=== PATIENT | female | born 1950 | race Caucasian/White ===

== ENCOUNTER 2019-07-26 16:28 | Inpatient (IN) | payer OTHER ==
--- NOTE | 2019-07-26 16:44 | PDOC ---
Rapid Medical Evaluation Chief Complaint: Weakness Time Seen by Provider: 07/26/19 16:42 Medical Evaluation: Allergies Allergy/AdvReac Type Severity Reaction Status Date / Time No Known Allergies Allergy Verified 07/26/19 16:40 Vital Signs Temp Pulse Resp BP Pulse Ox 98.1 F 73 19 150/52 L 100 07/26/19 16:37 07/26/19 16:37 07/26/19 16:37 07/26/19 16:37 07/26/19 16:37 07/26/19 16:42 Pt c/o: gen weakness, sent by pcp for low h/h, hx anemia, no rectal bleeding, no sob Pt on brief exam: pale, ambulatory, vss Pt ordered for: labs, ekg Pt to proceed to the ED Discharge Disposition - Diagnosis Weakness, Dyspnea, Symptomatic anemia - Discharge Dispostion Condition at time of disposition: Fair - Referrals - Patient Instructions - Post Discharge Activity
[2019-07-26 18:30] LABS: BASO % 0.9 % (0-2.0); EOS % 9.5 % (0-4.5); HEMATOCRIT 20.6 % (32.4-45.2); HEMOGLOBIN 7.2 GM/dL (10.7-15.3); LYMPH % 20.5 % (8-40); MCH 31.3 pg (25.7-33.7); MCHC 34.7 g/dl (32.0-36.0); MEAN CELL VOLUME 90.2 fl (80-96); MEAN PLT VOLUME 7.3 fl (7.5-11.1); MONO % 7.9 % (3.8-10.2); NEUT % 61.2 % (42.8-82.8); PLATELET COUNT 164 K/MM3 (134-434); RBC 2.28 M/mm3 (3.60-5.2); RDW 13.1 % (11.6-15.6); WHITE BLOOD COUNT 4.2 K/mm3 (4.0-10.0)
--- NOTE | 2019-07-26 18:46 | PDOC ---
History of Present Illness - General Chief Complaint: Weakness Stated Complaint: ANEMIA Time Seen by Provider: 07/26/19 16:42 History Source: Patient, Family Exam Limitations: No Limitations - History of Present Illness Initial Comments: 07/26/19 18:48 69 yo F PMH of HTN, DM, anemia presented to ED from PMD ( Dr. Deangelo aNssar) for anemia and SOB. Pt states that for 4 months pt has been having SOB and associated pleuritic CP. Pt states that the symptoms acutely worsened last night. She states that the pain is worse when she takes a deep breath. it is b/ l pain. she notes its also positional. pt endorses orthopnea and dyspnea on exertion. Pt was admitted 3-4 weeks ago at [facility] for similar symptoms. Pt also endorses a headache and a non-productive cough 07/26/19 18:51 Is this a multiple visit Asthma Patient?: No Past History - Past Medical History Allergies/Adverse Reactions: Allergies Allergy/AdvReac Type Severity Reaction Status Date / Time No Known Allergies Allergy Verified 07/26/19 16:40 Home Medications: Ambulatory Orders Amlodipine Besylate 10 mg PO DAILY 07/26/19 Aspirin [Aquilino Chewable] 81 mg PO DAILY 07/26/19 Ferrous Sulfate 325 mg PO DAILY 07/26/19 Furosemide 40 mg PO DAILY 07/26/19 Isosorbide Mononitrate [Imdur -] 30 mg PO DAILY 07/26/19 Telmisartan/Hydrochlorothiazid [Micardis Hct 80-12.5 mg Tablet] 1 each PO hydrALAZINE HCL [Apresoline -] 50 mg PO TID 07/26/19 COPD: No Diabetes: Yes HTN: Yes - Surgical History Abdominal Surgery: Yes (HERNIA) Cholecystectomy: Yes - Psycho Social/Smoking Cessation Hx Smoking History: Never smoked Information on smoking cessation initiated: No Hx Alcohol Use: No Drug/Substance Use Hx: No Review of Systems - Review of Systems Constitutional: Yes: Chills Respiratory: Yes: Cough, Orthopnea, Shortness of Breath, SOB with Exertion. No : Productive cough Cardiac (ROS): Yes: Chest Pain, Edema, Chest Tightness *Physical Exam - Vital Signs Last Vital Signs Temp Pulse Resp BP Pulse Ox 98.1 F 73 19 150/52 L 100 07/26/19 16:37 07/26/19 16:37 07/26/19 16:37 07/26/19 16:37 07/26/19 16:37 - Physical Exam General Appearance: Yes: Nourished, Appropriately Dressed Respiratory/Chest: positive: Lungs Clear, Normal Breath Sounds. negative: Accessory Muscle Use, Rapid RR Cardiovascular: positive: Regular Rhythm, Regular Rate, S1, S2, Edema, JVD Gastrointestinal/Abdominal: positive: Normal Bowel Sounds, Tender (RLQ), Soft. negative: Distended Rectal Exam: positive: normal exam (Non-melanotic stool in vault, good sphincter tone, no external hemorrhoids visualized, no internal hemorrhoids palpated, no active bleeding noted, no blood on tip of glove) Extremity: positive: Swelling, Erythema (LLE) ED Treatment Course - LABORATORY CBC & Chemistry Diagram: 07/27/19 06:15 07/27/19 06:15 - ADDITIONAL ORDERS Additional order review: 07/26/19 18:09 RBC 2.28 L MCV 90.2 MCHC 34.7 RDW 13.1 MPV 7.3 L Neutrophils % 61.2 Lymphocytes % 20.5 Monocytes % 7.9 Eosinophils % 9.5 H Basophils % 0.9 Medical Decision Making - Medical Decision Making 07/26/19 18:47 69 yo F PMH HTN, DM, Anemia presented to the ED from her PMD for anemia and SOB. -EKG: NSR , no acute ST changed -CXR -CBC: Hgb 7.2, will transfuse 2 upRBC. consent signed. continue to monitor H/H. -CMP -cardiac profile pending -TSH pending 07/26/19 19:29 labs show increased Cr. BRADY vs CKD, further history needed. -awaiting UA 07/26/19 19:48 -on review of pts home meds, she takes many HF meds. pt states she had an Echo at [facility] and was supposed to have a cardiology appt but never went. pt is unaware of any cardiac problems. 07/26/19 19:49 Discharge - Discharge Information Problems reviewed: Yes Clinical Impression/Diagnosis: Weakness, Dyspnea, Symptomatic anemia Condition: Fair - Follow up/Referral - Patient Discharge Instructions - Post Discharge Activity
[2019-07-26 18:59] LABS: ALBUMIN 2.7 g/dl (3.4-5.0); ALK PHOS 90 U/L (45-117); ANION GAP 8 MMOL/L (8-16); BILIRUBIN,TOTAL 0.3 mg/dL (0.2-1); BLOOD UREA NITROGEN 45.4 mg/dL (7-18); CALCIUM 7.9 mg/dL (8.5-10.1); CHLORIDE 102 mmol/L (98-107); CO2 24 mmol/L (21-32); CREATININE 2.1 mg/dL (0.55-1.3); GLUCOSE,RANDOM 271 mg/dL (74-106); POTASSIUM 4.4 mmol/L (3.5-5.1); SGOT/AST 15 U/L (15-37); SGPT/ALT 16 U/L (13-61); SODIUM 134 mmol/L (136-145); TOT PROT 5.7 g/dl (6.4-8.2)
--- NOTE | 2019-07-26 19:03 | PDOC ---
Documentation entered by iGo Morales SCRIBE, acting as scribe for Erin Quinones DO. Erin Quinones DO: This documentation has been prepared by the Andrew marinelli Daniel, SCRIBE, under my direction and personally reviewed by me in its entirety. I confirm that the documentation accurately reflects all work, treatment, procedures, and medical decision making performed by me. Attending Attestation - Resident Resident Name: Nellie Garcia - ED Attending Attestation I have performed the following: I have examined & evaluated the patient, The case was reviewed & discussed with the resident, I agree w/resident's findings & plan, Exceptions are as noted - HPI HPI: 07/26/19 18:39 The patient is a 69 year old female with a past medical history of HTN, diabetes , and anemia here today for evaluation of shortness of breath and chest pain. The patient reports that her chest pain and shortness of breath began 4 months ago while she was in [place] (came to the [facility] in May). She states that her chest pain is worse with deep breaths and is somewhat poitional. She states that she was admitted at [facility] recently for the same symptoms. Patient also reports that her PCP told her to come in for a blood transfusion after blood work yesterday. Patient denies headache, lightheadedness. Denies fever, chills. Denies nausea, vomiting, diarrhea, abdominal pain. Last BM: 4 PM Allergies: NKA PCP: Deangelo Nassar - Physicial Exam PE: 07/26/19 18:50 Constitutional: Awake, alert, oriented. No acute distress. Head: Normocephalic. Atraumatic Eyes: PERRL. EOMI. Conjunctivae are very pale. ENT: Mucous membranes are pale and intact. Posterior pharynx without exudates or erythema. Uvula midline. Neck: Supple. Full ROM. No lymphadenopathy. Cardiovascular: Regular rate. Regular rhythm. S1, S2 regular. Distal pulses are 2+ and symmetric. Pulmonary/Chest: No evidence of respiratory distress. Clear to auscultation bilaterally No wheezing, rales or rhonchi. Abdominal: +right upper quadrant tenderness s/p cholecystectomy. Soft and non- distended. No rebound, guarding or rigidity. No organomegaly. No palpable masses. Good bowel sounds. Back: No CVA tenderness. Musculoskeletal: No edema. No cyanosis. No clubbing. Full range of motion in all extremities. No calf tenderness. Radial/pedal pulses are intact and 2+ bilaterally Skin: Skin is warm and dry. No petechiae. No purpura. Neurological: Alert and oriented to person, place, and time. Cranial nerves II -XII are grossly intact. Normal speech. Strength is grossly symmetric. No sensory deficits. Psychiatric: Good eye contact. Normal interaction, affect and behavior. - Medical Decision Making 07/26/19 18:59 I, Dr. Erin Quinones, DO, attest that this document has been prepared under my direction and personally reviewed by me in its entirety. I further attest, that it accurately reflects all work, treatment, procedures and medical decision -making performed by me. a/p: 69yo female from [place] with sob x a few days -worsening over 4 m -sent by PMD for low h/h -pt denies cp/sob at this time -denies abd pain -no n/v/d -denies vomiting blood or black stools -denies blood in stool -no prior colonoscopy -denies hematuria -will repeat labs, ekg, stool for heme -will most likely need a blood transfusion 07/26/19 19:03 hgb 7.2 given cardiac hx based on med list will need transfusion to hgb 9 pt with cr 2 - unclear if new zoila or ckd -will nee admission 07/26/19 19:[address] Dior - accepts pt to service for blood transfusion and symptomatic anemia Discharge - Discharge Information Problems reviewed: Yes Clinical Impression/Diagnosis: Weakness, Dyspnea, Symptomatic anemia Condition: Fair - Admission Yes - Follow up/Referral - Patient Discharge Instructions - Post Discharge Activity Heart Score/ECG Review - ECG Intrepretation Comment:: 07/26/19 19:09 sinus at 75, nl axis, nl interval, no acute st/t wave findings
[2019-07-26 20:01] LABS: MAGNESIUM 2.8 mg/dL (1.8-2.4); N-TERMINAL BNP 3323.7 pg/ml (5-125)
[2019-07-26 21:15] LABS: INR 0.99 (0.83-1.09); PROTHROMBIN TIME (PATIENT) 11.7 SEC (9.7-13.0)
[2019-07-26 21:18] LABS: ACTIVATED PTT 35.7 SECONDS (25.2-36.5)
[2019-07-27] MEDS: hydrALAZINE HCL 50 MG TABLET (FP) PO SCH ×2 (05:31→14:44)
[2019-07-27] MEDS: amLODIPine BESYLATE 10 MG TABLET (FP) PO SCH (06:12)
[2019-07-27] MEDS: FUROSEMIDE 40 MG/4 ML INJECTABLE VIAL IVPUSH SCH (06:12)
[2019-07-27 08:07] LABS: BASO % 0.7 % (0-2.0); EOS % 9.9 % (0-4.5); HEMATOCRIT 26.8 % (32.4-45.2); HEMOGLOBIN 9.5 GM/dL (10.7-15.3); LYMPH % 23.5 % (8-40); MCH 31.7 pg (25.7-33.7); MCHC 35.5 g/dl (32.0-36.0); MEAN CELL VOLUME 89.4 fl (80-96); MEAN PLT VOLUME 7.3 fl (7.5-11.1); MONO % 7.2 % (3.8-10.2); NEUT % 58.7 % (42.8-82.8); PLATELET COUNT 182 K/MM3 (134-434); RBC 2.99 M/mm3 (3.60-5.2); RDW 12.7 % (11.6-15.6); WHITE BLOOD COUNT 5.8 K/mm3 (4.0-10.0)
[2019-07-27 08:57] LABS: BILIRUBIN,TOTAL 1.6 mg/dL (0.2-1); BLOOD UREA NITROGEN 36.1 mg/dL (7-18); CALCIUM 8.7 mg/dL (8.5-10.1); CREATININE 1.7 mg/dL (0.55-1.3); POTASSIUM 4.1 mmol/L (3.5-5.1); TOT PROT 6.2 g/dl (6.4-8.2)
[2019-07-27] MEDS ORDERED: FUROSEMIDE 40 MG/4 ML INJECTABLE VIAL IVPUSH SCH (10:00)
[2019-07-27] MEDS ORDERED: amLODIPine BESYLATE 10 MG TABLET (FP) PO SCH (10:00)
[2019-07-27] MEDS ORDERED: PATIENT'S OWN MEDICATION (NON-FORMULARY) (Ferrous Sulfate [Ferrous Sulfate] 325 MG) PO SCH (10:00)
[2019-07-27] MEDS: HEPARIN NA (PORCINE) 5,000 UNITS/ML 1ML VIAL SQ SCH ×2 (11:13→21:32)
[2019-07-27] MEDS: ASPIRIN 81 MG CHEWABLE TABLETS PO SCH (11:14)
[2019-07-27] MEDS: ISOSORBIDE MONONITRATE 30 MG TAB.SR.24H (FP) PO SCH (11:14)
[2019-07-27] MEDS: FERROUS SO4 325 MG TABLET (FP) PO SCH (11:14)
[2019-07-27 12:27] LABS: EPI CELLS 0.5 /HPF (0-5/HPF); HYALINE CASTS 2 /lpf (0-8); PH,URINE 5.5 (5.0-8.0); URINE APPEARANCE CLEAR; URINE BACTERIA 0.8 /hpf (NEGATIVE); URINE BILIRUBIN NEGATIVE (NEGATIVE); URINE COLOR YELLOW; URINE GLUCOSE (UA) NEGATIVE (NEGATIVE); URINE KETONE NEGATIVE (NEGATIVE); URINE LEUK ESTERASE NEGATIVE (NEGATIVE); URINE NITRITE NEGATIVE (NEGATIVE); URINE PROTEIN 2+ (NEGATIVE); URINE RBC 3 /hpf (0-4); URINE UROBILINOGEN 0.2 mg/dL (0.2-1.0); URINE WBC 1 /hpf (0-5)
--- NOTE | 2019-07-27 13:35 | EKG ---
Test Reason : Blood Pressure : / mmHG Vent. Rate : 075 BPM Atrial Rate : 075 BPM P-R Int : 158 ms QRS Dur : 080 ms QT Int : 406 ms P-R-T Axes : 040 -03 036 degrees QTc Int : 453 ms NORMAL SINUS RHYTHM NORMAL ECG NO PREVIOUS ECGS AVAILABLE Confirmed by KERRI RIBERA MD ([id number]) on 07/27/2019 1:35:03 PM Referred By: Confirmed By:KERRI RIBERA MD
--- NOTE | 2019-07-27 14:04 | ECHO ---
Name: SOPHIE THOMSONBRITTNEY FELIXIA Exam:Adult Echocardiogram Study Date: 07/27/2019 08:37 AM Age: 69 yrs Reason For Study: CHF Height: 59 in Weight: 123 lb BSA: 1.5 m2 MMode/2D Measurements & Calculations IVSd: 0.97 cm Ao root diam: 2.2 cm LVIDd: 4.2 cm LA dimension: 3.8 cm LVIDs: 2.9 cm LVPWd: 1.1 cm LVPWs: 1.5 cm EDV(Teich): 80.1 ml ESV(Teich): 31.0 ml LVOT diam: 1.6 cm LAV (MOD-bp): 50.0 ml Doppler Measurements & Calculations MV E max derrick: 120.6 cm/sec Ao V2 max: 136.3 cm/sec MV A max derrick: 129.4 cm/sec Ao max P.8 mmHg MV E/A: 0.93 MV dec time: 0.14 sec MANUEL(V,D): 1.5 cm2 LV V1 max P.5 mmHg MR max derrick: 474.9 cm/sec LV V1 max: 106.4 cm/sec MR max P.6 mmHg PA V2 max: 148.0 cm/sec Med Peak E' Derrick: 4.9 cm/sec PA max P.8 mmHg Med E/e': 24.4 Lat Peak E' Derrick: 7.3 cm/sec Lat E/e': 16.4 Procedure A complete two-dimensional transthoracic echocardiogram was performed (2D, M-mode, Doppler and color flow Doppler). Left Ventricle The left ventricular size, thickness and function are normal. The left ventricular ejection fraction is normal. Ejection Fraction = 60-65%. The left ventricular wall motion is normal. Right Ventricle The right ventricle is normal in size and function. Atria Normal left and right atrial size and function. Mitral Valve There is mild mitral regurgitation. Tricuspid Valve No tricuspid regurgitation. There was insufficient TR detected to calculate RV systolic pressure. Aortic Valve No hemodynamically significant valvular aortic stenosis. No aortic regurgitation is present. Pulmonic Valve There is no pulmonic valvular regurgitation. Great Vessels The aortic root is normal size. Pericardium/Pleura Trivial pericardial effusion not hemodynamically significant. Interpretation Summary The left ventricular size, thickness and function are normal The right ventricle is normal in size and function. There is mild mitral regurgitation. Trivial pericardial effusion not hemodynamically significant MD Edwin Man 07/27/2019 02:03 PM
--- NOTE | 2019-07-27 14:25 | CONSULT ---
Consult Consult Specialty:: Nephrology Reason for Consultation:: BRADY - History of Present Illness Chief Complaint: shortness of breath History of Present Illness: Pt is a 69 year old female who presents with shortness of breath. She has history of HTN DM and anemia. She denies history of CKD. I was called to evaluate her for elevated creatinine. She says she has htn that is difficult to control. She is on 5 agents for bp. She does get shortness of breath at times however denies lower ext edema. She denies fevers or chills. She denies nsaid use. She denies hematuria or dysuria. - History Source History Provided By: Patient - Past Medical History Cardio/Vascular: Yes: HTN ...: No Heme/Onc: Yes: Anemia Endocrine: Yes: Diabetes Mellitus - Alcohol/Substance Use Hx Alcohol Use: No - Smoking History Smoking history: Never smoked Home Medications - Allergies Allergies/Adverse Reactions: Allergies Allergy/AdvReac Type Severity Reaction Status Date / Time No Known Allergies Allergy Verified 07/26/19 16:40 - Home Medications Home Medications: Ambulatory Orders Amlodipine Besylate 10 mg PO DAILY 07/26/19 Aspirin [Aquilino Chewable] 81 mg PO DAILY 07/26/19 Ferrous Sulfate 325 mg PO DAILY 07/26/19 Furosemide 40 mg PO DAILY 07/26/19 Isosorbide Mononitrate [Imdur -] 30 mg PO DAILY 07/26/19 Telmisartan/Hydrochlorothiazid [Micardis Hct 80-12.5 mg Tablet] 1 each PO hydrALAZINE HCL [Apresoline -] 50 mg PO TID 07/26/19 Family Medical History Family History: Denies Review of Systems - Review of Systems Constitutional: reports: Malaise Eyes: reports: No Symptoms HENT: reports: No Symptoms Neck: reports: No Symptoms Cardiovascular: reports: Chest Pain Respiratory: reports: SOB, SOB on Exertion Genitourinary: reports: No Symptoms Musculoskeletal: reports: No Symptoms Integumentary: reports: No Symptoms Neurological: reports: No Symptoms Endocrine: reports: No Symptoms Hematology/Lymphatic: reports: No Symptoms Psychiatric: reports: No Symptoms Physical Exam Vital Signs: Vital Signs Temperature 97.8 F 07/27/19 05:23 Pulse Rate 87 07/27/19 06:56 Respiratory Rate 18 07/27/19 05:23 Blood Pressure 182/79 H 07/27/19 06:56 O2 Sat by Pulse Oximetry (%) 96 07/27/19 05:58 Constitutional: Yes: Calm Eyes: Yes: Conjunctiva Clear HENT: Yes: Atraumatic Neck: Yes: Supple Cardiovascular: Yes: S1, S2 Respiratory: Yes: CTA Bilaterally Gastrointestinal: Yes: Normal Bowel Sounds, Soft Renal/: Yes: WNL Musculoskeletal: Yes: WNL Edema: No Neurological: Yes: Oriented Psychiatric: Yes: Oriented Labs: CBC, BMP 07/27/19 06:15 07/27/19 06:15 Selected Entries 07/27/19 07/27/19 06:56 14:00 Blood Pressure 182/79 H 151/71 Laboratory Tests 07/26/19 07/26/19 07/27/19 18:09 18:09 06:15 Hgb 7.2 L 9.5 L Sodium Creatinine 2.1 H B-Natriuretic Peptide 3323.7 H Urine Protein 07/27/19 07/27/19 06:15 11:30 Hgb Sodium 138 Creatinine 1.7 H B-Natriuretic Peptide Urine Protein 2+ H Imaging - Results Chest X-ray: Report Reviewed Ultrasound: Report Reviewed Assessment/Plan Current Medications Generic Name Dose Route Start Last Admin Trade Name Freq PRN Reason Stop Dose Admin Amlodipine Besylate 10 mg 07/27/19 06:00 07/27/19 06:12 Norvasc - PO 10 mg DAILY ECHO Administration Aspirin 81 mg 07/27/19 10:00 07/27/19 11:14 Asa - PO 81 mg DAILY ECHO Administration Ferrous Sulfate 325 mg 07/27/19 10:00 07/27/19 11:14 Feosol - PO 325 mg DAILY ECHO Administration Furosemide 40 mg 07/27/19 06:00 07/27/19 06:12 Lasix Injection - IVPUSH 40 mg DAILY ECHO Administration Heparin Sodium (Porcine) 5,000 unit 07/27/19 10:00 07/27/19 11:13 Heparin - SQ 5,000 unit BID ECHO Administration Hydralazine HCl 50 mg 07/27/19 06:00 07/27/19 05:31 Apresoline - PO 50 mg TID ECHO Administration Isosorbide Mononitrate 30 mg 07/27/19 10:00 07/27/19 11:14 Imdur - PO 30 mg DAILY ECHO Administration Impression 1. BRADY 2. HTN 3. DM 4. bilateral hydro 5. 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
--- NOTE | 2019-07-27 16:51 | CON.CARD ---
Consult Consult Specialty:: cardiology Reason for Consultation:: shortness of breath - History of Present Illness Chief Complaint: Pt alert; feels weak; easily short of breath; heaviness in legs. History of Present Illness: The patient is a 69 year old female (b. [place]) with a past medical history of HTN, diabetes, and anemia here today for evaluation of shortness of breath and chest pain. The patient reports that her chest pain and shortness of breath began 4 months ago while she was in [place] (came to the [facility] in May). She states that her chest pain is worse with deep breaths and is somewhat positional. She states that she was admitted at [facility] recently for the same symptoms. Patient also reports that her PCP told her to come in for a blood transfusion after blood work yesterday. - History Source History Provided By: Patient, Family Member, Medical Record Limitations to Obtaining History: No Limitations - Past Medical History Cardio/Vascular: Yes: CHF (diastolic ), HTN Pulmonary: No: Asthma Reproductive: Yes: Postmenopausal ...: No Heme/Onc: Yes: Anemia Psych: Yes: Anxiety - Alcohol/Substance Use Hx Alcohol Use: No - Smoking History Smoking history: Never smoked Home Medications - Allergies Allergies/Adverse Reactions: Allergies Allergy/AdvReac Type Severity Reaction Status Date / Time No Known Allergies Allergy Verified 08/09/19 21:27 - Home Medications Home Medications: Ambulatory Orders Aspirin [Aquilino Chewable Aspirin] 81 mg PO DAILY 07/26/19 Isosorbide Mononitrate [Imdur -] 30 mg PO DAILY 07/26/19 Amlodipine Besylate [Norvasc -] 10 mg PO DAILY tablet 08/07/19 Docusate Sodium [Colace -] 100 mg PO TID #90 capsule 08/07/19 Ferrous Sulfate [Feosol] 325 mg PO DAILY #30 ud 08/07/19 Furosemide [Lasix -] 40 mg PO DAILY #30 tablet 08/07/19 Metoprolol Tartrate [Lopressor -] 25 mg PO BID #60 tablet 08/07/19 Pantoprazole Sodium [Protonix -] 20 mg PO DAILY #30 tablet.ec 08/07/19 Valsartan [Diovan] 40 mg PO DAILY #30 tablet 08/07/19 hydrALAZINE HCL [Apresoline -] 75 mg PO TID #90 tablet 11/04/19 Family Medical History Family History: Denies Review of Systems - Review of Systems Constitutional: reports: Weakness Eyes: reports: No Symptoms HENT: reports: No Symptoms Neck: reports: No Symptoms Cardiovascular: reports: Chest Pain (atypical), Edema, Shortness of Breath Respiratory: reports: Exercise Intolerance, SOB on Exertion Gastrointestinal: reports: No Symptoms Genitourinary: reports: No Symptoms Breasts: reports: No Symptoms Reported Musculoskeletal: reports: Muscle Weakness Integumentary: reports: No Symptoms Neurological: reports: Weakness Endocrine: reports: No Symptoms Psychiatric: reports: Anxiety - Risk Factors Known Risk Factors: Yes: Age, Hypertension, Physical Inactivity Vital Signs: Vital Signs Temperature 98.6 F 07/27/19 14:00 Pulse Rate 72 07/27/19 14:00 Respiratory Rate 18 07/27/19 14:00 Blood Pressure 151/71 07/27/19 14:00 O2 Sat by Pulse Oximetry (%) 96 07/27/19 05:58 Constitutional: Yes: Anxious Eyes: Yes: WNL HENT: Yes: WNL Neck: Yes: WNL Respiratory: Yes: WNL Gastrointestinal: Yes: WNL Renal/: No: Anuria Cardiovascular: Yes: Regular Rate and Rhythm JVD: No Carotid Bruit: No PMI: Non-Displaced Heart Sounds: Yes: S1, S2 Murmur: Yes: Systolic Murmur, Grade 1 Extremities: Yes: WNL Edema: No Peripheral Pulses WNL: Yes Integumentary: Yes: WNL Neurological: Yes: Alert, Oriented, Weakness Psychiatric: Yes: Other (anxiety) - Other Data Labs, Other Data: CBC, BMP 07/27/19 06:15 07/27/19 06:15 INR, PTT INR 0.99 (0.83-1.09) 07/26/19 20:43 Troponin, BNP 07/26/19 07/27/19 07/27/19 18:09 04:40 13:25 Troponin I < 0.02 < 0.02 < 0.02 B-Natriuretic Peptide 3323.7 H Troponin, BNP 07/26/19 07/27/19 07/27/19 18:09 04:40 13:25 Troponin I < 0.02 < 0.02 < 0.02 B-Natriuretic Peptide 3323.7 H Echo: Report Reviewed (normal LVEF; mild MR) Imaging - Results Chest X-ray: Image Reviewed EKG: Image Reviewed (NSR; normal study) Problem List - Problems (1) Dyspnea Code(s): R06.00 - DYSPNEA, UNSPECIFIED (2) Symptomatic anemia Assessment/Plan: f/u with band top maker. Code(s): D64.9 - ANEMIA, UNSPECIFIED (3) Weakness Code(s): R53.1 - WEAKNESS (4) Uncontrolled hypertension Assessment/Plan: On amlodipine 10 mg daily. Increase hydralazine to 75 mg q8h (can increase to maximum 100 mg q8h, i.e. 300 mg total daily) + Imdur 30 mg daily. On furosemide 40 mg bid IVP (f/u closely with clinical laboratory technician; would try to decrease dose as CHF improves, given BUN/Cr abnormalities). Start metoprolol tartrate 25 mg bid. TNI < 0.02 x 2. Code(s): I10 - ESSENTIAL (PRIMARY) HYPERTENSION (5) Acute on chronic diastolic (congestive) heart failure Assessment/Plan: On multiple medications for HTN, CHF. TNI < 0.02 x 3 EKG : NSR; no acute changes ECHO: normal LVEF F/u BUN/Cr, electrolytes, Is and Os, daily weight. Stress MIBI when stable. Code(s): I50.33 - ACUTE ON CHRONIC DIASTOLIC (CONGESTIVE) HEART FAILURE (6) Atypical chest pain Assessment/Plan: Cjhest pain with cough. TNI < 0.02 x 2 EKG: normal study ECHO: normal LVEF; mild MR. Code(s): R07.89 - OTHER CHEST PAIN
[2019-07-27] MEDS ORDERED: hydrALAZINE HCL 50 MG TABLET (FP) PO SCH (17:16)
[2019-07-27] MEDS ORDERED: METOPROLOL TARTRATE 25 MG TABLET (FP) PO SCH (17:30)
[2019-07-27] MEDS: METOPROLOL TARTRATE 25 MG TABLET (FP) PO SCH ×2 (17:54→21:33)
--- NOTE | 2019-07-27 18:42 | CONSULT ---
Consult Consult Specialty:: Hematology and Oncology Reason for Consultation:: Anemia - History of Present Illness History of Present Illness: The patien is a 69 yo F w/ PMH of HTN, DM, anemia who was sent to the ED by her PMD ( Dr. Deangelo Nassar) for anemia and SOB. Pt states that for 4 months pt has been having SOB and associated pleuritic CP. She was recently admitted to [facility] for SOB and was discharged with nebulisers. Neither the patient nor her family could remember her diagnosis. The patient had routine blood work and was told to go to the ER and get a blood transfusion. She was found to have a Hb of 7.2 in the ED. She was transfused 1u PRBC with a repeat Hb 9.5. On interview, the patient has no new complaints. She states that her breathing is improved. She states that she was diagnosed with anemia in [place] and given iron intravenously as well as by mouth. The patient denies personal history of cancer or family history of cancer or blood disorders. The patient never smoked. - History Source History Provided By: Patient, Family Member, Medical Record Limitations to Obtaining History: Language Barrier - Past Medical History Cardio/Vascular: Yes: HTN ...: No Endocrine: Yes: Diabetes Mellitus - Alcohol/Substance Use Hx Alcohol Use: No - Smoking History Smoking history: Never smoked Home Medications - Allergies Allergies/Adverse Reactions: Allergies Allergy/AdvReac Type Severity Reaction Status Date / Time No Known Allergies Allergy Verified 07/26/19 16:40 - Home Medications Home Medications: Ambulatory Orders Amlodipine Besylate 10 mg PO DAILY 07/26/19 Aspirin [Aquilino Chewable] 81 mg PO DAILY 07/26/19 Ferrous Sulfate 325 mg PO DAILY 07/26/19 Furosemide 40 mg PO DAILY 07/26/19 Isosorbide Mononitrate [Imdur -] 30 mg PO DAILY 07/26/19 Telmisartan/Hydrochlorothiazid [Micardis Hct 80-12.5 mg Tablet] 1 each PO hydrALAZINE HCL [Apresoline -] 50 mg PO TID 07/26/19 Review of Systems - Review of Systems Constitutional: reports: No Symptoms Cardiovascular: reports: Shortness of Breath. denies: Chest Pain, Palpitations Respiratory: reports: SOB. denies: Cough, Wheezing Gastrointestinal: denies: Abdominal Pain, Diarrhea, Dysphagia, Melena, Vomiting Blood Neurological: reports: No Symptoms Hematology/Lymphatic: denies: Easily Bruised, Excessive Bleeding, Swollen Glands Physical Exam Vital Signs: Vital Signs Temperature 98.6 F 07/27/19 14:00 Pulse Rate 76 07/27/19 17:14 Respiratory Rate 20 07/27/19 17:14 Blood Pressure 149/74 07/27/19 17:14 O2 Sat by Pulse Oximetry (%) 98 07/27/19 09:00 Constitutional: Yes: Well Nourished, No Distress, Calm HENT: Yes: Atraumatic, Normocephalic Cardiovascular: Yes: Regular Rate and Rhythm, S1, S2. No: Gallop, Murmur, Rub Respiratory: Yes: Regular, CTA Bilaterally Gastrointestinal: Yes: Normal Bowel Sounds, Soft. No: Tenderness Edema: No Neurological: Yes: Alert, Oriented, Cran Nerves II-XII Intact Psychiatric: Yes: Alert, Oriented Labs: CBC, BMP 07/27/19 06:15 07/27/19 06:15 Assessment/Plan The patient is a 69 yo F w/ PMH of HTN, DM, anemia who was sent to the ED by her PMD ( Dr. Deangelo Nassar) for anemia and SOB. She was found to have an Hb 7.2 and was transfused 1u PRBC #normocytic anemia 2/2 iron deficiency r/o occult blood loss. -patient never had a colonoscopy -patient denies BRBPR or melena -initial FOBT negative -ordered serial FOBT -ordered iron studies, B12, folate, reticulocytes -patient will benefit from GI evaluation for occult blood loss. -monitor cbc daily -transfuse to maintain Hb >7
--- NOTE | 2019-07-27 20:03 | HP ---
Admitting History and Physical - Admission History of Present Illness: The patient is a 69 year old female with a past medical history of HTN, diabetes , and anemia here today for evaluation of shortness of breath and chest pain. The patient reports that her chest pain and shortness of breath began 4 months ago while she was in [place] (came to the [facility] in May). She states that her chest pain is worse with deep breaths and is somewhat positional. She states that she was admitted at [facility] recently for the same symptoms. Patient also reports that her PCP told her to come in for a blood transfusion after blood work yesterday. - Past Medical History Cardiovascular: Yes: HTN ...: No Heme/Onc: Yes: Anemia Endocrine: Yes: Diabetes Mellitus - Smoking History Smoking history: Never smoked - Alcohol/Substance Use Hx Alcohol Use: No Home Medications - Allergies Allergies/Adverse Reactions: Allergies Allergy/AdvReac Type Severity Reaction Status Date / Time No Known Allergies Allergy Verified 07/26/19 16:40 - Home Medications Home Medications: Ambulatory Orders Amlodipine Besylate 10 mg PO DAILY 07/26/19 Aspirin [Aquilino Chewable] 81 mg PO DAILY 07/26/19 Ferrous Sulfate 325 mg PO DAILY 07/26/19 Furosemide 40 mg PO DAILY 07/26/19 Isosorbide Mononitrate [Imdur -] 30 mg PO DAILY 07/26/19 Telmisartan/Hydrochlorothiazid [Micardis Hct 80-12.5 mg Tablet] 1 each PO hydrALAZINE HCL [Apresoline -] 50 mg PO TID 07/26/19 Family Medical History Family History: Unremarkable Review of Systems - Review of Systems Constitutional: reports: No Symptoms Eyes: reports: No Symptoms HENT: reports: No Symptoms Neck: reports: No Symptoms Cardiovascular: reports: Chest Pain, Shortness of Breath Respiratory: reports: SOB Gastrointestinal: reports: No Symptoms Genitourinary: reports: No Symptoms Physical Examination Vital Signs: Vital Signs Temperature 98.6 F 07/27/19 14:00 Pulse Rate 76 07/27/19 17:14 Respiratory Rate 20 07/27/19 17:14 Blood Pressure 149/74 07/27/19 17:14 O2 Sat by Pulse Oximetry (%) 98 07/27/19 09:00 Constitutional: Yes: No Distress Eyes: Yes: WNL HENT: Yes: WNL Neck: Yes: WNL, Supple Cardiovascular: Yes: WNL, Regular Rate and Rhythm Respiratory: Yes: WNL, Regular, CTA Bilaterally Gastrointestinal: Yes: WNL, Normal Bowel Sounds, Soft Musculoskeletal: Yes: WNL Extremities: Yes: WNL Edema: No Neurological: Yes: WNL, Alert, Oriented ...Motor Strength: WNL Labs: CBC, BMP 07/27/19 06:15 07/27/19 06:15 Problem List - Problems (1) Symptomatic anemia Assessment/Plan: Transfused 1 unit PRBC's Monitor H/H Heme consult Code(s): D64.9 - ANEMIA, UNSPECIFIED (2) Acute on chronic diastolic (congestive) heart failure Assessment/Plan: Cont IV lasix As per cardio Serial cpk/troponin Check echo Code(s): I50.33 - ACUTE ON CHRONIC DIASTOLIC (CONGESTIVE) HEART FAILURE (3) Dyspnea Assessment/Plan: Multifactorial CHF vs anemia However will check ct scan chest Code(s): R06.00 - DYSPNEA, UNSPECIFIED (4) ARF (acute renal failure) Assessment/Plan: Renal consult Check renal US Code(s): N17.9 - ACUTE KIDNEY FAILURE, UNSPECIFIED
[2019-07-27] MEDS ORDERED: hydrALAZINE HCL 50 MG TABLET (FP) ONE (21:18)
[2019-07-27] MEDS ORDERED: hydrALAZINE HCL 25 MG TABLET (FP) ONE (21:18)
[2019-07-28] MEDS ORDERED: hydrALAZINE HCL 25 MG TABLET (FP) ONE ×3 (05:57→20:51)
[2019-07-28] MEDS ORDERED: hydrALAZINE HCL 50 MG TABLET (FP) ONE ×3 (05:57→20:51)
--- NOTE | 2019-07-28 07:31 | PN ---
Teaching Attending Note Name of Resident: Bryson Healy ATTENDING PHYSICIAN STATEMENT I saw and evaluated the patient. I reviewed the resident's note and discussed the case with the resident. I agree with the resident's findings and plan as documented. ASSESSMENT AND PLAN: 69 yo F w/ PMH of HTN, DM, anemia who was sent to the ED by her PMD ( Dr. Deangelo Nassar) for anemia and SOB. She was found to have an Hb 7.2 and was transfused 1u PRBC #normocytic anemia 2/2? iron deficiency r/o occult blood loss + anemia of chronic disease ( CKD) ( mild b/l hysdro, with stafford in place now) Check iron studies/B12/folate Would recommend gi w/u Also would need imaging studies to r/o obstruction ( mild b/l hydro, occult malignancy---once cr improves and if contrast studies feasible. If not consider CT c/a/p noncontrast will follow
--- NOTE | 2019-07-28 08:19 | PN ---
Progress Note, Physician History of Present Illness: The patient is a 69 year old female (b. [place]) with a past medical history of HTN, diabetes, and anemia here today for evaluation of shortness of breath and chest pain. The patient reports that her chest pain and shortness of breath began 4 months ago while she was in [place] (came to the [facility] in May). She states that her chest pain is worse with deep breaths and is somewhat positional. She states that she was admitted at [facility] recently for the same symptoms. Patient also reports that her PCP told her to come in for a blood transfusion after blood work yesterday. - Current Medication List Current Medications: Active Medications Amlodipine Besylate (Norvasc -) 10 mg PO DAILY [facility] Last Admin: 07/27/19 06:12 Dose: 10 mg Aspirin (Asa -) 81 mg PO DAILY [facility] Last Admin: 07/27/19 11:14 Dose: 81 mg Ferrous Sulfate (Feosol -) 325 mg PO DAILY [facility] Last Admin: 07/27/19 11:14 Dose: 325 mg Furosemide (Lasix Injection -) 40 mg IVPUSH DAILY [facility] Last Admin: 07/27/19 06:12 Dose: 40 mg Heparin Sodium (Porcine) (Heparin -) 5,000 unit SQ BID [facility] Last Admin: 07/27/19 21:32 Dose: 5,000 unit Hydralazine HCl 50 mg/ (Hydralazine HCl 25 mg) 75 mg PO TID [facility] Last Admin: 07/28/19 06:13 Dose: 75 mg Isosorbide Mononitrate (Imdur -) 30 mg PO DAILY [facility] Last Admin: 07/27/19 11:14 Dose: 30 mg Metoprolol Tartrate (Lopressor -) 25 mg PO BID [facility] Last Admin: 07/27/19 21:33 Dose: 25 mg - Objective Vital Signs: Vital Signs Temperature 98.2 F 07/28/19 02:00 Pulse Rate 62 07/28/19 02:00 Respiratory Rate 20 07/28/19 02:00 Blood Pressure 143/64 07/28/19 02:00 O2 Sat by Pulse Oximetry (%) 100 07/27/19 21:00 Eyes: Yes: WNL, Conjunctiva Clear, EOM Intact HENT: Yes: WNL, Atraumatic, Normocephalic Neck: Yes: WNL, Supple, Trachea Midline Cardiovascular: Yes: WNL, Regular Rate and Rhythm Respiratory: Yes: WNL, Regular, CTA Bilaterally Gastrointestinal: Yes: WNL, Normal Bowel Sounds Genitourinary: Yes: WNL Musculoskeletal: Yes: WNL Extremities: Yes: WNL Edema: No Integumentary: Yes: WNL Neurological: Yes: WNL, Alert, Oriented ...Motor Strength: WNL Psychiatric: Yes: WNL Labs: CBC, BMP 07/27/19 06:15 07/27/19 06:15 INR, PTT INR 0.99 (0.83-1.09) 07/26/19 20:43 Assessment/Plan - Problems (1) Dyspnea Code(s): R06.00 - DYSPNEA, UNSPECIFIED (2) Symptomatic anemia Code(s): D64.9 - ANEMIA, UNSPECIFIED (3) Weakness Code(s): R53.1 - WEAKNESS (4) Uncontrolled hypertension Assessment/Plan: On amlodipine 10 mg daily. Increase hydralazine to 75 mg q8h (can increase to maximum 100 mg q8h, i.e. 300 mg total daily) + Imdur 30 mg daily. On furosemide 40 mg bid IVP (f/u closely with campus police officer; would try to decrased dose as CHF improves, given BUN/Cr abnormalities). Start metoprolol tartrate 25 mg bid. Code(s): I10 - ESSENTIAL (PRIMARY) HYPERTENSION (5) Acute on chronic diastolic (congestive) heart failure Code(s): I50.33 - ACUTE ON CHRONIC DIASTOLIC (CONGESTIVE) HEART FAILURE
[2019-07-28 08:36] LABS: BASO % 0.9 % (0-2.0); HEMATOCRIT 24.4 % (32.4-45.2); HEMOGLOBIN 8.4 GM/dL (10.7-15.3); LYMPH % 21.4 % (8-40); MCH 31.5 pg (25.7-33.7); MCHC 34.7 g/dl (32.0-36.0); MEAN CELL VOLUME 90.7 fl (80-96); MEAN PLT VOLUME 7.4 fl (7.5-11.1); MONO % 9.2 % (3.8-10.2); NEUT % 56.5 % (42.8-82.8); PLATELET COUNT 156 K/MM3 (134-434); RBC 2.68 M/mm3 (3.60-5.2); RETICULOCYTES 2.02 % (0.5-1.5); WHITE BLOOD COUNT 4.6 K/mm3 (4.0-10.0)
[2019-07-28 09:18] LABS: ALBUMIN 2.5 g/dl (3.4-5.0); ALK PHOS 80 U/L (45-117); ANION GAP 8 MMOL/L (8-16); BILIRUBIN,TOTAL 0.6 mg/dL (0.2-1); BLOOD UREA NITROGEN 54.6 mg/dL (7-18); CALCIUM 8.3 mg/dL (8.5-10.1); CHLORIDE 107 mmol/L (98-107); CHOLESTEROL 159 mg/dL (50-200); CO2 25 mmol/L (21-32); CREATININE 2.2 mg/dL (0.55-1.3); GLUCOSE,RANDOM 107 mg/dL (74-106); HDL CHOLESTEROL 72 mg/dL (40-60); LDL CHOLESTEROL (ONLY SJRH) 75 mg/dL (5-100); POTASSIUM 4.4 mmol/L (3.5-5.1); SGOT/AST 15 U/L (15-37); SGPT/ALT 15 U/L (13-61); SODIUM 139 mmol/L (136-145); TOT PROT 5.4 g/dl (6.4-8.2); TRIGLYCERIDES 82 mg/dL (0-150)
[2019-07-28 09:22] LABS: IRON SERUM 82 ug/dL (50-175); TOTAL IRON BINDING CAPACITY 217 ug/dL (250-450)
[2019-07-28] MEDS: FERROUS SO4 325 MG TABLET (FP) PO SCH (09:59)
[2019-07-28] MEDS: FUROSEMIDE 40 MG/4 ML INJECTABLE VIAL IVPUSH SCH (09:59)
[2019-07-28] MEDS: HEPARIN NA (PORCINE) 5,000 UNITS/ML 1ML VIAL SQ SCH ×2 (09:59→21:26)
[2019-07-28] MEDS: ISOSORBIDE MONONITRATE 30 MG TAB.SR.24H (FP) PO SCH (09:59)
[2019-07-28] MEDS: amLODIPine BESYLATE 10 MG TABLET (FP) PO SCH (09:59)
[2019-07-28] MEDS: METOPROLOL TARTRATE 25 MG TABLET (FP) PO SCH ×2 (09:59→21:26)
[2019-07-28] MEDS: ASPIRIN 81 MG CHEWABLE TABLETS PO SCH (09:59)
--- NOTE | 2019-07-28 12:33 | PN ---
Progress Note (short form) - Note Progress Note: UROLOGY NOTE. CONSULT DICTATED.
--- NOTE | 2019-07-28 13:22 | EKG ---
Test Reason : Blood Pressure : / mmHG Vent. Rate : 074 BPM Atrial Rate : 074 BPM P-R Int : 166 ms QRS Dur : 080 ms QT Int : 388 ms P-R-T Axes : 040 -11 027 degrees QTc Int : 430 ms NORMAL SINUS RHYTHM NORMAL ECG WHEN COMPARED WITH ECG OF 26-JUL-2019 16:53, NO SIGNIFICANT CHANGE WAS FOUND Confirmed by JESSICA JACOBS MD ([id number]) on 07/28/2019 1:21:50 PM Referred By: GONZÁLEZ HAY DR Confirmed By:JESSICA JACOBS MD
--- NOTE | 2019-07-28 14:55 | PN ---
Progress Note (short form) - Note Progress Note: Hematology and oncology follow up Subjective: Patient seen and examined at bedside. No new complaints. She states that her breathing is improved today. Objective: Vital Signs Temperature 97.9 F 07/28/19 09:10 Pulse Rate 71 07/28/19 09:10 Respiratory Rate 18 07/28/19 09:10 Blood Pressure 178/66 H 07/28/19 09:10 O2 Sat by Pulse Oximetry (%) 100 07/27/19 21:00 Physical exam: Gen: well appearing found lying in bed in NAD lungs: CTA b/l down to the bases Heart: RRR s1, s2, heard. no murmus, gallops, rubs heard Abdomen: soft, nontender, nondistended, bowel sounds heard Active Medications Amlodipine Besylate (Norvasc -) 10 mg PO DAILY [facility] Last Admin: 07/28/19 09:59 Dose: 10 mg Aspirin (Asa -) 81 mg PO DAILY [facility] Last Admin: 07/28/19 09:59 Dose: 81 mg Ferrous Sulfate (Feosol -) 325 mg PO DAILY [facility] Last Admin: 07/28/19 09:59 Dose: 325 mg Furosemide (Lasix Injection -) 40 mg IVPUSH DAILY [facility] Last Admin: 07/28/19 09:59 Dose: 40 mg Heparin Sodium (Porcine) (Heparin -) 5,000 unit SQ BID [facility] Last Admin: 07/28/19 09:59 Dose: 5,000 unit Hydralazine HCl 50 mg/ (Hydralazine HCl 25 mg) 75 mg PO TID [facility] Last Admin: 07/28/19 06:13 Dose: 75 mg Isosorbide Mononitrate (Imdur -) 30 mg PO DAILY [facility] Last Admin: 07/28/19 09:59 Dose: 30 mg Metoprolol Tartrate (Lopressor -) 25 mg PO BID [facility] Last Admin: 07/28/19 09:59 Dose: 25 mg Home Medications Medication Instructions Recorded Amlodipine Besylate 10 mg PO DAILY 07/26/19 Aspirin [Aquilino Chewable] 81 mg PO DAILY 07/26/19 Ferrous Sulfate 325 mg PO DAILY 07/26/19 Furosemide 40 mg PO DAILY 07/26/19 Isosorbide Mononitrate [Imdur -] 30 mg PO DAILY 07/26/19 Telmisartan/Hydrochlorothiazid 1 each PO 07/26/19 [Micardis Hct 80-12.5 mg Tablet] hydrALAZINE HCL [Apresoline -] 50 mg PO TID 07/26/19 Allergies Allergy/AdvReac Type Severity Reaction Status Date / Time No Known Allergies Allergy Verified 07/26/19 16:40 CBC, BMP 07/28/19 08:12 07/28/19 08:12 Assessment and plan: The patient is a 69 yo F w/ PMH of HTN, DM, anemia who was sent to the ED by her PMD ( Dr. Deangelo Nassar) for anemia and SOB. She was found to have an Hb 7.2 and was transfused 1u PRBC #normocytic anemia 2/2 iron deficiency r/o occult blood loss. -patient never had a colonoscopy -patient denies BRBPR or melena -f/u serial FOBT -Iron studies not indicatide of deficiency -patient will benefit from GI evaluation for occult blood loss. -monitor cbc daily -transfuse to maintain Hb >7 -Ordered CT chest, abdomen, pelvis to look for occult malignancy
--- NOTE | 2019-07-28 15:00 | PN ---
Progress Note, Physician History of Present Illness: Pt seen and examined at bedside. She is awake and alert. She denies shortness of breath at rest. - Current Medication List Current Medications: Active Medications Amlodipine Besylate (Norvasc -) 10 mg PO DAILY [facility] Last Admin: 07/28/19 09:59 Dose: 10 mg Aspirin (Asa -) 81 mg PO DAILY [facility] Last Admin: 07/28/19 09:59 Dose: 81 mg Ferrous Sulfate (Feosol -) 325 mg PO DAILY [facility] Last Admin: 07/28/19 09:59 Dose: 325 mg Furosemide (Lasix Injection -) 40 mg IVPUSH DAILY [facility] Last Admin: 07/28/19 09:59 Dose: 40 mg Heparin Sodium (Porcine) (Heparin -) 5,000 unit SQ BID [facility] Last Admin: 07/28/19 09:59 Dose: 5,000 unit Hydralazine HCl 50 mg/ (Hydralazine HCl 25 mg) 75 mg PO TID [facility] Last Admin: 07/28/19 06:13 Dose: 75 mg Isosorbide Mononitrate (Imdur -) 30 mg PO DAILY [facility] Last Admin: 07/28/19 09:59 Dose: 30 mg Metoprolol Tartrate (Lopressor -) 25 mg PO BID [facility] Last Admin: 07/28/19 09:59 Dose: 25 mg - Objective Vital Signs: Vital Signs Temperature 97.9 F 07/28/19 09:10 Pulse Rate 71 07/28/19 09:10 Respiratory Rate 18 07/28/19 09:10 Blood Pressure 178/66 H 07/28/19 09:10 O2 Sat by Pulse Oximetry (%) 100 07/27/19 21:00 Constitutional: Yes: Calm Eyes: Yes: Conjunctiva Clear HENT: Yes: Atraumatic Neck: Yes: Supple Cardiovascular: Yes: S1, S2 Respiratory: Yes: CTA Bilaterally Gastrointestinal: Yes: Soft Genitourinary: Yes: [place] Present Musculoskeletal: Yes: WNL Edema: Yes Edema: LLE: Trace, RLE: Trace Neurological: Yes: Oriented Psychiatric: Yes: Oriented Labs: CBC, BMP 07/28/19 08:12 07/28/19 08:12 INR, PTT INR 0.99 (0.83-1.09) 07/26/19 20:43 Assessment/Plan Current Medications Generic Name Dose Route Start Last Admin Trade Name Freq PRN Reason Stop Dose Admin Amlodipine Besylate 10 mg 07/27/19 06:00 07/28/19 09:59 Norvasc - PO 10 mg DAILY [facility] Administration Aspirin 81 mg 07/27/19 10:00 07/28/19 09:59 Asa - PO 81 mg DAILY ECHO Administration Ferrous Sulfate 325 mg 07/27/19 10:00 07/28/19 09:59 Feosol - PO 325 mg DAILY [facility] Administration Furosemide 40 mg 07/27/19 06:00 07/28/19 09:59 Lasix Injection - IVPUSH 40 mg DAILY [facility] Administration Heparin Sodium (Porcine) 5,000 unit 07/27/19 10:00 07/28/19 09:59 Heparin - SQ 5,000 unit BID ECHO Administration Hydralazine HCl 50 mg/ 75 mg 07/27/19 22:00 07/28/19 06:13 Hydralazine HCl 25 mg PO 75 mg TID ECHO Administration Isosorbide Mononitrate 30 mg 07/27/19 10:00 07/28/19 09:59 Imdur - PO 30 mg DAILY ECHO Administration Metoprolol Tartrate 25 mg 07/27/19 17:30 07/28/19 09:59 Lopressor - PO 25 mg BID ECHO Administration Impression 1. BRADY 2. HTN 3. DM 4. bilateral hydro 5. 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
--- NOTE | 2019-07-28 17:33 | CONS ---
DATE OF CONSULTATION: DATE OF DICTATION: 07/28/2019 Patient is a 69-year-old female admitted via the emergency room on July 26, 2019, complaining of pleuritic chest pain, shortness of breath, and weakening. The patient also complains of orthopnea and dyspnea on exertion. The patient does have history of anemia. She also is a diabetic, a hypertensive. She claims that this started occurring 3-4 months earlier. She also has history of recurrent urinary tract infections with frequency, urgency, hesitancy, and dysuria. Patient did have similar symptoms 1 month earlier and was seen at [facility]. She denies any allergies. She is on November, iron, Lasix, isosorbide, Micardis, and Apresoline. She has had hernia surgery in the past. She denies ethanolism or tobacco. She does claim that she is constantly cold. PHYSICAL EXAMINATION: Vital Signs: In the emergency room, her temperature was 98.1, blood pressure 150/52, pulse oximetry 100. Abdomen: Soft. There was some right lower quadrant tenderness. Pelvic: Exam revealed a cystocele/rectocele with atrophic vaginitis. Her white count is 5.8, hemoglobin 9.5 and hematocrit 26.8, platelets were 182. BUN was 36.1 and creatinine 1.7. The patient's EKG revealed regular sinus rhythm with no acute ST changes. The patient underwent an ultrasound of her kidneys, and this revealed bilateral hydroureteronephrosis. The possibility of distal obstruction cannot be entertained. The patient's urinalysis revealed negative blood, 2+ protein. Her latest labs revealed a BUN of 54.6, a creatinine of 2.2. Her glucose was 107. Hemoglobin was 8.4 and hematocrit 24.4. IMPRESSION AT PRESENT: Mild bilateral hydroureteronephrosis on ultrasound. Would recommend obtaining a diuretic nuclear renal scan to rule out any obstructive component. Will follow with you. Clau [id number]
--- NOTE | 2019-07-28 20:16 | PN ---
Physical Exam: SUBJECTIVE: Patient seen and examined; no events reported by nursing. SOB improved and no current chest pain. 10 sys ROS done and negative aside from HPI OBJECTIVE: Vital Signs Period Temp Pulse Resp BP Sys/Lane Pulse Ox Last 24 Hr 97.7 F-98.3 F 62-71 18-20 124-178/61-83 98-100 GENERAL: The patient is awake, alert, and fully oriented, in no acute distress. HEAD: Normal with no signs of trauma. EYES: PERRL, extraocular movements intact, sclera anicteric, conjunctiva clear. No ptosis. ENT: Ears normal, nares patent, oropharynx clear without exudates, moist mucous membranes. NECK: Trachea midline, full range of motion, supple. LUNGS: Breath sounds equal, clear to auscultation bilaterally, no wheezes, no crackles, no accessory muscle use. HEART: Regular rate and rhythm, S1, S2 without murmur, rub or gallop. ABDOMEN: Soft, nontender, nondistended, normoactive bowel sounds, no guarding, no rebound, no hepatosplenomegaly, no masses. EXTREMITIES: 2+ pulses, warm, well-perfused, no edema. NEUROLOGICAL: Cranial nerves II through XII grossly intact. Normal speech, gait not observed. PSYCH: Normal mood, normal affect. SKIN: Warm, dry, normal turgor, no rashes or lesions noted Laboratory Results - last 24 hr 07/28/19 07/28/19 07/28/19 08:12 08:12 08:12 WBC 4.6 RBC 2.68 L Hgb 8.4 L Hct 24.4 L MCV 90.7 MCH 31.5 MCHC 34.7 RDW 13.0 Plt Count 156 MPV 7.4 L Absolute Neuts (auto) 2.6 Neutrophils % 56.5 Lymphocytes % 21.4 Monocytes % 9.2 Eosinophils % 12.0 H Basophils % 0.9 Nucleated RBC % 0 Retic Count 2.02 H Sodium 139 Potassium 4.4 Chloride 107 Carbon Dioxide 25 Anion Gap 8 BUN 54.6 H Creatinine 2.2 H Est GFR (CKD-EPI)AfAm 25.84 Est GFR (CKD-EPI)NonAf 22.30 Random Glucose 107 H Calcium 8.3 L Iron 82 TIBC 217 L Iron Saturation 37 Unsaturated IBC 135 L Total Bilirubin 0.6 AST 15 ALT 15 Alkaline Phosphatase 80 Total Protein 5.4 L Albumin 2.5 L Triglycerides 82 Cholesterol 159 Total LDL Cholesterol 75 HDL Cholesterol 72 H Vitamin B12 > 6000 H Serum Folate 7 Active Medications Generic Name Dose Route Start Last Admin Trade Name Lora PRN Reason Stop Dose Admin Amlodipine Besylate 10 mg 07/27/19 06:00 07/28/19 09:59 Norvasc - PO 10 mg DAILY [facility] Administration Aspirin 81 mg 07/27/19 10:00 07/28/19 09:59 Asa - PO 81 mg DAILY [facility] Administration Ferrous Sulfate 325 mg 07/27/19 10:00 07/28/19 09:59 Feosol - PO 325 mg DAILY [facility] Administration Furosemide 40 mg 07/27/19 06:00 07/28/19 09:59 Lasix Injection - IVPUSH 40 mg DAILY [facility]CHO Administration Heparin Sodium (Porcine) 5,000 unit 07/27/19 10:00 07/28/19 09:59 Heparin - SQ 5,000 unit BID [facility]CHO Administration Hydralazine HCl 50 mg/ 75 mg 07/27/19 22:00 07/28/19 15:53 Hydralazine HCl 25 mg PO 75 mg TID ECHO Administration Isosorbide Mononitrate 30 mg 07/27/19 10:00 07/28/19 09:59 Imdur - PO 30 mg DAILY [facility] Administration Metoprolol Tartrate 25 mg 07/27/19 17:30 07/28/19 09:59 Lopressor - PO 25 mg BID ECHO Administration ASSESSMENT/PLAN: Improved; continue to monitor on the floor with consulting services. Problems include: -CP/SOB -Acute Renal Failure-monitoring Cr and lytes; Dr. Dougherty following. Appreciate expert input -A on C CHF; controlling BP, FU with CV, fluid restriction, IV lasix can go PO per specialist. 98-100% SpO2. -Anemia; Continue FeSO4. Followup imaging to r/o occult malignancy. Would benefit from GI eval. -Hx HTN; Continue home meds -Bilateral [place]; management per uro Full Code Visit type - Emergency Visit Emergency Visit: Yes ED Registration Date: 07/26/19 Care time: The patient presented to the Emergency Department on the above date and was hospitalized for further evaluation of their emergent condition. - New Patient This patient is new to me today: Yes Date on this admission: 07/28/19 - Critical Care Critical Care patient: No
[2019-07-29] MEDS ORDERED: hydrALAZINE HCL 25 MG TABLET (FP) ONE ×3 (05:39→21:04)
[2019-07-29] MEDS ORDERED: hydrALAZINE HCL 50 MG TABLET (FP) ONE ×3 (05:39→21:04)
[2019-07-29 06:59] LABS: BASO % 0.7 % (0-2.0); EOS % 11.5 % (0-4.5); HEMATOCRIT 25.7 % (32.4-45.2); HEMOGLOBIN 9.1 GM/dL (10.7-15.3); LYMPH % 19.9 % (8-40); MCH 31.8 pg (25.7-33.7); MCHC 35.3 g/dl (32.0-36.0); MEAN CELL VOLUME 90.1 fl (80-96); MEAN PLT VOLUME 7.4 fl (7.5-11.1); MONO % 8.9 % (3.8-10.2); PLATELET COUNT 164 K/MM3 (134-434); RBC 2.86 M/mm3 (3.60-5.2); WHITE BLOOD COUNT 4.2 K/mm3 (4.0-10.0)
[2019-07-29 08:17] LABS: ALBUMIN 2.9 g/dl (3.4-5.0); BILIRUBIN,TOTAL 0.5 mg/dL (0.2-1); BLOOD UREA NITROGEN 54.5 mg/dL (7-18); CALCIUM 8.5 mg/dL (8.5-10.1); MAGNESIUM 2.7 mg/dL (1.8-2.4); POTASSIUM 4.8 mmol/L (3.5-5.1)
[2019-07-29] MEDS: FERROUS SO4 325 MG TABLET (FP) PO SCH (11:15)
[2019-07-29] MEDS: METOPROLOL TARTRATE 25 MG TABLET (FP) PO SCH ×2 (11:15→21:22)
[2019-07-29] MEDS: ISOSORBIDE MONONITRATE 30 MG TAB.SR.24H (FP) PO SCH (11:16)
[2019-07-29] MEDS: HEPARIN NA (PORCINE) 5,000 UNITS/ML 1ML VIAL SQ SCH ×2 (11:16→21:21)
[2019-07-29] MEDS: FUROSEMIDE 40 MG/4 ML INJECTABLE VIAL IVPUSH SCH (11:16)
[2019-07-29] MEDS: amLODIPine BESYLATE 10 MG TABLET (FP) PO SCH (11:16)
[2019-07-29] MEDS: ASPIRIN 81 MG CHEWABLE TABLETS PO SCH (11:16)
--- NOTE | 2019-07-29 11:29 | CON.PULM ---
Consult Consult Specialty:: PULMONARY Referred by:: Dr Dougherty Reason for Consultation:: shortness of breath - History of Present Illness Chief Complaint: shortness of breath History of Present Illness: 69yo female with h/o HTN, DM, anemia who was admitted with worsening shortness of breath. Found to be anemic and transfused PRBC. Denies chest pain or palpitations. No fevers, chills or sweats. Denies history of asthma or COPD. She is a never smoker. CT chest done showing bilateral effusions, some partially loculated and possible chronic lung disease. - History Source History Provided By: Patient, Family Member, Medical Record Limitations to Obtaining History: Language Barrier - Past Medical History Cardio/Vascular: Yes: CHF (diastolic ), HTN Pulmonary: No: Asthma ...: No Psych: Yes: Anxiety Endocrine: Yes: Diabetes Mellitus - Alcohol/Substance Use Hx Alcohol Use: No - Smoking History Smoking history: Never smoked Home Medications - Allergies Allergies/Adverse Reactions: Allergies Allergy/AdvReac Type Severity Reaction Status Date / Time No Known Allergies Allergy Verified 07/26/19 16:40 - Home Medications Home Medications: Ambulatory Orders Amlodipine Besylate 10 mg PO DAILY 07/26/19 Aspirin [Aquilino Chewable] 81 mg PO DAILY 07/26/19 Ferrous Sulfate 325 mg PO DAILY 07/26/19 Furosemide 40 mg PO DAILY 07/26/19 Isosorbide Mononitrate [Imdur -] 30 mg PO DAILY 07/26/19 Telmisartan/Hydrochlorothiazid [Micardis Hct 80-12.5 mg Tablet] 1 each PO hydrALAZINE HCL [Apresoline -] 50 mg PO TID 07/26/19 Review of Systems - Review of Systems Constitutional: denies: Chills, Fever Eyes: denies: Recent Change in Vision HENT: denies: Nasal Congestion, Throat Pain Neck: denies: Stiffness, Tenderness Cardiovascular: reports: Shortness of Breath. denies: Chest Pain, Edema, Palpitations Respiratory: reports: Cough. denies: Hemoptysis, Wheezing Gastrointestinal: reports: Abdominal Pain, Bloating, Constipation. denies: Nausea, Vomiting Genitourinary: denies: Dysuria, Hematuria Neurological: denies: Dizziness, Headache Endocrine: denies: Unexplained Weight Loss Physical Exam Vital Sings: Vital Signs Temperature 98.5 F 07/29/19 06:00 Pulse Rate 67 07/29/19 06:00 Respiratory Rate 18 07/29/19 06:00 Blood Pressure 160/83 07/29/19 06:00 O2 Sat by Pulse Oximetry (%) 98 07/28/19 21:00 Constitutional: Yes: Calm Eyes: Yes: Conjunctiva Clear, EOM Intact HENT: Yes: Atraumatic, Normocephalic Neck: Yes: Supple, Trachea Midline Cardiovascular: Yes: Regular Rate and Rhythm Respiratory: Yes: Diminished (decreased breath sounds at the bases) ...Clubbing: No Gastrointestinal: Yes: Normal Bowel Sounds, Soft, Distention. No: Tenderness Edema: No Labs: CBC, BMP 07/29/19 06:03 07/29/19 06:03 Imaging - Results Chest X-ray: Report Reviewed, Image Reviewed Cat Scan: Report Reviewed, Image Reviewed (bilateral effusions with atelectasis , increased interstitial markings) Assessment/Plan Acute on Chronic Diastolic Heart Failure Acute Kidney Injury Pleural Effusions Anemia r/o COPD HTN DM - continue lasix - monitor urine output, creatinine - O2 to keep SpO2 >90% - will start trial of inhaled bronchodilators - will need outpt PFTs and f/u of chest imaging - monitor H/H - start bowel regimen for constipation - DVT prophylaxis Thank you for this consult Shemar Lopez MD
--- NOTE | 2019-07-29 13:24 | CON.GI ---
Consult Consult Specialty:: GI coveriing for Dr Louie - History of Present Illness History of Present Illness: Acute on Chronic Diastolic Heart Failure Acute Kidney Injury Pleural Effusions Anemia r/o COPD HTN DM 69 y/o F with PMH of CHF, CKD,bilateral pleural effusions was asked to be seen because of anemia.She denies having melena, rectal bleeding, dysphagia, weight loss and abdominal pain. She was never had a colonoscopy and EGD. - Past Medical History Cardio/Vascular: Yes: CHF (diastolic ), HTN Pulmonary: No: Asthma ...: No Psych: Yes: Anxiety Endocrine: Yes: Diabetes Mellitus - Alcohol/Substance Use Hx Alcohol Use: No - Smoking History Smoking history: Never smoked Home Medications - Allergies Allergies/Adverse Reactions: Allergies Allergy/AdvReac Type Severity Reaction Status Date / Time No Known Allergies Allergy Verified 07/26/19 16:40 - Home Medications Home Medications: Ambulatory Orders Amlodipine Besylate 10 mg PO DAILY 07/26/19 Aspirin [[place]il[place] Chewable] 81 mg PO DAILY 07/26/19 Ferrous Sulfate 325 mg PO DAILY 07/26/19 Furosemide 40 mg PO DAILY 07/26/19 Isosorbide Mononitrate [Imdur -] 30 mg PO DAILY 07/26/19 Telmisartan/Hydrochlorothiazid [Micardis Hct 80-12.5 mg Tablet] 1 each PO hydrALAZINE HCL [Apresoline -] 50 mg PO TID 07/26/19 Physical Exam-GI Vital Signs: Vital Signs Temperature 98.5 F 07/29/19 06:00 Pulse Rate 67 07/29/19 06:00 Respiratory Rate 18 07/29/19 06:00 Blood Pressure 160/83 07/29/19 06:00 O2 Sat by Pulse Oximetry (%) 98 07/28/19 21:00 Constitutional: Yes: Well Nourished Eyes: Yes: Conjunctiva Clear HENT: Yes: Atraumatic Neck: Yes: Trachea Midline Cardiovascular: Yes: Regular Rate and Rhythm Respiratory: Yes: Other (decreased in breath sounds at the bases) ...Palpate: Yes: Soft. No: Firm/Rigid, Guarding, Hepatomegaly, Mass, Pulsatile Mass, Splenomegaly Labs: CBC, BMP 07/29/19 06:03 07/29/19 06:03 INR, PTT INR 0.99 (0.83-1.09) 07/26/19 20:43 Problem List - Problems (1) Anemia Assessment/Plan: r/o occult gi bleeding R> stool guaiac od x 3 will need gi w/u once medically cleared Dr Louie will assume care in am Code(s): D64.9 - ANEMIA, UNSPECIFIED
[2019-07-29] MEDS: ALBUTEROL SO4 2.5/IPRATROPIUM 0.5 INH SOL 3 ML VIAL.NEB. NEB SCH ×2 (13:31→20:10)
--- NOTE | 2019-07-29 14:42 | PN ---
Progress Note, Physician History of Present Illness: Pt seen and examined at bedside. She is awake and alert. She denies shortness of breath. - Current Medication List Current Medications: Active Medications Albuterol/Ipratropium (Duoneb -) 1 amp NEB RTID [facility] Last Admin: 07/29/19 13:31 Dose: 1 amp Amlodipine Besylate (Norvasc -) 10 mg PO DAILY [facility] Last Admin: 07/29/19 11:16 Dose: 10 mg Aspirin (Asa -) 81 mg PO DAILY [facility] Last Admin: 07/29/19 11:16 Dose: 81 mg Docusate Sodium (Colace -) 100 mg PO TID [facility] Ferrous Sulfate (Feosol -) 325 mg PO DAILY [facility] Last Admin: 07/29/19 11:15 Dose: 325 mg Furosemide (Lasix Injection -) 40 mg IVPUSH DAILY [facility] Last Admin: 07/29/19 11:16 Dose: 40 mg Heparin Sodium (Porcine) (Heparin -) 5,000 unit SQ BID [facility] Last Admin: 07/29/19 11:16 Dose: 5,000 unit Hydralazine HCl 50 mg/ (Hydralazine HCl 25 mg) 75 mg PO TID [facility] Last Admin: 07/29/19 06:13 Dose: 75 mg Isosorbide Mononitrate (Imdur -) 30 mg PO DAILY [facility] Last Admin: 07/29/19 11:16 Dose: 30 mg Metoprolol Tartrate (Lopressor -) 25 mg PO BID [facility] Last Admin: 07/29/19 11:15 Dose: 25 mg Polyethylene Glycol (Miralax (For Daily Use) -) 17 gm PO DAILY [facility] - Objective Vital Signs: Vital Signs Temperature 98.5 F 07/29/19 06:00 Pulse Rate 67 07/29/19 06:00 Respiratory Rate 18 07/29/19 06:00 Blood Pressure 160/83 07/29/19 06:00 O2 Sat by Pulse Oximetry (%) 98 07/28/19 21:00 Constitutional: Yes: Calm Eyes: Yes: Conjunctiva Clear HENT: Yes: Atraumatic Neck: Yes: Supple Cardiovascular: Yes: S1, S2 Respiratory: Yes: CTA Bilaterally Gastrointestinal: Yes: Soft Genitourinary: Yes: WNL Musculoskeletal: Yes: WNL Edema: Yes Edema: LLE: Trace, RLE: Trace Neurological: Yes: Oriented Psychiatric: Yes: Oriented Labs: CBC, BMP 07/29/19 06:03 07/29/19 06:03 INR, PTT INR 0.99 (0.83-1.09) 07/26/19 20:43 Assessment/Plan Current Medications Generic Name Dose Route Start Last Admin Trade Name Frezuly PRN Reason Stop Dose Admin Albuterol/Ipratropium 1 amp 07/29/19 14:00 07/29/19 13:31 Duoneb - NEB 1 amp RTID [facility] Administration Amlodipine Besylate 10 mg 07/27/19 06:00 07/29/19 11:16 Norvasc - PO 10 mg DAILY [facility] Administration Aspirin 81 mg 07/27/19 10:00 07/29/19 11:16 Asa - PO 81 mg DAILY E[facility] Administration Docusate Sodium 100 mg 07/29/19 14:00 Colace - PO TID ECHO Ferrous Sulfate 325 mg 07/27/19 10:00 07/29/19 11:15 Feosol - PO 325 mg DAILY E[facility] Administration Furosemide 40 mg 07/27/19 06:00 07/29/19 11:16 Lasix Injection - IVPUSH 40 mg DAILY [facility] Administration Heparin Sodium (Porcine) 5,000 unit 07/27/19 10:00 07/29/19 11:16 Heparin - SQ 5,000 unit BID [facility] Administration Hydralazine HCl 50 mg/ 75 mg 07/27/19 22:00 07/29/19 06:13 Hydralazine HCl 25 mg PO 75 mg TID ECHO Administration Isosorbide Mononitrate 30 mg 07/27/19 10:00 07/29/19 11:16 Imdur - PO 30 mg DAILY [facility] Administration Metoprolol Tartrate 25 mg 07/27/19 17:30 07/29/19 11:15 Lopressor - PO 25 mg BID ECHO Administration Polyethylene Glycol 17 gm 07/29/19 12:00 Miralax (For Daily Use) - PO DAILY [facility] Impression 1. BRADY 2. HTN 3. DM 4. bilateral hydro 5. anemia Plan - renal function improving - cont lasix - follow serologoes - oncology eval - pulm input appreciated - monitor bp - arb on hold
[2019-07-29] MEDS: DOCUSATE SODIUM 100 MG CAPSULE (FP) PO SCH ×2 (16:07→21:22)
[2019-07-29] MEDS: POLYETHYLENE GLYCOL 3350 119 GM BTL PO SCH (16:07)
--- NOTE | 2019-07-29 18:22 | PN ---
Progress Note (short form) - Note Progress Note: UROLOGY NOTE. PT. WITH AZOTEMIA AND POSS. OBDULIA. HYDRONEPHROSIS .WILL WAIT FOR NUCLEAR RENAL SCAN AND POSS. UNDERGO CYSTO. IF HYDR. IS OBSTRUCTIVE
--- NOTE | 2019-07-29 23:27 | PN ---
Progress Note, Physician - Current Medication List Current Medications: Active Medications Albuterol/Ipratropium (Duoneb -) 1 amp NEB RTID [facility] Last Admin: 07/29/19 20:10 Dose: 1 amp Amlodipine Besylate (Norvasc -) 10 mg PO DAILY [facility] Last Admin: 07/29/19 11:16 Dose: 10 mg Aspirin (Asa -) 81 mg PO DAILY [facility] Last Admin: 07/29/19 11:16 Dose: 81 mg Docusate Sodium (Colace -) 100 mg PO TID [facility] Last Admin: 07/29/19 21:22 Dose: 100 mg Ferrous Sulfate (Feosol -) 325 mg PO DAILY [facility] Last Admin: 07/29/19 11:15 Dose: 325 mg Furosemide (Lasix Injection -) 40 mg IVPUSH DAILY [facility] Last Admin: 07/29/19 11:16 Dose: 40 mg Heparin Sodium (Porcine) (Heparin -) 5,000 unit SQ BID [facility] Last Admin: 07/29/19 21:21 Dose: 5,000 unit Hydralazine HCl 50 mg/ (Hydralazine HCl 25 mg) 75 mg PO TID [facility] Last Admin: 07/29/19 21:22 Dose: 75 mg Isosorbide Mononitrate (Imdur -) 30 mg PO DAILY [facility] Last Admin: 07/29/19 11:16 Dose: 30 mg Metoprolol Tartrate (Lopressor -) 25 mg PO BID [facility] Last Admin: 07/29/19 21:22 Dose: 25 mg Polyethylene Glycol (Miralax (For Daily Use) -) 17 gm PO DAILY [facility] Last Admin: 07/29/19 16:07 Dose: 17 grams - Objective Vital Signs: Vital Signs Temperature 97.8 F 07/29/19 21:10 Pulse Rate 80 07/29/19 21:10 Respiratory Rate 20 07/29/19 21:10 Blood Pressure 156/62 07/29/19 21:10 O2 Sat by Pulse Oximetry (%) 98 07/29/19 09:00 Labs: CBC, BMP 07/29/19 06:03 07/29/19 06:03 INR, PTT INR 0.99 (0.83-1.09) 07/26/19 20:43 Problem List - Problems (1) Symptomatic anemia Code(s): D64.9 - ANEMIA, UNSPECIFIED (2) Acute on chronic diastolic (congestive) heart failure Code(s): I50.33 - ACUTE ON CHRONIC DIASTOLIC (CONGESTIVE) HEART FAILURE (3) Dyspnea Code(s): R06.00 - DYSPNEA, UNSPECIFIED (4) ARF (acute renal failure) Code(s): N17.9 - ACUTE KIDNEY FAILURE, UNSPECIFIED
[2019-07-30] MEDS ORDERED: PT OWN MED DRAWER 7, Y5N ONE ×2 (02:37→18:05)
[2019-07-30] MEDS: ACETAMINOPHEN 325 MG TABLET (FP) PO PRN (02:42)
[2019-07-30] MEDS ORDERED: MAG HYDROX/AL HYDROX/SIMETH 30 ML UNIT-DOSE CUP PO ONE (02:45)
[2019-07-30] MEDS ORDERED: hydrALAZINE HCL 50 MG TABLET (FP) ONE ×3 (06:00→20:58)
[2019-07-30] MEDS ORDERED: hydrALAZINE HCL 25 MG TABLET (FP) ONE ×3 (06:00→20:58)
[2019-07-30] MEDS: DOCUSATE SODIUM 100 MG CAPSULE (FP) PO SCH ×3 (06:40→21:16)
[2019-07-30] MEDS: INSULIN SLIDING SCALE (NOVOLOG) 1 VIAL SQ SCH ×4 (06:51→21:21)
[2019-07-30 08:04] LABS: BILIRUBIN,TOTAL 0.5 mg/dL (0.2-1); BLOOD UREA NITROGEN 55.2 mg/dL (7-18); CALCIUM 8.7 mg/dL (8.5-10.1); CREATININE 2.1 mg/dL (0.55-1.3); POTASSIUM 4.8 mmol/L (3.5-5.1); TOT PROT 6.2 g/dl (6.4-8.2)
[2019-07-30 08:13] LABS: BASO % 0.6 % (0-2.0); EOS % 4.2 % (0-4.5); HEMOGLOBIN 9.2 GM/dL (10.7-15.3); LYMPH % 15.5 % (8-40); MCH 31.8 pg (25.7-33.7); MCHC 35.4 g/dl (32.0-36.0); MEAN CELL VOLUME 89.9 fl (80-96); MEAN PLT VOLUME 7.5 fl (7.5-11.1); NEUT % 73.7 % (42.8-82.8); PLATELET COUNT 184 K/MM3 (134-434); WHITE BLOOD COUNT 4.8 K/mm3 (4.0-10.0)
[2019-07-30] MEDS: ALBUTEROL SO4 2.5/IPRATROPIUM 0.5 INH SOL 3 ML VIAL.NEB. NEB SCH ×3 (08:17→20:05)
[2019-07-30] MEDS ORDERED: MORPHINE SULFATE 2 MG/ML VIAL IVPUSH ONE (09:00)
[2019-07-30] MEDS: METOPROLOL TARTRATE 25 MG TABLET (FP) PO SCH ×2 (11:30→21:16)
[2019-07-30] MEDS: amLODIPine BESYLATE 10 MG TABLET (FP) PO SCH (11:30)
[2019-07-30] MEDS: ASPIRIN 81 MG CHEWABLE TABLETS PO SCH (11:30)
[2019-07-30] MEDS: FUROSEMIDE 40 MG/4 ML INJECTABLE VIAL IVPUSH SCH (11:31)
[2019-07-30] MEDS: FERROUS SO4 325 MG TABLET (FP) PO SCH ×2 (11:31→11:46)
[2019-07-30] MEDS: ISOSORBIDE MONONITRATE 30 MG TAB.SR.24H (FP) PO SCH (11:31)
[2019-07-30] MEDS: HEPARIN NA (PORCINE) 5,000 UNITS/ML 1ML VIAL SQ SCH ×2 (11:31→21:16)
[2019-07-30] MEDS: POLYETHYLENE GLYCOL 3350 119 GM BTL PO SCH (11:35)
[2019-07-30] MEDS ORDERED: MINERAL OIL ENEMA 133 ML ENEMA PR ONE ×2 (11:52→13:40)
--- NOTE | 2019-07-30 11:52 | PN ---
Progress Note (short form) - Note Progress Note: PULMONARY States some shortness of breath from abdominal pain. Had bowel movement yesterday. Vital Signs Period Temp Pulse Resp BP Sys/Lane Pulse Ox Last 24 Hr 97.4 F-98.1 F 61-80 18-20 140-183/62-90 98-98 Gen: NAD at rest Heart: RRR Lung: decreased breath sounds at the bases Abd: softly distended, nontender Ext: no edema CBC, BMP 07/30/19 07:10 07/30/19 07:10 Active Medications Acetaminophen (Tylenol -) 650 mg PO Q8H PRN PRN Reason: PAIN LEVEL 4 - 10 Last Admin: 07/30/19 02:42 Dose: 650 mg Albuterol/Ipratropium (Duoneb -) 1 amp NEB RTID [facility] Last Admin: 07/30/19 08:17 Dose: 1 amp Amlodipine Besylate (Norvasc -) 10 mg PO DAILY [facility] Last Admin: 07/30/19 11:30 Dose: 10 mg Aspirin (Asa -) 81 mg PO DAILY [facility] Last Admin: 07/30/19 11:30 Dose: 81 mg Docusate Sodium (Colace -) 100 mg PO TID [facility] Last Admin: 07/30/19 06:40 Dose: Not Given Ferrous Sulfate (Feosol -) 325 mg PO DAILY [facility] Last Admin: 07/30/19 11:46 Dose: Not Given Furosemide (Lasix Injection -) 40 mg IVPUSH DAILY [facility] Last Admin: 07/30/19 11:31 Dose: 40 mg Heparin Sodium (Porcine) (Heparin -) 5,000 unit SQ BID [facility] Last Admin: 07/30/19 11:31 Dose: 5,000 unit Hydralazine HCl 50 mg/ (Hydralazine HCl 25 mg) 75 mg PO TID [facility] Last Admin: 07/30/19 06:54 Dose: 75 mg Insulin Aspart (Novolog Vial Sliding Scale -) 1 vial SQ ACHS [facility]; Protocol Last Admin: 07/30/19 06:51 Dose: Not Given Isosorbide Mononitrate (Imdur -) 30 mg PO DAILY [facility] Last Admin: 07/30/19 11:31 Dose: 30 mg Metoprolol Tartrate (Lopressor -) 25 mg PO BID [facility] Last Admin: 07/30/19 11:30 Dose: 25 mg Polyethylene Glycol (Miralax (For Daily Use) -) 17 gm PO DAILY [facility] Last Admin: 07/30/19 11:35 Dose: Not Given A/P Acute on Chronic Diastolic Heart Failure Acute Kidney Injury Pleural Effusions Anemia r/o COPD HTN DM - continue lasix - monitor urine output, creatinine - O2 to keep SpO2 >90% - inhaled bronchodilators - will need outpt PFTs and f/u of chest imaging - monitor H/H - bowel regimen for constipation - DVT prophylaxis
--- NOTE | 2019-07-30 13:39 | PN.GI ---
GI Progress Note Subjective: over night developed abdominal bloating and abdominal pain, given one oil enema which provided no relief of his symptoms - Objective Vital Signs: Vital Signs Temperature 98.1 F 07/30/19 06:00 Pulse Rate 80 07/30/19 06:00 Respiratory Rate 20 07/30/19 09:00 Blood Pressure 183/90 H 07/30/19 06:00 O2 Sat by Pulse Oximetry (%) 98 07/30/19 09:00 Constitutional: Well Nourished, Poor Hygeine Eyes: Yes: Occular Prosthesis Neck: Yes: Supple Cardiovascular: Yes: Regular Rate and Rhythm Respiratory: Yes: CTA Bilaterally ...Palpate: Yes: Soft. No: Firm/Rigid, Guarding, Hepatomegaly, Mass, Pulsatile Mass, Splenomegaly, Tenderness ...Percussion: Yes: Tympanitic Labs: CBC, BMP 07/30/19 07:10 07/30/19 07:10 INR, PTT INR 0.99 (0.83-1.09) 07/26/19 20:43 Problem List - Problems (1) Anemia Assessment/Plan: R> for EGD once medically cleared Code(s): D64.9 - ANEMIA, UNSPECIFIED (2) Abdominal pain Assessment/Plan: bloating and constipation R> Miralax 34 grams bid oil enemas Dr Louie will resume care tomorrow Code(s): R10.9 - UNSPECIFIED ABDOMINAL PAIN
--- NOTE | 2019-07-30 16:27 | PN ---
Progress Note, Physician History of Present Illness: Pt seen and examined at bedside. She is awake and alert. She denies shortness of breath. - Current Medication List Current Medications: Active Medications Acetaminophen (Tylenol -) 650 mg PO Q8H PRN PRN Reason: PAIN LEVEL 4 - 10 Last Admin: 07/30/19 02:42 Dose: 650 mg Albuterol/Ipratropium (Duoneb -) 1 amp NEB RTID [facility] Last Admin: 07/30/19 14:42 Dose: 1 amp Amlodipine Besylate (Norvasc -) 10 mg PO DAILY [facility] Last Admin: 07/30/19 11:30 Dose: 10 mg Aspirin (Asa -) 81 mg PO DAILY [facility] Last Admin: 07/30/19 11:30 Dose: 81 mg Docusate Sodium (Colace -) 100 mg PO TID [facility] Last Admin: 07/30/19 06:40 Dose: Not Given Ferrous Sulfate (Feosol -) 325 mg PO DAILY [facility] Last Admin: 07/30/19 11:46 Dose: Not Given Furosemide (Lasix Injection -) 40 mg IVPUSH DAILY [facility] Last Admin: 07/30/19 11:31 Dose: 40 mg Heparin Sodium (Porcine) (Heparin -) 5,000 unit SQ BID [facility] Last Admin: 07/30/19 11:31 Dose: 5,000 unit Hydralazine HCl 50 mg/ (Hydralazine HCl 25 mg) 75 mg PO TID [facility] Last Admin: 07/30/19 06:54 Dose: 75 mg Insulin Aspart (Novolog Vial Sliding Scale -) 1 vial SQ ACHS [facility]; Protocol Last Admin: 07/30/19 14:13 Dose: Not Given Isosorbide Mononitrate (Imdur -) 30 mg PO DAILY [facility] Last Admin: 07/30/19 11:31 Dose: 30 mg Methylnaltrexone [place] (Relistor -) 12 mg SQ Q2D@1000 [facility] Metoprolol Tartrate (Lopressor -) 25 mg PO BID [facility] Last Admin: 07/30/19 11:30 Dose: 25 mg Polyethylene Glycol (Miralax (For Daily Use) -) 17 gm PO DAILY [facility] Last Admin: 07/30/19 11:35 Dose: Not Given - Objective Vital Signs: Vital Signs Temperature 97.8 F 07/30/19 14:00 Pulse Rate 63 07/30/19 14:00 Respiratory Rate 20 07/30/19 14:00 Blood Pressure 133/62 07/30/19 14:00 O2 Sat by Pulse Oximetry (%) 98 07/30/19 09:00 Constitutional: Yes: Calm Eyes: Yes: Conjunctiva Clear HENT: Yes: Atraumatic Neck: Yes: Supple Cardiovascular: Yes: S1, S2 Respiratory: Yes: CTA Bilaterally Gastrointestinal: Yes: Normal Bowel Sounds, Soft Genitourinary: Yes: Sullivan Present Musculoskeletal: Yes: WNL Edema: Yes Edema: LLE: Trace, RLE: Trace Neurological: Yes: Oriented Psychiatric: Yes: Oriented Labs: CBC, BMP 07/30/19 07:10 07/30/19 07:10 INR, PTT INR 0.99 (0.83-1.09) 07/26/19 20:43 Assessment/Plan Current Medications Generic Name Dose Route Start Last Admin Trade Name Freq PRN Reason Stop Dose Admin Acetaminophen 650 mg 07/30/19 02:35 07/30/19 02:42 Tylenol - PO 650 mg Q8H PRN Administration PAIN LEVEL 4 - 10 Albuterol/Ipratropium 1 amp 07/29/19 14:00 07/30/19 14:42 Duoneb - NEB 1 amp RTID [facility] Administration Amlodipine Besylate 10 mg 07/27/19 06:00 07/30/19 11:30 Norvasc - PO 10 mg DAILY [facility] Administration Aspirin 81 mg 07/27/19 10:00 07/30/19 11:30 Asa - PO 81 mg DAILY [facility] Administration Docusate Sodium 100 mg 07/29/19 14:00 07/30/19 06:40 Colace - PO Not Given TID [facility] Ferrous Sulfate 325 mg 07/27/19 10:00 07/30/19 11:46 Feosol - PO Not Given DAILY [facility] Furosemide 40 mg 07/27/19 06:00 07/30/19 11:31 Lasix Injection - IVPUSH 40 mg DAILY [facility] Administration Heparin Sodium (Porcine) 5,000 unit 07/27/19 10:00 07/30/19 11:31 Heparin - SQ 5,000 unit BID [facility] Administration Hydralazine HCl 50 mg/ 75 mg 07/27/19 22:00 07/30/19 06:54 Hydralazine HCl 25 mg PO 75 mg TID [facility] Administration Insulin Aspart 1 vial 07/30/19 07:00 07/30/19 14:13 Novolog Vial Sliding Scale - SQ Not Given ACHS [facility] Protocol Isosorbide Mononitrate 30 mg 07/27/19 10:00 07/30/19 11:31 Imdur - PO 30 mg DAILY [facility] Administration Methylnaltrexone [place] 12 mg 07/30/19 15:00 Relistor - SQ Q2D@1000 ECHO Metoprolol Tartrate 25 mg 07/27/19 17:30 07/30/19 11:30 Lopressor - PO 25 mg BID [facility] Administration Polyethylene Glycol 17 gm 07/29/19 12:00 07/30/19 11:35 Miralax (For Daily Use) - PO Not Given DAILY [facility] Impression 1. BRADY 2. HTN 3. DM 4. bilateral hydro 5. anemia Plan - repeat labs in am - follow renal workup - am cxr - oncology eval - pulm input appreciated - monitor bp - arb on hold
[2019-07-30] MEDS: Methylnaltrexone Bromide 12 MG/0.6 ML KIT SQ SCH (18:23)
[2019-07-30] MEDS ORDERED: INSULIN (NOVOLOG) ASPART 100 UNITS/ML 10ML VIAL ONE (21:18)
--- NOTE | 2019-07-30 23:22 | PN ---
Progress Note, Physician - Current Medication List Current Medications: Active Medications Acetaminophen (Tylenol -) 650 mg PO Q8H PRN PRN Reason: PAIN LEVEL 4 - 10 Last Admin: 07/30/19 02:42 Dose: 650 mg Albuterol/Ipratropium (Duoneb -) 1 amp NEB RTID [facility] Last Admin: 07/30/19 20:05 Dose: 1 amp Amlodipine Besylate (Norvasc -) 10 mg PO DAILY [facility] Last Admin: 07/30/19 11:30 Dose: 10 mg Aspirin (Asa -) 81 mg PO DAILY [facility] Last Admin: 07/30/19 11:30 Dose: 81 mg Docusate Sodium (Colace -) 100 mg PO TID [facility] Last Admin: 07/30/19 21:16 Dose: 100 mg Ferrous Sulfate (Feosol -) 325 mg PO DAILY [facility] Last Admin: 07/30/19 11:46 Dose: Not Given Furosemide (Lasix Injection -) 40 mg IVPUSH DAILY [facility] Last Admin: 07/30/19 11:31 Dose: 40 mg Heparin Sodium (Porcine) (Heparin -) 5,000 unit SQ BID [facility] Last Admin: 07/30/19 21:16 Dose: 5,000 unit Hydralazine HCl 50 mg/ (Hydralazine HCl 25 mg) 75 mg PO TID [facility] Last Admin: 07/30/19 21:16 Dose: 75 mg Insulin Aspart (Novolog Vial Sliding Scale -) 1 vial SQ ACHS [facility]; Protocol Last Admin: 07/30/19 21:21 Dose: Not Given Isosorbide Mononitrate (Imdur -) 30 mg PO DAILY [facility] Last Admin: 07/30/19 11:31 Dose: 30 mg Methylnaltrexone [place] (Relistor -) 12 mg SQ Q2D@1000 [facility] Last Admin: 07/30/19 18:23 Dose: 12 mg Metoprolol Tartrate (Lopressor -) 25 mg PO BID [facility] Last Admin: 07/30/19 21:16 Dose: 25 mg Polyethylene Glycol (Miralax (For Daily Use) -) 17 gm PO DAILY [facility] Last Admin: 07/30/19 11:35 Dose: Not Given - Objective Vital Signs: Vital Signs Temperature 98.1 F 07/30/19 21:00 Pulse Rate 75 07/30/19 21:00 Respiratory Rate 20 07/30/19 21:00 Blood Pressure 144/75 07/30/19 21:00 O2 Sat by Pulse Oximetry (%) 98 07/30/19 09:00 Labs: CBC, BMP 07/30/19 07:10 07/30/19 07:10 INR, PTT INR 0.99 (0.83-1.09) 07/26/19 20:43 Problem List - Problems (1) Symptomatic anemia Code(s): D64.9 - ANEMIA, UNSPECIFIED (2) Acute on chronic diastolic (congestive) heart failure Code(s): I50.33 - ACUTE ON CHRONIC DIASTOLIC (CONGESTIVE) HEART FAILURE (3) Dyspnea Code(s): R06.00 - DYSPNEA, UNSPECIFIED (4) ARF (acute renal failure) Code(s): N17.9 - ACUTE KIDNEY FAILURE, UNSPECIFIED
[2019-07-31] MEDS ORDERED: hydrALAZINE HCL 25 MG TABLET (FP) ONE ×3 (06:04→21:16)
[2019-07-31] MEDS ORDERED: hydrALAZINE HCL 50 MG TABLET (FP) ONE ×3 (06:04→21:16)
[2019-07-31] MEDS: DOCUSATE SODIUM 100 MG CAPSULE (FP) PO SCH ×3 (06:38→21:30)
[2019-07-31] MEDS: ALBUTEROL SO4 2.5/IPRATROPIUM 0.5 INH SOL 3 ML VIAL.NEB. NEB SCH ×3 (08:00→20:16)
[2019-07-31 08:12] LABS: ALBUMIN 2.6 g/dl (3.4-5.0); BILIRUBIN,TOTAL 0.4 mg/dL (0.2-1); BLOOD UREA NITROGEN 56.6 mg/dL (7-18); CALCIUM 8.3 mg/dL (8.5-10.1); CREATININE 2.2 mg/dL (0.55-1.3); POTASSIUM 5.1 mmol/L (3.5-5.1); TOT PROT 5.4 g/dl (6.4-8.2)
[2019-07-31 10:06] LABS: ANTIGLOMERULAR BASEMENT MEN.AB 2 units (0-20)
--- NOTE | 2019-07-31 10:41 | PN ---
Progress Note (short form) - Note Progress Note: UROLOGY NOTE. PT. WITH OBDULIA. HYDRO ON RENAL ULTRASOUND. H/O AZOTEMIA AND HEMATURIA .WILL WAIT FOR DIURETIC NUCLEAR RENAL SCAN TO R/O OBSTRUCTION.
--- NOTE | 2019-07-31 11:21 | PN ---
Progress Note (short form) - Note Progress Note: NAD on RA. workup on going. No acute events overnight. CXR: No gross change in bilateral pleural effusions and vascular congestion Intake & Output 07/28/19 07/29/19 07/30/19 07/31/19 23:59 23:59 23:59 23:59 Intake Total 400 1280 800 300 Output Total 2700 1400 300 Balance -2300 -120 800 0 Last Vital Signs Temp Pulse Resp BP Pulse Ox 98.8 F 68 18 124/63 98 07/31/19 06:00 07/31/19 06:00 07/31/19 06:00 07/31/19 06:00 07/30/19 21:00 Active Medications Acetaminophen (Tylenol -) 650 mg PO Q8H PRN PRN Reason: PAIN LEVEL 4 - 10 Last Admin: 07/30/19 02:42 Dose: 650 mg Albuterol/Ipratropium (Duoneb -) 1 amp NEB RTID [facility] Last Admin: 07/31/19 08:00 Dose: 1 amp Amlodipine Besylate (Norvasc -) 10 mg PO DAILY [facility] Last Admin: 07/30/19 11:30 Dose: 10 mg Aspirin (Asa -) 81 mg PO DAILY [facility] Last Admin: 07/30/19 11:30 Dose: 81 mg Docusate Sodium (Colace -) 100 mg PO TID [facility] Last Admin: 07/31/19 06:38 Dose: 100 mg Ferrous Sulfate (Feosol -) 325 mg PO DAILY [facility] Last Admin: 07/30/19 11:46 Dose: Not Given Furosemide (Lasix Injection -) 40 mg IVPUSH DAILY [facility] Last Admin: 07/30/19 11:31 Dose: 40 mg Heparin Sodium (Porcine) (Heparin -) 5,000 unit SQ BID [facility] Last Admin: 07/30/19 21:16 Dose: 5,000 unit Hydralazine HCl 50 mg/ (Hydralazine HCl 25 mg) 75 mg PO TID [facility] Last Admin: 07/31/19 06:38 Dose: 75 mg Insulin Aspart (Novolog Vial Sliding Scale -) 1 vial SQ ACHS [facility]; Protocol Last Admin: 07/30/19 21:21 Dose: Not Given Isosorbide Mononitrate (Imdur -) 30 mg PO DAILY [facility] Last Admin: 07/30/19 11:31 Dose: 30 mg Methylnaltrexone [place] (Relistor -) 12 mg SQ Q2D@1000 [facility] Last Admin: 07/30/19 18:23 Dose: 12 mg Metoprolol Tartrate (Lopressor -) 25 mg PO BID [facility] Last Admin: 07/30/19 21:16 Dose: 25 mg Polyethylene Glycol (Miralax (For Daily Use) -) 17 gm PO DAILY [facility] Last Admin: 07/30/19 11:35 Dose: Not Given Gen: NAD at rest Heart: RRR Lung: decreased breath sounds at the bases, fine rales Abd: softly distended, nontender Ext: no edema Laboratory Results - last 24 hr 07/29/19 07/30/19 07/30/19 06:03 14:12 17:31 Sodium Potassium Chloride Carbon Dioxide Anion Gap BUN Creatinine Est GFR (CKD-EPI)AfAm Est GFR (CKD-EPI)NonAf POC Glucometer 160 204 Random Glucose Calcium Total Bilirubin AST ALT Alkaline Phosphatase Total Protein Albumin Glomerular Base Memb Ab 2 07/30/19 07/31/19 07/31/19 21:20 06:18 06:38 Sodium 136 Potassium 5.1 Chloride 103 Carbon Dioxide 27 Anion Gap 7 L BUN 56.6 H Creatinine 2.2 H Est GFR (CKD-EPI)AfAm 25.84 Est GFR (CKD-EPI)NonAf 22.30 POC Glucometer 139 134 Random Glucose 117 H Calcium 8.3 L Total Bilirubin 0.4 AST 20 ALT 23 Alkaline Phosphatase 95 Total Protein 5.4 L Albumin 2.6 L Glomerular Base Memb Ab A/P Acute on Chronic Diastolic Heart Failure Acute Kidney Injury Pleural Effusions Anemia r/o COPD HTN DM - Lasix - monitor urine output, creatinine - O2 to keep SpO2 >90% - inhaled bronchodilators - will need outpt PFTs and f/u of chest imaging - monitor H/H - bowel regimen for constipation - DVT prophylaxis Dr Patton
[2019-07-31] MEDS: METOPROLOL TARTRATE 25 MG TABLET (FP) PO SCH ×2 (11:40→21:30)
[2019-07-31] MEDS: FERROUS SO4 325 MG TABLET (FP) PO SCH (11:41)
[2019-07-31] MEDS: ISOSORBIDE MONONITRATE 30 MG TAB.SR.24H (FP) PO SCH (11:41)
[2019-07-31] MEDS: HEPARIN NA (PORCINE) 5,000 UNITS/ML 1ML VIAL SQ SCH ×2 (11:41→21:30)
[2019-07-31] MEDS: POLYETHYLENE GLYCOL 3350 119 GM BTL PO SCH (11:41)
[2019-07-31] MEDS: ASPIRIN 81 MG CHEWABLE TABLETS PO SCH (11:41)
[2019-07-31] MEDS: amLODIPine BESYLATE 10 MG TABLET (FP) PO SCH (11:41)
[2019-07-31] MEDS: FUROSEMIDE 40 MG/4 ML INJECTABLE VIAL IVPUSH SCH (11:48)
[2019-07-31] MEDS: INSULIN SLIDING SCALE (NOVOLOG) 1 VIAL SQ SCH ×4 (12:00→21:31)
[2019-07-31] MEDS ORDERED: INSULIN (NOVOLOG) ASPART 100 UNITS/ML 10ML VIAL ONE (12:03)
--- NOTE | 2019-07-31 13:49 | PN ---
Progress Note (short form) - Note Progress Note: Hematology and oncology follow up Subjective: Patient seen and examined at bedside. No new complaints. Objective: Vital Signs Temperature 98.8 F 07/31/19 06:00 Pulse Rate 68 07/31/19 06:00 Respiratory Rate 18 07/31/19 06:00 Blood Pressure 124/63 07/31/19 06:00 O2 Sat by Pulse Oximetry (%) 99 07/31/19 09:00 Physical exam: Gen: well appearing found lying in bed in NAD lungs: CTA b/l down to the bases Heart: RRR s1, s2, heard. no murmus, gallops, rubs heard Abdomen: soft, nontender, nondistended, bowel sounds heard Active Medications Acetaminophen (Tylenol -) 650 mg PO Q8H PRN PRN Reason: PAIN LEVEL 4 - 10 Last Admin: 07/30/19 02:42 Dose: 650 mg Albuterol/Ipratropium (Duoneb -) 1 amp NEB RTID [facility] Last Admin: 07/31/19 08:00 Dose: 1 amp Amlodipine Besylate (Norvasc -) 10 mg PO DAILY [facility] Last Admin: 07/31/19 11:41 Dose: 10 mg Aspirin (Asa -) 81 mg PO DAILY [facility] Last Admin: 07/31/19 11:41 Dose: 81 mg Docusate Sodium (Colace -) 100 mg PO TID [facility] Last Admin: 07/31/19 06:38 Dose: 100 mg Ferrous Sulfate (Feosol -) 325 mg PO DAILY [facility] Last Admin: 07/31/19 11:41 Dose: 325 mg Furosemide (Lasix Injection -) 40 mg IVPUSH DAILY [facility] Last Admin: 07/31/19 11:48 Dose: Not Given Heparin Sodium (Porcine) (Heparin -) 5,000 unit SQ BID [facility] Last Admin: 07/31/19 11:41 Dose: 5,000 unit Hydralazine HCl 50 mg/ (Hydralazine HCl 25 mg) 75 mg PO TID [facility] Last Admin: 07/31/19 06:38 Dose: 75 mg Insulin Aspart (Novolog Vial Sliding Scale -) 1 vial SQ ACHS [facility]; Protocol Last Admin: 07/31/19 12:04 Dose: 8 units Isosorbide Mononitrate (Imdur -) 30 mg PO DAILY [facility] Last Admin: 07/31/19 11:41 Dose: 30 mg Methylnaltrexone [place] (Relistor -) 12 mg SQ Q2D@1000 [facility] Last Admin: 07/30/19 18:23 Dose: 12 mg Metoprolol Tartrate (Lopressor -) 25 mg PO BID [facility] Last Admin: 07/31/19 11:40 Dose: 25 mg Polyethylene Glycol (Miralax (For Daily Use) -) 17 gm PO DAILY [facility] Last Admin: 07/31/19 11:41 Dose: 17 grams Home Medications Medication Instructions Recorded Amlodipine Besylate 10 mg PO DAILY 07/26/19 Aspirin [A[place]il[place] Chewable] 81 mg PO DAILY 07/26/19 Ferrous Sulfate 325 mg PO DAILY 07/26/19 Furosemide 40 mg PO DAILY 07/26/19 Isosorbide Mononitrate [Imdur -] 30 mg PO DAILY 07/26/19 Telmisartan/Hydrochlorothiazid 1 each PO 07/26/19 [Micardis Hct 80-12.5 mg Tablet] hydrALAZINE HCL [Apresoline -] 50 mg PO TID 07/26/19 Allergies Allergy/AdvReac Type Severity Reaction Status Date / Time No Known Allergies Allergy Verified 07/26/19 16:40 CBC, BMP 07/30/19 07:10 07/31/19 06:18 Assessment and plan: The patient is a 69 yo F w/ PMH of HTN, DM, anemia who was sent to the ED by her PMD ( Dr. Deangelo Nassar) for anemia and SOB. She was found to have an Hb 7.2 and was transfused 1u PRBC #normocytic anemia 2/2 iron deficiency r/o occult blood loss. -patient never had a colonoscopy -patient denies BRBPR or melena -Iron studies not indicative of deficiency -patient will benefit from GI evaluation for occult blood loss. -monitor cbc daily -transfuse to maintain Hb >7 -CT chest, abdomen, pelvis not showing any malignancy; there is a hypodensity in the liver; will order RUQ US
--- NOTE | 2019-07-31 13:53 | PN ---
Progress Note, Physician History of Present Illness: Pt seen and examined at bedside. She denies shortness of breath. - Current Medication List Current Medications: Active Medications Acetaminophen (Tylenol -) 650 mg PO Q8H PRN PRN Reason: PAIN LEVEL 4 - 10 Last Admin: 07/30/19 02:42 Dose: 650 mg Albuterol/Ipratropium (Duoneb -) 1 amp NEB RTID [facility] Last Admin: 07/31/19 08:00 Dose: 1 amp Amlodipine Besylate (Norvasc -) 10 mg PO DAILY [facility] Last Admin: 07/31/19 11:41 Dose: 10 mg Aspirin (Asa -) 81 mg PO DAILY [facility] Last Admin: 07/31/19 11:41 Dose: 81 mg Docusate Sodium (Colace -) 100 mg PO TID [facility] Last Admin: 07/31/19 06:38 Dose: 100 mg Ferrous Sulfate (Feosol -) 325 mg PO DAILY [facility] Last Admin: 07/31/19 11:41 Dose: 325 mg Furosemide (Lasix Injection -) 40 mg IVPUSH DAILY [facility] Last Admin: 07/31/19 11:48 Dose: Not Given Heparin Sodium (Porcine) (Heparin -) 5,000 unit SQ BID [facility] Last Admin: 07/31/19 11:41 Dose: 5,000 unit Hydralazine HCl 50 mg/ (Hydralazine HCl 25 mg) 75 mg PO TID [facility] Last Admin: 07/31/19 06:38 Dose: 75 mg Insulin Aspart (Novolog Vial Sliding Scale -) 1 vial SQ ACHS [facility]; Protocol Last Admin: 07/31/19 12:04 Dose: 8 units Isosorbide Mononitrate (Imdur -) 30 mg PO DAILY [facility] Last Admin: 07/31/19 11:41 Dose: 30 mg Methylnaltrexone [place] (Relistor -) 12 mg SQ Q2D@1000 [facility] Last Admin: 07/30/19 18:23 Dose: 12 mg Metoprolol Tartrate (Lopressor -) 25 mg PO BID [facility] Last Admin: 07/31/19 11:40 Dose: 25 mg Polyethylene Glycol (Miralax (For Daily Use) -) 17 gm PO DAILY [facility] Last Admin: 07/31/19 11:41 Dose: 17 grams - Objective Vital Signs: Vital Signs Temperature 98.8 F 07/31/19 06:00 Pulse Rate 68 07/31/19 06:00 Respiratory Rate 18 07/31/19 06:00 Blood Pressure 124/63 07/31/19 06:00 O2 Sat by Pulse Oximetry (%) 99 07/31/19 09:00 Constitutional: Yes: Calm Eyes: Yes: Conjunctiva Clear HENT: Yes: Atraumatic Neck: Yes: Supple Cardiovascular: Yes: S1, S2 Respiratory: Yes: CTA Bilaterally Gastrointestinal: Yes: Soft Genitourinary: Yes: WNL Musculoskeletal: Yes: WNL Edema: Yes (improved) Edema: LLE: Trace, RLE: Trace Integumentary: Yes: WNL Neurological: Yes: Oriented Psychiatric: Yes: Oriented Labs: CBC, BMP 07/30/19 07:10 07/31/19 06:18 INR, PTT INR 0.99 (0.83-1.09) 07/26/19 20:43 Assessment/Plan Current Medications Generic Name Dose Route Start Last Admin Trade Name Freq PRN Reason Stop Dose Admin Acetaminophen 650 mg 07/30/19 02:35 07/30/19 02:42 Tylenol - PO 650 mg Q8H PRN Administration PAIN LEVEL 4 - 10 Albuterol/Ipratropium 1 amp 07/29/19 14:00 07/31/19 08:00 Duoneb - NEB 1 amp RTID [facility] Administration Amlodipine Besylate 10 mg 07/27/19 06:00 07/31/19 11:41 Norvasc - PO 10 mg DAILY [facility] Administration Aspirin 81 mg 07/27/19 10:00 07/31/19 11:41 Asa - PO 81 mg DAILY [facility] Administration Docusate Sodium 100 mg 07/29/19 14:00 07/31/19 06:38 Colace - PO 100 mg TID [facility] Administration Ferrous Sulfate 325 mg 07/27/19 10:00 07/31/19 11:41 Feosol - PO 325 mg DAILY [facility] Administration Furosemide 40 mg 07/27/19 06:00 07/31/19 11:48 Lasix Injection - IVPUSH Not Given DAILY [facility] Heparin Sodium (Porcine) 5,000 unit 07/27/19 10:00 07/31/19 11:41 Heparin - SQ 5,000 unit BID [facility] Administration Hydralazine HCl 50 mg/ 75 mg 07/27/19 22:00 07/31/19 06:38 Hydralazine HCl 25 mg PO 75 mg TID [facility] Administration Insulin Aspart 1 vial 07/30/19 07:00 07/31/19 12:04 Novolog Vial Sliding Scale - SQ 8 units ACHS [facility] Administration Protocol Isosorbide Mononitrate 30 mg 07/27/19 10:00 07/31/19 11:41 Imdur - PO 30 mg DAILY [facility] Administration Methylnaltrexone [place] 12 mg 07/30/19 15:00 07/30/19 18:23 Relistor - SQ 12 mg Q2D@1000 [facility] Administration Metoprolol Tartrate 25 mg 07/27/19 17:30 07/31/19 11:40 Lopressor - PO 25 mg BID [facility] Administration Polyethylene Glycol 17 gm 07/29/19 12:00 07/31/19 11:41 Miralax (For Daily Use) - PO 17 grams DAILY [facility] Administration Laboratory Tests 07/29/19 07/29/19 06:03 06:03 TERRA M-Reinaldo Pending JERI Screen Pending c-ANCA Pending Proteinase 3 (PR3) Pending p-ANCA Pending Atypical p-ANCA Pending Myeloperoxidase Ab Pending Double Strand DNA Ab <1 Glomerular Base Memb Ab 2 Hep Bs Antigen Pending Hep Bs Antibody Pending Hep B Core Total Ab Pending Hep B Core IgM Ab Pending Impression 1. BRADY 2. HTN 3. DM 4. bilateral hydro 5. anemia 6. CKD Plan - follow cxr - oncology input pending - monitor renal function - repeat labs in am - follow renal workup - pulm input appreciated, agree with lasix - monitor bp, which is improved - arb on hold
[2019-07-31] MEDS ORDERED: ONDANSETRON 4 MG/2 ML VIAL IVPUSH PRN (18:50)
--- NOTE | 2019-07-31 19:47 | PN ---
Progress Note (short form) - Note Progress Note: Patient ambulating in hallway. No melena, BPR, emesis. Had BM last PM. VSS In NAD Abd soft, NT Impression Anemia, no prior colonoscopy Plan EGD and colonoscopy when OK from CV/pulmonary standpoint Patient understands plan
--- NOTE | 2019-07-31 22:37 | PN ---
Progress Note, Physician History of Present Illness: Pt complains of nausea but no vomiting - Current Medication List Current Medications: Active Medications Acetaminophen (Tylenol -) 650 mg PO Q8H PRN PRN Reason: PAIN LEVEL 4 - 10 Last Admin: 07/30/19 02:42 Dose: 650 mg Albuterol/Ipratropium (Duoneb -) 1 amp NEB RTID [facility] Last Admin: 07/31/19 20:16 Dose: 1 amp Amlodipine Besylate (Norvasc -) 10 mg PO DAILY [facility] Last Admin: 07/31/19 11:41 Dose: 10 mg Aspirin (Asa -) 81 mg PO DAILY [facility] Last Admin: 07/31/19 11:41 Dose: 81 mg Docusate Sodium (Colace -) 100 mg PO TID [facility] Last Admin: 07/31/19 21:30 Dose: 100 mg Ferrous Sulfate (Feosol -) 325 mg PO DAILY [facility] Last Admin: 07/31/19 11:41 Dose: 325 mg Furosemide (Lasix Injection -) 40 mg IVPUSH DAILY [facility] Last Admin: 07/31/19 11:48 Dose: Not Given Heparin Sodium (Porcine) (Heparin -) 5,000 unit SQ BID [facility] Last Admin: 07/31/19 21:30 Dose: Not Given Hydralazine HCl 50 mg/ (Hydralazine HCl 25 mg) 75 mg PO TID [facility] Last Admin: 07/31/19 21:30 Dose: 75 mg Insulin Aspart (Novolog Vial Sliding Scale -) 1 vial SQ ACHS [facility]; Protocol Last Admin: 07/31/19 21:31 Dose: 2 units Isosorbide Mononitrate (Imdur -) 30 mg PO DAILY [facility] Last Admin: 07/31/19 11:41 Dose: 30 mg Methylnaltrexone [place] (Relistor -) 12 mg SQ Q2D@1000 [facility] Last Admin: 07/30/19 18:23 Dose: 12 mg Metoprolol Tartrate (Lopressor -) 25 mg PO BID [facility] Last Admin: 07/31/19 21:30 Dose: 25 mg Ondansetron HCl (Zofran Injection) 4 mg IVPUSH Q6H PRN PRN Reason: NAUSEA Polyethylene Glycol (Miralax (For Daily Use) -) 17 gm PO DAILY [facility] Last Admin: 07/31/19 11:41 Dose: 17 grams - Objective Vital Signs: Vital Signs Temperature 98.1 F 07/31/19 18:00 Pulse Rate 69 07/31/19 18:00 Respiratory Rate 18 07/31/19 18:00 Blood Pressure 123/56 L 07/31/19 18:00 O2 Sat by Pulse Oximetry (%) 99 07/31/19 09:00 Neck: Yes: WNL, Supple Cardiovascular: Yes: WNL, Regular Rate and Rhythm Respiratory: Yes: WNL, Regular, CTA Bilaterally Gastrointestinal: Yes: WNL, Normal Bowel Sounds, Soft Extremities: Yes: WNL Edema: No Labs: CBC, BMP 07/30/19 07:10 07/31/19 06:18 INR, PTT INR 0.99 (0.83-1.09) 07/26/19 20:43 Problem List - Problems (1) Symptomatic anemia Assessment/Plan: Transfused 1 unit PRBC's Monitor H/H Pt is medically cleared for further testing including EGD/colonoscopy Code(s): D64.9 - ANEMIA, UNSPECIFIED (2) Acute on chronic diastolic (congestive) heart failure Assessment/Plan: Cont IV lasix Monitor electrolytes Code(s): I50.33 - ACUTE ON CHRONIC DIASTOLIC (CONGESTIVE) HEART FAILURE (3) Dyspnea Assessment/Plan: Multifactorial/pleural effusion CHF vs anemia CT scan chest did not show any acute pathology Code(s): R06.00 - DYSPNEA, UNSPECIFIED (4) ARF (acute renal failure) Assessment/Plan: Renal scan for hydronephrosis Code(s): N17.9 - ACUTE KIDNEY FAILURE, UNSPECIFIED (5) HTN (hypertension) Code(s): I10 - ESSENTIAL (PRIMARY) HYPERTENSION (6) Diabetes Code(s): E11.9 - TYPE 2 DIABETES MELLITUS WITHOUT COMPLICATIONS
[2019-08-01] MEDS ORDERED: hydrALAZINE HCL 50 MG TABLET (FP) ONE ×3 (06:06→21:32)
[2019-08-01] MEDS ORDERED: hydrALAZINE HCL 25 MG TABLET (FP) ONE ×3 (06:06→21:32)
[2019-08-01] MEDS: INSULIN SLIDING SCALE (NOVOLOG) 1 VIAL SQ SCH ×4 (06:54→22:17)
[2019-08-01] MEDS: DOCUSATE SODIUM 100 MG CAPSULE (FP) PO SCH ×3 (06:54→22:17)
[2019-08-01 08:07] LABS: HEP B CORE AB, TOT Negative (Negative)
[2019-08-01] MEDS: ALBUTEROL SO4 2.5/IPRATROPIUM 0.5 INH SOL 3 ML VIAL.NEB. NEB SCH ×3 (08:18→20:40)
[2019-08-01] MEDS: ISOSORBIDE MONONITRATE 30 MG TAB.SR.24H (FP) PO SCH (10:12)
[2019-08-01] MEDS: HEPARIN NA (PORCINE) 5,000 UNITS/ML 1ML VIAL SQ SCH ×2 (10:12→22:17)
[2019-08-01] MEDS: amLODIPine BESYLATE 10 MG TABLET (FP) PO SCH (10:12)
[2019-08-01] MEDS: FUROSEMIDE 40 MG/4 ML INJECTABLE VIAL IVPUSH SCH (10:12)
[2019-08-01] MEDS: METOPROLOL TARTRATE 25 MG TABLET (FP) PO SCH ×2 (10:12→22:17)
[2019-08-01] MEDS: FERROUS SO4 325 MG TABLET (FP) PO SCH (10:12)
[2019-08-01] MEDS: ASPIRIN 81 MG CHEWABLE TABLETS PO SCH (10:12)
[2019-08-01] MEDS: POLYETHYLENE GLYCOL 3350 119 GM BTL PO SCH (10:13)
--- NOTE | 2019-08-01 11:23 | PN ---
Progress Note (short form) - Note Progress Note: NAD on RA. Reports breathing feels better. Family at the bedside. No acute events overnight. Intake & Output 07/29/19 07/30/19 07/31/19 08/01/19 23:59 23:59 23:59 23:59 Intake Total 1280 800 500 100 Output Total 1400 650 Balance -120 800 -150 100 Weight 118 lb 14.4 oz Last Vital Signs Temp Pulse Resp BP Pulse Ox 98.6 F 76 20 159/76 98 08/01/19 09:21 08/01/19 09:21 08/01/19 09:21 08/01/19 09:21 07/31/19 21:00 Active Medications Acetaminophen (Tylenol -) 650 mg PO Q8H PRN PRN Reason: PAIN LEVEL 4 - 10 Last Admin: 07/30/19 02:42 Dose: 650 mg Albuterol/Ipratropium (Duoneb -) 1 amp NEB RTID [facility] Last Admin: 08/01/19 08:18 Dose: 1 amp Amlodipine Besylate (Norvasc -) 10 mg PO DAILY [facility] Last Admin: 08/01/19 10:12 Dose: 10 mg Aspirin (Asa -) 81 mg PO DAILY [facility] Last Admin: 08/01/19 10:12 Dose: 81 mg Docusate Sodium (Colace -) 100 mg PO TID [facility] Last Admin: 08/01/19 06:54 Dose: 100 mg Ferrous Sulfate (Feosol -) 325 mg PO DAILY [facility] Last Admin: 08/01/19 10:12 Dose: 325 mg Furosemide (Lasix Injection -) 40 mg IVPUSH DAILY [facility] Last Admin: 08/01/19 10:12 Dose: 40 mg Heparin Sodium (Porcine) (Heparin -) 5,000 unit SQ BID [facility] Last Admin: 08/01/19 10:12 Dose: 5,000 unit Hydralazine HCl 50 mg/ (Hydralazine HCl 25 mg) 75 mg PO TID [facility] Last Admin: 08/01/19 06:54 Dose: 75 mg Insulin Aspart (Novolog Vial Sliding Scale -) 1 vial SQ ACHS [facility]; Protocol Last Admin: 08/01/19 06:54 Dose: Not Given Isosorbide Mononitrate (Imdur -) 30 mg PO DAILY [facility] Last Admin: 08/01/19 10:12 Dose: 30 mg Methylnaltrexone [place] (Relistor -) 12 mg SQ Q2D@1000 [facility] Last Admin: 07/30/19 18:23 Dose: 12 mg Metoprolol Tartrate (Lopressor -) 25 mg PO BID [facility] Last Admin: 08/01/19 10:12 Dose: 25 mg Ondansetron HCl (Zofran Injection) 4 mg IVPUSH Q6H PRN PRN Reason: NAUSEA Polyethylene Glycol (Miralax (For Daily Use) -) 17 gm PO DAILY [facility] Last Admin: 08/01/19 10:13 Dose: Not Given Gen: NAD at rest Heart: RRR Lung: decreased breath sounds at the bases, fine rales Abd: softly distended, nontender Ext: no edema Laboratory Results - last 24 hr 07/29/19 07/31/19 07/31/19 06:03 11:54 18:17 POC Glucometer 306 151 JERI Screen Negative Double Strand DNA Ab <1 Hep A IgM Ab Confirm Negative Hepatitis A Ab Total Positive H Hep Bs Antigen Negative Hep Bs Antibody Non reactive Hep B Core Total Ab Negative Hep B Core IgM Ab Negative Hepatitis Be Antibody Negative Hepatitis Be Antigen Negative 07/31/19 08/01/19 21:10 06:52 POC Glucometer 169 116 JERI Screen Double Strand DNA Ab Hep A IgM Ab Confirm Hepatitis A Ab Total Hep Bs Antigen Hep Bs Antibody Hep B Core Total Ab Hep B Core IgM Ab Hepatitis Be Antibody Hepatitis Be Antigen A/P Acute on Chronic Diastolic Heart Failure Acute Kidney Injury Pleural Effusions Anemia r/o COPD HTN DM - Lasix - monitor urine output, creatinine - O2 to keep SpO2 >90% - inhaled bronchodilators - will need outpt PFTs and f/u of chest imaging - monitor H/H - DVT prophylaxis - There is no Pulmonary contraindication for endoscopic evaluation, however as her H&H have improved and remained stable, consideration should be made for continued outpatient workup/evaluation Dr Patton
[2019-08-01] MEDS ORDERED: INSULIN (NOVOLOG) ASPART 100 UNITS/ML 10ML VIAL ONE (11:41)
[2019-08-01] MEDS: Methylnaltrexone Bromide 12 MG/0.6 ML KIT SQ SCH (11:48)
--- NOTE | 2019-08-01 15:48 | PN.GI ---
GI Progress Note Subjective: No acute events Family present at bedside (daughter, son-in-law, ) Patient cleared from pulmonary standpoint for procedures - Objective Vital Signs: Vital Signs Temperature 98.6 F 08/01/19 09:21 Pulse Rate 76 08/01/19 09:21 Respiratory Rate 20 08/01/19 09:21 Blood Pressure 159/76 08/01/19 09:21 O2 Sat by Pulse Oximetry (%) 98 07/31/19 21:00 Constitutional: Calm Eyes: No: Sclera Icterus Cardiovascular: Yes: Regular Rate and Rhythm. No: Murmur Respiratory: Yes: CTA Bilaterally Gastrointestinal Inspection: No: Distention ...Auscultate: Yes: Normoactive Bowel Sounds ...Palpate: Yes: Soft. No: Hepatomegaly, Splenomegaly, Tenderness ...Percussion: No: Tympanitic Edema: No (No LE edema) Neurological: Yes: Alert Labs: CBC, BMP 07/30/19 07:10 07/31/19 06:18 INR, PTT INR 0.99 (0.83-1.09) 07/26/19 20:43 Problem List - Problems (1) Anemia Assessment/Plan: Normocytic anemia Consider hematology evaluation as there are multiple potential etiologies Discussed continued outpatient evaluation with Ms. joao Case and her daughter. Discussed upper endoscopy and colonoscopy as tests that can be used to evaluate for GI blood loss such as bleeding blood vessels, polyps, PUD and cancer os the GI tract such as colon cancer. Discussed potential risks of the procedures like but not limited to bleeding, perforation requiring surgery to repair, infection, sedation medication effects all of which could be potentially life threatening. She and her family have agreed to the procedure. Her daughter was concerned regarding waiting for outpatient evaluation. Plan for EGD tomorrow as she has eaten both breakfast and lunch today and has chronic constipation. Code(s): D64.9 - ANEMIA, UNSPECIFIED Qualifiers: Anemia type: unspecified type Qualified Code(s): D64.9 - Anemia, unspecified (2) Liver lesion Assessment/Plan: No on non contrast imaging Code(s): K76.9 - LIVER DISEASE, UNSPECIFIED
--- NOTE | 2019-08-01 16:18 | PN ---
Progress Note, Physician History of Present Illness: Pt seen and examined at bedside. She is awake and alert. She denies shortness of breath. - Current Medication List Current Medications: Active Medications Acetaminophen (Tylenol -) 650 mg PO Q8H PRN PRN Reason: PAIN LEVEL 4 - 10 Last Admin: 07/30/19 02:42 Dose: 650 mg Albuterol/Ipratropium (Duoneb -) 1 amp NEB RTID [facility] Last Admin: 08/01/19 08:18 Dose: 1 amp Amlodipine Besylate (Norvasc -) 10 mg PO DAILY [facility] Last Admin: 08/01/19 10:12 Dose: 10 mg Aspirin (Asa -) 81 mg PO DAILY [facility] Last Admin: 08/01/19 10:12 Dose: 81 mg Docusate Sodium (Colace -) 100 mg PO TID [facility] Last Admin: 08/01/19 14:51 Dose: 100 mg Ferrous Sulfate (Feosol -) 325 mg PO DAILY [facility] Last Admin: 08/01/19 10:12 Dose: 325 mg Furosemide (Lasix Injection -) 40 mg IVPUSH DAILY [facility] Last Admin: 08/01/19 10:12 Dose: 40 mg Heparin Sodium (Porcine) (Heparin -) 5,000 unit SQ BID [facility] Last Admin: 08/01/19 10:12 Dose: 5,000 unit Hydralazine HCl 50 mg/ (Hydralazine HCl 25 mg) 75 mg PO TID [facility] Last Admin: 08/01/19 14:51 Dose: 75 mg Insulin Aspart (Novolog Vial Sliding Scale -) 1 vial SQ ACHS [facility]; Protocol Last Admin: 08/01/19 11:48 Dose: 2 units Isosorbide Mononitrate (Imdur -) 30 mg PO DAILY [facility] Last Admin: 08/01/19 10:12 Dose: 30 mg Metoprolol Tartrate (Lopressor -) 25 mg PO BID [facility] Last Admin: 08/01/19 10:12 Dose: 25 mg Ondansetron HCl (Zofran Injection) 4 mg IVPUSH Q6H PRN PRN Reason: NAUSEA Pantoprazole Sodium (Protonix -) 20 mg PO DAILY [facility] Polyethylene Glycol (Miralax (For Daily Use) -) 17 gm PO DAILY [facility] Last Admin: 08/01/19 10:13 Dose: Not Given - Objective Vital Signs: Vital Signs Temperature 97.8 F 08/01/19 14:00 Pulse Rate 63 08/01/19 14:00 Respiratory Rate 20 08/01/19 14:00 Blood Pressure 114/53 L 08/01/19 14:00 O2 Sat by Pulse Oximetry (%) 98 07/31/19 21:00 Constitutional: Yes: Calm Eyes: Yes: Conjunctiva Clear HENT: Yes: Atraumatic Neck: Yes: Supple Cardiovascular: Yes: S1, S2 Respiratory: Yes: CTA Bilaterally Gastrointestinal: Yes: Soft Genitourinary: Yes: WNL Musculoskeletal: Yes: WNL Edema: Yes Edema: LLE: Trace, RLE: Trace Neurological: Yes: Oriented Psychiatric: Yes: Oriented Labs: CBC, BMP 07/30/19 07:10 07/31/19 06:18 INR, PTT INR 0.99 (0.83-1.09) 07/26/19 20:43 Assessment/Plan Current Medications Generic Name Dose Route Start Last Admin Trade Name Freq PRN Reason Stop Dose Admin Acetaminophen 650 mg 07/30/19 02:35 07/30/19 02:42 Tylenol - PO 650 mg Q8H PRN Administration PAIN LEVEL 4 - 10 Albuterol/Ipratropium 1 amp 07/29/19 14:00 08/01/19 08:18 Duoneb - NEB 1 amp RTID [facility] Administration Amlodipine Besylate 10 mg 07/27/19 06:00 08/01/19 10:12 Norvasc - PO 10 mg DAILY [facility] Administration Aspirin 81 mg 07/27/19 10:00 08/01/19 10:12 Asa - PO 81 mg DAILY [facility] Administration Docusate Sodium 100 mg 07/29/19 14:00 08/01/19 14:51 Colace - PO 100 mg TID [facility] Administration Ferrous Sulfate 325 mg 07/27/19 10:00 08/01/19 10:12 Feosol - PO 325 mg DAILY [facility] Administration Furosemide 40 mg 07/27/19 06:00 08/01/19 10:12 Lasix Injection - IVPUSH 40 mg DAILY [facility] Administration Heparin Sodium (Porcine) 5,000 unit 07/27/19 10:00 08/01/19 10:12 Heparin - SQ 5,000 unit BID [facility] Administration Hydralazine HCl 50 mg/ 75 mg 07/27/19 22:00 08/01/19 14:51 Hydralazine HCl 25 mg PO 75 mg TID [facility] Administration Insulin Aspart 1 vial 07/30/19 07:00 08/01/19 11:48 Novolog Vial Sliding Scale - SQ 2 units ACHS [facility] Administration Protocol Isosorbide Mononitrate 30 mg 07/27/19 10:00 08/01/19 10:12 Imdur - PO 30 mg DAILY [facility] Administration Metoprolol Tartrate 25 mg 07/27/19 17:30 08/01/19 10:12 Lopressor - PO 25 mg BID [facility] Administration Ondansetron HCl 4 mg 07/31/19 18:50 Zofran Injection IVPUSH Q6H PRN NAUSEA Pantoprazole Sodium 20 mg 08/02/19 10:00 Protonix - PO DAILY [facility] Polyethylene Glycol 17 gm 07/29/19 12:00 08/01/19 10:13 Miralax (For Daily Use) - PO Not Given DAILY [facility] Laboratory Tests 07/29/19 07/29/19 06:03 06:03 TERRA M-Reinaldo Pending JERI Screen Negative c-ANCA Pending Proteinase 3 (PR3) Pending p-ANCA Pending Atypical p-ANCA Pending Double Strand DNA Ab <1 Glomerular Base Memb Ab 2 Hep Bs Antigen Negative Hep Bs Antibody Non reactive Hep B Core Total Ab Negative Hep B Core IgM Ab Negative Hepatitis Be Antibody Negative Hepatitis Be Antigen Negative Impression 1. BRADY 2. HTN 3. DM 4. bilateral hydro 5. anemia 6. CKD Plan - cont lasix - monitor renal function - follow serologies - IG workup in progress - urology follow up, pt still with [facility] - monitor bp - arb on hold
[2019-08-01 18:10] LABS: ATYPICAL pANCA <1:20 titer (Neg:<1:20); C-ANCA <1:20 titer (Neg:<1:20)
--- NOTE | 2019-08-01 23:48 | PN ---
Progress Note, Physician - Current Medication List Current Medications: Active Medications Acetaminophen (Tylenol -) 650 mg PO Q8H PRN PRN Reason: PAIN LEVEL 4 - 10 Last Admin: 07/30/19 02:42 Dose: 650 mg Albuterol/Ipratropium (Duoneb -) 1 amp NEB RTID [facility] Last Admin: 08/01/19 20:40 Dose: 1 amp Amlodipine Besylate (Norvasc -) 10 mg PO DAILY [facility] Last Admin: 08/01/19 10:12 Dose: 10 mg Aspirin (Asa -) 81 mg PO DAILY [facility] Last Admin: 08/01/19 10:12 Dose: 81 mg Docusate Sodium (Colace -) 100 mg PO TID [facility] Last Admin: 08/01/19 22:17 Dose: 100 mg Ferrous Sulfate (Feosol -) 325 mg PO DAILY [facility] Last Admin: 08/01/19 10:12 Dose: 325 mg Furosemide (Lasix Injection -) 40 mg IVPUSH DAILY [facility] Last Admin: 08/01/19 10:12 Dose: 40 mg Heparin Sodium (Porcine) (Heparin -) 5,000 unit SQ BID [facility] Last Admin: 08/01/19 22:17 Dose: Not Given Hydralazine HCl 50 mg/ (Hydralazine HCl 25 mg) 75 mg PO TID [facility] Last Admin: 08/01/19 22:17 Dose: 75 mg Insulin Aspart (Novolog Vial Sliding Scale -) 1 vial SQ ACHS [facility]; Protocol Last Admin: 08/01/19 22:17 Dose: 4 units Isosorbide Mononitrate (Imdur -) 30 mg PO DAILY [facility] Last Admin: 08/01/19 10:12 Dose: 30 mg Metoprolol Tartrate (Lopressor -) 25 mg PO BID [facility] Last Admin: 08/01/19 22:17 Dose: 25 mg Ondansetron HCl (Zofran Injection) 4 mg IVPUSH Q6H PRN PRN Reason: NAUSEA Pantoprazole Sodium (Protonix -) 20 mg PO DAILY [facility] Polyethylene Glycol (Miralax (For Daily Use) -) 17 gm PO DAILY [facility] Last Admin: 08/01/19 10:13 Dose: Not Given - Objective Vital Signs: Vital Signs Temperature 97.6 F 08/01/19 18:38 Pulse Rate 76 08/01/19 18:38 Respiratory Rate 20 08/01/19 18:38 Blood Pressure 135/60 08/01/19 18:38 O2 Sat by Pulse Oximetry (%) 98 08/01/19 09:00 Labs: CBC, BMP 07/30/19 07:10 07/31/19 06:18 INR, PTT INR 0.99 (0.83-1.09) 07/26/19 20:43 Problem List - Problems (1) Symptomatic anemia Code(s): D64.9 - ANEMIA, UNSPECIFIED (2) Acute on chronic diastolic (congestive) heart failure Code(s): I50.33 - ACUTE ON CHRONIC DIASTOLIC (CONGESTIVE) HEART FAILURE (3) Dyspnea Code(s): R06.00 - DYSPNEA, UNSPECIFIED (4) ARF (acute renal failure) Code(s): N17.9 - ACUTE KIDNEY FAILURE, UNSPECIFIED (5) HTN (hypertension) Code(s): I10 - ESSENTIAL (PRIMARY) HYPERTENSION (6) Diabetes Code(s): E11.9 - TYPE 2 DIABETES MELLITUS WITHOUT COMPLICATIONS
[2019-08-02] MEDS ORDERED: hydrALAZINE HCL 50 MG TABLET (FP) ONE ×3 (05:53→21:02)
[2019-08-02] MEDS ORDERED: hydrALAZINE HCL 25 MG TABLET (FP) ONE ×3 (05:53→21:02)
[2019-08-02] MEDS: DOCUSATE SODIUM 100 MG CAPSULE (FP) PO SCH ×3 (06:35→21:34)
[2019-08-02] MEDS: INSULIN SLIDING SCALE (NOVOLOG) 1 VIAL SQ SCH ×4 (06:35→21:35)
[2019-08-02] MEDS: ALBUTEROL SO4 2.5/IPRATROPIUM 0.5 INH SOL 3 ML VIAL.NEB. NEB SCH ×3 (08:36→21:09)
[2019-08-02 09:26] LABS: ALBUMIN 2.8 g/dl (3.4-5.0); BILIRUBIN,TOTAL 0.4 mg/dL (0.2-1); BLOOD UREA NITROGEN 52.7 mg/dL (7-18); CALCIUM 8.5 mg/dL (8.5-10.1); CREATININE 2.1 mg/dL (0.55-1.3); POTASSIUM 4.8 mmol/L (3.5-5.1); TOT PROT 5.8 g/dl (6.4-8.2)
[2019-08-02] MEDS: FERROUS SO4 325 MG TABLET (FP) PO SCH (09:43)
[2019-08-02] MEDS: METOPROLOL TARTRATE 25 MG TABLET (FP) PO SCH ×2 (09:43→21:34)
[2019-08-02] MEDS: PANTOPRAZOLE 20 MG TABLET (FP) PO SCH (09:43)
[2019-08-02] MEDS: ISOSORBIDE MONONITRATE 30 MG TAB.SR.24H (FP) PO SCH (09:43)
[2019-08-02] MEDS: amLODIPine BESYLATE 10 MG TABLET (FP) PO SCH (09:43)
[2019-08-02] MEDS: ASPIRIN 81 MG CHEWABLE TABLETS PO SCH (09:43)
[2019-08-02] MEDS: POLYETHYLENE GLYCOL 3350 119 GM BTL PO SCH (09:44)
[2019-08-02] MEDS: FUROSEMIDE 40 MG/4 ML INJECTABLE VIAL IVPUSH SCH (09:44)
--- NOTE | 2019-08-02 13:21 | PN ---
Progress Note, Physician History of Present Illness: Pt seen and examined at bedside. She had the endoscopy today. She denies shortness of breath. - Current Medication List Current Medications: Active Medications Acetaminophen (Tylenol -) 650 mg PO Q8H PRN PRN Reason: PAIN LEVEL 4 - 10 Last Admin: 07/30/19 02:42 Dose: 650 mg Albuterol/Ipratropium (Duoneb -) 1 amp NEB RTID [facility] Last Admin: 08/02/19 08:36 Dose: 1 amp Amlodipine Besylate (Norvasc -) 10 mg PO DAILY [facility] Last Admin: 08/02/19 09:43 Dose: 10 mg Aspirin (Asa -) 81 mg PO DAILY [facility] Last Admin: 08/02/19 09:43 Dose: 81 mg Docusate Sodium (Colace -) 100 mg PO TID [facility] Last Admin: 08/02/19 06:35 Dose: 100 mg Ferrous Sulfate (Feosol -) 325 mg PO DAILY [facility] Last Admin: 08/02/19 09:43 Dose: 325 mg Furosemide (Lasix Injection -) 40 mg IVPUSH DAILY [facility] Last Admin: 08/02/19 09:44 Dose: 40 mg Heparin Sodium (Porcine) (Heparin -) 5,000 unit SQ BID [facility] Last Admin: 08/01/19 22:17 Dose: Not Given Hydralazine HCl 50 mg/ (Hydralazine HCl 25 mg) 75 mg PO TID [facility] Last Admin: 08/02/19 06:35 Dose: 75 mg Insulin Aspart (Novolog Vial Sliding Scale -) 1 vial SQ ACHS [facility]; Protocol Last Admin: 08/02/19 06:35 Dose: Not Given Isosorbide Mononitrate (Imdur -) 30 mg PO DAILY [facility] Last Admin: 08/02/19 09:43 Dose: 30 mg Metoprolol Tartrate (Lopressor -) 25 mg PO BID [facility] Last Admin: 08/02/19 09:43 Dose: 25 mg Ondansetron HCl (Zofran Injection) 4 mg IVPUSH Q6H PRN PRN Reason: NAUSEA Pantoprazole Sodium (Protonix -) 20 mg PO DAILY [facility] Last Admin: 08/02/19 09:43 Dose: 20 mg Polyethylene Glycol (Miralax (For Daily Use) -) 17 gm PO DAILY [facility] Last Admin: 08/02/19 09:44 Dose: Not Given - Objective Vital Signs: Vital Signs Temperature 97.4 F L 08/02/19 12:53 Pulse Rate 66 08/02/19 12:53 Respiratory Rate 18 08/02/19 12:53 Blood Pressure 143/64 08/02/19 12:53 O2 Sat by Pulse Oximetry (%) 98 08/02/19 12:53 Constitutional: Yes: Calm Eyes: Yes: Conjunctiva Clear HENT: Yes: Atraumatic Neck: Yes: Supple Cardiovascular: Yes: S1, S2 Respiratory: Yes: CTA Bilaterally Gastrointestinal: Yes: Soft Genitourinary: Yes: [place] Present Musculoskeletal: Yes: WNL Edema: LLE: Trace, RLE: Trace Neurological: Yes: Oriented Psychiatric: Yes: Oriented Labs: CBC, BMP 07/30/19 07:10 08/02/19 06:50 INR, PTT INR 0.99 (0.83-1.09) 07/26/19 20:43 Assessment/Plan Current Medications Generic Name Dose Route Start Last Admin Trade Name Freq PRN Reason Stop Dose Admin Acetaminophen 650 mg 07/30/19 02:35 07/30/19 02:42 Tylenol - PO 650 mg Q8H PRN Administration PAIN LEVEL 4 - 10 Albuterol/Ipratropium 1 amp 07/29/19 14:00 08/01/19 08:18 Duoneb - NEB 1 amp RTID [facility] Administration Amlodipine Besylate 10 mg 07/27/19 06:00 08/01/19 10:12 Norvasc - PO 10 mg DAILY [facility] Administration Aspirin 81 mg 07/27/19 10:00 08/01/19 10:12 Asa - PO 81 mg DAILY [facility] Administration Docusate Sodium 100 mg 07/29/19 14:00 08/01/19 14:51 Colace - PO 100 mg TID [facility] Administration Ferrous Sulfate 325 mg 07/27/19 10:00 08/01/19 10:12 Feosol - PO 325 mg DAILY [facility] Administration Furosemide 40 mg 07/27/19 06:00 08/01/19 10:12 Lasix Injection - IVPUSH 40 mg DAILY [facility] Administration Heparin Sodium (Porcine) 5,000 unit 07/27/19 10:00 08/01/19 10:12 Heparin - SQ 5,000 unit BID [facility] Administration Hydralazine HCl 50 mg/ 75 mg 07/27/19 22:00 08/01/19 14:51 Hydralazine HCl 25 mg PO 75 mg TID [facility] Administration Insulin Aspart 1 vial 07/30/19 07:00 08/01/19 11:48 Novolog Vial Sliding Scale - SQ 2 units ACHS [facility] Administration Protocol Isosorbide Mononitrate 30 mg 07/27/19 10:00 08/01/19 10:12 Imdur - PO 30 mg DAILY [facility] Administration Metoprolol Tartrate 25 mg 07/27/19 17:30 08/01/19 10:12 Lopressor - PO 25 mg BID [facility] Administration Ondansetron HCl 4 mg 07/31/19 18:50 Zofran Injection IVPUSH Q6H PRN NAUSEA Pantoprazole Sodium 20 mg 08/02/19 10:00 Protonix - PO DAILY [facility] Polyethylene Glycol 17 gm 07/29/19 12:00 08/01/19 10:13 Miralax (For Daily Use) - PO Not Given DAILY [facility] Laboratory Tests 07/29/19 06:03 JERI Screen Negative c-ANCA <1:20 Proteinase 3 (PR3) <3.5 p-ANCA <1:20 Atypical p-ANCA <1:20 Myeloperoxidase Ab <9.0 Double Strand DNA Ab <1 Glomerular Base Memb Ab 2 Impression 1. BRADY 2. HTN 3. DM 4. bilateral hydro 5. anemia 6. CKD Plan - serologies negative so far - monitor renal function - will need outpt follow up - follow endoscopy resulta - urology follow up, pt still with stafford - bp is improved - arb on hold
--- NOTE | 2019-08-02 13:34 | PN ---
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 FOBT negative and no evidence of iron deficiency however pt has not had prior colonoscopy. Recommendations: -Follow up pathology results -PPI daily -Resume clear liquid diet -Recommend colonoscopy for further evaluation as pt has not had prior colonoscopy. Discussed with pts/pts daughter risks and benefits of the procedure , including potential for outpatient testing, she verbalized understanding and prefers to have procedure done during hospitalization. Will therefore plan for tomorrow. -Golytely 4L at 5pm -Dulcolax 20mg at 5pm -NPOpMn -Please call GI if any questions/concerns in the interim
--- NOTE | 2019-08-02 14:10 | PN ---
Progress Note, Physician History of Present Illness: pulmonary alert,comfortable,-resp distress,s/p egd tolerated procedure well - Current Medication List Current Medications: Active Medications Acetaminophen (Tylenol -) 650 mg PO Q8H PRN PRN Reason: PAIN LEVEL 4 - 10 Last Admin: 07/30/19 02:42 Dose: 650 mg Albuterol/Ipratropium (Duoneb -) 1 amp NEB RTID [facility] Last Admin: 08/02/19 08:36 Dose: 1 amp Amlodipine Besylate (Norvasc -) 10 mg PO DAILY [facility] Last Admin: 08/02/19 09:43 Dose: 10 mg Aspirin (Asa -) 81 mg PO DAILY [facility] Last Admin: 08/02/19 09:43 Dose: 81 mg Bisacodyl (Dulcolax -) 20 mg PO ONCE ONE Stop: 08/02/19 17:01 Docusate Sodium (Colace -) 100 mg PO TID [facility] Last Admin: 08/02/19 06:35 Dose: 100 mg Ferrous Sulfate (Feosol -) 325 mg PO DAILY [facility] Last Admin: 08/02/19 09:43 Dose: 325 mg Furosemide (Lasix Injection -) 40 mg IVPUSH DAILY [facility] Last Admin: 08/02/19 09:44 Dose: 40 mg Heparin Sodium (Porcine) (Heparin -) 5,000 unit SQ BID [facility] Last Admin: 08/01/19 22:17 Dose: Not Given Hydralazine HCl 50 mg/ (Hydralazine HCl 25 mg) 75 mg PO TID [facility] Last Admin: 08/02/19 06:35 Dose: 75 mg Insulin Aspart (Novolog Vial Sliding Scale -) 1 vial SQ ACHS [facility]; Protocol Last Admin: 08/02/19 13:28 Dose: Not Given Isosorbide Mononitrate (Imdur -) 30 mg PO DAILY [facility] Last Admin: 08/02/19 09:43 Dose: 30 mg Metoprolol Tartrate (Lopressor -) 25 mg PO BID [facility] Last Admin: 08/02/19 09:43 Dose: 25 mg Ondansetron HCl (Zofran Injection) 4 mg IVPUSH Q6H PRN PRN Reason: NAUSEA Pantoprazole Sodium (Protonix -) 20 mg PO DAILY [facility] Last Admin: 08/02/19 09:43 Dose: 20 mg Polyethylene Glycol (Miralax (For Daily Use) -) 17 gm PO DAILY [facility] Last Admin: 08/02/19 09:44 Dose: Not Given Polyethylene Glycol/Electrolytes (Golytely Solution -) 4,000 ml PO ONCE ONE Stop: 08/02/19 17:01 - Objective Vital Signs: Vital Signs Temperature 97.4 F L 08/02/19 13:17 Pulse Rate 65 08/02/19 13:17 Respiratory Rate 20 08/02/19 13:17 Blood Pressure 136/59 L 08/02/19 13:17 O2 Sat by Pulse Oximetry (%) 98 08/02/19 12:53 Constitutional: Yes: Well Nourished, Calm Eyes: Yes: WNL HENT: Yes: WNL Neck: Yes: WNL Cardiovascular: Yes: Regular Rate and Rhythm, S1, S2 Respiratory: Yes: CTA Bilaterally Gastrointestinal: Yes: Normal Bowel Sounds, Soft Extremities: Yes: WNL Edema: No Labs: CBC, BMP 08/02/19 06:50 Problem List - Problems (1) ARF (acute renal failure) Code(s): N17.9 - ACUTE KIDNEY FAILURE, UNSPECIFIED (2) Acute on chronic diastolic (congestive) heart failure Code(s): I50.33 - ACUTE ON CHRONIC DIASTOLIC (CONGESTIVE) HEART FAILURE (3) Anemia Code(s): D64.9 - ANEMIA, UNSPECIFIED Qualifiers: Anemia type: unspecified type Qualified Code(s): D64.9 - Anemia, unspecified (4) Diabetes Code(s): E11.9 - TYPE 2 DIABETES MELLITUS WITHOUT COMPLICATIONS (5) HTN (hypertension) Code(s): I10 - ESSENTIAL (PRIMARY) HYPERTENSION (6) Liver lesion Code(s): K76.9 - LIVER DISEASE, UNSPECIFIED (7) Symptomatic anemia Code(s): D64.9 - ANEMIA, UNSPECIFIED Assessment/Plan A/P Acute on Chronic Diastolic Heart Failure improved Acute Kidney Injury Pleural Effusions Anemia r/o COPD HTN DM - Lasix - monitor urine output, creatinine - O2 to keep SpO2 >90% - inhaled bronchodilators - will need outpt PFTs and f/u of chest imaging - monitor H/H - DVT prophylaxis - There is no Pulmonary contraindication for colonoscopy DR PIEDRA
[2019-08-02] MEDS: ACETAMINOPHEN 325 MG TABLET (FP) PO PRN (15:08)
[2019-08-02] MEDS ORDERED: BISACODYL 5 MG TABLET.DR (FP) PO ONE (17:00)
[2019-08-02] MEDS ORDERED: PEG 3350/NA SULF BICARB CL/KCL 4000 ML SOLN.RECON PO ONE (17:00)
[2019-08-02] MEDS ORDERED: INSULIN (NOVOLOG) ASPART 100 UNITS/ML 10ML VIAL ONE (17:37)
--- NOTE | 2019-08-02 21:02 | PN ---
Progress Note (short form) - Note Progress Note: UROLOGY NOTE. PT. WITH OBDULIA. HYDRO. RENAL SCAN REVEALS OBDULIA. OBSTRUCTIVE UROPATHY.PT. WILL NEED CYSTO,OBDULIA. RETROGRADES AND POSS. OBDULIA. JSarah CHAPMAN ON WEDNESDAY IF MED. OK.
--- NOTE | 2019-08-02 21:19 | PN ---
Progress Note, Physician - Current Medication List Current Medications: Active Medications Acetaminophen (Tylenol -) 650 mg PO Q8H PRN PRN Reason: PAIN LEVEL 4 - 10 Last Admin: 08/02/19 15:08 Dose: 650 mg Albuterol/Ipratropium (Duoneb -) 1 amp NEB RTID [facility] Last Admin: 08/02/19 21:09 Dose: 1 amp Amlodipine Besylate (Norvasc -) 10 mg PO DAILY [facility] Last Admin: 08/02/19 09:43 Dose: 10 mg Aspirin (Asa -) 81 mg PO DAILY [facility] Last Admin: 08/02/19 09:43 Dose: 81 mg Docusate Sodium (Colace -) 100 mg PO TID [facility] Last Admin: 08/02/19 15:06 Dose: 100 mg Ferrous Sulfate (Feosol -) 325 mg PO DAILY [facility] Last Admin: 08/02/19 09:43 Dose: 325 mg Furosemide (Lasix Injection -) 40 mg IVPUSH DAILY [facility] Last Admin: 08/02/19 09:44 Dose: 40 mg Heparin Sodium (Porcine) (Heparin -) 5,000 unit SQ BID [facility] Last Admin: 08/01/19 22:17 Dose: Not Given Hydralazine HCl 50 mg/ (Hydralazine HCl 25 mg) 75 mg PO TID [facility] Last Admin: 08/02/19 15:06 Dose: 75 mg Insulin Aspart (Novolog Vial Sliding Scale -) 1 vial SQ ACHS [facility]; Protocol Last Admin: 08/02/19 17:18 Dose: 6 units Isosorbide Mononitrate (Imdur -) 30 mg PO DAILY [facility] Last Admin: 08/02/19 09:43 Dose: 30 mg Metoprolol Tartrate (Lopressor -) 25 mg PO BID [facility] Last Admin: 08/02/19 09:43 Dose: 25 mg Ondansetron HCl (Zofran Injection) 4 mg IVPUSH Q6H PRN PRN Reason: NAUSEA Last Admin: 08/02/19 15:08 Dose: 4 mg Pantoprazole Sodium (Protonix -) 20 mg PO DAILY [facility] Last Admin: 08/02/19 09:43 Dose: 20 mg Polyethylene Glycol (Miralax (For Daily Use) -) 17 gm PO DAILY [facility] Last Admin: 08/02/19 09:44 Dose: Not Given - Objective Vital Signs: Vital Signs Temperature 97.7 F 08/02/19 18:00 Pulse Rate 65 08/02/19 18:00 Respiratory Rate 20 08/02/19 18:00 Blood Pressure 127/61 08/02/19 18:00 O2 Sat by Pulse Oximetry (%) 98 08/02/19 12:53 Labs: CBC, BMP 07/30/19 07:10 08/02/19 06:50 INR, PTT INR 0.99 (0.83-1.09) 07/26/19 20:43 Problem List - Problems (1) Symptomatic anemia Code(s): D64.9 - ANEMIA, UNSPECIFIED (2) Acute on chronic diastolic (congestive) heart failure Code(s): I50.33 - ACUTE ON CHRONIC DIASTOLIC (CONGESTIVE) HEART FAILURE (3) Dyspnea Code(s): R06.00 - DYSPNEA, UNSPECIFIED (4) ARF (acute renal failure) Code(s): N17.9 - ACUTE KIDNEY FAILURE, UNSPECIFIED (5) HTN (hypertension) Code(s): I10 - ESSENTIAL (PRIMARY) HYPERTENSION (6) Diabetes Code(s): E11.9 - TYPE 2 DIABETES MELLITUS WITHOUT COMPLICATIONS
[2019-08-02] MEDS: HEPARIN NA (PORCINE) 5,000 UNITS/ML 1ML VIAL SQ SCH (21:35)
[2019-08-03] MEDS ORDERED: hydrALAZINE HCL 50 MG TABLET (FP) ONE ×3 (05:21→21:12)
[2019-08-03] MEDS ORDERED: hydrALAZINE HCL 25 MG TABLET (FP) ONE ×3 (05:21→21:12)
[2019-08-03] MEDS: DOCUSATE SODIUM 100 MG CAPSULE (FP) PO SCH ×3 (06:11→21:37)
[2019-08-03] MEDS: INSULIN SLIDING SCALE (NOVOLOG) 1 VIAL SQ SCH ×4 (06:16→21:37)
[2019-08-03] MEDS: ALBUTEROL SO4 2.5/IPRATROPIUM 0.5 INH SOL 3 ML VIAL.NEB. NEB SCH (07:50)
[2019-08-03 08:38] LABS: BASO % 0.7 % (0-2.0); EOS % 11.8 % (0-4.5); HEMATOCRIT 22.3 % (32.4-45.2); HEMOGLOBIN 7.9 GM/dL (10.7-15.3); LYMPH % 26.6 % (8-40); MCH 31.8 pg (25.7-33.7); MCHC 35.3 g/dl (32.0-36.0); MEAN CELL VOLUME 90.1 fl (80-96); MEAN PLT VOLUME 7.5 fl (7.5-11.1); MONO % 9.5 % (3.8-10.2); NEUT % 51.4 % (42.8-82.8); PLATELET COUNT 160 K/MM3 (134-434); RBC 2.47 M/mm3 (3.60-5.2); RDW 12.5 % (11.6-15.6); WHITE BLOOD COUNT 3.3 K/mm3 (4.0-10.0)
[2019-08-03 09:40] LABS: ALBUMIN 2.6 g/dl (3.4-5.0); BILIRUBIN,TOTAL 0.3 mg/dL (0.2-1); CALCIUM 8.4 mg/dL (8.5-10.1); CREATININE 1.9 mg/dL (0.55-1.3); POTASSIUM 4.3 mmol/L (3.5-5.1); TOT PROT 5.3 g/dl (6.4-8.2)
[2019-08-03] MEDS: amLODIPine BESYLATE 10 MG TABLET (FP) PO SCH (10:24)
[2019-08-03] MEDS: FERROUS SO4 325 MG TABLET (FP) PO SCH (10:24)
[2019-08-03] MEDS: ASPIRIN 81 MG CHEWABLE TABLETS PO SCH (10:24)
[2019-08-03] MEDS: PANTOPRAZOLE 20 MG TABLET (FP) PO SCH (10:24)
[2019-08-03] MEDS: ISOSORBIDE MONONITRATE 30 MG TAB.SR.24H (FP) PO SCH (10:24)
[2019-08-03] MEDS: METOPROLOL TARTRATE 25 MG TABLET (FP) PO SCH ×2 (10:25→21:37)
[2019-08-03] MEDS: POLYETHYLENE GLYCOL 3350 119 GM BTL PO SCH (10:25)
[2019-08-03] MEDS: HEPARIN NA (PORCINE) 5,000 UNITS/ML 1ML VIAL SQ SCH ×2 (10:25→21:37)
[2019-08-03] MEDS: FUROSEMIDE 40 MG/4 ML INJECTABLE VIAL IVPUSH SCH (10:25)
--- NOTE | 2019-08-03 10:52 | PN ---
Progress Note (short form) - Note Progress Note: NAD on RA. Reports breathing feels better. No acute events overnight. Intake & Output 07/31/19 08/01/19 08/02/19 08/03/19 23:59 23:59 23:59 23:59 Intake Total 836 170 5298 Output Total 129 231 5857 Balance -150 -200 1350 Weight 118 lb 14.4 oz 119 lb 1.6 oz 116 lb 1.6 oz Last Vital Signs Temp Pulse Resp BP Pulse Ox 98.1 F 70 20 127/62 98 08/03/19 05:43 08/03/19 05:43 08/03/19 05:43 08/03/19 05:43 08/02/19 21:00 Active Medications Acetaminophen (Tylenol -) 650 mg PO Q8H PRN PRN Reason: PAIN LEVEL 4 - 10 Last Admin: 08/02/19 15:08 Dose: 650 mg Albuterol/Ipratropium (Duoneb -) 1 amp NEB RTID [facility] Last Admin: 08/03/19 07:50 Dose: 1 amp Amlodipine Besylate (Norvasc -) 10 mg PO DAILY [facility] Last Admin: 08/03/19 10:24 Dose: 10 mg Aspirin (Asa -) 81 mg PO DAILY [facility] Last Admin: 08/03/19 10:24 Dose: 81 mg Docusate Sodium (Colace -) 100 mg PO TID [facility] Last Admin: 08/03/19 06:11 Dose: 100 mg Ferrous Sulfate (Feosol -) 325 mg PO DAILY [facility] Last Admin: 08/03/19 10:24 Dose: 325 mg Furosemide (Lasix Injection -) 40 mg IVPUSH DAILY [facility] Last Admin: 08/03/19 10:25 Dose: 40 mg Heparin Sodium (Porcine) (Heparin -) 5,000 unit SQ BID [facility] Last Admin: 08/03/19 10:25 Dose: 5,000 unit Hydralazine HCl 50 mg/ (Hydralazine HCl 25 mg) 75 mg PO TID [facility] Last Admin: 08/03/19 06:11 Dose: 75 mg Insulin Aspart (Novolog Vial Sliding Scale -) 1 vial SQ ACHS [facility]; Protocol Last Admin: 08/03/19 06:16 Dose: Not Given Isosorbide Mononitrate (Imdur -) 30 mg PO DAILY [facility] Last Admin: 08/03/19 10:24 Dose: 30 mg Metoprolol Tartrate (Lopressor -) 25 mg PO BID [facility] Last Admin: 08/03/19 10:25 Dose: 25 mg Ondansetron HCl (Zofran Injection) 4 mg IVPUSH Q6H PRN PRN Reason: NAUSEA Last Admin: 08/02/19 15:08 Dose: 4 mg Pantoprazole Sodium (Protonix -) 20 mg PO DAILY [facility] Last Admin: 08/03/19 10:24 Dose: 20 mg Polyethylene Glycol (Miralax (For Daily Use) -) 17 gm PO DAILY [facility] Last Admin: 08/03/19 10:25 Dose: Not Given Gen: NAD at rest Heart: RRR Lung: decreased breath sounds at the bases, fine rales Abd: softly distended, nontender Ext: no edema Laboratory Results - last 24 hr 07/29/19 08/02/19 08/02/19 06:03 13:26 16:52 WBC RBC Hgb Hct MCV MCH MCHC RDW Plt Count MPV Absolute Neuts (auto) Neutrophils % Lymphocytes % Monocytes % Eosinophils % Basophils % Nucleated RBC % Sodium Potassium Chloride Carbon Dioxide Anion Gap BUN Creatinine Est GFR (CKD-EPI)AfAm Est GFR (CKD-EPI)NonAf POC Glucometer 147 277 Random Glucose Calcium Total Bilirubin AST ALT Alkaline Phosphatase Total Protein Total Protein (PEP) 5.7 L Albumin Albumin (PEP) 2.9 Globulin 2.8 Albumin/Globulin Ratio 1.0 Beta Globulins 0.7 TERRA M-Reinaldo Not observed 08/02/19 08/03/19 08/03/19 21:32 06:08 07:10 WBC 3.3 L RBC 2.47 L Hgb 7.9 L Hct 22.3 L MCV 90.1 MCH 31.8 MCHC 35.3 RDW 12.5 Plt Count 160 MPV 7.5 Absolute Neuts (auto) 1.7 Neutrophils % 51.4 D Lymphocytes % 26.6 D Monocytes % 9.5 Eosinophils % 11.8 H D Basophils % 0.7 Nucleated RBC % 0 Sodium Potassium Chloride Carbon Dioxide Anion Gap BUN Creatinine Est GFR (CKD-EPI)AfAm Est GFR (CKD-EPI)NonAf POC Glucometer 91 128 Random Glucose Calcium Total Bilirubin AST ALT Alkaline Phosphatase Total Protein Total Protein (PEP) Albumin Albumin (PEP) Globulin Albumin/Globulin Ratio Beta Globulins TERRA M-Reinaldo 08/03/19 07:10 WBC RBC Hgb Hct MCV MCH MCHC RDW Plt Count MPV Absolute Neuts (auto) Neutrophils % Lymphocytes % Monocytes % Eosinophils % Basophils % Nucleated RBC % Sodium 135 L Potassium 4.3 Chloride 99 Carbon Dioxide 27 Anion Gap 9 BUN 42.0 H Creatinine 1.9 H Est GFR (CKD-EPI)AfAm 30.85 Est GFR (CKD-EPI)NonAf 26.62 POC Glucometer Random Glucose 116 H Calcium 8.4 L Total Bilirubin 0.3 AST 20 ALT 27 Alkaline Phosphatase 84 Total Protein 5.3 L Total Protein (PEP) Albumin 2.6 L Albumin (PEP) Globulin Albumin/Globulin Ratio Beta Globulins TERRA M-Reinaldo A/P Acute on Chronic Diastolic Heart Failure Acute Kidney Injury Pleural Effusions Anemia r/o COPD HTN DM - Lasix - monitor urine output, creatinine - O2 to keep SpO2 >90% - inhaled bronchodilators - will need outpt PFTs and f/u of chest imaging - monitor H/H - DVT prophylaxis - There is no Pulmonary contraindication for endoscopic evaluation / anesthesia Dr Patton
--- NOTE | 2019-08-03 11:43 | PN ---
Progress Note (short form) - Note Progress Note: Colonoscopy complete. Report left in procedural section of physical chart and will be scanned into [employer] Problem List - Problems (1) Anemia Code(s): D64.9 - ANEMIA, UNSPECIFIED Qualifiers: Anemia type: unspecified type Qualified Code(s): D64.9 - Anemia, unspecified (2) Liver lesion Code(s): K76.9 - LIVER DISEASE, UNSPECIFIED
--- NOTE | 2019-08-03 13:29 | PN ---
Progress Note, Physician History of Present Illness: Pt seen and examined at bedside. She is awake and alert. She had an endoscopy. - Current Medication List Current Medications: Active Medications Acetaminophen (Tylenol -) 650 mg PO Q8H PRN PRN Reason: PAIN LEVEL 4 - 10 Last Admin: 08/02/19 15:08 Dose: 650 mg Albuterol/Ipratropium (Duoneb -) 1 amp NEB RTID [facility] Last Admin: 08/03/19 07:50 Dose: 1 amp Amlodipine Besylate (Norvasc -) 10 mg PO DAILY [facility] Last Admin: 08/03/19 10:24 Dose: 10 mg Aspirin (Asa -) 81 mg PO DAILY [facility] Last Admin: 08/03/19 10:24 Dose: 81 mg Docusate Sodium (Colace -) 100 mg PO TID [facility] Last Admin: 08/03/19 06:11 Dose: 100 mg Ferrous Sulfate (Feosol -) 325 mg PO DAILY [facility] Last Admin: 08/03/19 10:24 Dose: 325 mg Furosemide (Lasix Injection -) 40 mg IVPUSH DAILY [facility] Last Admin: 08/03/19 10:25 Dose: 40 mg Heparin Sodium (Porcine) (Heparin -) 5,000 unit SQ BID [facility] Last Admin: 08/03/19 10:25 Dose: 5,000 unit Hydralazine HCl 50 mg/ (Hydralazine HCl 25 mg) 75 mg PO TID [facility] Last Admin: 08/03/19 06:11 Dose: 75 mg Insulin Aspart (Novolog Vial Sliding Scale -) 1 vial SQ ACHS [facility]; Protocol Last Admin: 08/03/19 12:55 Dose: Not Given Isosorbide Mononitrate (Imdur -) 30 mg PO DAILY [facility] Last Admin: 08/03/19 10:24 Dose: 30 mg Metoprolol Tartrate (Lopressor -) 25 mg PO BID [facility] Last Admin: 08/03/19 10:25 Dose: 25 mg Ondansetron HCl (Zofran Injection) 4 mg IVPUSH Q6H PRN PRN Reason: NAUSEA Last Admin: 08/02/19 15:08 Dose: 4 mg Pantoprazole Sodium (Protonix -) 20 mg PO DAILY [facility] Polyethylene Glycol (Miralax (For Daily Use) -) 17 gm PO DAILY [facility] Last Admin: 08/03/19 10:25 Dose: Not Given - Objective Vital Signs: Vital Signs Temperature 98.0 F 08/03/19 12:10 Pulse Rate 66 08/03/19 12:10 Respiratory Rate 16 08/03/19 12:10 Blood Pressure 153/66 08/03/19 12:10 O2 Sat by Pulse Oximetry (%) 95 08/03/19 12:10 Constitutional: Yes: Calm Eyes: Yes: Conjunctiva Clear HENT: Yes: Atraumatic Neck: Yes: Supple Cardiovascular: Yes: S1, S2 Respiratory: Yes: CTA Bilaterally Gastrointestinal: Yes: Soft Genitourinary: Yes: WNL Extremities: Yes: WNL Edema: No Neurological: Yes: Oriented Psychiatric: Yes: Oriented Labs: CBC, BMP 08/03/19 07:10 08/03/19 07:10 INR, PTT INR 0.99 (0.83-1.09) 07/26/19 20:43 Assessment/Plan Current Medications Generic Name Dose Route Start Last Admin Trade Name Freq PRN Reason Stop Dose Admin Acetaminophen 650 mg 07/30/19 02:35 08/02/19 15:08 Tylenol - PO 650 mg Q8H PRN Administration PAIN LEVEL 4 - 10 Albuterol/Ipratropium 1 amp 07/29/19 14:00 08/03/19 07:50 Duoneb - NEB 1 amp RTID [facility] Administration Amlodipine Besylate 10 mg 07/27/19 06:00 08/03/19 10:24 Norvasc - PO 10 mg DAILY [facility] Administration Aspirin 81 mg 07/27/19 10:00 08/03/19 10:24 Asa - PO 81 mg DAILY [facility] Administration Docusate Sodium 100 mg 07/29/19 14:00 08/03/19 06:11 Colace - PO 100 mg TID ECHO Administration Ferrous Sulfate 325 mg 07/27/19 10:00 08/03/19 10:24 Feosol - PO 325 mg DAILY [facility] Administration Furosemide 40 mg 07/27/19 06:00 08/03/19 10:25 Lasix Injection - IVPUSH 40 mg DAILY [facility] Administration Heparin Sodium (Porcine) 5,000 unit 07/27/19 10:00 08/03/19 10:25 Heparin - SQ 5,000 unit BID [facility]CHO Administration Hydralazine HCl 50 mg/ 75 mg 07/27/19 22:00 10/31/19 06:11 Hydralazine HCl 25 mg PO 75 mg TID [facility] Administration Insulin Aspart 1 vial 07/30/19 07:00 08/03/19 12:55 Novolog Vial Sliding Scale - SQ Not Given ACHS [facility] Protocol Isosorbide Mononitrate 30 mg 07/27/19 10:00 08/03/19 10:24 Imdur - PO 30 mg DAILY [facility] Administration Metoprolol Tartrate 25 mg 07/27/19 17:30 08/03/19 10:25 Lopressor - PO 25 mg BID [facility] Administration Ondansetron HCl 4 mg 07/31/19 18:50 08/02/19 15:08 Zofran Injection IVPUSH 4 mg Q6H PRN Administration NAUSEA Pantoprazole Sodium 20 mg 08/04/19 10:00 Protonix - PO DAILY [facility] Polyethylene Glycol 17 gm 07/29/19 12:00 08/03/19 10:25 Miralax (For Daily Use) - PO Not Given DAILY [facility] Impression 1. BRADY 2. HTN 3. DM 4. bilateral hydro 5. anemia 6. CKD Plan - can see pt in office - bp stabilizing - restart arb at low dose and monitor - stafford removed, pt voiding - bp is improved - arb on hold
[2019-08-03] MEDS ORDERED: PT OWN MED DRAWER 7, Y5N ONE (14:52)
[2019-08-03 14:54] VITALS: BMI 23.4
[2019-08-03] MEDS: VALSARTAN 40 MG TABLET (FP) PO SCH (14:55)
[2019-08-03] MEDS ORDERED: INSULIN (NOVOLOG) ASPART 100 UNITS/ML 10ML VIAL ONE ×2 (16:40→21:33)
--- NOTE | 2019-08-03 18:05 | PN ---
Progress Note (short form) - Note Progress Note: UROLOGY NOTE. pt. with tammy. hydronephrosis and mild azotemia bun/creat.=42/1.9, diuretic nuclear renal-scan reveals an obstructive pattern, will go for cysto and tammy. retrogrades in am if med. ok.
--- NOTE | 2019-08-03 22:38 | PN ---
Progress Note, Physician History of Present Illness: No new complaints - Current Medication List Current Medications: Active Medications Acetaminophen (Tylenol -) 650 mg PO Q8H PRN PRN Reason: PAIN LEVEL 4 - 10 Last Admin: 08/02/19 15:08 Dose: 650 mg Amlodipine Besylate (Norvasc -) 10 mg PO DAILY [facility] Last Admin: 08/03/19 10:24 Dose: 10 mg Aspirin (Asa -) 81 mg PO DAILY [facility] Last Admin: 08/03/19 10:24 Dose: 81 mg Docusate Sodium (Colace -) 100 mg PO TID [facility] Last Admin: 08/03/19 21:37 Dose: 100 mg Ferrous Sulfate (Feosol -) 325 mg PO DAILY [facility] Last Admin: 08/03/19 10:24 Dose: 325 mg Furosemide (Lasix Injection -) 40 mg IVPUSH DAILY [facility] Last Admin: 08/03/19 10:25 Dose: 40 mg Heparin Sodium (Porcine) (Heparin -) 5,000 unit SQ BID [facility] Last Admin: 08/03/19 21:37 Dose: Not Given Hydralazine HCl 50 mg/ (Hydralazine HCl 25 mg) 75 mg PO TID [facility] Last Admin: 08/03/19 21:36 Dose: 75 mg Insulin Aspart (Novolog Vial Sliding Scale -) 1 vial SQ [facility]; Protocol Last Admin: 08/03/19 21:37 Dose: 2 units Isosorbide Mononitrate (Imdur -) 30 mg PO DAILY [facility] Last Admin: 08/03/19 10:24 Dose: 30 mg Metoprolol Tartrate (Lopressor -) 25 mg PO BID [facility] Last Admin: 08/03/19 21:37 Dose: 25 mg Ondansetron HCl (Zofran Injection) 4 mg IVPUSH Q6H PRN PRN Reason: NAUSEA Last Admin: 08/02/19 15:08 Dose: 4 mg Pantoprazole Sodium (Protonix -) 20 mg PO DAILY [facility] Polyethylene Glycol (Miralax (For Daily Use) -) 17 gm PO DAILY [facility] Last Admin: 08/03/19 10:25 Dose: Not Given Valsartan (Diovan -) 40 mg PO DAILY [facility] Last Admin: 08/03/19 14:55 Dose: 40 mg - Objective Vital Signs: Vital Signs Temperature 98.1 F 08/03/19 18:00 Pulse Rate 67 08/03/19 18:00 Respiratory Rate 20 08/03/19 18:00 Blood Pressure 137/64 08/03/19 18:00 O2 Sat by Pulse Oximetry (%) 95 08/03/19 12:10 Neck: Yes: WNL, Supple Cardiovascular: Yes: WNL, Regular Rate and Rhythm Respiratory: Yes: WNL, Regular, CTA Bilaterally Gastrointestinal: Yes: WNL, Normal Bowel Sounds, Soft Labs: CBC, BMP 08/03/19 07:10 08/03/19 07:10 INR, PTT INR 0.99 (0.83-1.09) 07/26/19 20:43 Problem List - Problems (1) ARF (acute renal failure) Assessment/Plan: Renal scan for hydronephrosis shows obstructive pattern Pt for cysto in am Medically cleared for procedure Code(s): N17.9 - ACUTE KIDNEY FAILURE, UNSPECIFIED (2) Symptomatic anemia Assessment/Plan: Pt being transfused 1 unit PRBC's Monitor H/H Code(s): D64.9 - ANEMIA, UNSPECIFIED (3) Acute on chronic diastolic (congestive) heart failure Assessment/Plan: Cont IV lasix Monitor electrolytes Code(s): I50.33 - ACUTE ON CHRONIC DIASTOLIC (CONGESTIVE) HEART FAILURE (4) Dyspnea Assessment/Plan: Multifactorial/pleural effusion CHF vs anemia CT scan chest did not show any acute pathology Code(s): R06.00 - DYSPNEA, UNSPECIFIED (5) HTN (hypertension) Code(s): I10 - ESSENTIAL (PRIMARY) HYPERTENSION (6) Diabetes Code(s): E11.9 - TYPE 2 DIABETES MELLITUS WITHOUT COMPLICATIONS
[2019-08-04] MEDS ORDERED: DEXTROSE 50%-WATER 25 GM/50 ML DISP.SYRIN ONE (01:21)
[2019-08-04] MEDS ORDERED: DEXTROSE 50%-WATER - 25 GM/50 ML VIAL IVPUSH ONE (01:30)
[2019-08-04] MEDS ORDERED: DEXTROSE 50%-WATER 25 GM/50 ML DISP.SYRIN IVPUSH ONE (01:45)
[2019-08-04] MEDS ORDERED: hydrALAZINE HCL 50 MG TABLET (FP) ONE ×3 (05:24→21:57)
[2019-08-04] MEDS ORDERED: hydrALAZINE HCL 25 MG TABLET (FP) ONE ×3 (05:25→21:57)
[2019-08-04] MEDS: INSULIN SLIDING SCALE (NOVOLOG) 1 VIAL SQ SCH ×4 (06:07→22:13)
[2019-08-04] MEDS: DOCUSATE SODIUM 100 MG CAPSULE (FP) PO SCH ×3 (06:09→22:06)
[2019-08-04] MEDS ORDERED: PT OWN MED DRAWER 7, Y5N ONE (10:14)
[2019-08-04] MEDS: PANTOPRAZOLE 20 MG TABLET (FP) PO SCH (10:20)
[2019-08-04] MEDS: METOPROLOL TARTRATE 25 MG TABLET (FP) PO SCH ×2 (10:20→22:06)
[2019-08-04] MEDS: FUROSEMIDE 40 MG/4 ML INJECTABLE VIAL IVPUSH SCH (10:20)
[2019-08-04] MEDS: HEPARIN NA (PORCINE) 5,000 UNITS/ML 1ML VIAL SQ SCH ×2 (10:20→22:11)
[2019-08-04] MEDS: FERROUS SO4 325 MG TABLET (FP) PO SCH (10:20)
[2019-08-04] MEDS: amLODIPine BESYLATE 10 MG TABLET (FP) PO SCH (10:20)
[2019-08-04] MEDS: ASPIRIN 81 MG CHEWABLE TABLETS PO SCH (10:20)
[2019-08-04] MEDS: ISOSORBIDE MONONITRATE 30 MG TAB.SR.24H (FP) PO SCH (10:20)
[2019-08-04] MEDS: POLYETHYLENE GLYCOL 3350 119 GM BTL PO SCH (10:52)
[2019-08-04] MEDS: VALSARTAN 40 MG TABLET (FP) PO SCH (10:52)
[2019-08-04] MEDS ORDERED: ONDANSETRON 4 MG/2 ML VIAL IVPUSH PRN (13:13)
[2019-08-04] MEDS ORDERED: PROPOFOL 20 ML ONE (13:17)
[2019-08-04] MEDS ORDERED: MIDAZOLAM HCL 2 MG/2 ML SINGLE DOSE VIAL ONE (13:17)
[2019-08-04] MEDS ORDERED: DEXAMETHASONE SOD PHOSPHATE 4 MG/1 ML VIAL ONE (13:17)
[2019-08-04] MEDS ORDERED: ceFAZolin SODIUM 1 GM VIAL IVPB ONE (13:55)
--- NOTE | 2019-08-04 14:25 | CONS ---
DATE OF CONSULTATION: DATE OF DICTATION: 08/04/2019 Patient is a 69-year-old female with history of bilateral hydroureteronephrosis found on ultrasound and a diuretic nuclear renal scan. Patient also has history of diabetes, high blood pressure, and anemia. She was transfused packed red blood cells. A chest x-ray earlier had revealed bilateral effusions with partially loculated, chronic lung disease. The patient does have history of congestive heart failure. She also has asthma and diabetes. She is on Norvasc, aspirin, iron, Lasix, isosorbide, , and hydralazine. Her BUN and creatinine have been ranging between BUN 40 and creatinine 2.5. The patient as well as the patient's daughter were counseled on the possibilities of her hydronephrosis and the possible cause for her azotemia. Patient will undergo a cystoscopy, bilateral retrograde pyelogram, possible bilateral JJ stent. This was explained to patient as well as patient's daughter, and they agree. Clau [id number]
--- NOTE | 2019-08-04 14:43 | OP ---
Operative Note - Note: Operative Date: 08/04/19 Pre-Operative Diagnosis: tammy. hydronephrosis and rt. renal colick and azotemia Operation: cysto, tammy. retrograde pyelograms, rt ureteroscopy and rt. stone basketting and rt. jj stent placement Findings: rt. hydro, with rt. ureteral stones Post-Operative Diagnosis: Same as Pre-op Surgeon: Jaxon Nassar Anesthesia: General Specimens Removed: urine, stones Estimated Blood Loss (mls): 0 Drains & Tubes with Location: 22cm 6f rt. jj stent Drains, Volume Out (mls): 0 Blood Volume Replaced (mls): 0 Fluid Volume Replaced (mls): 0 Operative Report Dictated: Yes
--- NOTE | 2019-08-04 15:04 | HP ---
DATE OF ADMISSION: 07/26/2019 PREOPERATIVE DIAGNOSIS: Bilateral hydroureteronephrosis, right flank pain, azotemia. POSTOPERATIVE DIAGNOSIS: Right ureteral stone, right hydronephrosis. OPERATIVE PROCEDURE: Cystourethroscopy, bilateral retrograde pyelogram, right ureteroscopy, right stone basketing, and placement of a right JJ stent. ANESTHESIA: General. DESCRIPTION OF PROCEDURE: Under above-stated anesthesia, patient is prepped and draped in the usual sterile manner. She is placed in the dorsal lithotomy position. Inspection of the external genitalia revealed a grade 3 cystorectocele with urinary incontinence. The vaginal mucosa was atrophic, and the vaginal orifice was shallow. Cystoscopy was introduced, and approximately 700 mL of clear urine was drained. This was sent for C and S and cytology. Inspection of the bladder revealed squamous metaplasia of the trigone. Ureteral orifices were within normal limits. Efflux of clear urine was noted from the left. None was seen from the right. Bilateral retrograde pyelograms were then performed by injecting 5 mL of contrast 1st into the left ureteral orifice and then into the right ureteral orifice. Subsequent x-rays revealed complete filling of the left renal unit with good drainage films. The right side revealed a grade 3 hydronephrosis with a filling defect in the left upper ureter. Therefore, a Glidewire was passed up the right renal unit. Semirigid ureteroscope was introduced. Ureteroscopy revealed multiple stones in the upper ureter. Using a basket, the stones were removed atraumatically. Afterwards, a 22-cm 6-Hebrew JJ stent was left in the right renal unit. X-rays confirmed good position of the stent. The bladder was emptied. The scope was removed. The patient tolerated the procedure well. She returned to the recovery room in good condition. Clau [id number]
[2019-08-04] MEDS: LACTATED RINGERS SOLUTION 1,000 ML IV SCH (16:50)
--- NOTE | 2019-08-04 18:12 | PATH ---
Surgical Pathology Report Patient Name: INES DAVE [facility]. Rec. #: [id number] /Age/Gender: 1950 (Age: 69) / F Account: [id number] Location: [address] [place] [address]/[facility] Taken: 08/02/2019 Received: 08/03/2019 Reported: 08/04/2019 Physicians: MD January Kennedy M.D. Specimen(s) Received A: ANTRUM B: GASTRIC BODY C: POLYP GASTRIC Clinical History Anemia Postoperative diagnosis: Gastric polyp, gastritis Final Diagnosis A. STOMACH, ANTRUM, BIOPSY: GASTRIC ANTRAL MUCOSA WITH SEVERE CHRONIC ACTIVE GASTRITIS. IMMUNOHISTOCHEMICAL STAIN FOR H. PYLORI IS POSITIVE (FEW). B. GASTRIC BODY, BIOPSY: GASTRIC BODY MUCOSA WITH SEVERE CHRONIC ACTIVE GASTRITIS. IMMUNOHISTOCHEMICAL STAIN FOR H. PYLORI IS POSITIVE (FEW). C. GASTRIC POLYP, BIOPSY: POLYPOID GASTRIC MUCOSA WITH SEVERE CHRONIC ACTIVE GASTRITIS, FOCAL FOVEOLAR HYPERPLASIA, AND DILATED GLANDS. IMMUNOHISTOCHEMICAL STAIN FOR H. PYLORI IS NEGATIVE. Electronically Signed Lauren Carrasco M.D. Gross Description A. Received in formalin, labeled "biopsy antrum" are 2 momin, irregular portions of soft tissue measuring 0.2 and 0.3 cm. in greatest dimension. The specimens are submitted in toto in one cassette. B. Received in formalin, labeled "biopsy gastric body" are 2 momin, irregular portions of soft tissue measuring 0.2 and 0.3 cm. in greatest dimension. The specimens are submitted in toto in one cassette. C. Received in formalin, labeled "polyp gastric" are 3 momin, irregular portions of soft tissue ranging from 0.1-0.3 cm. in greatest dimension. The specimens are submitted in toto in one cassette. DL/08/03/2019 saudi08/03/2019
--- NOTE | 2019-08-04 21:39 | PN ---
Progress Note, Physician - Current Medication List Current Medications: Active Medications Acetaminophen (Tylenol -) 650 mg PO Q8H PRN PRN Reason: PAIN LEVEL 4 - 10 Last Admin: 08/02/19 15:08 Dose: 650 mg Acetaminophen (Tylenol -) 650 mg PO Q6H PRN PRN Reason: NEED PAIN SCALE Amlodipine Besylate (Norvasc -) 10 mg PO DAILY [facility] Last Admin: 08/04/19 10:20 Dose: 10 mg Aspirin (Asa -) 81 mg PO DAILY [facility] Last Admin: 08/04/19 10:20 Dose: 81 mg Docusate Sodium (Colace -) 100 mg PO TID [facility] Last Admin: 08/04/19 16:51 Dose: 100 mg Fentanyl (Sublimaze Injection -) 25 mcg IVPUSH [id number] PRN PRN Reason: PAIN-PACU ORDER X 4 DOSES ONLY Fentanyl (Sublimaze Injection -) 50 mcg IVPUSH [id number] PRN PRN Reason: PAIN-PACU ORDER X 4 DOSES ONLY Ferrous Sulfate (Feosol -) 325 mg PO DAILY [facility] Last Admin: 08/04/19 10:20 Dose: 325 mg Furosemide (Lasix Injection -) 40 mg IVPUSH DAILY [facility] Last Admin: 08/04/19 10:20 Dose: 40 mg Heparin Sodium (Porcine) (Heparin -) 5,000 unit SQ BID [facility] Last Admin: 08/04/19 10:20 Dose: 5,000 unit Hydralazine HCl 50 mg/ (Hydralazine HCl 25 mg) 75 mg PO TID [facility] Last Admin: 08/04/19 16:51 Dose: 75 mg Lactated Ringer's (Lactated Ringers Solution) 1,000 mls @ 75 mls/hr IV ASDIR [facility] Last Admin: 08/04/19 16:50 Dose: 75 mls/hr Insulin Aspart (Novolog Vial Sliding Scale -) 1 vial SQ ACHS [facility]; Protocol Last Admin: 08/04/19 16:55 Dose: 2 units Isosorbide Mononitrate (Imdur -) 30 mg PO DAILY [facility] Last Admin: 08/04/19 10:20 Dose: 30 mg Metoprolol Tartrate (Lopressor -) 25 mg PO BID [facility] Last Admin: 08/04/19 10:20 Dose: 25 mg Ondansetron HCl (Zofran Injection) 4 mg IVPUSH Q6H PRN PRN Reason: NAUSEA Last Admin: 08/02/19 15:08 Dose: 4 mg Ondansetron HCl (Zofran Injection) 4 mg IVPUSH Q6H PRN PRN Reason: NAUSEA AND/OR VOMITING Pantoprazole Sodium (Protonix -) 20 mg PO DAILY [facility] Last Admin: 08/04/19 10:20 Dose: 20 mg Polyethylene Glycol (Miralax (For Daily Use) -) 17 gm PO DAILY [facility] Last Admin: 08/04/19 10:52 Dose: 17 grams Valsartan (Diovan -) 40 mg PO DAILY [facility] Last Admin: 08/04/19 10:52 Dose: 40 mg - Objective Vital Signs: Vital Signs Temperature 98.2 F 08/04/19 16:00 Pulse Rate 67 08/04/19 16:00 Respiratory Rate 13 08/04/19 16:00 Blood Pressure 169/66 08/04/19 16:00 O2 Sat by Pulse Oximetry (%) 96 08/04/19 16:00 Labs: CBC, BMP 08/03/19 07:10 08/03/19 07:10 INR, PTT INR 0.99 (0.83-1.09) 07/26/19 20:43 Problem List - Problems (1) ARF (acute renal failure) Code(s): N17.9 - ACUTE KIDNEY FAILURE, UNSPECIFIED (2) Symptomatic anemia Code(s): D64.9 - ANEMIA, UNSPECIFIED (3) Acute on chronic diastolic (congestive) heart failure Code(s): I50.33 - ACUTE ON CHRONIC DIASTOLIC (CONGESTIVE) HEART FAILURE (4) Dyspnea Code(s): R06.00 - DYSPNEA, UNSPECIFIED (5) HTN (hypertension) Code(s): I10 - ESSENTIAL (PRIMARY) HYPERTENSION (6) Diabetes Code(s): E11.9 - TYPE 2 DIABETES MELLITUS WITHOUT COMPLICATIONS
[2019-08-04] MEDS: ACETAMINOPHEN 325 MG TABLET (FP) PO PRN (22:07)
[2019-08-05] MEDS ORDERED: hydrALAZINE HCL 50 MG TABLET (FP) ONE ×3 (05:18→21:22)
[2019-08-05] MEDS ORDERED: hydrALAZINE HCL 25 MG TABLET (FP) ONE ×3 (05:19→21:22)
[2019-08-05] MEDS: ACETAMINOPHEN 325 MG TABLET (FP) PO PRN (05:22)
[2019-08-05] MEDS: DOCUSATE SODIUM 100 MG CAPSULE (FP) PO SCH ×3 (06:21→22:12)
[2019-08-05] MEDS: INSULIN SLIDING SCALE (NOVOLOG) 1 VIAL SQ SCH ×4 (06:22→22:12)
[2019-08-05] MEDS: LACTATED RINGERS SOLUTION 1,000 ML IV SCH ×2 (06:26→15:22)
[2019-08-05 09:39] LABS: BASO % 0.9 % (0-2.0); EOS % 5.6 % (0-4.5); MEAN CELL VOLUME 89.1 fl (80-96); MEAN PLT VOLUME 7.4 fl (7.5-11.1); MONO % 9.5 % (3.8-10.2); PLATELET COUNT 162 K/MM3 (134-434); RBC 2.81 M/mm3 (3.60-5.2); RDW 12.7 % (11.6-15.6); WHITE BLOOD COUNT 4.2 K/mm3 (4.0-10.0)
[2019-08-05 10:00] LABS: ALBUMIN 2.5 g/dl (3.4-5.0); BILIRUBIN,TOTAL 0.4 mg/dL (0.2-1); BLOOD UREA NITROGEN 36.5 mg/dL (7-18); CALCIUM 8.6 mg/dL (8.5-10.1); CREATININE 2.1 mg/dL (0.55-1.3); POTASSIUM 3.9 mmol/L (3.5-5.1); TOT PROT 5.2 g/dl (6.4-8.2)
[2019-08-05] MEDS: VALSARTAN 40 MG TABLET (FP) PO SCH (10:25)
[2019-08-05] MEDS: ASPIRIN 81 MG CHEWABLE TABLETS PO SCH (10:25)
[2019-08-05] MEDS: FERROUS SO4 325 MG TABLET (FP) PO SCH (10:25)
[2019-08-05] MEDS: HEPARIN NA (PORCINE) 5,000 UNITS/ML 1ML VIAL SQ SCH ×2 (10:25→22:12)
[2019-08-05] MEDS: amLODIPine BESYLATE 10 MG TABLET (FP) PO SCH (10:25)
[2019-08-05] MEDS: METOPROLOL TARTRATE 25 MG TABLET (FP) PO SCH ×2 (10:25→22:11)
[2019-08-05] MEDS: PANTOPRAZOLE 20 MG TABLET (FP) PO SCH (10:25)
[2019-08-05] MEDS: ISOSORBIDE MONONITRATE 30 MG TAB.SR.24H (FP) PO SCH (10:25)
[2019-08-05] MEDS: POLYETHYLENE GLYCOL 3350 119 GM BTL PO SCH (10:28)
[2019-08-05] MEDS: FUROSEMIDE 40 MG/4 ML INJECTABLE VIAL IVPUSH SCH (11:00)
[2019-08-05] MEDS ORDERED: INSULIN (NOVOLOG) ASPART 100 UNITS/ML 10ML VIAL ONE (21:23)
--- NOTE | 2019-08-05 21:37 | PN ---
Progress Note, Physician - Current Medication List Current Medications: Active Medications Acetaminophen (Tylenol -) 650 mg PO Q8H PRN PRN Reason: PAIN LEVEL 4 - 10 Last Admin: 08/02/19 15:08 Dose: 650 mg Acetaminophen (Tylenol -) 650 mg PO Q6H PRN PRN Reason: NEED PAIN SCALE Last Admin: 08/05/19 05:22 Dose: 650 mg Amlodipine Besylate (Norvasc -) 10 mg PO DAILY [facility] Last Admin: 08/05/19 10:25 Dose: 10 mg Aspirin (Asa -) 81 mg PO DAILY [facility] Last Admin: 08/05/19 10:25 Dose: 81 mg Docusate Sodium (Colace -) 100 mg PO TID [facility] Last Admin: 08/05/19 15:17 Dose: 100 mg Fentanyl (Sublimaze Injection -) 25 mcg IVPUSH [id number] PRN PRN Reason: PAIN-PACU ORDER X 4 DOSES ONLY Fentanyl (Sublimaze Injection -) 50 mcg IVPUSH [id number] PRN PRN Reason: PAIN-PACU ORDER X 4 DOSES ONLY Ferrous Sulfate (Feosol -) 325 mg PO DAILY [facility] Last Admin: 08/05/19 10:25 Dose: 325 mg Furosemide (Lasix Injection -) 40 mg IVPUSH DAILY [facility] Last Admin: 08/05/19 11:00 Dose: 40 mg Heparin Sodium (Porcine) (Heparin -) 5,000 unit SQ BID [facility] Last Admin: 08/05/19 10:25 Dose: 5,000 unit Hydralazine HCl 50 mg/ (Hydralazine HCl 25 mg) 75 mg PO TID [facility] Last Admin: 08/05/19 15:17 Dose: 75 mg Lactated Ringer's (Lactated Ringers Solution) 1,000 mls @ 75 mls/hr IV ASDIR [facility] Last Admin: 08/05/19 15:22 Dose: Not Given Insulin Aspart (Novolog Vial Sliding Scale -) 1 vial SQ ACHS [facility]; Protocol Last Admin: 08/05/19 17:32 Dose: Not Given Isosorbide Mononitrate (Imdur -) 30 mg PO DAILY [facility] Last Admin: 08/05/19 10:25 Dose: 30 mg Metoprolol Tartrate (Lopressor -) 25 mg PO BID [facility] Last Admin: 08/05/19 10:25 Dose: 25 mg Ondansetron HCl (Zofran Injection) 4 mg IVPUSH Q6H PRN PRN Reason: NAUSEA Last Admin: 08/02/19 15:08 Dose: 4 mg Ondansetron HCl (Zofran Injection) 4 mg IVPUSH Q6H PRN PRN Reason: NAUSEA AND/OR VOMITING Pantoprazole Sodium (Protonix -) 20 mg PO DAILY [facility] Last Admin: 08/05/19 10:25 Dose: 20 mg Polyethylene Glycol (Miralax (For Daily Use) -) 17 gm PO DAILY [facility] Last Admin: 08/05/19 10:28 Dose: 17 grams Valsartan (Diovan -) 40 mg PO DAILY [facility] Last Admin: 08/05/19 10:25 Dose: 40 mg - Objective Vital Signs: Vital Signs Temperature 97.8 F 08/05/19 15:42 Pulse Rate 58 L 08/05/19 15:42 Respiratory Rate 18 08/05/19 15:42 Blood Pressure 148/75 08/05/19 15:42 O2 Sat by Pulse Oximetry (%) 96 08/05/19 09:00 Labs: CBC, BMP 08/05/19 07:45 08/05/19 07:45 INR, PTT INR 0.99 (0.83-1.09) 07/26/19 20:43 Problem List - Problems (1) ARF (acute renal failure) Code(s): N17.9 - ACUTE KIDNEY FAILURE, UNSPECIFIED (2) Symptomatic anemia Code(s): D64.9 - ANEMIA, UNSPECIFIED (3) Acute on chronic diastolic (congestive) heart failure Code(s): I50.33 - ACUTE ON CHRONIC DIASTOLIC (CONGESTIVE) HEART FAILURE (4) Dyspnea Code(s): R06.00 - DYSPNEA, UNSPECIFIED (5) HTN (hypertension) Code(s): I10 - ESSENTIAL (PRIMARY) HYPERTENSION (6) Diabetes Code(s): E11.9 - TYPE 2 DIABETES MELLITUS WITHOUT COMPLICATIONS
[2019-08-06] MEDS: LACTATED RINGERS SOLUTION 1,000 ML IV SCH (00:33)
[2019-08-06] MEDS ORDERED: hydrALAZINE HCL 50 MG TABLET (FP) ONE ×3 (05:51→22:11)
[2019-08-06] MEDS ORDERED: hydrALAZINE HCL 25 MG TABLET (FP) ONE ×3 (05:52→22:11)
[2019-08-06] MEDS: DOCUSATE SODIUM 100 MG CAPSULE (FP) PO SCH ×3 (06:52→22:23)
[2019-08-06] MEDS: INSULIN SLIDING SCALE (NOVOLOG) 1 VIAL SQ SCH ×4 (06:57→22:24)
[2019-08-06] MEDS ORDERED: PT OWN MED DRAWER 7, Y5N ONE (09:57)
[2019-08-06] MEDS: HEPARIN NA (PORCINE) 5,000 UNITS/ML 1ML VIAL SQ SCH ×2 (10:01→22:24)
[2019-08-06] MEDS: VALSARTAN 40 MG TABLET (FP) PO SCH (10:01)
[2019-08-06] MEDS: ASPIRIN 81 MG CHEWABLE TABLETS PO SCH (10:01)
[2019-08-06] MEDS: FUROSEMIDE 40 MG/4 ML INJECTABLE VIAL IVPUSH SCH (10:02)
[2019-08-06] MEDS: amLODIPine BESYLATE 10 MG TABLET (FP) PO SCH (10:02)
[2019-08-06] MEDS: ISOSORBIDE MONONITRATE 30 MG TAB.SR.24H (FP) PO SCH (10:02)
[2019-08-06] MEDS: POLYETHYLENE GLYCOL 3350 119 GM BTL PO SCH (10:02)
[2019-08-06] MEDS: PANTOPRAZOLE 20 MG TABLET (FP) PO SCH (10:02)
[2019-08-06] MEDS: METOPROLOL TARTRATE 25 MG TABLET (FP) PO SCH ×2 (10:02→22:23)
[2019-08-06] MEDS: FERROUS SO4 325 MG TABLET (FP) PO SCH (10:02)
--- NOTE | 2019-08-06 13:17 | PN ---
Progress Note (short form) - Note Progress Note: RENAL pt is awake and alert no complaints family present Last Vital Signs Temp Pulse Resp BP Pulse Ox 98 F 63 18 147/75 98 08/06/19 12:18 08/06/19 12:18 08/06/19 12:18 08/06/19 12:18 08/06/19 09:00 lungs crackles at bases cvs s1s2 rr abd soft ext -edema neuro a+ox3 CBC, BMP 08/05/19 07:45 08/05/19 07:45 Current Medications Generic Name Dose Route Start Last Admin Trade Name Freq PRN Reason Stop Dose Admin Acetaminophen 650 mg 07/30/19 02:35 08/02/19 15:08 Tylenol - PO 650 mg Q8H PRN Administration PAIN LEVEL 4 - 10 Acetaminophen 650 mg 08/04/19 13:58 08/05/19 05:22 Tylenol - PO 650 mg Q6H PRN Administration NEED PAIN SCALE Amlodipine Besylate 10 mg 07/27/19 06:00 08/06/19 10:02 Norvasc - PO 10 mg DAILY [facility] Administration Aspirin 81 mg 07/27/19 10:00 08/06/19 10:01 Asa - PO 81 mg DAILY [facility] Administration Docusate Sodium 100 mg 07/29/19 14:00 08/06/19 06:52 Colace - PO 100 mg TID ECHO Administration Fentanyl 25 mcg 08/04/19 13:13 Sublimaze Injection - IVPUSH [id number] PRN PAIN-PACU ORDER X 4 DOSES ONLY Fentanyl 50 mcg 08/04/19 13:13 Sublimaze Injection - IVPUSH [id number] PRN PAIN-PACU ORDER X 4 DOSES ONLY Ferrous Sulfate 325 mg 07/27/19 10:00 08/06/19 10:02 Feosol - PO 325 mg DAILY [facility] Administration Furosemide 40 mg 07/27/19 06:00 08/06/19 10:02 Lasix Injection - IVPUSH 40 mg DAILY [facility] Administration Heparin Sodium (Porcine) 5,000 unit 07/27/19 10:00 08/06/19 10:01 Heparin - SQ 5,000 unit BID [facility]CHO Administration Hydralazine HCl 50 mg/ 75 mg 07/27/19 22:00 08/06/19 06:51 Hydralazine HCl 25 mg PO 75 mg TID ECHO Administration Lactated Ringer's 1,000 mls @ 75 mls/hr 08/04/19 13:15 08/06/19 00:33 Lactated Ringers Solution IV 75 mls/hr ASDIR ECHO Administration Insulin Aspart 1 vial 07/30/19 07:00 08/06/19 12:11 Novolog Vial Sliding Scale - SQ 2 units ACHS [facility] Administration Protocol Isosorbide Mononitrate 30 mg 07/27/19 10:00 08/06/19 10:02 Imdur - PO 30 mg DAILY [facility] Administration Metoprolol Tartrate 25 mg 07/27/19 17:30 08/06/19 10:02 Lopressor - PO 25 mg BID ECHO Administration Ondansetron HCl 4 mg 07/31/19 18:50 08/02/19 15:08 Zofran Injection IVPUSH 4 mg Q6H PRN Administration NAUSEA Ondansetron HCl 4 mg 08/04/19 13:13 Zofran Injection IVPUSH Q6H PRN NAUSEA AND/OR VOMITING Pantoprazole Sodium 20 mg 08/04/19 10:00 08/06/19 10:02 Protonix - PO 20 mg DAILY [facility] Administration Polyethylene Glycol 17 gm 07/29/19 12:00 08/06/19 10:02 Miralax (For Daily Use) - PO 17 grams DAILY [facility] Administration Valsartan 40 mg 08/03/19 13:30 08/06/19 10:01 Diovan - PO 40 mg DAILY [facility] Administration Impression 1. BRADY 2. HTN 3. DM 4. bilateral hydro 5. anemia 6. CKD 7 some degree of fluid overload Plan dc fluids obtain cxr continue diuretics repeat labs in am [facility]
--- NOTE | 2019-08-06 22:30 | PN ---
Progress Note, Physician History of Present Illness: No new complaints - Current Medication List Current Medications: Active Medications Acetaminophen (Tylenol -) 650 mg PO Q8H PRN PRN Reason: PAIN LEVEL 4 - 10 Last Admin: 08/02/19 15:08 Dose: 650 mg Acetaminophen (Tylenol -) 650 mg PO Q6H PRN PRN Reason: NEED PAIN SCALE Last Admin: 08/05/19 05:22 Dose: 650 mg Amlodipine Besylate (Norvasc -) 10 mg PO DAILY [facility] Last Admin: 08/06/19 10:02 Dose: 10 mg Aspirin (Asa -) 81 mg PO DAILY [facility] Last Admin: 08/06/19 10:01 Dose: 81 mg Docusate Sodium (Colace -) 100 mg PO TID [facility] Last Admin: 08/06/19 22:23 Dose: 100 mg Fentanyl (Sublimaze Injection -) 25 mcg IVPUSH [id number] PRN PRN Reason: PAIN-PACU ORDER X 4 DOSES ONLY Fentanyl (Sublimaze Injection -) 50 mcg IVPUSH [id number] PRN PRN Reason: PAIN-PACU ORDER X 4 DOSES ONLY Ferrous Sulfate (Feosol -) 325 mg PO DAILY [facility] Last Admin: 08/06/19 10:02 Dose: 325 mg Furosemide (Lasix Injection -) 40 mg IVPUSH DAILY [facility] Last Admin: 08/06/19 10:02 Dose: 40 mg Heparin Sodium (Porcine) (Heparin -) 5,000 unit SQ BID [facility] Last Admin: 08/06/19 22:24 Dose: 5,000 unit Hydralazine HCl 50 mg/ (Hydralazine HCl 25 mg) 75 mg PO TID [facility] Last Admin: 08/06/19 22:23 Dose: 75 mg Insulin Aspart (Novolog Vial Sliding Scale -) 1 vial SQ ACHS [facility]; Protocol Last Admin: 08/06/19 22:24 Dose: Not Given Isosorbide Mononitrate (Imdur -) 30 mg PO DAILY [facility] Last Admin: 08/06/19 10:02 Dose: 30 mg Metoprolol Tartrate (Lopressor -) 25 mg PO BID [facility] Last Admin: 08/06/19 22:23 Dose: 25 mg Ondansetron HCl (Zofran Injection) 4 mg IVPUSH Q6H PRN PRN Reason: NAUSEA Last Admin: 08/02/19 15:08 Dose: 4 mg Ondansetron HCl (Zofran Injection) 4 mg IVPUSH Q6H PRN PRN Reason: NAUSEA AND/OR VOMITING Pantoprazole Sodium (Protonix -) 20 mg PO DAILY [facility] Last Admin: 08/06/19 10:02 Dose: 20 mg Polyethylene Glycol (Miralax (For Daily Use) -) 17 gm PO DAILY [facility] Last Admin: 08/06/19 10:02 Dose: 17 grams Valsartan (Diovan -) 40 mg PO DAILY [facility] Last Admin: 08/06/19 10:01 Dose: 40 mg - Objective Vital Signs: Vital Signs Temperature 98.0 F 08/06/19 22:00 Pulse Rate 67 08/06/19 22:00 Respiratory Rate 18 08/06/19 22:00 Blood Pressure 163/71 08/06/19 22:00 O2 Sat by Pulse Oximetry (%) 98 08/06/19 09:00 Neck: Yes: WNL, Supple Cardiovascular: Yes: WNL, Regular Rate and Rhythm Respiratory: Yes: WNL, Regular, CTA Bilaterally Gastrointestinal: Yes: WNL, Normal Bowel Sounds, Soft Labs: CBC, BMP 08/05/19 07:45 08/05/19 07:45 INR, PTT INR 0.99 (0.83-1.09) 07/26/19 20:43 Problem List - Problems (1) Symptomatic anemia Assessment/Plan: Stable DC planning for am Code(s): D64.9 - ANEMIA, UNSPECIFIED (2) ARF (acute renal failure) Assessment/Plan: Renal scan for hydronephrosis shows obstructive pattern S/P cysto w/ stent placement Code(s): N17.9 - ACUTE KIDNEY FAILURE, UNSPECIFIED (3) Acute on chronic diastolic (congestive) heart failure Assessment/Plan: Change to po lasix in am Monitor electrolytes Code(s): I50.33 - ACUTE ON CHRONIC DIASTOLIC (CONGESTIVE) HEART FAILURE (4) Dyspnea Assessment/Plan: Multifactorial/pleural effusion CHF vs anemia CT scan chest did not show any acute pathology Code(s): R06.00 - DYSPNEA, UNSPECIFIED (5) HTN (hypertension) Code(s): I10 - ESSENTIAL (PRIMARY) HYPERTENSION (6) Diabetes Code(s): E11.9 - TYPE 2 DIABETES MELLITUS WITHOUT COMPLICATIONS
[2019-08-07] MEDS ORDERED: hydrALAZINE HCL 50 MG TABLET (FP) ONE (05:55)
[2019-08-07] MEDS ORDERED: hydrALAZINE HCL 25 MG TABLET (FP) ONE (05:55)
[2019-08-07] MEDS: INSULIN SLIDING SCALE (NOVOLOG) 1 VIAL SQ SCH ×2 (06:48→10:53)
[2019-08-07] MEDS: DOCUSATE SODIUM 100 MG CAPSULE (FP) PO SCH (06:50)
[2019-08-07 08:24] LABS: BASO % 0.8 % (0-2.0); HEMATOCRIT 24.6 % (32.4-45.2); HEMOGLOBIN 8.9 GM/dL (10.7-15.3); LYMPH % 26.4 % (8-40); MCHC 36.2 g/dl (32.0-36.0); MEAN CELL VOLUME 88.5 fl (80-96); MEAN PLT VOLUME 7.4 fl (7.5-11.1); MONO % 8.8 % (3.8-10.2); PLATELET COUNT 157 K/MM3 (134-434); RBC 2.77 M/mm3 (3.60-5.2); RDW 12.3 % (11.6-15.6); WHITE BLOOD COUNT 3.8 K/mm3 (4.0-10.0)
[2019-08-07 08:37] LABS: ALBUMIN 2.6 g/dl (3.4-5.0); BILIRUBIN,TOTAL 0.8 mg/dL (0.2-1); BLOOD UREA NITROGEN 30.3 mg/dL (7-18); CALCIUM 8.4 mg/dL (8.5-10.1); CREATININE 1.7 mg/dL (0.55-1.3); POTASSIUM 4.6 mmol/L (3.5-5.1); TOT PROT 5.3 g/dl (6.4-8.2)
[2019-08-07] MEDS ORDERED: FUROSEMIDE 40 MG TABLET (FP) PO SCH (10:00)
[2019-08-07] MEDS: amLODIPine BESYLATE 10 MG TABLET (FP) PO SCH (10:45)
[2019-08-07] MEDS: METOPROLOL TARTRATE 25 MG TABLET (FP) PO SCH (10:45)
[2019-08-07] MEDS: FERROUS SO4 325 MG TABLET (FP) PO SCH (10:45)
[2019-08-07] MEDS: ISOSORBIDE MONONITRATE 30 MG TAB.SR.24H (FP) PO SCH (10:45)
[2019-08-07] MEDS: PANTOPRAZOLE 20 MG TABLET (FP) PO SCH (10:45)
[2019-08-07] MEDS: HEPARIN NA (PORCINE) 5,000 UNITS/ML 1ML VIAL SQ SCH (10:46)
[2019-08-07] MEDS: POLYETHYLENE GLYCOL 3350 119 GM BTL PO SCH (10:46)
[2019-08-07] MEDS: VALSARTAN 40 MG TABLET (FP) PO SCH (10:46)
[2019-08-07] MEDS: ASPIRIN 81 MG CHEWABLE TABLETS PO SCH (10:46)
--- NOTE | 2019-08-07 14:15 | PN ---
Progress Note, Physician History of Present Illness: Pt seen and examined at bedside. She is awake and alert. SHe denies shortness of breath. - Current Medication List Current Medications: Active Medications Acetaminophen (Tylenol -) 650 mg PO Q8H PRN PRN Reason: PAIN LEVEL 4 - 10 Last Admin: 08/02/19 15:08 Dose: 650 mg Acetaminophen (Tylenol -) 650 mg PO Q6H PRN PRN Reason: NEED PAIN SCALE Last Admin: 08/05/19 05:22 Dose: 650 mg Amlodipine Besylate (Norvasc -) 10 mg PO DAILY [facility] Last Admin: 08/07/19 10:45 Dose: 10 mg Aspirin (Asa -) 81 mg PO DAILY [facility] Last Admin: 08/07/19 10:46 Dose: 81 mg Docusate Sodium (Colace -) 100 mg PO TID [facility] Last Admin: 08/07/19 06:50 Dose: 100 mg Fentanyl (Sublimaze Injection -) 25 mcg IVPUSH [id number] PRN PRN Reason: PAIN-PACU ORDER X 4 DOSES ONLY Fentanyl (Sublimaze Injection -) 50 mcg IVPUSH [id number] PRN PRN Reason: PAIN-PACU ORDER X 4 DOSES ONLY Ferrous Sulfate (Feosol -) 325 mg PO DAILY [facility] Last Admin: 08/07/19 10:45 Dose: 325 mg Furosemide (Lasix -) 40 mg PO DAILY [facility] Last Admin: 08/07/19 10:46 Dose: 40 mg Heparin Sodium (Porcine) (Heparin -) 5,000 unit SQ BID [facility] Last Admin: 08/07/19 10:46 Dose: 5,000 unit Hydralazine HCl 50 mg/ (Hydralazine HCl 25 mg) 75 mg PO TID [facility] Last Admin: 08/07/19 06:50 Dose: 75 mg Insulin Aspart (Novolog Vial Sliding Scale -) 1 vial SQ ACHS [facility]; Protocol Last Admin: 08/07/19 10:53 Dose: 4 units Isosorbide Mononitrate (Imdur -) 30 mg PO DAILY [facility] Last Admin: 08/07/19 10:45 Dose: 30 mg Metoprolol Tartrate (Lopressor -) 25 mg PO BID [facility] Last Admin: 08/07/19 10:45 Dose: 25 mg Ondansetron HCl (Zofran Injection) 4 mg IVPUSH Q6H PRN PRN Reason: NAUSEA Last Admin: 08/02/19 15:08 Dose: 4 mg Ondansetron HCl (Zofran Injection) 4 mg IVPUSH Q6H PRN PRN Reason: NAUSEA AND/OR VOMITING Pantoprazole Sodium (Protonix -) 20 mg PO DAILY [facility] Last Admin: 08/07/19 10:45 Dose: 20 mg Polyethylene Glycol (Miralax (For Daily Use) -) 17 gm PO DAILY [facility] Last Admin: 08/07/19 10:46 Dose: 17 grams Valsartan (Diovan -) 40 mg PO DAILY [facility] Last Admin: 08/07/19 10:46 Dose: 40 mg - Objective Vital Signs: Vital Signs Temperature 98.0 F 08/07/19 10:00 Pulse Rate 66 08/07/19 10:00 Respiratory Rate 20 08/07/19 10:00 Blood Pressure 145/69 08/07/19 10:00 O2 Sat by Pulse Oximetry (%) 98 08/07/19 09:00 Constitutional: Yes: Calm Eyes: Yes: Conjunctiva Clear HENT: Yes: Atraumatic Neck: Yes: Supple Cardiovascular: Yes: S1, S2 Respiratory: Yes: CTA Bilaterally Gastrointestinal: Yes: Soft Genitourinary: Yes: WNL Musculoskeletal: Yes: WNL Edema: No Integumentary: Yes: WNL Neurological: Yes: Oriented Psychiatric: Yes: Oriented Labs: CBC, BMP 08/07/19 06:15 08/07/19 06:15 INR, PTT INR 0.99 (0.83-1.09) 07/26/19 20:43 Assessment/Plan Current Medications Generic Name Dose Route Start Last Admin Trade Name Freq PRN Reason Stop Dose Admin Acetaminophen 650 mg 07/30/19 02:35 08/02/19 15:08 Tylenol - PO 650 mg Q8H PRN Administration PAIN LEVEL 4 - 10 Acetaminophen 650 mg 08/04/19 13:58 08/05/19 05:22 Tylenol - PO 650 mg Q6H PRN Administration NEED PAIN SCALE Amlodipine Besylate 10 mg 07/27/19 06:00 08/07/19 10:45 Norvasc - PO 10 mg DAILY ECHO Administration Aspirin 81 mg 07/27/19 10:00 08/07/19 10:46 Asa - PO 81 mg DAILY [facility] Administration Docusate Sodium 100 mg 07/29/19 14:00 08/07/19 06:50 Colace - PO 100 mg TID [facility]CHO Administration Fentanyl 25 mcg 08/04/19 13:13 Sublimaze Injection - IVPUSH [id number] PRN PAIN-PACU ORDER X 4 DOSES ONLY Fentanyl 50 mcg 08/04/19 13:13 Sublimaze Injection - IVPUSH [id number] PRN PAIN-PACU ORDER X 4 DOSES ONLY Ferrous Sulfate 325 mg 07/27/19 10:00 08/07/19 10:45 Feosol - PO 325 mg DAILY [facility] Administration Furosemide 40 mg 08/07/19 10:00 08/07/19 10:46 Lasix - PO 40 mg DAILY [facility] Administration Heparin Sodium (Porcine) 5,000 unit 07/27/19 10:00 08/07/19 10:46 Heparin - SQ 5,000 unit BID [facility] Administration Hydralazine HCl 50 mg/ 75 mg 07/27/19 22:00 08/07/19 06:50 Hydralazine HCl 25 mg PO 75 mg TID ECHO Administration Insulin Aspart 1 vial 07/30/19 07:00 08/07/19 10:53 Novolog Vial Sliding Scale - SQ 4 units ACHS ECHO Administration Protocol Isosorbide Mononitrate 30 mg 07/27/19 10:00 08/07/19 10:45 Imdur - PO 30 mg DAILY [facility] Administration Metoprolol Tartrate 25 mg 07/27/19 17:30 08/07/19 10:45 Lopressor - PO 25 mg BID ECHO Administration Ondansetron HCl 4 mg 07/31/19 18:50 08/02/19 15:08 Zofran Injection IVPUSH 4 mg Q6H PRN Administration NAUSEA Ondansetron HCl 4 mg 08/04/19 13:13 Zofran Injection IVPUSH Q6H PRN NAUSEA AND/OR VOMITING Pantoprazole Sodium 20 mg 08/04/19 10:00 08/07/19 10:45 Protonix - PO 20 mg DAILY ECHO Administration Polyethylene Glycol 17 gm 07/29/19 12:00 08/07/19 10:46 Miralax (For Daily Use) - PO 17 grams DAILY [facility] Administration Valsartan 40 mg 08/03/19 13:30 08/07/19 10:46 Diovan - PO 40 mg DAILY ECHO Administration Impression 1. BRADY 2. HTN 3. DM 4. bilateral hydro 5. anemia 6. CKD Plan - renal function is improved - pt tolerating diovan - will see in office - discussed care with pt and family - bp is improved
[2019-08-07 14:44] VITALS: BP 152/67; PULSE 63; TEMP 98.4
--- NOTE | 2019-08-08 13:56 | PATH ---
Surgical Pathology Report Patient Name: INES DAVE [facility]. Rec. #: [id number] /Age/Gender: 1950 (Age: 69) / F Account: [id number] Location: [address] [place] [address]/[facility] Taken: 08/04/2019 Received: 08/07/2019 Reported: 08/08/2019 Physicians: Jaxon Nassar M.D. Specimen(s) Received URETERAL STONES, RIGHT Clinical History Bilateral hydronephrosis Final Diagnosis URETERAL STONES, RIGHT, REMOVAL: URETEROLITHIASIS. MACROSCOPIC DIAGNOSIS. Electronically Signed Lauren Carrasco M.D. Gross Description Received fresh labeled "right ureteral stones," are 2 momin-carmona, irregular calculi measuring 0.4 and 0.5 cm in greatest dimension. The specimen is sent for chemical analysis. /08/07/2019 saudi08/07/2019
--- NOTE | 2019-08-09 17:06 | PATH ---
Cytology Non-Gynecological Report Patient Name: INES DAVE [facility]. Rec. #: [id number] /Age/Gender: 1950 (Age: 69) / F Account: [id number] Location: [address] [place] [address] Taken: 08/04/2019 Received: 08/04/2019 Reported: 08/09/2019 Physicians: January Dior M.D. Specimen(s) Received URINE Clinical History Bilateral hydronephrosis Final Diagnosis URINE FOR CYTOLOGY: SATISFACTORY FOR EVALUATION. NEGATIVE FOR HIGH GRADE UROTHELIAL CARCINOMA. SCATTERED UROTHELIAL CELLS AND RED BLOOD CELLS PRESENT. Electronically Signed Lauren Carrasco M.D. Gross Description Approximately 120 cc of iliana fluid received fresh. One cytofunnel prepared and Pap stained.
[2019-08-15 10:08] LABS: URIC ACID 55 % (.)
--- NOTE | 2019-08-23 15:46 | OP ---
DATE OF OPERATION: 08/04/2019 PREOPERATIVE DIAGNOSES: Bilateral hydronephrosis, recurrent urinary tract infections. OPERATIVE PROCEDURE: Cystoscopy, bilateral retrograde pyelogram, right ureteroscopy, right stone basketing, and placement of a right JJ stent. ANESTHESIA: General. DESCRIPTION OF PROCEDURE: Under above-stated anesthesia, patient was prepped and draped in the usual sterile manner. She was placed in the dorsal lithotomy position. External genitalia revealed atrophic vaginitis with a grade 1 cystocele. The bladder was entered using a 30-degree scope. Urine was collected for culture and sensitivity. Inspection of the bladder revealed squamous metaplasia of the trigone, no lesions or calculi were seen in the bladder. Bilateral retrograde pyelogram was performed. The left side revealed good drainage. The right side revealed a blockage in the midureter. Therefore, a Glidewire was passed up the right renal unit. The cystoscope was removed. The ureteroscope was inserted. Ureteroscopy revealed a 4-mm stone in the lower portion of the midureter. Using a stone basket, the stone was removed atraumatically. Afterward, a 22-cm, 6-Turkish JJ stent was left in place. X-rays revealed good position of the stent. The bladder was emptied. The scope was removed. The patient tolerated the procedure well. She returned to the recovery room in good condition. Clau [id number]
== END 2019-08-07 14:54 | disposition home or self-care (01) | DRG 446 ==
LOC: JER 16:28 → JERBED 19:09 → J5S 07-27 05:24
PROVIDERS: ADMIT Internal Medicine; ATTEND Internal Medicine
PROC: 30233N1 Transfusion of Nonautologous Red Blood Cells into Peripheral Vein, Percutaneous Approach (ICD-10-PCS; 2019-07-26)
PROC: 0DB68ZX Excision of Stomach, Via Natural or Artificial Opening Endoscopic, Diagnostic (ICD-10-PCS; 2019-08-02)
PROC: 0DB98ZX Excision of Duodenum, Via Natural or Artificial Opening Endoscopic, Diagnostic (ICD-10-PCS; 2019-08-02)
PROC: 0DJD8ZZ Inspection of Lower Intestinal Tract, Via Natural or Artificial Opening Endoscopic (ICD-10-PCS; 2019-08-03)
PROC: 0T768DZ Dilation of Right Ureter with Intraluminal Device, Via Natural or Artificial Opening Endoscopic (ICD-10-PCS; 2019-08-04)
PROC: BT1DZZZ Fluoroscopy of Right Kidney, Ureter and Bladder (ICD-10-PCS; 2019-08-04)
PROC: 0TC68ZZ Extirpation of Matter from Right Ureter, Via Natural or Artificial Opening Endoscopic (ICD-10-PCS; principal; 2019-08-04 13:30)
DX: N17.9 Acute kidney failure, unspecified (principal); D50.9 Iron deficiency anemia, unspecified; I12.9 Hypertensive chronic kidney disease with stage 1 through stage 4 chronic kidney disease, or unspecified chronic kidney disease; N18.9 Chronic kidney disease, unspecified; E11.9 Type 2 diabetes mellitus without complications; N13.30 Unspecified hydronephrosis; I50.33 Acute on chronic diastolic (congestive) heart failure; E87.70 Fluid overload, unspecified; B96.81 Helicobacter pylori [H. pylori] as the cause of diseases classified elsewhere; K76.9 Liver disease, unspecified; K31.9 Disease of stomach and duodenum, unspecified; K64.8 Other hemorrhoids; K29.50 Unspecified chronic gastritis without bleeding; K31.7 Polyp of stomach and duodenum
CPT/HCPCS: 36415; 36430; 71045-TC-FY; 71250-TC; 74176-TC; 76000-TC-FY; 76700-TC; 76775-TC; 78708-TC; 80053; 80061; 81003; 82272; 82360; 82550; 82607; 82746; 82747; 82962; 83036; 83516; 83520; 83540; 83550; 83721; 83735; 83880; 84155; 84165; 84443; 84484; 85014; 85025; 85044; 85610; 85730; 86038; 86225; 86256; 86704; 86706; 86707; 86708; 86709; 86850; 86900; 86901; 86922; 87086; 87340; 87522; 88108; 88300-TC; 88305-TC; 93005; 93010; 93306-TC; 94640; 94760; 99285-25; A9562; J1644; P9058; Q9967

== ENCOUNTER 2019-08-09 21:19 | Inpatient (IN) | payer OTHER ==
--- NOTE | 2019-08-09 21:32 | PDOC ---
Rapid Medical Evaluation Chief Complaint: Shortness of Breath Time Seen by Provider: 08/09/19 21:30 Medical Evaluation: Allergies Allergy/AdvReac Type Severity Reaction Status Date / Time No Known Allergies Allergy Verified 08/09/19 21:27 Vital Signs Temp Pulse Resp BP Pulse Ox 97.5 F L 85 16 162/62 96 08/09/19 21:24 08/09/19 21:24 08/09/19 21:24 08/09/19 21:24 08/09/19 21:24 08/09/19 21:31 CC: midsternal chest pain with SOB PE: RRR. No m/r/g. Lungs Ctab Orders: cardiac w/u Patient will proceed to ER for further evaluation. Discharge Disposition - Diagnosis Chest pain - Referrals - Patient Instructions - Post Discharge Activity
[2019-08-09 22:03] LABS: BASO % 0.7 % (0-2.0); EOS % 4.1 % (0-4.5); HEMATOCRIT 30.3 % (32.4-45.2); HEMOGLOBIN 10.6 GM/dL (10.7-15.3); LYMPH % 12.4 % (8-40); MCH 31.6 pg (25.7-33.7); MCHC 35.1 g/dl (32.0-36.0); MEAN CELL VOLUME 90.1 fl (80-96); MEAN PLT VOLUME 7.3 fl (7.5-11.1); MONO % 6.2 % (3.8-10.2); NEUT % 76.6 % (42.8-82.8); PLATELET COUNT 202 K/MM3 (134-434); RBC 3.36 M/mm3 (3.60-5.2); RDW 12.5 % (11.6-15.6); WHITE BLOOD COUNT 7.1 K/mm3 (4.0-10.0)
[2019-08-09 22:04] LABS: EPI CELLS 3.5 /HPF (0-5/HPF); HYALINE CASTS 7 /lpf (0-8); PH,URINE 6.5 (5.0-8.0); URINE APPEARANCE CLOUDY; URINE BACTERIA 2.4 /hpf (NEGATIVE); URINE BILIRUBIN NEGATIVE (NEGATIVE); URINE COLOR ORANGE; URINE GLUCOSE (UA) 2+ (NEGATIVE); URINE KETONE NEGATIVE (NEGATIVE); URINE LEUK ESTERASE 1+ (NEGATIVE); URINE NITRITE NEGATIVE (NEGATIVE); URINE PROTEIN 3+ (NEGATIVE); URINE RBC 1252 /hpf (0-4); URINE UROBILINOGEN 0.2 mg/dL (0.2-1.0); URINE WBC 13 /hpf (0-5)
--- NOTE | 2019-08-09 22:14 | PDOC ---
History of Present Illness - History of Present Illness Initial Comments: 08/09/19 23:39 69 year old woman with a history of HTN, diabetes, anemia with a recent admission for a ureteral stone with stent placement and anemia (requiring blood transfusion) who presents with shortness of breath and leg swelling for the past 3 days. The patient reports some chest pressure when she feels short of breath. Her shortness of breath worsens with lying back and with walking. SHe also admits to nausea and constipation. She has no other complaints. ROS GENERAL/CONSTITUTIONAL: No fever or chills. No weakness. CARDIOVASCULAR: No chest pain, + shortness of breath RESPIRATORY: No cough, wheezing, or hemoptysis. GASTROINTESTINAL: No nausea, vomiting, diarrhea or constipation. GENITOURINARY: No dysuria, frequency, or change in urination. MUSCULOSKELETAL: No joint or muscle swelling or pain. No neck or back pain. SKIN: No rash PE GENERAL: Awake, alert, and fully oriented, in no acute distress HEAD: No signs of trauma, normocephalic, atraumatic EYES: EOMI, sclera anicteric, conjunctiva clear ENT: oropharynx clear without exudates. Moist mucosa NECK: Normal ROM, supple LUNGS: No distress, speaks full sentences, +decreased breath sounds with crackles throughout HEART: Regular rate and rhythm, normal S1 and S2, no murmurs, rubs or gallops, peripheral pulses normal and equal bilaterally. ABDOMEN: Soft, nontender No guarding, no rebound. No masses EXTREMITIES : Normal inspection, Normal range of motion, +2+ pitting edema below the knees bilaterally. No clubbing or cyanosis. NEUROLOGICAL: Cranial nerves II through XII grossly intact. Normal speech, no focal sensorimotor deficits SKIN: Warm, Dry, normal turgor, no rashes or lesions noted MDM DDX including but not limited to: CHF exacerbation r/o BRADY r/o acs W/U: - cbc, smp, trop, bnp, ekg, cxr Heart Score: 3 ED Course: labs w/ elevated BNP to the 3000s, prior labs similar range trop negative slight hyponatremia at 125 H/H not meeting infusion criteria BRADY unchanged with discharge labs Patient will need admission for CHF exacerbation last ECHO on 07/27/19 showed EF of 60-65 consider HFpEF Kimberlee Montejo, PGY2 Emergency Medicine 08/10/19 00:38 <Kimberlee Montejo - Last Filed: 08/10/19 00:38> <Lyn Londono - Last Filed: 08/19/19 20:02> - General Chief Complaint: Shortness of Breath Stated Complaint: DIFFICULTY BREATHING Time Seen by Provider: 08/09/19 21:30 Past History - Past Medical History Anemia: Yes COPD: No Diabetes: Yes HTN: Yes - Surgical History Abdominal Surgery: Yes (HERNIA) Cholecystectomy: Yes - Psycho Social/Smoking Cessation Hx Smoking History: Never smoked Have you smoked in the past 12 months: No Information on smoking cessation initiated: No Hx Alcohol Use: No Drug/Substance Use Hx: No <Kimberlee Montejo - Last Filed: 08/10/19 00:38> <Lyn Londono - Last Filed: 08/19/19 20:02> - Past Medical History Allergies/Adverse Reactions: Allergies Allergy/AdvReac Type Severity Reaction Status Date / Time No Known Allergies Allergy Verified 08/09/19 21:27 Home Medications: Ambulatory Orders Aspirin [Aquilino Chewable Aspirin] 81 mg PO DAILY 07/26/19 Isosorbide Mononitrate [Imdur -] 30 mg PO DAILY 07/26/19 Amlodipine Besylate [Norvasc -] 10 mg PO DAILY tablet 08/07/19 Docusate Sodium [Colace -] 100 mg PO TID #90 capsule 08/07/19 Ferrous Sulfate [Feosol] 325 mg PO DAILY #30 ud 08/07/19 Furosemide [Lasix -] 40 mg PO DAILY #30 tablet 08/07/19 Metoprolol Tartrate [Lopressor -] 25 mg PO BID #60 tablet 08/07/19 Pantoprazole Sodium [Protonix -] 20 mg PO DAILY #30 tablet.ec 08/07/19 Valsartan [Diovan] 40 mg PO DAILY #30 tablet 08/07/19 hydrALAZINE HCL [Apresoline -] 75 mg PO TID #90 tablet 08/07/19 *Physical Exam - Vital Signs Last Vital Signs Temp Pulse Resp BP Pulse Ox 97.5 F L 85 16 162/62 96 08/09/19 21:24 08/09/19 21:24 08/09/19 21:24 08/09/19 21:24 08/09/19 21:24 <Kimberlee Montejo - Last Filed: 08/10/19 00:38> - Vital Signs Last Vital Signs Temp Pulse Resp BP Pulse Ox 97.5 F L 60 18 135/57 L 99 08/19/19 14:00 08/19/19 14:00 08/19/19 14:00 08/19/19 14:00 08/19/19 09:00 <Lyn Londono Sara - Last Filed: 08/19/19 20:02> ED Treatment Course - LABORATORY CBC & Chemistry Diagram: 08/09/19 21:45 08/09/19 21:45 - ADDITIONAL ORDERS Additional order review: Laboratory Results 08/09/19 21:45 Urine Color [place] Urine Appearance Cloudy Urine pH 6.5 Ur Specific [place] 1.016 Urine Protein 3+ H Urine Glucose (UA) 2+ H Urine Ketones Negative Urine Blood 3+ H Urine Nitrite Negative Urine Bilirubin Negative Urine Urobilinogen 0.2 Ur Leukocyte Esterase 1+ H Urine WBC (Auto) 13 Urine RBC (Auto) 1252 Urine Casts (Auto) 7 U Epithel Cells (Auto) 3.5 Urine Bacteria (Auto) 2.4 08/09/19 21:45 RBC 3.36 L MCV 90.1 MCHC 35.1 RDW 12.5 MPV 7.3 L Neutrophils % 76.6 D Lymphocytes % 12.4 D Monocytes % 6.2 Eosinophils % 4.1 Basophils % 0.7 <Kimberlee Montejo - Last Filed: 08/10/19 00:38> - LABORATORY CBC & Chemistry Diagram: 08/18/19 09:40 08/18/19 09:40 - ADDITIONAL ORDERS Additional order review: 08/09/19 21:45 Urine Culture - Final Urine - Urine Clean Catch NO GROWTH OBTAINED 08/09/19 21:45 RBC 3.36 L MCV 90.1 MCHC 35.1 RDW 12.5 MPV 7.3 L Neutrophils % 76.6 D Lymphocytes % 12.4 D Monocytes % 6.2 Eosinophils % 4.1 Basophils % 0.7 - Medications Given in the ED: ED Medications Discontinued Medications Generic Name Dose Route Start Last Admin Trade Name Freq PRN Reason Stop Dose Admin Al Hydroxide/Mg Hydroxide 30 ml 08/13/19 09:45 08/13/19 14:31 Mylanta Oral Suspension - PO 08/13/19 09:46 30 ml ONCE ONE Administration Albuterol/Ipratropium 1 amp 08/12/19 20:54 08/15/19 08:30 Duoneb - NEB 1 amp Q6H PRN Administration SHORT OF BREATH/WHEEZING Amlodipine Besylate 10 mg 08/10/19 07:47 08/10/19 08:00 Norvasc - PO 08/10/19 07:48 10 mg NOW ONE Administration Amlodipine Besylate 10 mg 08/10/19 08:30 08/10/19 09:31 Norvasc - PO 08/10/19 08:31 Not Given ONCE ONE Aspirin 81 mg 08/10/19 11:00 08/11/19 10:34 Asa - PO 81 mg DAILY ECHO Administration Docusate Sodium 100 mg 08/10/19 14:00 08/11/19 14:37 Colace - PO Not Given TID ECHO Furosemide 40 mg 08/10/19 00:00 08/10/19 00:42 Lasix Injection - IVPUSH 08/10/19 00:01 40 mg ONCE ONE Administration Furosemide 40 mg 08/10/19 07:48 08/10/19 08:00 Lasix Injection - IVPUSH 08/10/19 07:49 40 mg NOW ONE Administration Furosemide 40 mg 08/10/19 08:30 08/10/19 09:32 Lasix Injection - IVPUSH 08/10/19 08:31 Not Given ONCE ONE Furosemide 40 mg 08/11/19 10:00 08/13/19 09:15 Lasix Injection - IVPUSH 40 mg DAILY ECHO Administration Heparin Sodium (Porcine) 5,000 unit 08/10/19 10:00 08/16/19 12:33 Heparin - SQ 5,000 unit BID ECHO Administration Hydralazine HCl 75 mg 08/10/19 14:00 08/11/19 14:37 Apresoline - PO Not Given TID ECHO Hydralazine HCl 100 mg 08/11/19 14:33 08/13/19 14:27 Apresoline - PO 100 mg TID ECHO Administration Mineral Oil 133 ml 08/11/19 14:20 08/11/19 15:04 Fleet Mineral Oil Rectal Enema - [place] 08/11/19 14:21 Not Given NOW ONE Regadenoson 0.4 mg 08/16/19 10:00 08/16/19 11:28 Lexiscan IVPUSH 08/16/19 10:01 0.4 mg ONCE ONE Administration Valsartan 40 mg 08/10/19 10:00 08/10/19 11:00 Diovan - PO 40 mg DAILY ECHO Administration <Lyn Londono - Last Filed: 08/19/19 20:02> Discharge <Kimberlee Montejo - Last Filed: 08/10/19 00:38> - Discharge Information Problems reviewed: Yes <Lyn Londono - Last Filed: 08/19/19 20:02> - Discharge Information Clinical Impression/Diagnosis: Chest pain Condition: Stable Disposition: TRANSFER ACUTE CARE/OTHER HOSP
[2019-08-09 22:15] LABS: INR 0.92 (0.83-1.09); PROTHROMBIN TIME (PATIENT) 10.9 SEC (9.7-13.0)
[2019-08-09 22:18] LABS: ACTIVATED PTT 36.5 SECONDS (25.2-36.5)
--- NOTE | 2019-08-09 22:28 | PDOC ---
Attending Attestation - Resident Resident Name: Kimberlee Montejo - ED Attending Attestation I have performed the following: The case was reviewed & discussed with the resident, I agree w/resident's findings & plan - HPI HPI: 08/09/19 23:27 see resident hpi - Physicial Exam PE: 08/09/19 23:27 agree with resident exam - Medical Decision Making 08/09/19 23:27 69-year-old female with shortness of breath Evaluation consistent with CHF exacerbation Patient notably has a hyponatremia as well Plan for admission to medical service for further evaluation
[2019-08-09 22:39] LABS: ALBUMIN 3.2 g/dl (3.4-5.0); ALK PHOS 106 U/L (45-117); ANION GAP 6 MMOL/L (8-16); BILIRUBIN,TOTAL 0.6 mg/dL (0.2-1); BLOOD UREA NITROGEN 31.3 mg/dL (7-18); CALCIUM 8.3 mg/dL (8.5-10.1); CHLORIDE 95 mmol/L (98-107); CO2 24 mmol/L (21-32); CREATININE 1.6 mg/dL (0.55-1.3); GLUCOSE,RANDOM 172 mg/dL (74-106); MAGNESIUM 2.4 mg/dL (1.8-2.4); N-TERMINAL BNP 3306.5 pg/ml (5-125); POTASSIUM 5.3 mmol/L (3.5-5.1); SGOT/AST 29 U/L (15-37); SGPT/ALT 28 U/L (13-61); SODIUM 125 mmol/L (136-145); TOT PROT 6.6 g/dl (6.4-8.2)
[2019-08-10] MEDS ORDERED: FUROSEMIDE 40 MG/4 ML INJECTABLE VIAL ONE ×2 (00:17→07:52)
[2019-08-10] MEDS ORDERED: amLODIPine BESYLATE 10 MG TABLET (FP) PO ONE ×2 (07:47→08:30)
[2019-08-10] MEDS ORDERED: FUROSEMIDE 40 MG/4 ML INJECTABLE VIAL IVPUSH ONE ×3 (07:48→08:30)
[2019-08-10] MEDS ORDERED: amLODIPine BESYLATE 5 MG TABLET (FP) ONE (07:52)
[2019-08-10] MEDS ORDERED: VALSARTAN 40 MG TABLET (FP) PO SCH (10:00)
[2019-08-10] MEDS ORDERED: amLODIPine BESYLATE 10 MG TABLET (FP) PO SCH (10:00)
[2019-08-10] MEDS ORDERED: PT OWN MED DRAWER 7, Y5N ONE (10:06)
[2019-08-10] MEDS: ISOSORBIDE MONONITRATE 30 MG TAB.SR.24H (FP) PO SCH (11:00)
[2019-08-10] MEDS: PANTOPRAZOLE 20 MG TABLET PO SCH (11:00)
[2019-08-10] MEDS: METOPROLOL TARTRATE 25 MG TABLET (FP) PO SCH ×2 (11:00→21:09)
[2019-08-10] MEDS: HEPARIN NA (PORCINE) 5,000 UNITS/ML 1ML VIAL SQ SCH ×2 (11:40→21:09)
[2019-08-10] MEDS ORDERED: HEPARIN NA (PORCINE) 5,000 UNITS/ML 1ML VIAL ONE (11:44)
[2019-08-10] MEDS: INSULIN SLIDING SCALE (NOVOLOG) 1 VIAL SQ SCH ×3 (11:53→22:55)
[2019-08-10] MEDS: ASPIRIN 81 MG CHEWABLE TABLETS PO SCH (11:53)
[2019-08-10] MEDS: FERROUS SO4 325 MG TABLET (FP) PO SCH (11:53)
--- NOTE | 2019-08-10 12:28 | CON.PULM ---
Consult Consult Specialty:: PULMONARY Referred by:: Dr Dior Reason for Consultation:: shortness of breath - History of Present Illness Chief Complaint: shortness of breath History of Present Illness: 69yo female with h/o HTN, DM, anemia, LV diastolic dysfunction, recent admission for hydronephrosis/ureteral stone s/p cystoscopy/stent placement discharged on 08/07 who was admitted with worsening shortness of breath and leg swelling. Does report some chest pressure/tightness. No fevers, chills or sweats. Reports compliance with her medications. Weights have been stable. + nonproductive cough. - History Source History Provided By: Patient, Family Member, Medical Record Limitations to Obtaining History: Language Barrier - Past Medical History Cardio/Vascular: Yes: CHF (diastolic ), HTN ...: No Psych: Yes: Anxiety Endocrine: Yes: Diabetes Mellitus - Alcohol/Substance Use Hx Alcohol Use: No - Smoking History Smoking history: Never smoked Have you smoked in the past 12 months: No Home Medications - Allergies Allergies/Adverse Reactions: Allergies Allergy/AdvReac Type Severity Reaction Status Date / Time No Known Allergies Allergy Verified 08/09/19 21:27 - Home Medications Home Medications: Ambulatory Orders Aspirin [Aquilino Chewable Aspirin] 81 mg PO DAILY 07/26/19 Isosorbide Mononitrate [Imdur -] 30 mg PO DAILY 07/26/19 Amlodipine Besylate [Norvasc -] 10 mg PO DAILY tablet 08/07/19 Docusate Sodium [Colace -] 100 mg PO TID #90 capsule 08/07/19 Ferrous Sulfate [Feosol] 325 mg PO DAILY #30 ud 08/07/19 Furosemide [Lasix -] 40 mg PO DAILY #30 tablet 08/07/19 Metoprolol Tartrate [Lopressor -] 25 mg PO BID #60 tablet 08/07/19 Pantoprazole Sodium [Protonix -] 20 mg PO DAILY #30 tablet.ec 08/07/19 Valsartan [Diovan] 40 mg PO DAILY #30 tablet 08/07/19 hydrALAZINE HCL [Apresoline -] 75 mg PO TID #90 tablet 08/07/19 Review of Systems - Review of Systems Constitutional: reports: Chills, Weakness. denies: Fever Eyes: denies: Recent Change in Vision HENT: denies: Nasal Congestion, Throat Pain Neck: denies: Stiffness, Tenderness Cardiovascular: reports: Chest Pain, Edema, Shortness of Breath. denies: Palpitations Respiratory: reports: Cough, SOB on Exertion. denies: Hemoptysis, Wheezing Gastrointestinal: denies: Abdominal Pain, Nausea, Vomiting Genitourinary: denies: Dysuria, Hematuria Neurological: denies: Dizziness, Headache Endocrine: denies: Unexplained Weight Loss Physical Exam Vital Sings: Vital Signs Temperature 98.4 F 08/10/19 00:01 Pulse Rate 66 08/10/19 11:09 Respiratory Rate 20 08/10/19 11:09 Blood Pressure 166/66 08/10/19 11:09 O2 Sat by Pulse Oximetry (%) 96 08/10/19 11:09 Constitutional: Yes: Calm Eyes: Yes: Conjunctiva Clear, EOM Intact HENT: Yes: Atraumatic, Normocephalic Neck: Yes: Supple, Trachea Midline Cardiovascular: Yes: Regular Rate and Rhythm Respiratory: Yes: Diminished (decreased breath sounds at the bases) ...Clubbing: No Gastrointestinal: Yes: Normal Bowel Sounds, Soft. No: Tenderness Edema: Yes Labs: CBC, BMP 08/09/19 21:45 08/09/19 21:45 Imaging - Results Cat Scan: Image Reviewed (bilateral effusions, partially loculated) Assessment/Plan Acute on Chronic Diastolic Heart Failure Chronic Renal Failure - ?nephrotic Pleural Effusions appear chronic Anemia r/o COPD HTN DM - continue lasix - monitor urine output, creatinine - renal eval - ?biopsy - can consider diagnostic thoracentesis but suspect effusions are secondary - O2 to keep SpO2 >90% - inhaled bronchodilators - will need outpt PFTs and f/u of chest imaging - monitor H/H - DVT prophylaxis Thank you for this consult Shemar Lopez MD
--- NOTE | 2019-08-10 13:27 | CON.CARD ---
Consult Consult Specialty:: cardiology Reason for Consultation:: SOB; atypical chest discomfort - History of Present Illness Chief Complaint: Pt A&Ox3; sitting up in bed, with multiple family members visiting. She denies chest pain except when she takes a deep breath; + dyspnea on mild exertion. History of Present Illness: 69 year old woman (b. [place]), with a history of HTN, diastolic CHF, diabetes, anemia, constipation, with a recent admission for a ureteral stone with stent placement and anemia (requiring blood transfusion) who presents with shortness of breath and bilateral leg swelling for the past 3 days. The patient reports some chest pressure when she feels short of breath. Her shortness of breath worsens with lying back and with walking. She also admits to nausea and constipation. She has no other complaints. She was found to have systolic BP >200 mmHg in the ER. Pt was admitted for similar symptoms recently, and discharged from [facility] only a few days ago. PMD: Deangelo Nassar Chemical Tester: Trini Torres - History Source History Provided By: Patient, Family Member, Medical Record Limitations to Obtaining History: Poor Historian - Past Medical History Cardio/Vascular: Yes: CHF (diastolic ), HTN Gastrointestinal: No: Ascites Renal/: Yes: Renal Inusuff Reproductive: Yes: Postmenopausal ...: No Heme/Onc: Yes: Anemia Psych: Yes: Anxiety Endocrine: Yes: Diabetes Mellitus - Alcohol/Substance Use Hx Alcohol Use: No - Smoking History Smoking history: Never smoked Have you smoked in the past 12 months: No Home Medications - Allergies Allergies/Adverse Reactions: Allergies Allergy/AdvReac Type Severity Reaction Status Date / Time No Known Allergies Allergy Verified 08/09/19 21:27 - Home Medications Home Medications: Ambulatory Orders Aspirin [Aquilino Chewable Aspirin] 81 mg PO DAILY 07/26/19 Isosorbide Mononitrate [Imdur -] 30 mg PO DAILY 07/26/19 Amlodipine Besylate [Norvasc -] 10 mg PO DAILY tablet 08/07/19 Docusate Sodium [Colace -] 100 mg PO TID #90 capsule 08/07/19 Ferrous Sulfate [Feosol] 325 mg PO DAILY #30 ud 08/07/19 Furosemide [Lasix -] 40 mg PO DAILY #30 tablet 08/07/19 Metoprolol Tartrate [Lopressor -] 25 mg PO BID #60 tablet 08/07/19 Pantoprazole Sodium [Protonix -] 20 mg PO DAILY #30 tablet.ec 08/07/19 Valsartan [Diovan] 40 mg PO DAILY #30 tablet 08/07/19 hydrALAZINE HCL [Apresoline -] 75 mg PO TID #90 tablet 08/07/19 Family Medical History Family History: Denies Review of Systems - Review of Systems Constitutional: reports: Weakness Eyes: reports: No Symptoms HENT: reports: No Symptoms Neck: reports: No Symptoms Cardiovascular: reports: Shortness of Breath Respiratory: reports: Exercise Intolerance, SOB on Exertion Gastrointestinal: reports: Constipation Genitourinary: reports: No Symptoms Breasts: reports: No Symptoms Reported Musculoskeletal: reports: Muscle Weakness Integumentary: reports: No Symptoms Neurological: reports: Weakness Endocrine: reports: No Symptoms Hematology/Lymphatic: reports: No Symptoms Psychiatric: reports: Anxiety - Risk Factors Known Risk Factors: Yes: Age, Hypertension, Physical Inactivity Vital Signs: Vital Signs Temperature 98.4 F 08/10/19 00:01 Pulse Rate 66 08/10/19 11:09 Respiratory Rate 20 08/10/19 12:32 Blood Pressure 166/66 08/10/19 11:09 O2 Sat by Pulse Oximetry (%) 96 08/10/19 12:32 Constitutional: Yes: Anxious Eyes: Yes: WNL HENT: Yes: WNL Neck: Yes: WNL Respiratory: Yes: WNL Gastrointestinal: Yes: Soft Renal/: No: Anuria Heart Sounds: Yes: S1, S2, S4 Murmur: Yes: Systolic Murmur, Grade 1 Musculoskeletal: Yes: Muscle Weakness Extremities: Yes: WNL Edema: Yes Edema: LLE: 1+, RLE: 1+ Peripheral Pulses WNL: Yes - Other Data Labs, Other Data: CBC, BMP 08/09/19 21:45 08/09/19 21:45 INR, PTT INR 0.92 (0.83-1.09) 08/09/19 21:45 Troponin, BNP 08/09/19 08/10/19 21:45 11:28 Troponin I < 0.02 < 0.02 B-Natriuretic Peptide 3306.5 H Troponin, BNP 08/09/19 08/10/19 21:45 11:28 Troponin I < 0.02 < 0.02 B-Natriuretic Peptide 3306.5 H Abnormal Lab Results 08/11/19 08/11/19 07:40 10:45 Sodium 129 L Chloride 95 L Anion Gap 5 L BUN 31.2 H Creatinine 1.8 H Random Glucose 174 H Total Protein 6.3 L Albumin 3.1 L U Random Total Protein 242.0 H Echo: Report Reviewed Ejection Fraction %: LVEF > or = 40 % Imaging - Results Chest X-ray: Image Reviewed Cat Scan: Image Reviewed EKG: Image Reviewed Problem List - Problems (1) Shortness of breath Code(s): R06.02 - SHORTNESS OF BREATH (2) Anemia Code(s): D64.9 - ANEMIA, UNSPECIFIED Qualifiers: Anemia type: unspecified type Qualified Code(s): D64.9 - Anemia, unspecified (3) Atypical chest pain Assessment/Plan: TNI < 0.02 x 2. F/u prior workup done, and plan for stress test, if not done recently, when CHF , HTN, pulmonary functions are stable. Code(s): R07.89 - OTHER CHEST PAIN (4) Diabetes Code(s): E11.9 - TYPE 2 DIABETES MELLITUS WITHOUT COMPLICATIONS (5) HTN (hypertension) Assessment/Plan: On metoprolol, amlodipine, valsartan (held due to hyperkalemia), hydralazine, Imdur, furosemide. Given episodes of systolic BP >200 mmHg despite several medication classes of antihypertensives, would search for secondary causes of HTN. Code(s): I10 - ESSENTIAL (PRIMARY) HYPERTENSION (6) Weakness Code(s): R53.1 - WEAKNESS (7) Acute on chronic diastolic (congestive) heart failure Assessment/Plan: +JVD. Bilateral moderate pleural effusion on CT chest. Elevated BNP. On valsartan (held due to hyperkalemia). On fruosemide; hyponatremic. F/u BUN/Cr, electrolytes, daily wt, Is and Os. F/u prior workup both in hospital and as outpatient, for CAD. Plan on stress test when stable, if not done recently. Code(s): I50.33 - ACUTE ON CHRONIC DIASTOLIC (CONGESTIVE) HEART FAILURE (8) Hyponatremia Code(s): E87.1 - HYPO-OSMOLALITY AND HYPONATREMIA (9) Acute renal insufficiency Assessment/Plan: f/u with automatic driller and reamer F/u BUN/Cr, electrolytes, Is and Os, daily weight. Code(s): N28.9 - DISORDER OF KIDNEY AND URETER, UNSPECIFIED
[2019-08-10] MEDS: DOCUSATE SODIUM 100 MG CAPSULE (FP) PO SCH ×2 (14:21→21:09)
[2019-08-10] MEDS: hydrALAZINE HCL 25 MG TABLET (FP) PO SCH ×2 (14:21→21:09)
--- NOTE | 2019-08-10 17:33 | CONSULT ---
Consult Consult Specialty:: Nephrology Reason for Consultation:: fluid overload - History of Present Illness Chief Complaint: shortness of breath and lower ext edema History of Present Illness: Pt is a 69 year old female with pmhx of htn, ckd, chf, and anemia who presents with shortness of breath and lower est edema. She was just discharged from the hospital a few days ago. She denies chest pain. SHe denies dysuria or hematuria. - History Source History Provided By: Patient, Family Member - Past Medical History Cardio/Vascular: Yes: CHF (diastolic ), HTN Renal/: Yes: Renal Inusuff ...: No Psych: Yes: Anxiety Endocrine: Yes: Diabetes Mellitus - Alcohol/Substance Use Hx Alcohol Use: No - Smoking History Smoking history: Never smoked Have you smoked in the past 12 months: No Home Medications - Allergies Allergies/Adverse Reactions: Allergies Allergy/AdvReac Type Severity Reaction Status Date / Time No Known Allergies Allergy Verified 08/09/19 21:27 - Home Medications Home Medications: Ambulatory Orders Aspirin [Aquilino Chewable Aspirin] 81 mg PO DAILY 07/26/19 Isosorbide Mononitrate [Imdur -] 30 mg PO DAILY 07/26/19 Amlodipine Besylate [Norvasc -] 10 mg PO DAILY tablet 08/07/19 Docusate Sodium [Colace -] 100 mg PO TID #90 capsule 08/07/19 Ferrous Sulfate [Feosol] 325 mg PO DAILY #30 ud 08/07/19 Furosemide [Lasix -] 40 mg PO DAILY #30 tablet 08/07/19 Metoprolol Tartrate [Lopressor -] 25 mg PO BID #60 tablet 08/07/19 Pantoprazole Sodium [Protonix -] 20 mg PO DAILY #30 tablet.ec 08/07/19 Valsartan [Diovan] 40 mg PO DAILY #30 tablet 08/07/19 hydrALAZINE HCL [Apresoline -] 75 mg PO TID #90 tablet 08/07/19 Family Medical History Family History: Denies Review of Systems - Review of Systems Constitutional: reports: Malaise Eyes: reports: No Symptoms HENT: reports: No Symptoms Cardiovascular: reports: Edema Respiratory: reports: SOB on Exertion Musculoskeletal: reports: No Symptoms Neurological: reports: No Symptoms Endocrine: reports: No Symptoms Hematology/Lymphatic: reports: No Symptoms Psychiatric: reports: No Symptoms Physical Exam Vital Signs: Vital Signs Temperature 98.4 F 08/10/19 14:00 Pulse Rate 63 08/10/19 14:00 Respiratory Rate 20 08/10/19 12:32 Blood Pressure 144/65 08/10/19 14:00 O2 Sat by Pulse Oximetry (%) 96 08/10/19 12:32 Constitutional: Yes: Calm Eyes: Yes: Conjunctiva Clear HENT: Yes: Atraumatic Neck: Yes: Supple Cardiovascular: Yes: S1, S2 Respiratory: Yes: CTA Bilaterally Gastrointestinal: Yes: Soft Renal/: Yes: WNL Edema: Yes Edema: LLE: 2+, RLE: 2+ Neurological: Yes: Oriented Psychiatric: Yes: Oriented Labs: CBC, BMP 08/09/19 21:45 08/09/19 21:45 Laboratory Tests 07/29/19 07/29/19 08/09/19 06:03 06:03 21:45 Sodium 125 L Potassium 5.3 H BUN 31.3 H Creatinine 1.6 H B-Natriuretic Peptide 3306.5 H Urine Protein Urine Blood TERRA M-Reinaldo Not observed JERI Screen Negative c-ANCA <1:20 Proteinase 3 (PR3) <3.5 p-ANCA <1:20 Atypical p-ANCA <1:20 Myeloperoxidase Ab <9.0 Double Strand DNA Ab <1 Glomerular Base Memb Ab 2 Hep B Core Total Ab Negative Hep B Core IgM Ab Negative Hepatitis Be Antibody Negative Hepatitis Be Antigen Negative 08/09/19 21:45 Sodium Potassium BUN Creatinine B-Natriuretic Peptide Urine Protein 3+ H Urine Blood 3+ H TERRA M-Reinaldo JERI Screen c-ANCA Proteinase 3 (PR3) p-ANCA Atypical p-ANCA Myeloperoxidase Ab Double Strand DNA Ab Glomerular Base Memb Ab Hep B Core Total Ab Hep B Core IgM Ab Hepatitis Be Antibody Hepatitis Be Antigen Imaging - Results Cat Scan: Report Reviewed Problem List - Problems (1) Hyponatremia Code(s): E87.1 - HYPO-OSMOLALITY AND HYPONATREMIA (2) Shortness of breath Code(s): R06.02 - SHORTNESS OF BREATH Assessment/Plan Current Medications Generic Name Dose Route Start Last Admin Trade Name Freq PRN Reason Stop Dose Admin Amlodipine Besylate 10 mg 08/11/19 10:00 Norvasc - PO DAILY ECHO Aspirin 81 mg 08/10/19 11:00 08/10/19 11:53 Asa - PO 81 mg DAILY ECHO Administration Docusate Sodium 100 mg 08/10/19 14:00 08/10/19 14:21 Colace - PO 100 mg TID ECHO Administration Ferrous Sulfate 325 mg 08/10/19 11:00 08/10/19 11:53 Feosol - PO 325 mg DAILY ECHO Administration Furosemide 40 mg 08/11/19 10:00 Lasix Injection - IVPUSH DAILY ECHO Heparin Sodium (Porcine) 5,000 unit 08/10/19 10:00 08/10/19 11:40 Heparin - SQ 5,000 unit BID ECHO Administration Hydralazine HCl 75 mg 08/10/19 14:00 08/10/19 14:21 Apresoline - PO 75 mg TID ECHO Administration Insulin Aspart 1 vial 08/10/19 11:00 08/10/19 11:53 Novolog Vial Sliding Scale - SQ Not Given ACHS [facility] Protocol Isosorbide Mononitrate 30 mg 08/10/19 10:00 08/10/19 11:00 Imdur - PO 30 mg DAILY ECHO Administration Metoprolol Tartrate 25 mg 08/10/19 10:00 08/10/19 11:00 Lopressor - PO 25 mg BID ECHO Administration Pantoprazole Sodium 20 mg 08/10/19 10:00 08/10/19 11:00 Protonix - PO 20 mg DAILY ECHO Administration Impression 1. CKD 2. HTN 3. DM 4. bilateral hydro 5. anemia 6. hyperkalemia 7. fluid overload 8. hyponatremia 9. proteinuria Plan - repeat labs now - check bladder scan as she had hydro on last admission - cont lasix - bp is improved - cardio eval, pt is on asa, would like to know if it can be held for a kidney biopsy - ana held for hyperkalemia - bp is improved
[2019-08-10 19:53] LABS: BLOOD UREA NITROGEN 30.6 mg/dL (7-18); CALCIUM 8.7 mg/dL (8.5-10.1); CREATININE 1.8 mg/dL (0.55-1.3); POTASSIUM 4.8 mmol/L (3.5-5.1)
--- NOTE | 2019-08-10 20:58 | PN ---
Progress Note, Physician - Current Medication List Current Medications: Active Medications Amlodipine Besylate (Norvasc -) 10 mg PO DAILY [facility] Aspirin (Asa -) 81 mg PO DAILY [facility] Last Admin: 08/10/19 11:53 Dose: 81 mg Docusate Sodium (Colace -) 100 mg PO TID [facility] Last Admin: 08/10/19 14:21 Dose: 100 mg Ferrous Sulfate (Feosol -) 325 mg PO DAILY [facility] Last Admin: 08/10/19 11:53 Dose: 325 mg Furosemide (Lasix Injection -) 40 mg IVPUSH DAILY [facility] Heparin Sodium (Porcine) (Heparin -) 5,000 unit SQ BID [facility] Last Admin: 08/10/19 11:40 Dose: 5,000 unit Hydralazine HCl (Apresoline -) 75 mg PO TID [facility] Last Admin: 08/10/19 14:21 Dose: 75 mg Insulin Aspart (Novolog Vial Sliding Scale -) 1 vial SQ ACHS [facility]; Protocol Last Admin: 08/10/19 17:55 Dose: 2 units Isosorbide Mononitrate (Imdur -) 30 mg PO DAILY [facility] Last Admin: 08/10/19 11:00 Dose: 30 mg Metoprolol Tartrate (Lopressor -) 25 mg PO BID [facility] Last Admin: 08/10/19 11:00 Dose: 25 mg Pantoprazole Sodium (Protonix -) 20 mg PO DAILY [facility] Last Admin: 08/10/19 11:00 Dose: 20 mg - Objective Vital Signs: Vital Signs Temperature 98.2 F 08/10/19 20:00 Pulse Rate 68 08/10/19 20:00 Respiratory Rate 20 08/10/19 20:24 Blood Pressure 162/68 08/10/19 20:00 O2 Sat by Pulse Oximetry (%) 96 08/10/19 20:24 Labs: CBC, BMP 08/09/19 21:45 08/10/19 18:45 INR, PTT INR 0.92 (0.83-1.09) 08/09/19 21:45
[2019-08-11] MEDS: hydrALAZINE HCL 25 MG TABLET (FP) PO SCH ×2 (05:21→14:37)
[2019-08-11] MEDS: DOCUSATE SODIUM 100 MG CAPSULE (FP) PO SCH ×3 (05:21→21:11)
[2019-08-11] MEDS: INSULIN SLIDING SCALE (NOVOLOG) 1 VIAL SQ SCH ×4 (06:08→21:10)
[2019-08-11] MEDS ORDERED: PT OWN MED DRAWER 7, Y5N ONE (09:50)
[2019-08-11] MEDS: PANTOPRAZOLE 20 MG TABLET PO SCH (10:34)
[2019-08-11] MEDS: amLODIPine BESYLATE 10 MG TABLET (FP) PO SCH (10:34)
[2019-08-11] MEDS: HEPARIN NA (PORCINE) 5,000 UNITS/ML 1ML VIAL SQ SCH ×2 (10:34→21:11)
[2019-08-11] MEDS: FERROUS SO4 325 MG TABLET (FP) PO SCH (10:34)
[2019-08-11] MEDS: ISOSORBIDE MONONITRATE 30 MG TAB.SR.24H (FP) PO SCH (10:34)
[2019-08-11] MEDS: METOPROLOL TARTRATE 25 MG TABLET (FP) PO SCH ×2 (10:34→21:11)
[2019-08-11] MEDS: ASPIRIN 81 MG CHEWABLE TABLETS PO SCH (10:34)
[2019-08-11] MEDS: FUROSEMIDE 40 MG/4 ML INJECTABLE VIAL IVPUSH SCH (10:36)
[2019-08-11 11:31] LABS: ALBUMIN 3.1 g/dl (3.4-5.0); BILIRUBIN,TOTAL 0.7 mg/dL (0.2-1); BLOOD UREA NITROGEN 31.2 mg/dL (7-18); CALCIUM 9.1 mg/dL (8.5-10.1); CREATININE 1.8 mg/dL (0.55-1.3); POTASSIUM 5.1 mmol/L (3.5-5.1); TOT PROT 6.3 g/dl (6.4-8.2)
--- NOTE | 2019-08-11 12:15 | PN ---
Progress Note, Physician History of Present Illness: PULMONARY ALERT,FEELING BETTER,LESS DYSPNEIC - Current Medication List Current Medications: Active Medications Amlodipine Besylate (Norvasc -) 10 mg PO DAILY [facility] Last Admin: 08/11/19 10:34 Dose: 10 mg Aspirin (Asa -) 81 mg PO DAILY [facility] Last Admin: 08/11/19 10:34 Dose: 81 mg Docusate Sodium (Colace -) 100 mg PO TID [facility] Last Admin: 08/11/19 05:21 Dose: 100 mg Ferrous Sulfate (Feosol -) 325 mg PO DAILY [facility] Last Admin: 08/11/19 10:34 Dose: 325 mg Furosemide (Lasix Injection -) 40 mg IVPUSH DAILY [facility] Last Admin: 08/11/19 10:36 Dose: 40 mg Heparin Sodium (Porcine) (Heparin -) 5,000 unit SQ BID [facility] Last Admin: 08/11/19 10:34 Dose: 5,000 unit Hydralazine HCl (Apresoline -) 75 mg PO TID [facility] Last Admin: 08/11/19 05:21 Dose: 75 mg Insulin Aspart (Novolog Vial Sliding Scale -) 1 vial SQ [facility]; Protocol Last Admin: 08/11/19 06:08 Dose: Not Given Isosorbide Mononitrate (Imdur -) 30 mg PO DAILY [facility] Last Admin: 08/11/19 10:34 Dose: 30 mg Metoprolol Tartrate (Lopressor -) 25 mg PO BID [facility] Last Admin: 08/11/19 10:34 Dose: 25 mg Pantoprazole Sodium (Protonix -) 20 mg PO DAILY [facility] Last Admin: 08/11/19 10:34 Dose: 20 mg - Objective Vital Signs: Vital Signs Temperature 98.1 F 08/11/19 08:00 Pulse Rate 64 08/11/19 08:00 Respiratory Rate 18 08/11/19 08:00 Blood Pressure 165/62 08/11/19 08:00 O2 Sat by Pulse Oximetry (%) 96 08/10/19 20:24 Constitutional: Yes: Well Nourished, Calm Eyes: Yes: WNL HENT: Yes: WNL Neck: Yes: WNL Cardiovascular: Yes: Regular Rate and Rhythm, S1, S2 Respiratory: Yes: Diminished Gastrointestinal: Yes: Normal Bowel Sounds, Soft Extremities: Yes: WNL Edema: No Labs: CBC, BMP 08/11/19 10:45 INR, PTT INR 0.92 (0.83-1.09) 08/09/19 21:45 Problem List - Problems (1) Hyponatremia Code(s): E87.1 - HYPO-OSMOLALITY AND HYPONATREMIA (2) Shortness of breath Code(s): R06.02 - SHORTNESS OF BREATH (3) Acute on chronic diastolic (congestive) heart failure Code(s): I50.33 - ACUTE ON CHRONIC DIASTOLIC (CONGESTIVE) HEART FAILURE (4) Anemia Code(s): D64.9 - ANEMIA, UNSPECIFIED Qualifiers: Anemia type: unspecified type Qualified Code(s): D64.9 - Anemia, unspecified (5) Diabetes Code(s): E11.9 - TYPE 2 DIABETES MELLITUS WITHOUT COMPLICATIONS (6) Dyspnea Code(s): R06.00 - DYSPNEA, UNSPECIFIED (7) HTN (hypertension) Code(s): I10 - ESSENTIAL (PRIMARY) HYPERTENSION (8) Liver lesion Code(s): K76.9 - LIVER DISEASE, UNSPECIFIED Assessment/Plan Assessment/Plan Acute on Chronic Diastolic Heart Failure Chronic Renal Failure - ?nephrotic Pleural Effusions appear chronic Anemia r/o COPD HTN DM - continue lasix - monitor urine output, creatinine - ? renal bx - consider diagnostic thoracentesis - O2 to keep SpO2 >90% - inhaled bronchodilators - outpt PFTs and f/u of chest imaging - monitor H/H - DVT prophylaxis DR PIEDRA
--- NOTE | 2019-08-11 14:05 | EKG ---
Test Reason : Blood Pressure : / mmHG Vent. Rate : 086 BPM Atrial Rate : 086 BPM P-R Int : 146 ms QRS Dur : 086 ms QT Int : 360 ms P-R-T Axes : 040 -08 058 degrees QTc Int : 430 ms NORMAL SINUS RHYTHM NORMAL ECG WHEN COMPARED WITH ECG OF 28-JUL-2019 08:55, NO SIGNIFICANT CHANGE WAS FOUND Confirmed by JESSICA JACOBS MD ([id number]) on 08/11/2019 2:04:46 PM Referred By: Confirmed By:JESSICA JACOBS MD
[2019-08-11] MEDS ORDERED: MINERAL OIL ENEMA 133 ML ENEMA PR ONE (14:20)
--- NOTE | 2019-08-11 14:33 | PN ---
Progress Note, Physician History of Present Illness: Pt seen and examined at bedside. She is awake and alert. She denies shortness of breath. She feels that her lower ext edema is improved. - Current Medication List Current Medications: Active Medications Amlodipine Besylate (Norvasc -) 10 mg PO DAILY [facility] Last Admin: 08/11/19 10:34 Dose: 10 mg Aspirin (Asa -) 81 mg PO DAILY [facility] Last Admin: 08/11/19 10:34 Dose: 81 mg Docusate Sodium (Colace -) 200 mg PO TID [facility] Ferrous Sulfate (Feosol -) 325 mg PO DAILY [facility] Last Admin: 08/11/19 10:34 Dose: 325 mg Furosemide (Lasix Injection -) 40 mg IVPUSH DAILY [facility] Last Admin: 08/11/19 10:36 Dose: 40 mg Heparin Sodium (Porcine) (Heparin -) 5,000 unit SQ BID [facility] Last Admin: 08/11/19 10:34 Dose: 5,000 unit Hydralazine HCl (Apresoline -) 75 mg PO TID [facility] Last Admin: 08/11/19 05:21 Dose: 75 mg Insulin Aspart (Novolog Vial Sliding Scale -) 1 vial SQ [facility]; Protocol Last Admin: 08/11/19 12:13 Dose: 2 units Isosorbide Mononitrate (Imdur -) 30 mg PO DAILY [facility] Last Admin: 08/11/19 10:34 Dose: 30 mg Metoprolol Tartrate (Lopressor -) 25 mg PO BID [facility] Last Admin: 08/11/19 10:34 Dose: 25 mg Pantoprazole Sodium (Protonix -) 20 mg PO DAILY [facility] Last Admin: 08/11/19 10:34 Dose: 20 mg Senna (Senna -) 2 tab PO [facility] - Objective Vital Signs: Vital Signs Temperature 98.1 F 08/11/19 08:00 Pulse Rate 64 08/11/19 08:00 Respiratory Rate 18 08/11/19 09:00 Blood Pressure 165/62 08/11/19 08:00 O2 Sat by Pulse Oximetry (%) 96 08/11/19 09:00 Constitutional: Yes: Calm Eyes: Yes: Conjunctiva Clear HENT: Yes: Atraumatic Neck: Yes: Supple Cardiovascular: Yes: S1, S2 Respiratory: Yes: CTA Bilaterally Gastrointestinal: Yes: Soft Genitourinary: Yes: WNL Musculoskeletal: Yes: WNL Edema: LLE: Trace, RLE: Trace Neurological: Yes: Oriented Psychiatric: Yes: Oriented Labs: CBC, BMP 08/09/19 21:45 08/11/19 10:45 INR, PTT INR 0.92 (0.83-1.09) 08/09/19 21:45 Problem List - Problems (1) Hyponatremia Code(s): E87.1 - HYPO-OSMOLALITY AND HYPONATREMIA (2) Shortness of breath Code(s): R06.02 - SHORTNESS OF BREATH Assessment/Plan Current Medications Generic Name Dose Route Start Last Admin Trade Name Freq PRN Reason Stop Dose Admin Amlodipine Besylate 10 mg 08/11/19 10:00 08/11/19 10:34 Norvasc - PO 10 mg DAILY ECHO Administration Aspirin 81 mg 08/10/19 11:00 08/11/19 10:34 Asa - PO 81 mg DAILY ECHO Administration Docusate Sodium 200 mg 08/11/19 14:20 Colace - PO TID ECHO Ferrous Sulfate 325 mg 08/10/19 11:00 08/11/19 10:34 Feosol - PO 325 mg DAILY ECHO Administration Furosemide 40 mg 08/11/19 10:00 08/11/19 10:36 Lasix Injection - IVPUSH 40 mg DAILY ECHO Administration Heparin Sodium (Porcine) 5,000 unit 08/10/19 10:00 08/11/19 10:34 Heparin - SQ 5,000 unit BID ECHO Administration Hydralazine HCl 75 mg 08/10/19 14:00 08/11/19 05:21 Apresoline - PO 75 mg TID ECHO Administration Insulin Aspart 1 vial 08/10/19 11:00 08/11/19 12:13 Novolog Vial Sliding Scale - SQ 2 units ACHS ECHO Administration Protocol Isosorbide Mononitrate 30 mg 08/10/19 10:00 08/11/19 10:34 Imdur - PO 30 mg DAILY ECHO Administration Metoprolol Tartrate 25 mg 08/10/19 10:00 08/11/19 10:34 Lopressor - PO 25 mg BID ECHO Administration Pantoprazole Sodium 20 mg 08/10/19 10:00 08/11/19 10:34 Protonix - PO 20 mg DAILY ECHO Administration Senna 2 tab 08/11/19 22:00 Senna - PO HS ECHO Impression 1. CKD 2. HTN 3. DM 4. bilateral hydro 5. anemia 6. hyperkalemia 7. fluid overload 8. hyponatremia 9. proteinuria Plan - cont lasix - sodium improving - low potassium diet - change hydralazine to 100 mg tid - monitor renal function - discussed with cardio, pt on asa, they will let us know if it can be stopped - kidney biopsy once off of asa - diovan held for hyperkalemia
[2019-08-11] MEDS: SENNOSIDES 8.6MG TABLET (FP) PO SCH (21:11)
[2019-08-11] MEDS: hydrALAZINE HCL 50 MG TABLET (FP) PO SCH (21:11)
--- NOTE | 2019-08-11 21:57 | PN ---
Progress Note, Physician Chief Complaint: Pt A&Ox3; sitting up in bed; her daughter is visiting. She feels better: leg swelling has markedly improved; no chest pain or shortness of breath. History of Present Illness: 69 year old woman (b. [place]), with a history of HTN, diastolic CHF, diabetes, anemia, constipation, with a recent admission for a ureteral stone with stent placement and anemia (requiring blood transfusion) who presents with shortness of breath and bilateral leg swelling for the past 3 days. The patient reports some chest pressure when she feels short of breath. Her shortness of breath worsens with lying back and with walking. She also admits to nausea and constipation. She has no other complaints. She was found to have systolic BP >200 mmHg in the ER. Pt was admitted for similar symptoms recently, and discharged from [facility] only a few days ago. PMD: Deangelo Nassar It Service Delivery Manager: Trini Torres - Current Medication List Current Medications: Active Medications Amlodipine Besylate (Norvasc -) 10 mg PO DAILY [facility] Last Admin: 08/11/19 10:34 Dose: 10 mg Aspirin (Asa -) 81 mg PO DAILY [facility] Last Admin: 08/11/19 10:34 Dose: 81 mg Docusate Sodium (Colace -) 200 mg PO TID [facility] Last Admin: 08/11/19 21:11 Dose: 200 mg Ferrous Sulfate (Feosol -) 325 mg PO DAILY [facility] Last Admin: 08/11/19 10:34 Dose: 325 mg Furosemide (Lasix Injection -) 40 mg IVPUSH DAILY [facility] Last Admin: 08/11/19 10:36 Dose: 40 mg Heparin Sodium (Porcine) (Heparin -) 5,000 unit SQ BID [facility] Last Admin: 08/11/19 21:11 Dose: 5,000 unit Hydralazine HCl (Apresoline -) 100 mg PO TID [facility] Last Admin: 08/11/19 21:11 Dose: 100 mg Insulin Aspart (Novolog Vial Sliding Scale -) 1 vial SQ ACHS [facility]; Protocol Last Admin: 08/11/19 21:10 Dose: Not Given Isosorbide Mononitrate (Imdur -) 30 mg PO DAILY [facility] Last Admin: 08/11/19 10:34 Dose: 30 mg Metoprolol Tartrate (Lopressor -) 25 mg PO BID [facility] Last Admin: 08/11/19 21:11 Dose: 25 mg Pantoprazole Sodium (Protonix -) 20 mg PO DAILY [facility] Last Admin: 08/11/19 10:34 Dose: 20 mg Senna (Senna -) 2 tab PO HS [facility] Last Admin: 08/11/19 21:11 Dose: 2 tab - Objective Vital Signs: Vital Signs Temperature 97.7 F 08/11/19 18:00 Pulse Rate 62 08/11/19 18:00 Respiratory Rate 20 08/11/19 18:00 Blood Pressure 141/66 08/11/19 18:00 O2 Sat by Pulse Oximetry (%) 96 08/11/19 09:00 Constitutional: Yes: Calm Eyes: Yes: WNL HENT: Yes: WNL Neck: Yes: WNL Cardiovascular: Yes: S1, S2, S4 Respiratory: Yes: WNL Gastrointestinal: Yes: Soft ...Rectal Exam: Yes: Deferred Genitourinary: No: Anuria Breast(s): Yes: WNL Musculoskeletal: Yes: Muscle Weakness Extremities: Yes: Other (hypeerpigmented alnkles) Edema: Yes Edema: LLE: Trace, RLE: Trace Peripheral Pulses WNL: Yes Integumentary: Yes: Venous Stasis Changes Neurological: Yes: Alert, Oriented ...Motor Strength: RUE, RLE (mildly decreased) Psychiatric: Yes: Alert, Oriented, Other (anxiety) Labs: CBC, BMP 08/09/19 21:45 08/11/19 10:45 INR, PTT INR 0.92 (0.83-1.09) 08/09/19 21:45 Abnormal Lab Results 08/11/19 08/11/19 07:40 10:45 Sodium 129 L Chloride 95 L Anion Gap 5 L BUN 31.2 H Creatinine 1.8 H Random Glucose 174 H Total Protein 6.3 L Albumin 3.1 L U Random Total Protein 242.0 H - ....Imaging Cat Scan: Image Reviewed Ultrasound: Image Reviewed (ECHO: normal LVEF; mild MR: trival pericardial effusion) Problem List - Problems (1) Shortness of breath Code(s): R06.02 - SHORTNESS OF BREATH (2) Anemia Code(s): D64.9 - ANEMIA, UNSPECIFIED Qualifiers: Anemia type: unspecified type Qualified Code(s): D64.9 - Anemia, unspecified (3) Atypical chest pain Assessment/Plan: TNI < 0.02 x 2. F/u prior workup done, and plan for stress test, if not done recently, when CHF , HTN, pulmonary functions are stable. Will hold aspirin presently in anticipation of possible renal biopsy. Code(s): R07.89 - OTHER CHEST PAIN (4) Diabetes Assessment/Plan: HGBA1c 5.5 Code(s): E11.9 - TYPE 2 DIABETES MELLITUS WITHOUT COMPLICATIONS (5) HTN (hypertension) Assessment/Plan: On metoprolol, amlodipine, valsartan (held due to hyperkalemia), hydralazine, Imdur, furosemide. Given episodes of systolic BP >200 mmHg despite several medication classes of antihypertensives, with rise in Creatinine, and periods of "flash" pulmonary edema, would search for secondary causes of HTN (e.g., renal ultraound; aldosteronism). Code(s): I10 - ESSENTIAL (PRIMARY) HYPERTENSION (6) Weakness Code(s): R53.1 - WEAKNESS (7) Acute on chronic diastolic (congestive) heart failure Assessment/Plan: +JVD. Bilateral moderate pleural effusion on CT chest. Elevated BNP. On valsartan (held due to hyperkalemia). On furosemide; hyponatremic (improving). F/u BUN/Cr, electrolytes, daily wt, Is and Os. F/u with cardiopulmonary technician and eeg tech. F/u prior workup both in hospital and as outpatient, for CAD. Plan on stress test when stable, if not done recently. Code(s): I50.33 - ACUTE ON CHRONIC DIASTOLIC (CONGESTIVE) HEART FAILURE (8) Hyponatremia Assessment/Plan: Na 125-->129; f/u with cardiopulmonary technician and eeg tech. Code(s): E87.1 - HYPO-OSMOLALITY AND HYPONATREMIA (9) Acute renal insufficiency Assessment/Plan: f/u with cardiopulmonary technician and eeg tech F/u BUN/Cr, electrolytes, Is and Os, daily weight. Refractory HTN may be related to renal issues. Code(s): N28.9 - DISORDER OF KIDNEY AND URETER, UNSPECIFIED
--- NOTE | 2019-08-11 23:45 | PN ---
Progress Note, Physician - Current Medication List Current Medications: Active Medications Amlodipine Besylate (Norvasc -) 10 mg PO DAILY [facility] Last Admin: 08/11/19 10:34 Dose: 10 mg Docusate Sodium (Colace -) 200 mg PO TID [facility] Last Admin: 08/11/19 21:11 Dose: 200 mg Ferrous Sulfate (Feosol -) 325 mg PO DAILY [facility] Last Admin: 08/11/19 10:34 Dose: 325 mg Furosemide (Lasix Injection -) 40 mg IVPUSH DAILY [facility] Last Admin: 08/11/19 10:36 Dose: 40 mg Heparin Sodium (Porcine) (Heparin -) 5,000 unit SQ BID [facility] Last Admin: 08/11/19 21:11 Dose: 5,000 unit Hydralazine HCl (Apresoline -) 100 mg PO TID [facility] Last Admin: 08/11/19 21:11 Dose: 100 mg Insulin Aspart (Novolog Vial Sliding Scale -) 1 vial SQ [facility]; Protocol Last Admin: 08/11/19 21:10 Dose: Not Given Isosorbide Mononitrate (Imdur -) 30 mg PO DAILY [facility] Last Admin: 08/11/19 10:34 Dose: 30 mg Metoprolol Tartrate (Lopressor -) 25 mg PO BID [facility] Last Admin: 08/11/19 21:11 Dose: 25 mg Pantoprazole Sodium (Protonix -) 20 mg PO DAILY [facility] Last Admin: 08/11/19 10:34 Dose: 20 mg Senna (Senna -) 2 tab PO HS [facility] Last Admin: 08/11/19 21:11 Dose: 2 tab - Objective Vital Signs: Vital Signs Temperature 98.2 F 08/11/19 22:00 Pulse Rate 71 08/11/19 22:00 Respiratory Rate 20 08/11/19 22:00 Blood Pressure 163/68 08/11/19 22:00 O2 Sat by Pulse Oximetry (%) 99 08/11/19 21:00 Labs: CBC, BMP 08/09/19 21:45 08/11/19 10:45 INR, PTT INR 0.92 (0.83-1.09) 08/09/19 21:45
--- NOTE | 2019-08-11 23:46 | HP ---
Admitting History and Physical - Past Medical History Cardiovascular: Yes: CHF (diastolic ), HTN Gastrointestinal: No: Ascites Renal/: Yes: Renal Inusuff ...: No Heme/Onc: Yes: Anemia Psych: Yes: Anxiety Endocrine: Yes: Diabetes Mellitus - Smoking History Smoking history: Never smoked Have you smoked in the past 12 months: No - Alcohol/Substance Use Hx Alcohol Use: No Home Medications - Allergies Allergies/Adverse Reactions: Allergies Allergy/AdvReac Type Severity Reaction Status Date / Time No Known Allergies Allergy Verified 08/09/19 21:27 - Home Medications Home Medications: Ambulatory Orders Aspirin [[place] Chewable Aspirin] 81 mg PO DAILY 07/26/19 Isosorbide Mononitrate [Imdur -] 30 mg PO DAILY 07/26/19 Amlodipine Besylate [Norvasc -] 10 mg PO DAILY tablet 08/07/19 Docusate Sodium [Colace -] 100 mg PO TID #90 capsule 08/07/19 Ferrous Sulfate [Feosol] 325 mg PO DAILY #30 ud 08/07/19 Furosemide [Lasix -] 40 mg PO DAILY #30 tablet 08/07/19 Metoprolol Tartrate [Lopressor -] 25 mg PO BID #60 tablet 08/07/19 Pantoprazole Sodium [Protonix -] 20 mg PO DAILY #30 tablet.ec 08/07/19 Valsartan [Diovan] 40 mg PO DAILY #30 tablet 08/07/19 hydrALAZINE HCL [Apresoline -] 75 mg PO TID #90 tablet 08/07/19 Physical Examination Vital Signs: Vital Signs Temperature 98.2 F 08/11/19 22:00 Pulse Rate 71 08/11/19 22:00 Respiratory Rate 20 08/11/19 22:00 Blood Pressure 163/68 08/11/19 22:00 O2 Sat by Pulse Oximetry (%) 99 08/11/19 21:00 Labs: CBC, BMP 08/09/19 21:45 08/11/19 10:45
[2019-08-12] MEDS: hydrALAZINE HCL 50 MG TABLET (FP) PO SCH ×3 (06:08→22:12)
[2019-08-12] MEDS: DOCUSATE SODIUM 100 MG CAPSULE (FP) PO SCH ×3 (06:08→22:12)
[2019-08-12] MEDS: INSULIN SLIDING SCALE (NOVOLOG) 1 VIAL SQ SCH ×4 (06:09→22:12)
[2019-08-12 07:06] LABS: BASO % 0.9 % (0-2.0); EOS % 9.1 % (0-4.5); HEMATOCRIT 24.5 % (32.4-45.2); HEMOGLOBIN 8.8 GM/dL (10.7-15.3); LYMPH % 30.8 % (8-40); MCH 31.7 pg (25.7-33.7); MCHC 35.7 g/dl (32.0-36.0); MEAN CELL VOLUME 88.8 fl (80-96); MEAN PLT VOLUME 7.6 fl (7.5-11.1); MONO % 10.6 % (3.8-10.2); NEUT % 48.6 % (42.8-82.8); PLATELET COUNT 162 K/MM3 (134-434); RBC 2.76 M/mm3 (3.60-5.2); RDW 12.3 % (11.6-15.6); WHITE BLOOD COUNT 4.1 K/mm3 (4.0-10.0)
[2019-08-12 07:41] LABS: ALBUMIN 2.8 g/dl (3.4-5.0); BILIRUBIN,TOTAL 0.5 mg/dL (0.2-1); CALCIUM 8.3 mg/dL (8.5-10.1); CREATININE 1.9 mg/dL (0.55-1.3); POTASSIUM 4.9 mmol/L (3.5-5.1); TOT PROT 5.5 g/dl (6.4-8.2)
[2019-08-12] MEDS: FERROUS SO4 325 MG TABLET (FP) PO SCH (09:52)
[2019-08-12] MEDS: METOPROLOL TARTRATE 25 MG TABLET (FP) PO SCH ×2 (09:52→22:13)
[2019-08-12] MEDS: PANTOPRAZOLE 20 MG TABLET PO SCH (09:52)
[2019-08-12] MEDS: amLODIPine BESYLATE 10 MG TABLET (FP) PO SCH (09:52)
[2019-08-12] MEDS: ISOSORBIDE MONONITRATE 30 MG TAB.SR.24H (FP) PO SCH (09:53)
[2019-08-12] MEDS: FUROSEMIDE 40 MG/4 ML INJECTABLE VIAL IVPUSH SCH (09:53)
[2019-08-12] MEDS: HEPARIN NA (PORCINE) 5,000 UNITS/ML 1ML VIAL SQ SCH ×2 (09:53→22:11)
--- NOTE | 2019-08-12 11:27 | PN ---
Progress Note (short form) - Note Progress Note: Renal follow up for CKD and proteinuria Seen and examined in the solar[facility] no acute complaints leg swelling improving no sob, cp, abd pain, fever or chills Vital Signs Temperature 98.6 F 08/12/19 07:43 Pulse Rate 74 08/12/19 07:43 Respiratory Rate 18 08/12/19 07:49 Blood Pressure 153/66 08/12/19 07:43 O2 Sat by Pulse Oximetry (%) 97 08/12/19 07:49 Intake & Output 08/09/19 08/10/19 08/11/19 08/12/19 23:59 23:59 23:59 23:59 Intake Total 830 1100 200 Output Total 1100 Balance 830 0 200 Weight 52.163 kg 56.245 kg 56.245 kg 56.518 kg NAD awake and alert neck supple RRR CTA + edema in LE CBC, BMP 08/12/19 05:40 08/12/19 05:40 Current Medications Amlodipine Besylate (Norvasc -) 10 mg PO DAILY [facility] Last Admin: 08/12/19 09:52 Dose: 10 mg Docusate Sodium (Colace -) 200 mg PO TID [facility] Last Admin: 08/12/19 06:08 Dose: 200 mg Ferrous Sulfate (Feosol -) 325 mg PO DAILY [facility] Last Admin: 08/12/19 09:52 Dose: 325 mg Furosemide (Lasix Injection -) 40 mg IVPUSH DAILY [facility] Last Admin: 08/12/19 09:53 Dose: 40 mg Heparin Sodium (Porcine) (Heparin -) 5,000 unit SQ BID [facility] Last Admin: 08/12/19 09:53 Dose: 5,000 unit Hydralazine HCl (Apresoline -) 100 mg PO TID [facility] Last Admin: 08/12/19 06:08 Dose: 100 mg Insulin Aspart (Novolog Vial Sliding Scale -) 1 vial SQ ACHS [facility]; Protocol Last Admin: 08/12/19 06:09 Dose: Not Given Isosorbide Mononitrate (Imdur -) 30 mg PO DAILY [facility] Last Admin: 08/12/19 09:53 Dose: 30 mg Metoprolol Tartrate (Lopressor -) 25 mg PO BID [facility] Last Admin: 08/12/19 09:52 Dose: 25 mg Pantoprazole Sodium (Protonix -) 20 mg PO DAILY [facility] Last Admin: 08/12/19 09:52 Dose: 20 mg Senna (Senna -) 2 tab PO HS [facility] Last Admin: 08/11/19 21:11 Dose: 2 tab Impression 1. CKD 2. HTN 3. DM 4. bilateral hydro 5. anemia 6. hyperkalemia 7. fluid overload 8. hyponatremia 9. proteinuria Plan Renal function stable continue IV Lasix daily possible renal biopsy if ASA can be held in the near future check Renal vein Doppler continue salt and K restricted diet Trend renal function and electrolytes Nicola Bolton DO
--- NOTE | 2019-08-12 12:19 | PN ---
Progress Note (short form) - Note Progress Note: Breathing feels better today. No acute events overnight. Intake & Output 08/09/19 08/10/19 08/11/19 08/12/19 23:59 23:59 23:59 23:59 Intake Total 830 1100 200 Output Total 1100 Balance 830 0 200 Weight 115 lb 124 lb 124 lb 124 lb 9.6 oz Last Vital Signs Temp Pulse Resp BP Pulse Ox 98.4 F 58 L 18 142/61 97 08/12/19 11:00 08/12/19 11:00 08/12/19 11:00 08/12/19 11:00 08/12/19 07:49 Active Medications Amlodipine Besylate (Norvasc -) 10 mg PO DAILY [facility] Last Admin: 08/12/19 09:52 Dose: 10 mg Docusate Sodium (Colace -) 200 mg PO TID [facility] Last Admin: 08/12/19 06:08 Dose: 200 mg Ferrous Sulfate (Feosol -) 325 mg PO DAILY [facility] Last Admin: 08/12/19 09:52 Dose: 325 mg Furosemide (Lasix Injection -) 40 mg IVPUSH DAILY [facility] Last Admin: 08/12/19 09:53 Dose: 40 mg Heparin Sodium (Porcine) (Heparin -) 5,000 unit SQ BID [facility] Last Admin: 08/12/19 09:53 Dose: 5,000 unit Hydralazine HCl (Apresoline -) 100 mg PO TID [facility] Last Admin: 08/12/19 06:08 Dose: 100 mg Insulin Aspart (Novolog Vial Sliding Scale -) 1 vial SQ ACHS [facility]; Protocol Last Admin: 08/12/19 12:07 Dose: 4 units Isosorbide Mononitrate (Imdur -) 30 mg PO DAILY [facility] Last Admin: 08/12/19 09:53 Dose: 30 mg Metoprolol Tartrate (Lopressor -) 25 mg PO BID [facility] Last Admin: 08/12/19 09:52 Dose: 25 mg Pantoprazole Sodium (Protonix -) 20 mg PO DAILY [facility] Last Admin: 08/12/19 09:52 Dose: 20 mg Senna (Senna -) 2 tab PO HS [facility] Last Admin: 08/11/19 21:11 Dose: 2 tab Constitutional: Yes: Awake, NAD Eyes: Yes: WNL HENT: Yes: WNL Neck: Yes: WNL Cardiovascular: Yes: Regular Rate and Rhythm, S1, S2 Respiratory: Yes: Diminished Gastrointestinal: Yes: Normal Bowel Sounds, Soft Extremities: Yes: WNL Edema: No Labs: Laboratory Results - last 24 hr 08/11/19 08/11/19 08/12/19 17:25 21:08 05:40 WBC 4.1 RBC 2.76 L Hgb 8.8 L Hct 24.5 L D MCV 88.8 MCH 31.7 MCHC 35.7 RDW 12.3 Plt Count 162 MPV 7.6 Absolute Neuts (auto) 2.0 Neutrophils % 48.6 D Lymphocytes % 30.8 D Monocytes % 10.6 H Eosinophils % 9.1 H D Basophils % 0.9 Nucleated RBC % 0 Sodium Potassium Chloride Carbon Dioxide Anion Gap BUN Creatinine Est GFR (CKD-EPI)AfAm Est GFR (CKD-EPI)NonAf POC Glucometer 263 114 Random Glucose Calcium Total Bilirubin AST ALT Alkaline Phosphatase Total Protein Albumin 08/12/19 08/12/19 08/12/19 05:40 06:06 11:30 WBC RBC Hgb Hct MCV MCH MCHC RDW Plt Count MPV Absolute Neuts (auto) Neutrophils % Lymphocytes % Monocytes % Eosinophils % Basophils % Nucleated RBC % Sodium 130 L Potassium 4.9 Chloride 96 L Carbon Dioxide 28 Anion Gap 6 L BUN 40.0 H Creatinine 1.9 H Est GFR (CKD-EPI)AfAm 30.85 Est GFR (CKD-EPI)NonAf 26.62 POC Glucometer 112 236 Random Glucose 112 H Calcium 8.3 L Total Bilirubin 0.5 AST 16 ALT 20 Alkaline Phosphatase 87 Total Protein 5.5 L Albumin 2.8 L Problem List - Problems (1) Hyponatremia Code(s): E87.1 - HYPO-OSMOLALITY AND HYPONATREMIA (2) Shortness of breath Code(s): R06.02 - SHORTNESS OF BREATH (3) Acute on chronic diastolic (congestive) heart failure Code(s): I50.33 - ACUTE ON CHRONIC DIASTOLIC (CONGESTIVE) HEART FAILURE (4) Anemia Code(s): D64.9 - ANEMIA, UNSPECIFIED Qualifiers: Anemia type: unspecified type Qualified Code(s): D64.9 - Anemia, unspecified (5) Diabetes Code(s): E11.9 - TYPE 2 DIABETES MELLITUS WITHOUT COMPLICATIONS (6) Dyspnea Code(s): R06.00 - DYSPNEA, UNSPECIFIED (7) HTN (hypertension) Code(s): I10 - ESSENTIAL (PRIMARY) HYPERTENSION (8) Liver lesion Code(s): K76.9 - LIVER DISEASE, UNSPECIFIED Assessment/Plan Acute on Chronic Diastolic Heart Failure Chronic Renal Failure - ?nephrotic Pleural Effusions appear chronic Anemia r/o COPD HTN DM - Lasix - monitor urine output, creatinine - Would consider diagnostic thoracentesis if IV diuresis does not improve pleural effusions - O2 to keep SpO2 >90% - inhaled bronchodilators - outpt PFTs and f/u of chest imaging - monitor H/H - DVT prophylaxis Dr Patton
[2019-08-12] MEDS: ALBUTEROL SO4 2.5/IPRATROPIUM 0.5 INH SOL 3 ML VIAL.NEB. NEB PRN (21:25)
[2019-08-12] MEDS: SENNOSIDES 8.6MG TABLET (FP) PO SCH (22:05)
--- NOTE | 2019-08-12 22:23 | PN ---
Progress Note, Physician - Current Medication List Current Medications: Active Medications Albuterol/Ipratropium (Duoneb -) 1 amp NEB Q6H PRN PRN Reason: SHORT OF BREATH/WHEEZING Last Admin: 08/12/19 21:25 Dose: 1 amp Amlodipine Besylate (Norvasc -) 10 mg PO DAILY [facility] Last Admin: 08/12/19 09:52 Dose: 10 mg Docusate Sodium (Colace -) 200 mg PO TID [facility] Last Admin: 08/12/19 22:12 Dose: 200 mg Ferrous Sulfate (Feosol -) 325 mg PO DAILY [facility] Last Admin: 08/12/19 09:52 Dose: 325 mg Furosemide (Lasix Injection -) 40 mg IVPUSH DAILY [facility] Last Admin: 08/12/19 09:53 Dose: 40 mg Heparin Sodium (Porcine) (Heparin -) 5,000 unit SQ BID [facility] Last Admin: 08/12/19 22:11 Dose: 5,000 unit Hydralazine HCl (Apresoline -) 100 mg PO TID [facility] Last Admin: 08/12/19 22:12 Dose: 100 mg Insulin Aspart (Novolog Vial Sliding Scale -) 1 vial SQ [facility]; Protocol Last Admin: 08/12/19 22:12 Dose: 4 units Isosorbide Mononitrate (Imdur -) 30 mg PO DAILY [facility] Last Admin: 08/12/19 09:53 Dose: 30 mg Metoprolol Tartrate (Lopressor -) 25 mg PO BID [facility] Last Admin: 08/12/19 22:13 Dose: 25 mg Pantoprazole Sodium (Protonix -) 20 mg PO DAILY [facility] Last Admin: 08/12/19 09:52 Dose: 20 mg Senna (Senna -) 2 tab PO HS [facility] Last Admin: 08/12/19 22:05 Dose: 2 tab - Objective Vital Signs: Vital Signs Temperature 98.1 F 08/12/19 21:16 Pulse Rate 70 08/12/19 21:16 Respiratory Rate 18 08/12/19 21:16 Blood Pressure 174/67 H 08/12/19 21:21 O2 Sat by Pulse Oximetry (%) 98 08/12/19 21:00 Labs: CBC, BMP 08/12/19 05:40 08/12/19 05:40 INR, PTT INR 0.92 (0.83-1.09) 08/09/19 21:45
[2019-08-13] MEDS: INSULIN SLIDING SCALE (NOVOLOG) 1 VIAL SQ SCH ×4 (06:07→21:16)
[2019-08-13] MEDS: hydrALAZINE HCL 50 MG TABLET (FP) PO SCH ×3 (06:08→21:07)
[2019-08-13] MEDS: DOCUSATE SODIUM 100 MG CAPSULE (FP) PO SCH ×3 (06:08→21:07)
[2019-08-13 07:39] LABS: BASO % 0.8 % (0-2.0); EOS % 8.1 % (0-4.5); HEMOGLOBIN 8.5 GM/dL (10.7-15.3); LYMPH % 21.7 % (8-40); MCH 33.2 pg (25.7-33.7); MCHC 36.9 g/dl (32.0-36.0); MEAN CELL VOLUME 90.1 fl (80-96); MEAN PLT VOLUME 7.5 fl (7.5-11.1); MONO % 9.6 % (3.8-10.2); NEUT % 59.8 % (42.8-82.8); PLATELET COUNT 163 K/MM3 (134-434); RBC 2.55 M/mm3 (3.60-5.2); RDW 12.2 % (11.6-15.6); WHITE BLOOD COUNT 4.1 K/mm3 (4.0-10.0)
[2019-08-13 08:02] LABS: ALBUMIN 2.6 g/dl (3.4-5.0); BILIRUBIN,TOTAL 0.4 mg/dL (0.2-1); BLOOD UREA NITROGEN 44.2 mg/dL (7-18); CALCIUM 8.1 mg/dL (8.5-10.1); CREATININE 2.2 mg/dL (0.55-1.3); MAGNESIUM 2.4 mg/dL (1.8-2.4); PHOSPHOROUS 4.8 mg/dL (2.5-4.9); TOT PROT 5.4 g/dl (6.4-8.2)
[2019-08-13] MEDS: PANTOPRAZOLE 20 MG TABLET PO SCH (09:14)
[2019-08-13] MEDS: amLODIPine BESYLATE 10 MG TABLET (FP) PO SCH (09:14)
[2019-08-13] MEDS: ISOSORBIDE MONONITRATE 30 MG TAB.SR.24H (FP) PO SCH (09:14)
[2019-08-13] MEDS: FERROUS SO4 325 MG TABLET (FP) PO SCH (09:14)
[2019-08-13] MEDS: METOPROLOL TARTRATE 25 MG TABLET (FP) PO SCH ×2 (09:14→21:07)
[2019-08-13] MEDS: HEPARIN NA (PORCINE) 5,000 UNITS/ML 1ML VIAL SQ SCH ×2 (09:15→21:07)
[2019-08-13] MEDS: FUROSEMIDE 40 MG/4 ML INJECTABLE VIAL IVPUSH SCH (09:15)
[2019-08-13] MEDS ORDERED: MAG HYDROX/AL HYDROX/SIMETH 30 ML UNIT-DOSE CUP PO ONE (09:45)
--- NOTE | 2019-08-13 10:33 | PN ---
Progress Note (short form) - Note Progress Note: Renal follow up for CKD and proteinuria Seen and examined at the bedside awake and alert daughter at the bedside reports continues RESENDIZ but not SOB at rest leg swelling improved Vital Signs Temperature 98 F 08/13/19 10:00 Pulse Rate 66 08/13/19 10:00 Respiratory Rate 18 08/13/19 10:00 Blood Pressure 147/67 08/13/19 10:00 O2 Sat by Pulse Oximetry (%) 97 08/13/19 08:47 Intake & Output 08/10/19 08/11/19 08/12/19 08/13/19 23:59 23:59 23:59 23:59 Intake Total 830 1100 1060 10 Output Total 1100 Balance 830 0 1060 10 Weight 56.245 kg 56.245 kg 56.518 kg 56.245 kg NAD awake and alert neck supple RRR CTA trace edema in LE CBC, BMP 08/13/19 06:05 08/13/19 06:05 Current Medications Albuterol/Ipratropium (Duoneb -) 1 amp NEB Q6H PRN PRN Reason: SHORT OF BREATH/WHEEZING Last Admin: 08/12/19 21:25 Dose: 1 amp Amlodipine Besylate (Norvasc -) 10 mg PO DAILY [facility] Last Admin: 08/13/19 09:14 Dose: 10 mg Docusate Sodium (Colace -) 200 mg PO TID [facility] Last Admin: 08/13/19 06:08 Dose: 200 mg Ferrous Sulfate (Feosol -) 325 mg PO DAILY [facility] Last Admin: 08/13/19 09:14 Dose: 325 mg Furosemide (Lasix Injection -) 40 mg IVPUSH DAILY [facility] Last Admin: 08/13/19 09:15 Dose: 40 mg Heparin Sodium (Porcine) (Heparin -) 5,000 unit SQ BID [facility] Last Admin: 08/13/19 09:15 Dose: 5,000 unit Hydralazine HCl (Apresoline -) 100 mg PO TID [facility] Last Admin: 08/13/19 06:08 Dose: 100 mg Insulin Aspart (Novolog Vial Sliding Scale -) 1 vial SQ ACHS [facility]; Protocol Last Admin: 08/13/19 06:07 Dose: Not Given Isosorbide Mononitrate (Imdur -) 30 mg PO DAILY [facility] Last Admin: 11/10/19 09:14 Dose: 30 mg Metoprolol Tartrate (Lopressor -) 25 mg PO BID [facility] Last Admin: 08/13/19 09:14 Dose: 25 mg Pantoprazole Sodium (Protonix -) 20 mg PO DAILY [facility] Last Admin: 08/13/19 09:14 Dose: 20 mg Senna (Senna -) 2 tab PO HS [facility] Last Admin: 08/12/19 22:05 Dose: 2 tab Impression 1. CKD 2. HTN 3. DM 4. bilateral hydro 5. anemia 6. hyperkalemia 7. fluid overload 8. hyponatremia 9. proteinuria Plan Serum Cr slowly up trending will hold AM dose of lasix tomorrow pending labs, may need to decrease frequency or dose if Cr continues to rise possible renal biopsy if ASA can be held in the near future Renal Vein doppler w/o evidence of thrombosis continue salt and K restricted diet Trend renal function and electrolytes Nicola Bolton DO
--- NOTE | 2019-08-13 11:19 | PN ---
Progress Note (short form) - Note Progress Note: Still with some RESENDIZ but breathing feels better at rest. Some dry cough. No acute events overnight. Intake & Output 08/10/19 08/11/19 08/12/19 08/13/19 23:59 23:59 23:59 23:59 Intake Total 830 1100 1060 210 Output Total 1100 Balance 830 0 1060 210 Weight 124 lb 124 lb 124 lb 9.6 oz 124 lb Last Vital Signs Temp Pulse Resp BP Pulse Ox 98 F 66 18 147/67 97 08/13/19 10:00 08/13/19 10:00 08/13/19 10:00 08/13/19 10:00 08/13/19 08:47 Active Medications Albuterol/Ipratropium (Duoneb -) 1 amp NEB Q6H PRN PRN Reason: SHORT OF BREATH/WHEEZING Last Admin: 08/12/19 21:25 Dose: 1 amp Amlodipine Besylate (Norvasc -) 10 mg PO DAILY [facility] Last Admin: 08/13/19 09:14 Dose: 10 mg Docusate Sodium (Colace -) 200 mg PO TID [facility] Last Admin: 08/13/19 06:08 Dose: 200 mg Ferrous Sulfate (Feosol -) 325 mg PO DAILY [facility] Last Admin: 08/13/19 09:14 Dose: 325 mg Furosemide (Lasix Injection -) 40 mg IVPUSH DAILY [facility] Last Admin: 08/13/19 09:15 Dose: 40 mg Heparin Sodium (Porcine) (Heparin -) 5,000 unit SQ BID [facility] Last Admin: 08/13/19 09:15 Dose: 5,000 unit Hydralazine HCl (Apresoline -) 100 mg PO TID [facility] Last Admin: 08/13/19 06:08 Dose: 100 mg Insulin Aspart (Novolog Vial Sliding Scale -) 1 vial SQ ACHS [facility]; Protocol Last Admin: 08/13/19 06:07 Dose: Not Given Isosorbide Mononitrate (Imdur -) 30 mg PO DAILY [facility] Last Admin: 08/13/19 09:14 Dose: 30 mg Metoprolol Tartrate (Lopressor -) 25 mg PO BID [facility] Last Admin: 08/13/19 09:14 Dose: 25 mg Pantoprazole Sodium (Protonix -) 20 mg PO DAILY [facility] Last Admin: 08/13/19 09:14 Dose: 20 mg Senna (Senna -) 2 tab PO HS [facility] Last Admin: 08/12/19 22:05 Dose: 2 tab Constitutional: Yes: Awake, NAD Eyes: Yes: WNL HENT: Yes: WNL Neck: Yes: WNL Cardiovascular: Yes: Regular Rate and Rhythm, S1, S2 Respiratory: Yes: Diminished Gastrointestinal: Yes: Normal Bowel Sounds, Soft Extremities: Yes: WNL Edema: No Labs: Laboratory Results - last 24 hr 08/12/19 08/12/19 08/12/19 11:30 16:31 20:29 WBC RBC Hgb Hct MCV MCH MCHC RDW Plt Count MPV Absolute Neuts (auto) Neutrophils % Lymphocytes % Monocytes % Eosinophils % Basophils % Nucleated RBC % Sodium Potassium Chloride Carbon Dioxide Anion Gap BUN Creatinine Est GFR (CKD-EPI)AfAm Est GFR (CKD-EPI)NonAf POC Glucometer 236 127 215 Random Glucose Calcium Phosphorus Magnesium Total Bilirubin AST ALT Alkaline Phosphatase Total Protein Albumin 08/13/19 08/13/19 08/13/19 05:46 06:05 06:05 WBC 4.1 RBC 2.55 L Hgb 8.5 L Hct 23.0 L MCV 90.1 MCH 33.2 MCHC 36.9 H RDW 12.2 Plt Count 163 MPV 7.5 Absolute Neuts (auto) 2.4 Neutrophils % 59.8 D Lymphocytes % 21.7 D Monocytes % 9.6 Eosinophils % 8.1 H Basophils % 0.8 Nucleated RBC % 0 Sodium 127 L Potassium 5.0 Chloride 94 L Carbon Dioxide 26 Anion Gap 7 L BUN 44.2 H Creatinine 2.2 H Est GFR (CKD-EPI)AfAm 25.84 Est GFR (CKD-EPI)NonAf 22.30 POC Glucometer 119 Random Glucose 113 H Calcium 8.1 L Phosphorus 4.8 Magnesium 2.4 Total Bilirubin 0.4 AST 15 ALT 17 Alkaline Phosphatase 82 Total Protein 5.4 L Albumin 2.6 L Problem List - Problems (1) Hyponatremia Code(s): E87.1 - HYPO-OSMOLALITY AND HYPONATREMIA (2) Shortness of breath Code(s): R06.02 - SHORTNESS OF BREATH (3) Acute on chronic diastolic (congestive) heart failure Code(s): I50.33 - ACUTE ON CHRONIC DIASTOLIC (CONGESTIVE) HEART FAILURE (4) Anemia Code(s): D64.9 - ANEMIA, UNSPECIFIED Qualifiers: Anemia type: unspecified type Qualified Code(s): D64.9 - Anemia, unspecified (5) Diabetes Code(s): E11.9 - TYPE 2 DIABETES MELLITUS WITHOUT COMPLICATIONS (6) Dyspnea Code(s): R06.00 - DYSPNEA, UNSPECIFIED (7) HTN (hypertension) Code(s): I10 - ESSENTIAL (PRIMARY) HYPERTENSION (8) Liver lesion Code(s): K76.9 - LIVER DISEASE, UNSPECIFIED Assessment/Plan Acute on Chronic Diastolic Heart Failure Chronic Renal Failure - ?nephrotic Pleural Effusions appear chronic Anemia r/o COPD HTN DM - Lasix - monitor urine output, creatinine - Would consider diagnostic thoracentesis if IV diuresis does not improve pleural effusions: Will repeat CXR in AM - O2 to keep SpO2 >90% - inhaled bronchodilators - outpt PFTs and f/u of chest imaging - monitor H/H - DVT prophylaxis Dr Patton
[2019-08-13] MEDS: SENNOSIDES 8.6MG TABLET (FP) PO SCH (21:07)
--- NOTE | 2019-08-13 22:15 | PN ---
Progress Note, Physician History of Present Illness: Pt was feeling SOB today - Current Medication List Current Medications: Active Medications Albuterol/Ipratropium (Duoneb -) 1 amp NEB Q6H PRN PRN Reason: SHORT OF BREATH/WHEEZING Last Admin: 08/12/19 21:25 Dose: 1 amp Amlodipine Besylate (Norvasc -) 10 mg PO DAILY [facility] Last Admin: 08/13/19 09:14 Dose: 10 mg Docusate Sodium (Colace -) 200 mg PO TID [facility] Last Admin: 08/13/19 21:07 Dose: 200 mg Ferrous Sulfate (Feosol -) 325 mg PO DAILY [facility] Last Admin: 08/13/19 09:14 Dose: 325 mg Furosemide (Lasix Injection -) 40 mg IVPUSH DAILY [facility] Last Admin: 08/13/19 09:15 Dose: 40 mg Heparin Sodium (Porcine) (Heparin -) 5,000 unit SQ BID [facility] Last Admin: 08/13/19 21:07 Dose: 5,000 unit Hydralazine HCl (Apresoline -) 100 mg PO TID [facility] Last Admin: 08/13/19 21:07 Dose: 100 mg Insulin Aspart (Novolog Vial Sliding Scale -) 1 vial SQ [facility]; Protocol Last Admin: 08/13/19 21:16 Dose: Not Given Isosorbide Mononitrate (Imdur -) 30 mg PO DAILY [facility] Last Admin: 08/13/19 09:14 Dose: 30 mg Metoprolol Tartrate (Lopressor -) 25 mg PO BID [facility] Last Admin: 08/13/19 21:07 Dose: 25 mg Pantoprazole Sodium (Protonix -) 20 mg PO DAILY [facility] Last Admin: 08/13/19 09:14 Dose: 20 mg Senna (Senna -) 2 tab PO HS [facility] Last Admin: 08/13/19 21:07 Dose: 2 tab - Objective Vital Signs: Vital Signs Temperature 98.6 F 08/13/19 21:55 Pulse Rate 66 08/13/19 21:55 Respiratory Rate 18 08/13/19 21:55 Blood Pressure 154/68 08/13/19 21:55 O2 Sat by Pulse Oximetry (%) 97 08/13/19 19:45 Neck: Yes: WNL, Supple Cardiovascular: Yes: WNL, Regular Rate and Rhythm Respiratory: Yes: WNL, Regular, CTA Bilaterally Edema: Yes Edema: LLE: 1+, RLE: 1+ Labs: CBC, BMP 08/13/19 06:05 08/13/19 06:05 INR, PTT INR 0.92 (0.83-1.09) 08/09/19 21:45 Problem List - Problems (1) Dyspnea Assessment/Plan: ?CHF vs pleural effusion vs anemia Check CBCin am Check CXR in am May need thoracentesis Code(s): R06.00 - DYSPNEA, UNSPECIFIED (2) Symptomatic anemia Assessment/Plan: Monitor H/H May need blood transfusion in am Heme consult Code(s): D64.9 - ANEMIA, UNSPECIFIED (3) ARF (acute renal failure) Assessment/Plan: Increase bun/creatinine May need renal bx Code(s): N17.9 - ACUTE KIDNEY FAILURE, UNSPECIFIED (4) Acute on chronic diastolic (congestive) heart failure Assessment/Plan: Cont IV lasix Code(s): I50.33 - ACUTE ON CHRONIC DIASTOLIC (CONGESTIVE) HEART FAILURE (5) Diabetes Assessment/Plan: Cont sliding scale w/ coverage Code(s): E11.9 - TYPE 2 DIABETES MELLITUS WITHOUT COMPLICATIONS (6) HTN (hypertension) Code(s): I10 - ESSENTIAL (PRIMARY) HYPERTENSION
[2019-08-14 06:34] LABS: BASO % 0.9 % (0-2.0); EOS % 10.8 % (0-4.5); HEMATOCRIT 24.1 % (32.4-45.2); HEMOGLOBIN 8.5 GM/dL (10.7-15.3); LYMPH % 22.1 % (8-40); MCH 31.8 pg (25.7-33.7); MCHC 35.4 g/dl (32.0-36.0); MEAN CELL VOLUME 89.9 fl (80-96); MEAN PLT VOLUME 7.2 fl (7.5-11.1); MONO % 10.7 % (3.8-10.2); NEUT % 55.5 % (42.8-82.8); PLATELET COUNT 167 K/MM3 (134-434); RBC 2.68 M/mm3 (3.60-5.2); RDW 12.1 % (11.6-15.6); WHITE BLOOD COUNT 3.7 K/mm3 (4.0-10.0)
[2019-08-14] MEDS: hydrALAZINE HCL 50 MG TABLET (FP) PO SCH ×3 (07:04→21:03)
[2019-08-14] MEDS: INSULIN SLIDING SCALE (NOVOLOG) 1 VIAL SQ SCH ×4 (07:05→22:23)
[2019-08-14] MEDS: DOCUSATE SODIUM 100 MG CAPSULE (FP) PO SCH ×3 (07:05→21:03)
[2019-08-14 07:21] LABS: ALBUMIN 2.8 g/dl (3.4-5.0); BILIRUBIN,TOTAL 0.4 mg/dL (0.2-1); BLOOD UREA NITROGEN 44.8 mg/dL (7-18); CALCIUM 8.7 mg/dL (8.5-10.1); CREATININE 2.1 mg/dL (0.55-1.3); POTASSIUM 4.8 mmol/L (3.5-5.1); TOT PROT 5.5 g/dl (6.4-8.2)
--- NOTE | 2019-08-14 10:40 | PN ---
Progress Note, Physician History of Present Illness: PULMONARY ALERT,C/O SOB,MILD CHEST PRESSURE - Current Medication List Current Medications: Active Medications Albuterol/Ipratropium (Duoneb -) 1 amp NEB Q6H PRN PRN Reason: SHORT OF BREATH/WHEEZING Last Admin: 08/12/19 21:25 Dose: 1 amp Amlodipine Besylate (Norvasc -) 10 mg PO DAILY [facility] Last Admin: 08/13/19 09:14 Dose: 10 mg Docusate Sodium (Colace -) 200 mg PO TID [facility] Last Admin: 08/14/19 07:05 Dose: 200 mg Ferrous Sulfate (Feosol -) 325 mg PO DAILY [facility] Last Admin: 08/13/19 09:14 Dose: 325 mg Furosemide (Lasix Injection -) 40 mg IVPUSH DAILY [facility] Last Admin: 08/13/19 09:15 Dose: 40 mg Heparin Sodium (Porcine) (Heparin -) 5,000 unit SQ BID [facility] Last Admin: 08/13/19 21:07 Dose: 5,000 unit Hydralazine HCl (Apresoline -) 100 mg PO TID [facility] Last Admin: 08/14/19 07:04 Dose: 100 mg Insulin Aspart (Novolog Vial Sliding Scale -) 1 vial SQ [facility]; Protocol Last Admin: 08/14/19 07:05 Dose: Not Given Isosorbide Mononitrate (Imdur -) 30 mg PO DAILY [facility] Last Admin: 08/13/19 09:14 Dose: 30 mg Metoprolol Tartrate (Lopressor -) 25 mg PO BID [facility] Last Admin: 08/13/19 21:07 Dose: 25 mg Pantoprazole Sodium (Protonix -) 20 mg PO DAILY [facility] Last Admin: 08/13/19 09:14 Dose: 20 mg Senna (Senna -) 2 tab PO HS [facility] Last Admin: 08/13/19 21:07 Dose: 2 tab - Objective Vital Signs: Vital Signs Temperature 98.0 F 08/14/19 08:36 Pulse Rate 86 08/14/19 08:36 Respiratory Rate 18 08/14/19 09:00 Blood Pressure 162/52 L 08/14/19 08:36 O2 Sat by Pulse Oximetry (%) 96 08/14/19 09:00 Constitutional: Yes: Well Nourished, Calm Eyes: Yes: WNL HENT: Yes: WNL Neck: Yes: WNL Cardiovascular: Yes: Regular Rate and Rhythm, S1, S2 Respiratory: Yes: Rales (FEW BIBASILAR CRACKLES) Gastrointestinal: Yes: Normal Bowel Sounds, Soft Extremities: Yes: WNL Edema: Yes Labs: CBC, BMP 08/14/19 06:10 08/14/19 06:10 INR, PTT INR 0.92 (0.83-1.09) 08/09/19 21:45 Problem List - Problems (1) Hyponatremia Code(s): E87.1 - HYPO-OSMOLALITY AND HYPONATREMIA (2) Shortness of breath Code(s): R06.02 - SHORTNESS OF BREATH (3) Acute on chronic diastolic (congestive) heart failure Code(s): I50.33 - ACUTE ON CHRONIC DIASTOLIC (CONGESTIVE) HEART FAILURE (4) Anemia Code(s): D64.9 - ANEMIA, UNSPECIFIED Qualifiers: Anemia type: unspecified type Qualified Code(s): D64.9 - Anemia, unspecified (5) Diabetes Code(s): E11.9 - TYPE 2 DIABETES MELLITUS WITHOUT COMPLICATIONS (6) Dyspnea Code(s): R06.00 - DYSPNEA, UNSPECIFIED (7) HTN (hypertension) Code(s): I10 - ESSENTIAL (PRIMARY) HYPERTENSION (8) Liver lesion Code(s): K76.9 - LIVER DISEASE, UNSPECIFIED Assessment/Plan Assessment/Plan Acute on Chronic Diastolic Heart Failure Chronic Renal Failure - ?nephrotic Pleural Effusions appear chronic Anemia r/o COPD HTN DM - lasix - monitor urine output, creatinine - ? renal bx - consider diagnostic thoracentesis - O2 to keep SpO2 >90% - inhaled bronchodilators - outpt PFTs and f/u of chest imaging - monitor H/H - DVT prophylaxis - F/U CHEST X-RAYS DR PIEDRA
[2019-08-14] MEDS: ISOSORBIDE MONONITRATE 30 MG TAB.SR.24H (FP) PO SCH (10:46)
[2019-08-14] MEDS: METOPROLOL TARTRATE 25 MG TABLET (FP) PO SCH ×2 (10:46→21:03)
[2019-08-14] MEDS: amLODIPine BESYLATE 10 MG TABLET (FP) PO SCH (10:46)
[2019-08-14] MEDS: FERROUS SO4 325 MG TABLET (FP) PO SCH (10:46)
[2019-08-14] MEDS: HEPARIN NA (PORCINE) 5,000 UNITS/ML 1ML VIAL SQ SCH ×2 (10:47→21:03)
[2019-08-14] MEDS: PANTOPRAZOLE 20 MG TABLET PO SCH (10:47)
--- NOTE | 2019-08-14 13:13 | PN ---
Progress Note, Physician History of Present Illness: Pt seen and examined at bedside. She is awake and alert. She complains of shortness of breath. - Current Medication List Current Medications: Active Medications Albuterol/Ipratropium (Duoneb -) 1 amp NEB Q6H PRN PRN Reason: SHORT OF BREATH/WHEEZING Last Admin: 08/12/19 21:25 Dose: 1 amp Amlodipine Besylate (Norvasc -) 10 mg PO DAILY [facility] Last Admin: 08/14/19 10:46 Dose: 10 mg Docusate Sodium (Colace -) 200 mg PO TID [facility] Last Admin: 08/14/19 07:05 Dose: 200 mg Ferrous Sulfate (Feosol -) 325 mg PO DAILY [facility] Last Admin: 08/14/19 10:46 Dose: 325 mg Furosemide (Lasix Injection -) 40 mg IVPUSH DAILY [facility] Last Admin: 08/13/19 09:15 Dose: 40 mg Heparin Sodium (Porcine) (Heparin -) 5,000 unit SQ BID [facility] Last Admin: 08/14/19 10:47 Dose: 5,000 unit Hydralazine HCl (Apresoline -) 100 mg PO TID [facility] [place] Last Admin: 08/14/19 07:04 Dose: 100 mg Insulin Aspart (Novolog Vial Sliding Scale -) 1 vial SQ [facility] [place]; Protocol Last Admin: 08/14/19 12:33 Dose: 2 units Isosorbide Mononitrate (Imdur -) 30 mg PO DAILY [facility] Last Admin: 08/14/19 10:46 Dose: 30 mg Metoprolol Tartrate (Lopressor -) 25 mg PO BID [facility] Last Admin: 08/14/19 10:46 Dose: 25 mg Pantoprazole Sodium (Protonix -) 20 mg PO DAILY [facility] Last Admin: 08/14/19 10:47 Dose: 20 mg Senna (Senna -) 2 tab PO HS [facility] Last Admin: 08/13/19 21:07 Dose: 2 tab - Objective Vital Signs: Vital Signs Temperature 98.0 F 08/14/19 08:36 Pulse Rate 86 08/14/19 08:36 Respiratory Rate 18 08/14/19 09:00 Blood Pressure 162/52 L 08/14/19 08:36 O2 Sat by Pulse Oximetry (%) 96 08/14/19 09:00 Constitutional: Yes: Calm Eyes: Yes: Conjunctiva Clear HENT: Yes: Atraumatic Cardiovascular: Yes: S1, S2 Respiratory: Yes: CTA Bilaterally Gastrointestinal: Yes: Soft Genitourinary: Yes: WNL Musculoskeletal: Yes: WNL Edema: Yes Edema: LLE: 1+, RLE: 1+ Neurological: Yes: Oriented Psychiatric: Yes: Oriented Labs: CBC, BMP 08/14/19 06:10 08/14/19 06:10 INR, PTT INR 0.92 (0.83-1.09) 08/09/19 21:45 Problem List - Problems (1) Hyponatremia Code(s): E87.1 - HYPO-OSMOLALITY AND HYPONATREMIA (2) Shortness of breath Code(s): R06.02 - SHORTNESS OF BREATH Assessment/Plan Current Medications Generic Name Dose Route Start Last Admin Trade Name Freq PRN Reason Stop Dose Admin Albuterol/Ipratropium 1 amp 08/12/19 20:54 08/12/19 21:25 Duoneb - NEB 1 amp Q6H PRN Administration SHORT OF BREATH/WHEEZING Amlodipine Besylate 10 mg 08/11/19 10:00 08/14/19 10:46 Norvasc - PO 10 mg DAILY [facility] Administration Docusate Sodium 200 mg 08/11/19 14:20 08/14/19 07:05 Colace - PO 200 mg TID [facility] Administration Ferrous Sulfate 325 mg 08/10/19 11:00 08/14/19 10:46 Feosol - PO 325 mg DAILY [facility] Administration Furosemide 40 mg 08/11/19 10:00 08/13/19 09:15 Lasix Injection - IVPUSH 40 mg DAILY [facility] Administration Heparin Sodium (Porcine) 5,000 unit 08/10/19 10:00 08/14/19 10:47 Heparin - SQ 5,000 unit BID [facility] Administration Hydralazine HCl 100 mg 08/13/19 22:00 08/14/19 07:04 Apresoline - PO 100 mg TID [facility] Administration Insulin Aspart 1 vial 08/10/19 11:00 08/14/19 12:33 Novolog Vial Sliding Scale - SQ 2 units ACHS [facility] Administration Protocol Isosorbide Mononitrate 30 mg 08/10/19 10:00 08/14/19 10:46 Imdur - PO 30 mg DAILY [facility] Administration Metoprolol Tartrate 25 mg 08/10/19 10:00 08/14/19 10:46 Lopressor - PO 25 mg BID [facility] Administration Pantoprazole Sodium 20 mg 08/10/19 10:00 08/14/19 10:47 Protonix - PO 20 mg DAILY [facility] Administration Senna 2 tab 08/11/19 22:00 08/13/19 21:07 Senna - PO 2 tab HS [facility] Administration Impression 1. CKD 2. HTN 3. DM 4. bilateral hydro 5. anemia 6. hyperkalemia 7. fluid overload 8. hyponatremia 9. proteinuria Plan - cont with lasix - monitor lytes - restrict free water - carrdiology follow up to see if asa can be held, spoke to cardio today - discussed kidney biopsy with pt and her family, discussed risk of bleeding along with other risks. Biopsy will likely be as outpt if asa can be held - andivan held for hyperkalemia
--- NOTE | 2019-08-14 13:13 | CONSULT ---
Consultation: REQUESTING PROVIDER: Heme/Onc Service CONSULT REQUEST: We have been asked to medically evaluate this patient for Anemia. HISTORY OF PRESENT ILLNESS: 69yo female with h/o HTN, DM, anemia, LV diastolic dysfunction, recent admission for hydronephrosis/ureteral stone s/p cystoscopy/stent placement discharged on 08/07 who was admitted with worsening shortness of breath and leg swelling. On my interview, pt complains of some SOB. States she has had SOB and fatigue since a gynecological procedure, which was done in [place] 4 months ago. She states she never had this SOB before then. Her SOB has been relatively stable since then, but became worse recently prompting her visit to the hospital. She states that her symptoms began relatively abruptly following her surgery, not slowly over time. At this time, she feels somewhat fatigues. She states she has had constipation over the last few months. Denies blood in the urine (apart from an occasion surrounding a cystoscopy) or stool. Denies dark tarry stool. She did have a single recent episode of diarrhea without blood. No other complaints at this time. Denies fever, chills, nausea, vomiting, weight loss, decreased appetite, abdominal pain. REVIEW OF SYSTEMS: CONSTITUTIONAL: Absent: fever, chills, diaphoresis, generalized weakness, malaise, loss of appetite, weight change HEENT: Absent: rhinorrhea, nasal congestion, throat pain, throat swelling, difficulty swallowing, mouth swelling, ear pain, eye pain, visual changes CARDIOVASCULAR: Absent: chest pain, syncope, palpitations, irregular heart rate, lightheadedness , peripheral edema RESPIRATORY: Absent: cough, shortness of breath, dyspnea with exertion, orthopnea, wheezing, stridor, hemoptysis GASTROINTESTINAL:diarrhea, constipation Absent: abdominal pain, abdominal distension, nausea, vomiting, , melena, hematochezia GENITOURINARY: Absent: dysuria, frequency, urgency, hesitancy, hematuria, flank pain, genital pain MUSCULOSKELETAL: Absent: myalgia, arthralgia, joint swelling, back pain, neck pain SKIN: Absent: rash, itching, pallor HEMATOLOGIC/IMMUNOLOGIC: Absent: easy bleeding, easy bruising, lymphadenopathy, frequent infections ENDOCRINE: Absent: unexplained weight gain, unexplained weight loss, heat intolerance, cold intolerance NEUROLOGIC: Absent: headache, focal weakness or paresthesias, dizziness, unsteady gait, seizure, mental status changes, bladder or bowel incontinence PSYCHIATRIC: Absent: anxiety, depression, suicidal or homicidal ideation, hallucinations. PHYSICAL EXAMINATION Vital Signs - 24 hr 08/13/19 08/13/19 08/13/19 14:00 18:00 19:45 Temperature 98.2 F 97.9 F Pulse Rate 60 62 Respiratory 18 18 18 Rate Blood Pressure 148/57 L 144/64 O2 Sat by Pulse 97 Oximetry (%) 08/13/19 08/14/19 08/14/19 21:55 02:00 06:00 Temperature 98.6 F 98.3 F 98.3 F Pulse Rate 66 64 64 Respiratory 18 20 20 Rate Blood Pressure 154/68 125/59 L 155/68 O2 Sat by Pulse Oximetry (%) 08/14/19 08/14/19 08:36 09:00 Temperature 98.0 F Pulse Rate 86 Respiratory 18 18 Rate Blood Pressure 162/52 L O2 Sat by Pulse 96 Oximetry (%) Gen: AAOx3, NAD HEENT: NCAT, EOMI, moist membranes Neck: no thyromegally, no bruits, no jvd Cardio: rrr, norm s1s2, no mrg noted Pulm: cta b/l Abd: soft, nondistended, nontender Laboratory Results - last 24 hr 08/13/19 08/13/19 08/14/19 17:33 21:15 05:49 WBC RBC Hgb Hct MCV MCH MCHC RDW Plt Count MPV Absolute Neuts (auto) Neutrophils % Lymphocytes % Monocytes % Eosinophils % Basophils % Nucleated RBC % Sodium Potassium Chloride Carbon Dioxide Anion Gap BUN Creatinine Est GFR (CKD-EPI)AfAm Est GFR (CKD-EPI)NonAf POC Glucometer 166 144 124 Random Glucose Calcium Total Bilirubin AST ALT Alkaline Phosphatase Total Protein Albumin 08/14/19 08/14/19 08/14/19 06:10 06:10 12:23 WBC 3.7 L RBC 2.68 L Hgb 8.5 L Hct 24.1 L MCV 89.9 MCH 31.8 MCHC 35.4 RDW 12.1 Plt Count 167 MPV 7.2 L Absolute Neuts (auto) 2.1 Neutrophils % 55.5 Lymphocytes % 22.1 Monocytes % 10.7 H Eosinophils % 10.8 H Basophils % 0.9 Nucleated RBC % 0 Sodium 128 L Potassium 4.8 Chloride 95 L Carbon Dioxide 27 Anion Gap 6 L BUN 44.8 H Creatinine 2.1 H Est GFR (CKD-EPI)AfAm 27.34 Est GFR (CKD-EPI)NonAf 23.59 POC Glucometer 163 Random Glucose 125 H Calcium 8.7 Total Bilirubin 0.4 AST 16 ALT 20 Alkaline Phosphatase 87 Total Protein 5.5 L Albumin 2.8 L Active Medications Generic Name Dose Route Start Last Admin Trade Name Freq PRN Reason Stop Dose Admin Albuterol/Ipratropium 1 amp 08/12/19 20:54 08/12/19 21:25 Duoneb - NEB 1 amp Q6H PRN Administration SHORT OF BREATH/WHEEZING Amlodipine Besylate 10 mg 08/11/19 10:00 08/14/19 10:46 Norvasc - PO 10 mg DAILY [facility] Administration Docusate Sodium 200 mg 08/11/19 14:20 08/14/19 07:05 Colace - PO 200 mg TID [facility] Administration Ferrous Sulfate 325 mg 08/10/19 11:00 08/14/19 10:46 Feosol - PO 325 mg DAILY [facility] Administration Furosemide 40 mg 08/11/19 10:00 08/13/19 09:15 Lasix Injection - IVPUSH 40 mg DAILY [facility] Administration Heparin Sodium (Porcine) 5,000 unit 08/10/19 10:00 08/14/19 10:47 Heparin - SQ 5,000 unit BID [facility] Administration Hydralazine HCl 100 mg 08/13/19 22:00 08/14/19 07:04 Apresoline - PO 100 mg TID [facility] Administration Insulin Aspart 1 vial 08/10/19 11:00 08/14/19 12:33 Novolog Vial Sliding Scale - SQ 2 units ACHS [facility] Administration Protocol Isosorbide Mononitrate 30 mg 08/10/19 10:00 08/14/19 10:46 Imdur - PO 30 mg DAILY [facility] Administration Metoprolol Tartrate 25 mg 08/10/19 10:00 08/14/19 10:46 Lopressor - PO 25 mg BID [facility] Administration Pantoprazole Sodium 20 mg 08/10/19 10:00 08/14/19 10:47 Protonix - PO 20 mg DAILY [facility] Administration Senna 2 tab 08/11/19 22:00 08/13/19 21:07 Senna - PO 2 tab HS [facility] Administration ASSESSMENT/PLAN: Pt is a 69 year old woman with a history of HTN, diabetes, anemia with a recent admission for a ureteral stone with stent placement and anemia (requiring blood transfusion) who presents with shortness of breath and leg swelling. Pt was admitted for Chest pain. Heme/Onc was called for symptomatic anemia. Anemia -Hb of 8.5 -unknown etiology: consider renal failure, myelophthisic disorder, chronic disease, myelodysplasia, thyroid disease -normocytic normochromic -has not needed transfusion. Not distressed -? blood loss -retic, tsh, fe studies, ferritin -liver US Dispo: We will continue to follow the patient. Thank you for this consultative opportunity. Visit type - Emergency Visit Emergency Visit: No - New Patient This patient is new to me today: Yes Date on this admission: 08/14/19 - Critical Care Critical Care patient: No ATTENDING PHYSICIAN STATEMENT I saw and evaluated the patient. I reviewed the resident's note and discussed the case with the resident. I agree with the resident's findings and plan as documented. SUBJECTIVE: OBJECTIVE: ASSESSMENT AND PLAN:
[2019-08-14] MEDS: ALBUTEROL SO4 2.5/IPRATROPIUM 0.5 INH SOL 3 ML VIAL.NEB. NEB PRN (20:20)
[2019-08-14] MEDS: SENNOSIDES 8.6MG TABLET (FP) PO SCH (21:04)
--- NOTE | 2019-08-14 23:09 | PN ---
Progress Note, Physician - Current Medication List Current Medications: Active Medications Albuterol/Ipratropium (Duoneb -) 1 amp NEB Q6H PRN PRN Reason: SHORT OF BREATH/WHEEZING Last Admin: 08/14/19 20:20 Dose: 1 amp Amlodipine Besylate (Norvasc -) 10 mg PO DAILY [facility] Last Admin: 08/14/19 10:46 Dose: 10 mg Docusate Sodium (Colace -) 200 mg PO TID [facility] Last Admin: 08/14/19 21:03 Dose: Not Given Ferrous Sulfate (Feosol -) 325 mg PO DAILY [facility] Last Admin: 08/14/19 10:46 Dose: 325 mg Furosemide (Lasix Injection -) 40 mg IVPUSH BID@0600,1400 [facility] Heparin Sodium (Porcine) (Heparin -) 5,000 unit SQ BID [facility] Last Admin: 08/14/19 21:03 Dose: 5,000 unit Hydralazine HCl (Apresoline -) 100 mg PO TID [facility] Last Admin: 08/14/19 21:03 Dose: 100 mg Insulin Aspart (Novolog Vial Sliding Scale -) 1 vial SQ ACHS [facility]; Protocol Last Admin: 08/14/19 22:23 Dose: Not Given Isosorbide Mononitrate (Imdur -) 30 mg PO DAILY [facility] Last Admin: 08/14/19 10:46 Dose: 30 mg Metoprolol Tartrate (Lopressor -) 25 mg PO BID [facility] Last Admin: 08/14/19 21:03 Dose: 25 mg Pantoprazole Sodium (Protonix -) 20 mg PO DAILY [facility] Last Admin: 08/14/19 10:47 Dose: 20 mg Senna (Senna -) 2 tab PO HS [facility] Last Admin: 08/14/19 21:04 Dose: Not Given - Objective Vital Signs: Vital Signs Temperature 97.9 F 08/14/19 16:00 Pulse Rate 84 08/14/19 16:00 Respiratory Rate 20 08/14/19 20:30 Blood Pressure 123/53 L 08/14/19 16:00 O2 Sat by Pulse Oximetry (%) 100 08/14/19 20:30 Labs: CBC, BMP 08/14/19 06:10 08/14/19 06:10 INR, PTT INR 0.92 (0.83-1.09) 08/09/19 21:45 Problem List - Problems (1) Dyspnea Code(s): R06.00 - DYSPNEA, UNSPECIFIED (2) Symptomatic anemia Code(s): D64.9 - ANEMIA, UNSPECIFIED (3) ARF (acute renal failure) Code(s): N17.9 - ACUTE KIDNEY FAILURE, UNSPECIFIED (4) Acute on chronic diastolic (congestive) heart failure Code(s): I50.33 - ACUTE ON CHRONIC DIASTOLIC (CONGESTIVE) HEART FAILURE (5) Diabetes Code(s): E11.9 - TYPE 2 DIABETES MELLITUS WITHOUT COMPLICATIONS (6) HTN (hypertension) Code(s): I10 - ESSENTIAL (PRIMARY) HYPERTENSION
[2019-08-15] MEDS: DOCUSATE SODIUM 100 MG CAPSULE (FP) PO SCH ×3 (05:34→22:25)
[2019-08-15] MEDS: INSULIN SLIDING SCALE (NOVOLOG) 1 VIAL SQ SCH ×4 (06:19→22:25)
[2019-08-15] MEDS: hydrALAZINE HCL 50 MG TABLET (FP) PO SCH ×3 (06:19→22:24)
--- NOTE | 2019-08-15 06:51 | PN ---
Teaching Attending Note Name of Resident: Armond Anguiano ATTENDING PHYSICIAN STATEMENT I saw and evaluated the patient. I reviewed the resident's note and discussed the case with the resident. I agree with the resident's findings and plan as documented. ASSESSMENT AND PLAN: 69 year old woman with a history of HTN, diabetes, anemia with a recent admission for a ureteral stone with stent placement and anemia (requiring blood transfusion) who presents with shortness of breath and leg swelling. Pt was admitted for Chest pain. Heme/Onc was called for symptomatic anemia. recent EGD/Colonoscopy unrevealing. Also with recent JJ stent placement for hydronephrosis due to nephrolithiasis Anemia -Hb of 8.5 -anemia of chronic disease due to CKD EGD/Colonosopy end of July were normal Recheck iron studies/B12/folate Nephrology team is considering biopsy for w/u of CKD
[2019-08-15 06:53] LABS: BASO % 0.8 % (0-2.0); EOS % 8.5 % (0-4.5); HEMATOCRIT 24.8 % (32.4-45.2); HEMOGLOBIN 8.7 GM/dL (10.7-15.3); LYMPH % 23.1 % (8-40); MCH 31.5 pg (25.7-33.7); MCHC 35.2 g/dl (32.0-36.0); MEAN CELL VOLUME 89.4 fl (80-96); MEAN PLT VOLUME 7.6 fl (7.5-11.1); MONO % 9.9 % (3.8-10.2); NEUT % 57.7 % (42.8-82.8); PLATELET COUNT 174 K/MM3 (134-434); RBC 2.78 M/mm3 (3.60-5.2); RDW 12.5 % (11.6-15.6); WHITE BLOOD COUNT 4.1 K/mm3 (4.0-10.0)
[2019-08-15 07:44] LABS: ALBUMIN 2.8 g/dl (3.4-5.0); BILIRUBIN,TOTAL 0.3 mg/dL (0.2-1); BLOOD UREA NITROGEN 41.8 mg/dL (7-18); CALCIUM 8.4 mg/dL (8.5-10.1); CREATININE 2.1 mg/dL (0.55-1.3); POTASSIUM 4.8 mmol/L (3.5-5.1); TOT PROT 5.6 g/dl (6.4-8.2)
[2019-08-15] MEDS: ALBUTEROL SO4 2.5/IPRATROPIUM 0.5 INH SOL 3 ML VIAL.NEB. NEB PRN (08:30)
[2019-08-15] MEDS: FERROUS SO4 325 MG TABLET (FP) PO SCH (09:23)
[2019-08-15] MEDS: HEPARIN NA (PORCINE) 5,000 UNITS/ML 1ML VIAL SQ SCH ×2 (09:24→22:24)
[2019-08-15] MEDS: METOPROLOL TARTRATE 25 MG TABLET (FP) PO SCH ×2 (09:24→22:24)
[2019-08-15] MEDS: ISOSORBIDE MONONITRATE 30 MG TAB.SR.24H (FP) PO SCH (09:24)
[2019-08-15] MEDS: PANTOPRAZOLE 20 MG TABLET PO SCH (09:24)
[2019-08-15] MEDS: amLODIPine BESYLATE 10 MG TABLET (FP) PO SCH (09:24)
--- NOTE | 2019-08-15 11:08 | PN ---
Progress Note, Physician Chief Complaint: Pt A&Ox3; sitting up in bed;two of her (7) daughters are visiting. She feels better: leg swelling has markedly improved; no chest pain or shortness of breath.She is able to wak slowly, with assistance, down the hallway. She says that she feels "agitated", with dyspnea and palpitations at times, usually at rest or when she sits up. This sensation may be felt for a few minutes. History of Present Illness: 69 year old woman (b. 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 The patient reports some chest pressure when she feels short of breath. Her shortness of breath worsens with lying back and with walking. She also admits to nausea and constipation. She has no other complaints. She was found to have systolic BP >200 mmHg in the ER. Pt was admitted for similar symptoms recently, and discharged from [facility] only a few days ago. PMD: Deangelo Nassar Inspector Assembly: Trini Torres - Current Medication List Current Medications: Active Medications Albuterol/Ipratropium (Duoneb -) 1 amp NEB Q6H PRN PRN Reason: SHORT OF BREATH/WHEEZING Last Admin: 08/14/19 20:20 Dose: 1 amp Amlodipine Besylate (Norvasc -) 10 mg PO DAILY [facility] Last Admin: 08/15/19 09:24 Dose: 10 mg Docusate Sodium (Colace -) 200 mg PO TID [facility] Last Admin: 08/15/19 05:34 Dose: Not Given Ferrous Sulfate (Feosol -) 325 mg PO DAILY [facility] Last Admin: 08/15/19 09:23 Dose: 325 mg Furosemide (Lasix Injection -) 40 mg IVPUSH BID@0600,1400 [facility] Heparin Sodium (Porcine) (Heparin -) 5,000 unit SQ BID [facility] Last Admin: 08/15/19 09:24 Dose: 5,000 unit Hydralazine HCl (Apresoline -) 100 mg PO TID [facility] Last Admin: 08/15/19 06:19 Dose: 100 mg Insulin Aspart (Novolog Vial Sliding Scale -) 1 vial SQ ACHS [facility]; Protocol Last Admin: 08/15/19 06:19 Dose: Not Given Isosorbide Mononitrate (Imdur -) 30 mg PO DAILY [facility] Last Admin: 08/15/19 09:24 Dose: 30 mg Metoprolol Tartrate (Lopressor -) 25 mg PO BID [facility] Last Admin: 08/15/19 09:24 Dose: 25 mg Pantoprazole Sodium (Protonix -) 20 mg PO DAILY [facility] Last Admin: 08/15/19 09:24 Dose: 20 mg Senna (Senna -) 2 tab PO HS [facility] Last Admin: 08/14/19 21:04 Dose: Not Given - Objective Vital Signs: Vital Signs Temperature 98.7 F 08/15/19 09:50 Pulse Rate 70 08/15/19 09:50 Respiratory Rate 20 08/15/19 09:50 Blood Pressure 142/50 L 08/15/19 09:50 O2 Sat by Pulse Oximetry (%) 100 08/15/19 09:00 Constitutional: Yes: Calm Eyes: Yes: Other (decreased vision bilaterally: "retinopathy") HENT: Yes: WNL Neck: Yes: WNL Cardiovascular: Yes: Regular Rate and Rhythm Respiratory: Yes: Regular Gastrointestinal: Yes: Soft ...Rectal Exam: Yes: Deferred Genitourinary: Yes: Other (ureteral stent). No: Anuria Breast(s): Yes: WNL Musculoskeletal: Yes: Muscle Weakness Extremities: Yes: Cool Edema: Yes Edema: LLE: Trace, RLE: Trace Peripheral Pulses WNL: Yes Integumentary: Yes: WNL Neurological: Yes: Alert, Oriented, Weakness Psychiatric: Yes: WNL Labs: CBC, BMP 08/15/19 06:10 08/15/19 06:10 INR, PTT INR 0.92 (0.83-1.09) 08/09/19 21:45 Abnormal Lab Results 08/15/19 08/15/19 08/15/19 06:10 06:10 06:10 RBC 2.78 L Hgb 8.7 L Hct 24.8 L Eosinophils % 8.5 H Retic Count 1.76 H D Sodium 128 L Chloride 96 L Anion Gap 7 L BUN 41.8 H Creatinine 2.1 H Random Glucose 127 H Calcium 8.4 L TIBC 249 L Unsaturated IBC 160 L Total Protein 5.6 L Albumin 2.8 L - ....Imaging Chest X-ray: Image Reviewed (improving CHF) EKG: Image Reviewed (NSR; normal study) Problem List - Problems (1) Shortness of breath Code(s): R06.02 - SHORTNESS OF BREATH (2) Anemia Code(s): D64.9 - ANEMIA, UNSPECIFIED Qualifiers: Anemia type: unspecified type Qualified Code(s): D64.9 - Anemia, unspecified (3) Atypical chest pain Assessment/Plan: TNI < 0.02 x 2. F/u prior workup done, and plan for stress test, if not done recently, when CHF , HTN, pulmonary functions are stable. Will hold aspirin presently in anticipation of possible renal biopsy. Addendum: systems integration advisor associated with outside PMD says she has not been seen there yet. Will order Lexiscan MIBI stress test for tomorrow. Code(s): R07.89 - OTHER CHEST PAIN (4) Diabetes Assessment/Plan: HGBA1c 5.5 Code(s): E11.9 - TYPE 2 DIABETES MELLITUS WITHOUT COMPLICATIONS (5) HTN (hypertension) Assessment/Plan: On metoprolol, amlodipine, valsartan (held due to hyperkalemia), hydralazine, Imdur, furosemide. Given episodes of systolic BP >200 mmHg despite several medication classes of antihypertensives, with rise in Creatinine, and periods of "flash" pulmonary edema, would search for secondary causes of HTN (e.g., renal ultraound; aldosteronism). Noted: plan for renal biopsy. Code(s): I10 - ESSENTIAL (PRIMARY) HYPERTENSION (6) Weakness Code(s): R53.1 - WEAKNESS (7) Acute on chronic diastolic (congestive) heart failure Assessment/Plan: Improving; No JVD; CXR shows decrease in congestion. Continue present medications. Code(s): I50.33 - ACUTE ON CHRONIC DIASTOLIC (CONGESTIVE) HEART FAILURE (8) Hyponatremia Code(s): E87.1 - HYPO-OSMOLALITY AND HYPONATREMIA (9) Acute renal insufficiency Code(s): N28.9 - DISORDER OF KIDNEY AND URETER, UNSPECIFIED
--- NOTE | 2019-08-15 11:20 | PN ---
Progress Note, Physician History of Present Illness: PULMONARY ALERT,COMFORTABLE,-CP,-SOB - Current Medication List Current Medications: Active Medications Albuterol/Ipratropium (Duoneb -) 1 amp NEB Q6H PRN PRN Reason: SHORT OF BREATH/WHEEZING Last Admin: 08/14/19 20:20 Dose: 1 amp Amlodipine Besylate (Norvasc -) 10 mg PO DAILY [facility] Last Admin: 08/15/19 09:24 Dose: 10 mg Docusate Sodium (Colace -) 200 mg PO TID [facility] Last Admin: 08/15/19 05:34 Dose: Not Given Ferrous Sulfate (Feosol -) 325 mg PO DAILY [facility] Last Admin: 08/15/19 09:23 Dose: 325 mg Furosemide (Lasix Injection -) 40 mg IVPUSH BID@0600,1400 [facility] Heparin Sodium (Porcine) (Heparin -) 5,000 unit SQ BID [facility] Last Admin: 08/15/19 09:24 Dose: 5,000 unit Hydralazine HCl (Apresoline -) 100 mg PO TID [facility] Last Admin: 08/15/19 06:19 Dose: 100 mg Insulin Aspart (Novolog Vial Sliding Scale -) 1 vial SQ ACHS [facility]; Protocol Last Admin: 08/15/19 06:19 Dose: Not Given Isosorbide Mononitrate (Imdur -) 30 mg PO DAILY [facility] Last Admin: 08/15/19 09:24 Dose: 30 mg Metoprolol Tartrate (Lopressor -) 25 mg PO BID [facility] Last Admin: 08/15/19 09:24 Dose: 25 mg Pantoprazole Sodium (Protonix -) 20 mg PO DAILY [facility] Last Admin: 08/15/19 09:24 Dose: 20 mg Senna (Senna -) 2 tab PO HS [facility] Last Admin: 08/14/19 21:04 Dose: Not Given - Objective Vital Signs: Vital Signs Temperature 98.7 F 08/15/19 09:50 Pulse Rate 70 08/15/19 09:50 Respiratory Rate 20 08/15/19 09:50 Blood Pressure 142/50 L 08/15/19 09:50 O2 Sat by Pulse Oximetry (%) 100 08/15/19 09:00 Constitutional: Yes: Well Nourished, Calm Eyes: Yes: WNL HENT: Yes: WNL Neck: Yes: WNL Cardiovascular: Yes: Regular Rate and Rhythm, S1, S2 Respiratory: Yes: Diminished Gastrointestinal: Yes: Normal Bowel Sounds, Soft Extremities: Yes: WNL Edema: No Labs: CBC, BMP 08/15/19 06:10 08/15/19 06:10 INR, PTT INR 0.92 (0.83-1.09) 08/09/19 21:45 - ....Imaging Chest X-ray: Report Reviewed, Image Reviewed Problem List - Problems (1) Hyponatremia Code(s): E87.1 - HYPO-OSMOLALITY AND HYPONATREMIA (2) Shortness of breath Code(s): R06.02 - SHORTNESS OF BREATH (3) Acute on chronic diastolic (congestive) heart failure Code(s): I50.33 - ACUTE ON CHRONIC DIASTOLIC (CONGESTIVE) HEART FAILURE (4) Anemia Code(s): D64.9 - ANEMIA, UNSPECIFIED Qualifiers: Anemia type: unspecified type Qualified Code(s): D64.9 - Anemia, unspecified (5) Diabetes Code(s): E11.9 - TYPE 2 DIABETES MELLITUS WITHOUT COMPLICATIONS (6) Dyspnea Code(s): R06.00 - DYSPNEA, UNSPECIFIED (7) HTN (hypertension) Code(s): I10 - ESSENTIAL (PRIMARY) HYPERTENSION (8) Liver lesion Code(s): K76.9 - LIVER DISEASE, UNSPECIFIED Assessment/Plan Assessment/Plan Acute on Chronic Diastolic Heart Failure Chronic Renal Failure - ?nephrotic Pleural Effusions appear chronic Anemia r/o COPD HTN DM - lasix - monitor urine output, creatinine - renal bx - consider diagnostic thoracentesis - O2 to keep SpO2 >90% - inhaled bronchodilators - outpt PFTs and f/u of chest imaging - monitor H/H - DVT prophylaxis - F/U CHEST X-RAYS DR PIEDRA
--- NOTE | 2019-08-15 13:00 | PN ---
Progress Note, Physician History of Present Illness: Pt seen and examined at bedside. She is awake and alert. She has shortness of breath with exertion. - Current Medication List Current Medications: Active Medications Albuterol/Ipratropium (Duoneb -) 1 amp NEB Q6H PRN PRN Reason: SHORT OF BREATH/WHEEZING Last Admin: 08/14/19 20:20 Dose: 1 amp Amlodipine Besylate (Norvasc -) 10 mg PO DAILY [facility] Last Admin: 08/15/19 09:24 Dose: 10 mg Docusate Sodium (Colace -) 200 mg PO TID [facility] Last Admin: 08/15/19 05:34 Dose: Not Given Ferrous Sulfate (Feosol -) 325 mg PO DAILY [facility] Last Admin: 08/15/19 09:23 Dose: 325 mg Furosemide (Lasix Injection -) 40 mg IVPUSH BID@0600,1400 [facility] Heparin Sodium (Porcine) (Heparin -) 5,000 unit SQ BID [facility] Last Admin: 08/15/19 09:24 Dose: 5,000 unit Hydralazine HCl (Apresoline -) 100 mg PO TID [facility] Last Admin: 08/15/19 06:19 Dose: 100 mg Insulin Aspart (Novolog Vial Sliding Scale -) 1 vial SQ ACHS [facility]; Protocol Last Admin: 08/15/19 06:19 Dose: Not Given Isosorbide Mononitrate (Imdur -) 30 mg PO DAILY [facility] Last Admin: 08/15/19 09:24 Dose: 30 mg Metoprolol Tartrate (Lopressor -) 25 mg PO BID [facility] Last Admin: 08/15/19 09:24 Dose: 25 mg Pantoprazole Sodium (Protonix -) 20 mg PO DAILY [facility] Last Admin: 08/15/19 09:24 Dose: 20 mg Senna (Senna -) 2 tab PO HS [facility] Last Admin: 08/14/19 21:04 Dose: Not Given - Objective Vital Signs: Vital Signs Temperature 98.7 F 08/15/19 09:50 Pulse Rate 70 08/15/19 09:50 Respiratory Rate 20 08/15/19 09:50 Blood Pressure 142/50 L 08/15/19 09:50 O2 Sat by Pulse Oximetry (%) 100 08/15/19 09:00 Constitutional: Yes: Calm Eyes: Yes: Conjunctiva Clear HENT: Yes: Atraumatic Neck: Yes: Supple Cardiovascular: Yes: S1, S2 Respiratory: Yes: CTA Bilaterally Gastrointestinal: Yes: Soft Genitourinary: Yes: WNL Musculoskeletal: Yes: WNL Edema: Yes Edema: LLE: Trace, RLE: Trace Integumentary: Yes: WNL Neurological: Yes: Oriented Psychiatric: Yes: Oriented Labs: CBC, BMP 08/15/19 06:10 08/15/19 06:10 INR, PTT INR 0.92 (0.83-1.09) 08/09/19 21:45 Problem List - Problems (1) Hyponatremia Code(s): E87.1 - HYPO-OSMOLALITY AND HYPONATREMIA (2) Shortness of breath Code(s): R06.02 - SHORTNESS OF BREATH Assessment/Plan Current Medications Generic Name Dose Route Start Last Admin Trade Name Freq PRN Reason Stop Dose Admin Albuterol/Ipratropium 1 amp 08/12/19 20:54 08/14/19 20:20 Duoneb - NEB 1 amp Q6H PRN Administration SHORT OF BREATH/WHEEZING Amlodipine Besylate 10 mg 08/11/19 10:00 08/15/19 09:24 Norvasc - PO 10 mg DAILY [facility] Administration Docusate Sodium 200 mg 08/11/19 14:20 08/15/19 05:34 Colace - PO Not Given TID [facility] Ferrous Sulfate 325 mg 08/10/19 11:00 08/15/19 09:23 Feosol - PO 325 mg DAILY [facility] Administration Furosemide 40 mg 08/14/19 14:00 Lasix Injection - IVPUSH BID@0600,1400 [facility] Heparin Sodium (Porcine) 5,000 unit 08/10/19 10:00 08/15/19 09:24 Heparin - SQ 5,000 unit BID [facility] Administration Hydralazine HCl 100 mg 08/13/19 22:00 08/15/19 06:19 Apresoline - PO 100 mg TID [facility] Administration Insulin Aspart 1 vial 08/10/19 11:00 08/15/19 06:19 Novolog Vial Sliding Scale - SQ Not Given ACHS [facility] Protocol Isosorbide Mononitrate 30 mg 08/10/19 10:00 08/15/19 09:24 Imdur - PO 30 mg DAILY [facility] Administration Metoprolol Tartrate 25 mg 08/10/19 10:00 08/15/19 09:24 Lopressor - PO 25 mg BID [facility] Administration Pantoprazole Sodium 20 mg 08/10/19 10:00 08/15/19 09:24 Protonix - PO 20 mg DAILY [facility] Administration Senna 2 tab 08/11/19 22:00 08/14/19 21:04 Senna - PO Not Given HS [facility] Impression 1. CKD 2. HTN 3. DM 4. bilateral hydro 5. anemia 6. hyperkalemia 7. fluid overload 8. hyponatremia 9. proteinuria Plan - monitor renal function - asa on hold - cont lasix - discussed with cardio - diovan held for hyperkalemia
--- NOTE | 2019-08-15 16:03 | PN ---
Progress Note (short form) - Note Progress Note: UROLOGY NOTE. CONSULT DICTATED. S/P RULL WITH JJ STENT LAST WK. NO ACUTE PATHOLOGY AT PRESENT.
--- NOTE | 2019-08-15 21:05 | PN ---
<Armond Anguiano - Last Filed: 08/15/19 21:01> Physical Exam: SUBJECTIVE: Patient seen and examined at bedside. Pt states she is still having her shortness of breath. Noted to be able to walk down the deleon with assistance. OBJECTIVE: Vital Signs Period Temp Pulse Resp BP Sys/Lane Pulse Ox Last 24 Hr 97.8 F-98.7 F 61-85 20-20 135-151/50-64 100 Gen: AAOx3, NAD HEENT: NCAT, EOMI, moist membranes Neck: no thyromegally, no bruits, no jvd Cardio: rrr, norm s1s2, no mrg noted Pulm: cta b/l Abd: soft, nondistended, nontender Laboratory Results - last 24 hr 08/14/19 08/15/19 08/15/19 22:09 06:10 06:10 WBC RBC Hgb Hct MCV MCH MCHC RDW Plt Count MPV Absolute Neuts (auto) Neutrophils % Lymphocytes % Monocytes % Eosinophils % Basophils % Nucleated RBC % Retic Count 1.76 H D Sodium 128 L Potassium 4.8 Chloride 96 L Carbon Dioxide 25 Anion Gap 7 L BUN 41.8 H Creatinine 2.1 H Est GFR (CKD-EPI)AfAm 27.34 Est GFR (CKD-EPI)NonAf 23.59 POC Glucometer 150 Random Glucose 127 H Calcium 8.4 L Iron 89 TIBC 249 L Iron Saturation 35 Unsaturated IBC 160 L Ferritin 358.5 Total Bilirubin 0.3 AST 18 ALT 22 Alkaline Phosphatase 86 Total Protein 5.6 L Albumin 2.8 L TSH 2.32 08/15/19 08/15/19 08/15/19 06:10 06:18 11:08 WBC 4.1 RBC 2.78 L Hgb 8.7 L Hct 24.8 L MCV 89.4 MCH 31.5 MCHC 35.2 RDW 12.5 Plt Count 174 MPV 7.6 Absolute Neuts (auto) 2.3 Neutrophils % 57.7 Lymphocytes % 23.1 Monocytes % 9.9 Eosinophils % 8.5 H Basophils % 0.8 Nucleated RBC % 0 Retic Count Sodium Potassium Chloride Carbon Dioxide Anion Gap BUN Creatinine Est GFR (CKD-EPI)AfAm Est GFR (CKD-EPI)NonAf POC Glucometer 125 185 Random Glucose Calcium Iron TIBC Iron Saturation Unsaturated IBC Ferritin Total Bilirubin AST ALT Alkaline Phosphatase Total Protein Albumin TSH 08/15/19 17:25 WBC RBC Hgb Hct MCV MCH MCHC RDW Plt Count MPV Absolute Neuts (auto) Neutrophils % Lymphocytes % Monocytes % Eosinophils % Basophils % Nucleated RBC % Retic Count Sodium Potassium Chloride Carbon Dioxide Anion Gap BUN Creatinine Est GFR (CKD-EPI)AfAm Est GFR (CKD-EPI)NonAf POC Glucometer 182 Random Glucose Calcium Iron TIBC Iron Saturation Unsaturated IBC Ferritin Total Bilirubin AST ALT Alkaline Phosphatase Total Protein Albumin TSH Active Medications Generic Name Dose Route Start Last Admin Trade Name Freq PRN Reason Stop Dose Admin Albuterol/Ipratropium 1 amp 08/12/19 20:54 08/15/19 08:30 Duoneb - NEB 1 amp Q6H PRN Administration SHORT OF BREATH/WHEEZING Amlodipine Besylate 10 mg 08/11/19 10:00 08/15/19 09:24 Norvasc - PO 10 mg DAILY [facility] Administration Docusate Sodium 200 mg 08/11/19 14:20 08/15/19 14:33 Colace - PO 200 mg TID [facility] Administration Ferrous Sulfate 325 mg 08/10/19 11:00 08/15/19 09:23 Feosol - PO 325 mg DAILY [facility] Administration Furosemide 40 mg 08/14/19 14:00 Lasix Injection - IVPUSH BID@0600,1400 [facility] Heparin Sodium (Porcine) 5,000 unit 08/10/19 10:00 08/15/19 09:24 Heparin - SQ 5,000 unit BID [facility] Administration Hydralazine HCl 100 mg 08/13/19 22:00 08/15/19 14:33 Apresoline - PO 100 mg TID [facility] Administration Insulin Aspart 1 vial 08/10/19 11:00 08/15/19 17:28 Novolog Vial Sliding Scale - SQ 2 units ACHS [facility] Administration Protocol Isosorbide Mononitrate 30 mg 08/10/19 10:00 08/15/19 09:24 Imdur - PO 30 mg DAILY [facility] Administration Metoprolol Tartrate 25 mg 08/10/19 10:00 08/15/19 09:24 Lopressor - PO 25 mg BID [facility] Administration Pantoprazole Sodium 20 mg 08/10/19 10:00 08/15/19 09:24 Protonix - PO 20 mg DAILY [facility] Administration Senna 2 tab 08/11/19 22:00 08/14/19 21:04 Senna - PO Not Given HS [facility] ASSESSMENT/PLAN: Pt is a 69 year old woman with a history of HTN, diabetes, anemia with a recent admission for a ureteral stone with stent placement and anemia (requiring blood transfusion) who presents with shortness of breath and leg swelling. Pt was admitted for Chest pain. Heme/Onc was called for symptomatic anemia. likely Anemia of chronic disease/inflammatory anemia -possibly 2/2 chronic renal failure -normocytic normochromic -has not needed transfusion. Not distressed -retic, tsh, fe studies, ferritin -liver US revealing likely hemangioma For stress test today. Team is considering renal biopsy Visit type - Emergency Visit Emergency Visit: No - New Patient This patient is new to me today: No - Critical Care Critical Care patient: No - Discharge Referral Referred to [facility] No ATTENDING PHYSICIAN STATEMENT I saw and evaluated the patient. I reviewed the resident's note and discussed the case with the resident. I agree with the resident's findings and plan as documented. SUBJECTIVE: OBJECTIVE: ASSESSMENT AND PLAN: <Kodak Johnson - Last Filed: 10/23/19 16:22> Physical Exam: SUBJECTIVE: Patient seen and examined OBJECTIVE: PATIENT NOT SEEN GENERAL: The patient is awake, alert, and fully oriented, in no acute distress. HEAD: Normal with no signs of trauma. EYES: PERRL, extraocular movements intact, sclera anicteric, conjunctiva clear. No ptosis. ENT: Ears normal, nares patent, oropharynx clear without exudates, moist mucous membranes. NECK: Trachea midline, full range of motion, supple. LUNGS: Breath sounds equal, clear to auscultation bilaterally, no wheezes, no crackles, no accessory muscle use. HEART: Regular rate and rhythm, S1, S2 without murmur, rub or gallop. ABDOMEN: Soft, nontender, nondistended, normoactive bowel sounds, no guarding, no rebound, no hepatosplenomegaly, no masses. EXTREMITIES: 2+ pulses, warm, well-perfused, no edema. NEUROLOGICAL: Cranial nerves II through XII grossly intact. Normal speech, gait not observed. PSYCH: Normal mood, normal affect. SKIN: Warm, dry, normal turgor, no rashes or lesions noted ASSESSMENT/PLAN: ATTENDING PHYSICIAN STATEMENT I saw and evaluated the patient. I reviewed the resident's note and discussed the case with the resident. I agree with the resident's findings and plan as documented. SUBJECTIVE: OBJECTIVE: ASSESSMENT AND PLAN:
--- NOTE | 2019-08-15 21:59 | PN ---
Progress Note, Physician History of Present Illness: Pt's daughter at bedside and states pt having episodes of feeling anxious/SOB and maybe even tremors of hands when she is feeling anxious - Current Medication List Current Medications: Active Medications Albuterol/Ipratropium (Duoneb -) 1 amp NEB Q6H PRN PRN Reason: SHORT OF BREATH/WHEEZING Last Admin: 08/15/19 08:30 Dose: 1 amp Amlodipine Besylate (Norvasc -) 10 mg PO DAILY [facility] Last Admin: 08/15/19 09:24 Dose: 10 mg Docusate Sodium (Colace -) 200 mg PO TID [facility] Last Admin: 08/15/19 14:33 Dose: 200 mg Ferrous Sulfate (Feosol -) 325 mg PO DAILY [facility] Last Admin: 08/15/19 09:23 Dose: 325 mg Furosemide (Lasix Injection -) 40 mg IVPUSH BID@0600,1400 [facility] Heparin Sodium (Porcine) (Heparin -) 5,000 unit SQ BID [facility] Last Admin: 08/15/19 09:24 Dose: 5,000 unit Hydralazine HCl (Apresoline -) 100 mg PO TID [facility] Last Admin: 08/15/19 14:33 Dose: 100 mg Insulin Aspart (Novolog Vial Sliding Scale -) 1 vial SQ ACHS [facility]; Protocol Last Admin: 08/15/19 17:28 Dose: 2 units Isosorbide Mononitrate (Imdur -) 30 mg PO DAILY [facility] Last Admin: 08/15/19 09:24 Dose: 30 mg Metoprolol Tartrate (Lopressor -) 25 mg PO BID [facility] Last Admin: 08/15/19 09:24 Dose: 25 mg Pantoprazole Sodium (Protonix -) 20 mg PO DAILY [facility] Last Admin: 08/15/19 09:24 Dose: 20 mg Senna (Senna -) 2 tab PO HS [facility] Last Admin: 08/14/19 21:04 Dose: Not Given - Objective Vital Signs: Vital Signs Temperature 97.8 F 08/15/19 21:37 Pulse Rate 70 08/15/19 21:37 Respiratory Rate 20 08/15/19 21:37 Blood Pressure 180/80 H 08/15/19 21:37 O2 Sat by Pulse Oximetry (%) 100 08/15/19 21:00 Neck: Yes: WNL, Supple Cardiovascular: Yes: WNL, Regular Rate and Rhythm Respiratory: Yes: WNL, Regular, CTA Bilaterally Gastrointestinal: Yes: WNL, Normal Bowel Sounds, Soft Edema: LLE: 1+, RLE: 1+ Labs: CBC, BMP 08/15/19 06:10 08/15/19 06:10 INR, PTT INR 0.92 (0.83-1.09) 08/09/19 21:45 Problem List - Problems (1) Acute on chronic diastolic (congestive) heart failure Assessment/Plan: Cont IV lasix Pt for stress test in am Monitor electrolytes Monitor bun/creatinine Code(s): I50.33 - ACUTE ON CHRONIC DIASTOLIC (CONGESTIVE) HEART FAILURE (2) Dyspnea Assessment/Plan: ?CHF vs pleural effusion vs anemia CXR showed decrease in pleural effusion Thoracentesis as per pulmonary Code(s): R06.00 - DYSPNEA, UNSPECIFIED (3) Symptomatic anemia Assessment/Plan: Monitor H/H Code(s): D64.9 - ANEMIA, UNSPECIFIED (4) ARF (acute renal failure) Assessment/Plan: ASA is on hold due to possibilty of renal bx As per renal Code(s): N17.9 - ACUTE KIDNEY FAILURE, UNSPECIFIED (5) Diabetes Assessment/Plan: Cont sliding scale w/ coverage Code(s): E11.9 - TYPE 2 DIABETES MELLITUS WITHOUT COMPLICATIONS (6) HTN (hypertension) Assessment/Plan: BP has been elevated Code(s): I10 - ESSENTIAL (PRIMARY) HYPERTENSION
[2019-08-15] MEDS: SENNOSIDES 8.6MG TABLET (FP) PO SCH (22:25)
[2019-08-16] MEDS: INSULIN SLIDING SCALE (NOVOLOG) 1 VIAL SQ SCH ×4 (06:28→21:16)
[2019-08-16] MEDS: DOCUSATE SODIUM 100 MG CAPSULE (FP) PO SCH ×3 (06:28→21:16)
[2019-08-16] MEDS: hydrALAZINE HCL 50 MG TABLET (FP) PO SCH ×3 (06:28→21:14)
[2019-08-16] MEDS: ISOSORBIDE MONONITRATE 30 MG TAB.SR.24H (FP) PO SCH ×2 (08:11→12:33)
[2019-08-16] MEDS: amLODIPine BESYLATE 10 MG TABLET (FP) PO SCH ×2 (08:11→12:34)
[2019-08-16] MEDS ORDERED: REGADENOSON 0.4 MG/5 ML PRE-FILLED SYRINGE IVPUSH ONE ×2 (09:29→10:00)
[2019-08-16] MEDS: METOPROLOL TARTRATE 25 MG TABLET (FP) PO SCH ×2 (12:33→21:14)
[2019-08-16] MEDS: FERROUS SO4 325 MG TABLET (FP) PO SCH (12:33)
[2019-08-16] MEDS: HEPARIN NA (PORCINE) 5,000 UNITS/ML 1ML VIAL SQ SCH (12:33)
[2019-08-16] MEDS: PANTOPRAZOLE 20 MG TABLET PO SCH (12:35)
--- NOTE | 2019-08-16 13:29 | PN ---
Progress Note, Physician History of Present Illness: Pt seen and examined at bedside. She is awake and alert. She had the stress test today. She feels edema is improving. - Current Medication List Current Medications: Active Medications Albuterol/Ipratropium (Duoneb -) 1 amp NEB Q6H PRN PRN Reason: SHORT OF BREATH/WHEEZING Last Admin: 08/15/19 08:30 Dose: 1 amp Amlodipine Besylate (Norvasc -) 10 mg PO DAILY [facility] Last Admin: 08/16/19 12:34 Dose: Not Given Docusate Sodium (Colace -) 200 mg PO TID [facility] Last Admin: 08/16/19 06:28 Dose: Not Given Ferrous Sulfate (Feosol -) 325 mg PO DAILY [facility] Last Admin: 08/16/19 12:33 Dose: 325 mg Furosemide (Lasix Injection -) 40 mg IVPUSH BID@0600,1400 [facility] Heparin Sodium (Porcine) (Heparin -) 5,000 unit SQ BID [facility] Last Admin: 08/16/19 12:33 Dose: 5,000 unit Hydralazine HCl (Apresoline -) 100 mg PO TID [facility] Last Admin: 08/16/19 06:28 Dose: Not Given Insulin Aspart (Novolog Vial Sliding Scale -) 1 vial SQ ACHS [facility]; Protocol Last Admin: 08/16/19 12:32 Dose: 2 units Isosorbide Mononitrate (Imdur -) 30 mg PO DAILY [facility] Last Admin: 08/16/19 12:33 Dose: Not Given Metoprolol Tartrate (Lopressor -) 25 mg PO BID [facility] Last Admin: 08/16/19 12:33 Dose: 25 mg Pantoprazole Sodium (Protonix -) 20 mg PO DAILY [facility] Last Admin: 08/16/19 12:35 Dose: 20 mg Senna (Senna -) 2 tab PO HS [facility] Last Admin: 08/15/19 22:25 Dose: 2 tab - Objective Vital Signs: Vital Signs Temperature 98.3 F 08/16/19 08:00 Pulse Rate 71 08/16/19 08:00 Respiratory Rate 20 08/16/19 08:38 Blood Pressure 180/69 H 08/16/19 08:00 O2 Sat by Pulse Oximetry (%) 100 08/16/19 08:38 Constitutional: Yes: Calm Eyes: Yes: Conjunctiva Clear HENT: Yes: Atraumatic Neck: Yes: Supple Cardiovascular: Yes: S1, S2 Respiratory: Yes: CTA Bilaterally Gastrointestinal: Yes: Normal Bowel Sounds, Soft Musculoskeletal: Yes: WNL Edema: Yes Integumentary: Yes: WNL Neurological: Yes: Oriented Psychiatric: Yes: Oriented Labs: CBC, BMP 08/15/19 06:10 08/15/19 06:10 INR, PTT INR 0.92 (0.83-1.09) 08/09/19 21:45 Problem List - Problems (1) Hyponatremia Code(s): E87.1 - HYPO-OSMOLALITY AND HYPONATREMIA (2) Shortness of breath Code(s): R06.02 - SHORTNESS OF BREATH Assessment/Plan Current Medications Generic Name Dose Route Start Last Admin Trade Name Freq PRN Reason Stop Dose Admin Albuterol/Ipratropium 1 amp 08/12/19 20:54 08/15/19 08:30 Duoneb - NEB 1 amp Q6H PRN Administration SHORT OF BREATH/WHEEZING Amlodipine Besylate 10 mg 08/11/19 10:00 08/16/19 12:34 Norvasc - PO Not Given DAILY [facility] Docusate Sodium 200 mg 08/11/19 14:20 08/16/19 06:28 Colace - PO Not Given TID [facility] Ferrous Sulfate 325 mg 08/10/19 11:00 08/16/19 12:33 Feosol - PO 325 mg DAILY [facility] Administration Furosemide 40 mg 08/14/19 14:00 Lasix Injection - IVPUSH BID@0600,1400 [facility] Heparin Sodium (Porcine) 5,000 unit 08/10/19 10:00 08/16/19 12:33 Heparin - SQ 5,000 unit BID [facility] Administration Hydralazine HCl 100 mg 08/13/19 22:00 08/16/19 06:28 Apresoline - PO Not Given TID [facility] Insulin Aspart 1 vial 08/10/19 11:00 08/16/19 12:32 Novolog Vial Sliding Scale - SQ 2 units ACHS [facility] Administration Protocol Isosorbide Mononitrate 30 mg 08/10/19 10:00 08/16/19 12:33 Imdur - PO Not Given DAILY [facility] Metoprolol Tartrate 25 mg 08/10/19 10:00 08/16/19 12:33 Lopressor - PO 25 mg BID [facility] Administration Pantoprazole Sodium 20 mg 08/10/19 10:00 08/16/19 12:35 Protonix - PO 20 mg DAILY [facility] Administration Senna 2 tab 08/11/19 22:00 08/15/19 22:25 Senna - PO 2 tab HS [facility] Administration Impression 1. CKD 2. HTN 3. DM 4. bilateral hydro 5. anemia 6. hyperkalemia 7. fluid overload 8. hyponatremia 9. proteinuria Plan - monitor labs - follow renal ultrasound - possible renal biopsy - follow stress test - increase metoprolol if bp does not improve - asa has been on hold - diovan held for hyperkalemia
--- NOTE | 2019-08-16 14:22 | CONS ---
DATE OF CONSULTATION: DATE OF DICTATION: 08/15/2019 HISTORY OF PRESENT ILLNESS: The patient is a 69-year-old female admitted via the emergency room on August 09, 2019 with chest pain and feelings of shortness of breath. The patient also admitted that she is nauseated and constipated. The patient recently underwent a cystoscopy and right ureteroscopic laser lithotripsy and placement of a stent and was discharged late last week on antibiotics. The patient has a history of high blood pressure, diabetes and anemia. She is presently alert and oriented. Her abdomen is soft. There is no tenderness. She is admitted via the emergency room with acute exacerbation of congestive heart failure, acute kidney injury and acute coronary syndrome. ALLERGIES: She denies any allergies. LABS: The patient's BNP was 3000. Troponins were negative. Her sodium was 125. On admission, her BUN was revealed to be 41.8 and creatinine was 2.1. MEDICATIONS: She is on Norvasc, iron, Lasix, isosorbide, Feosol, Lopressor, Protonix, Diovan and hydralazine. PAST SURGICAL HISTORY: She underwent an abdominal wall hernia in the past. SOCIAL HISTORY: She denies ethanol or tobacco use. IMPRESSION: Heart failure, anemia, acute renal failure. PLAN: Will follow the patient with you. Will recommend a renal sonogram to assess the position of her right double-J stent. Will also ask for straining the urine. DOLORES TY M.D. [id number]
[2019-08-16] MEDS: FUROSEMIDE 40 MG/4 ML INJECTABLE VIAL IVPUSH SCH (14:38)
--- NOTE | 2019-08-16 16:28 | PN ---
Progress Note, Physician History of Present Illness: pulmonary alert,no distress,sob improving - Current Medication List Current Medications: Active Medications Albuterol/Ipratropium (Duoneb -) 1 amp NEB Q6H PRN PRN Reason: SHORT OF BREATH/WHEEZING Last Admin: 08/15/19 08:30 Dose: 1 amp Amlodipine Besylate (Norvasc -) 10 mg PO DAILY [facility] Last Admin: 08/16/19 12:34 Dose: Not Given Docusate Sodium (Colace -) 200 mg PO TID [facility] Last Admin: 08/16/19 14:33 Dose: Not Given Ferrous Sulfate (Feosol -) 325 mg PO DAILY [facility] Last Admin: 08/16/19 12:33 Dose: 325 mg Furosemide (Lasix Injection -) 40 mg IVPUSH BID@0600,1400 [facility] Last Admin: 08/16/19 14:38 Dose: 40 mg Hydralazine HCl (Apresoline -) 100 mg PO TID [facility] Last Admin: 08/16/19 14:38 Dose: 100 mg Insulin Aspart (Novolog Vial Sliding Scale -) 1 vial SQ ACHS [facility]; Protocol Last Admin: 08/16/19 12:32 Dose: 2 units Isosorbide Mononitrate (Imdur -) 30 mg PO DAILY [facility] Last Admin: 08/16/19 12:33 Dose: Not Given Metoprolol Tartrate (Lopressor -) 25 mg PO BID [facility] Last Admin: 08/16/19 12:33 Dose: 25 mg Pantoprazole Sodium (Protonix -) 20 mg PO DAILY [facility] Last Admin: 08/16/19 12:35 Dose: 20 mg Senna (Senna -) 2 tab PO HS [facility] Last Admin: 08/15/19 22:25 Dose: 2 tab - Objective Vital Signs: Vital Signs Temperature 98.6 F 08/16/19 14:20 Pulse Rate 62 08/16/19 14:20 Respiratory Rate 16 08/16/19 14:20 Blood Pressure 162/62 08/16/19 14:20 O2 Sat by Pulse Oximetry (%) 100 08/16/19 08:38 Constitutional: Yes: Well Nourished, Calm Eyes: Yes: WNL HENT: Yes: WNL Neck: Yes: WNL Cardiovascular: Yes: Regular Rate and Rhythm, S1, S2 Respiratory: Yes: Diminished Gastrointestinal: Yes: Normal Bowel Sounds, Soft Labs: CBC, BMP 08/15/19 06:10 INR, PTT INR 0.92 (0.83-1.09) 08/09/19 21:45 Problem List - Problems (1) Hyponatremia Code(s): E87.1 - HYPO-OSMOLALITY AND HYPONATREMIA (2) Shortness of breath Code(s): R06.02 - SHORTNESS OF BREATH (3) Acute on chronic diastolic (congestive) heart failure Code(s): I50.33 - ACUTE ON CHRONIC DIASTOLIC (CONGESTIVE) HEART FAILURE (4) Anemia Code(s): D64.9 - ANEMIA, UNSPECIFIED Qualifiers: Anemia type: unspecified type Qualified Code(s): D64.9 - Anemia, unspecified (5) Diabetes Code(s): E11.9 - TYPE 2 DIABETES MELLITUS WITHOUT COMPLICATIONS (6) Dyspnea Code(s): R06.00 - DYSPNEA, UNSPECIFIED (7) HTN (hypertension) Code(s): I10 - ESSENTIAL (PRIMARY) HYPERTENSION (8) Liver lesion Code(s): K76.9 - LIVER DISEASE, UNSPECIFIED Assessment/Plan Assessment/Plan Acute on Chronic Diastolic Heart Failure Chronic Renal Failure - ?nephrotic Pleural Effusions appear chronic Anemia r/o COPD HTN DM - lasix - monitor urine output, creatinine - renal bx - thoracentesis - O2 to keep SpO2 >90% - inhaled bronchodilators - outpt PFTs and f/u of chest imaging - monitor H/H - DVT prophylaxis - hold heparin DR PIEDRA
[2019-08-16 16:34] LABS: ALBUMIN 2.9 g/dl (3.4-5.0); BILIRUBIN,TOTAL 0.3 mg/dL (0.2-1); BLOOD UREA NITROGEN 44.1 mg/dL (7-18); CALCIUM 8.3 mg/dL (8.5-10.1); CREATININE 2.2 mg/dL (0.55-1.3); MAGNESIUM 2.8 mg/dL (1.8-2.4); PHOSPHOROUS 4.8 mg/dL (2.5-4.9); POTASSIUM 4.7 mmol/L (3.5-5.1); TOT PROT 5.7 g/dl (6.4-8.2)
[2019-08-16] MEDS: SENNOSIDES 8.6MG TABLET (FP) PO SCH (21:16)
--- NOTE | 2019-08-16 22:55 | PN ---
Progress Note, Physician History of Present Illness: No new complaints - Current Medication List Current Medications: Active Medications Albuterol/Ipratropium (Duoneb -) 1 amp NEB Q6H PRN PRN Reason: SHORT OF BREATH/WHEEZING Last Admin: 08/15/19 08:30 Dose: 1 amp Amlodipine Besylate (Norvasc -) 10 mg PO DAILY [facility] Last Admin: 08/16/19 12:34 Dose: Not Given Docusate Sodium (Colace -) 200 mg PO TID [facility] Last Admin: 08/16/19 21:16 Dose: Not Given Ferrous Sulfate (Feosol -) 325 mg PO DAILY [facility] Last Admin: 08/16/19 12:33 Dose: 325 mg Furosemide (Lasix Injection -) 40 mg IVPUSH BID@0600,1400 [facility] Last Admin: 08/16/19 14:38 Dose: 40 mg Hydralazine HCl (Apresoline -) 100 mg PO TID [facility] Last Admin: 08/16/19 21:14 Dose: 100 mg Insulin Aspart (Novolog Vial Sliding Scale -) 1 vial SQ [facility]; Protocol Last Admin: 08/16/19 21:16 Dose: Not Given Isosorbide Mononitrate (Imdur -) 30 mg PO DAILY [facility] Last Admin: 08/16/19 12:33 Dose: Not Given Metoprolol Tartrate (Lopressor -) 25 mg PO BID [facility] Last Admin: 08/16/19 21:14 Dose: 25 mg Pantoprazole Sodium (Protonix -) 20 mg PO DAILY [facility] Last Admin: 08/16/19 12:35 Dose: 20 mg Senna (Senna -) 2 tab PO HS [facility] Last Admin: 08/16/19 21:16 Dose: Not Given - Objective Vital Signs: Vital Signs Temperature 97.7 F 08/16/19 17:00 Pulse Rate 69 08/16/19 17:00 Respiratory Rate 20 08/16/19 17:00 Blood Pressure 130/52 L 08/16/19 17:00 O2 Sat by Pulse Oximetry (%) 100 08/16/19 08:38 Cardiovascular: Yes: WNL, Regular Rate and Rhythm Respiratory: Yes: WNL, Regular, CTA Bilaterally Gastrointestinal: Yes: WNL, Normal Bowel Sounds, Soft Edema: LLE: Trace, RLE: Trace Labs: CBC, BMP 08/15/19 06:10 08/16/19 15:50 INR, PTT INR 0.92 (0.83-1.09) 08/09/19 21:45 Problem List - Problems (1) Acute on chronic diastolic (congestive) heart failure Assessment/Plan: Cont IV lasix Stress test showed reversible defect Monitor electrolytes Monitor bun/creatinine Code(s): I50.33 - ACUTE ON CHRONIC DIASTOLIC (CONGESTIVE) HEART FAILURE (2) Dyspnea Assessment/Plan: ?CHF vs pleural effusion vs anemia Thoracentesis in am Code(s): R06.00 - DYSPNEA, UNSPECIFIED (3) Symptomatic anemia Assessment/Plan: Monitor H/H Code(s): D64.9 - ANEMIA, UNSPECIFIED (4) ARF (acute renal failure) Assessment/Plan: ASA is on hold due to renal bx Renal bx tomorrow? Code(s): N17.9 - ACUTE KIDNEY FAILURE, UNSPECIFIED (5) Diabetes Assessment/Plan: Cont sliding scale w/ coverage Code(s): E11.9 - TYPE 2 DIABETES MELLITUS WITHOUT COMPLICATIONS (6) HTN (hypertension) Assessment/Plan: BP has been elevated Code(s): I10 - ESSENTIAL (PRIMARY) HYPERTENSION
[2019-08-17] MEDS: DOCUSATE SODIUM 100 MG CAPSULE (FP) PO SCH ×3 (06:12→22:28)
[2019-08-17] MEDS: INSULIN SLIDING SCALE (NOVOLOG) 1 VIAL SQ SCH ×4 (06:13→22:24)
[2019-08-17] MEDS: FUROSEMIDE 40 MG/4 ML INJECTABLE VIAL IVPUSH SCH ×2 (06:13→15:07)
[2019-08-17] MEDS: hydrALAZINE HCL 50 MG TABLET (FP) PO SCH ×3 (06:28→22:26)
[2019-08-17 06:59] LABS: BASO % 0.9 % (0-2.0); EOS % 10.1 % (0-4.5); HEMATOCRIT 23.8 % (32.4-45.2); HEMOGLOBIN 8.4 GM/dL (10.7-15.3); LYMPH % 20.3 % (8-40); MCH 31.6 pg (25.7-33.7); MCHC 35.1 g/dl (32.0-36.0); MEAN PLT VOLUME 7.6 fl (7.5-11.1); MONO % 10.5 % (3.8-10.2); NEUT % 58.2 % (42.8-82.8); PLATELET COUNT 173 K/MM3 (134-434); RBC 2.65 M/mm3 (3.60-5.2); RDW 12.5 % (11.6-15.6); WHITE BLOOD COUNT 3.9 K/mm3 (4.0-10.0)
[2019-08-17 07:34] LABS: ALBUMIN 2.8 g/dl (3.4-5.0); BILIRUBIN,TOTAL 0.4 mg/dL (0.2-1); BLOOD UREA NITROGEN 47.7 mg/dL (7-18); CALCIUM 8.7 mg/dL (8.5-10.1); CREATININE 2.1 mg/dL (0.55-1.3); POTASSIUM 4.9 mmol/L (3.5-5.1); TOT PROT 5.5 g/dl (6.4-8.2)
--- NOTE | 2019-08-17 09:26 | PN ---
Progress Note, Physician Chief Complaint: Pt A&Ox3; no chest pain or dyspnea. Able to ambulate with assistance. Daughter is present. History of Present Illness: 69 year old woman (b. 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 The patient reports some chest pressure when she feels short of breath. Her shortness of breath worsens with lying back and with walking. She also admits to nausea and constipation. She has no other complaints. She was found to have systolic BP >200 mmHg in the ER. Pt was admitted for similar symptoms recently, and discharged from [facility] only a few days ago. PMD: Deangelo Nassar Medicare Coordinator: Trini Torres - Current Medication List Current Medications: Active Medications Albuterol/Ipratropium (Duoneb -) 1 amp NEB Q6H PRN PRN Reason: SHORT OF BREATH/WHEEZING Last Admin: 08/15/19 08:30 Dose: 1 amp Amlodipine Besylate (Norvasc -) 10 mg PO DAILY [facility] Last Admin: 08/16/19 12:34 Dose: Not Given Docusate Sodium (Colace -) 200 mg PO TID [facility] Last Admin: 08/17/19 06:12 Dose: Not Given Ferrous Sulfate (Feosol -) 325 mg PO DAILY [facility] Last Admin: 08/16/19 12:33 Dose: 325 mg Furosemide (Lasix Injection -) 40 mg IVPUSH BID@0600,1400 [facility] Last Admin: 08/17/19 06:13 Dose: Not Given Hydralazine HCl (Apresoline -) 100 mg PO TID [facility] Last Admin: 08/17/19 06:28 Dose: 100 mg Insulin Aspart (Novolog Vial Sliding Scale -) 1 vial SQ ACHS [facility]; Protocol Last Admin: 08/17/19 06:13 Dose: Not Given Isosorbide Mononitrate (Imdur -) 30 mg PO DAILY [facility] Last Admin: 08/16/19 12:33 Dose: Not Given Metoprolol Tartrate (Lopressor -) 25 mg PO BID [facility] Last Admin: 08/16/19 21:14 Dose: 25 mg Pantoprazole Sodium (Protonix -) 20 mg PO DAILY [facility] Last Admin: 08/16/19 12:35 Dose: 20 mg Senna (Senna -) 2 tab PO HS [facility] Last Admin: 08/16/19 21:16 Dose: Not Given - Objective Vital Signs: Vital Signs Temperature 98.1 F 08/17/19 07:55 Pulse Rate 66 08/17/19 07:55 Respiratory Rate 15 08/17/19 07:55 Blood Pressure 155/66 08/17/19 07:55 O2 Sat by Pulse Oximetry (%) 99 08/16/19 21:00 Constitutional: Yes: Calm Eyes: Yes: WNL Labs: CBC, BMP 08/17/19 05:55 08/17/19 05:55 INR, PTT INR 0.92 (0.83-1.09) 08/09/19 21:45 Problem List - Problems (1) Shortness of breath Code(s): R06.02 - SHORTNESS OF BREATH (2) Anemia Code(s): D64.9 - ANEMIA, UNSPECIFIED Qualifiers: Anemia type: unspecified type Qualified Code(s): D64.9 - Anemia, unspecified (3) Diabetes Code(s): E11.9 - TYPE 2 DIABETES MELLITUS WITHOUT COMPLICATIONS (4) HTN (hypertension) Code(s): I10 - ESSENTIAL (PRIMARY) HYPERTENSION (5) Weakness Code(s): R53.1 - WEAKNESS (6) Acute on chronic diastolic (congestive) heart failure Code(s): I50.33 - ACUTE ON CHRONIC DIASTOLIC (CONGESTIVE) HEART FAILURE (7) Hyponatremia Code(s): E87.1 - HYPO-OSMOLALITY AND HYPONATREMIA (8) Acute renal insufficiency Assessment/Plan: 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 Refractory HTN may be related to renal issues. See "chest pain" for clearance for renal biopsy. Code(s): N28.9 - DISORDER OF KIDNEY AND URETER, UNSPECIFIED (9) Chest pain Assessment/Plan: Stress MIBI: mildly intense, moderate area of posterolateral ischemia; normal LVEF. From a cardiac standpoint, pt may be treated medically (restart ASA once surgical procedure is completed; nitrates prn; BP control; aggressive lipid control; glucose control). Cardiac rehabilitation as an outpatient. From a cardiac perspective, there are no absolute contraindications for Ms. Chan to undergo renal biopsy. Code(s): R07.9 - CHEST PAIN, UNSPECIFIED
[2019-08-17] MEDS: ISOSORBIDE MONONITRATE 30 MG TAB.SR.24H (FP) PO SCH (09:31)
[2019-08-17] MEDS: FERROUS SO4 325 MG TABLET (FP) PO SCH (09:31)
[2019-08-17] MEDS: PANTOPRAZOLE 20 MG TABLET PO SCH (09:31)
[2019-08-17] MEDS: METOPROLOL TARTRATE 25 MG TABLET (FP) PO SCH ×2 (09:31→22:26)
[2019-08-17] MEDS: amLODIPine BESYLATE 10 MG TABLET (FP) PO SCH (09:31)
--- NOTE | 2019-08-17 13:54 | PN ---
Progress Note (short form) - Note Progress Note: Still with some RESENDIZ but breathing overall better. S/P biopsy. No acute events overnight. Intake & Output 08/14/19 08/15/19 08/16/19 08/17/19 23:59 23:59 23:59 23:59 Intake Total 520 600 800 Balance 520 600 800 Weight 121 lb 6.4 oz 123 lb 123 lb 3.2 oz 119 lb 6.4 oz Last Vital Signs Temp Pulse Resp BP Pulse Ox 98.1 F 58 L 15 126/56 L 100 08/17/19 10:49 08/17/19 12:44 08/17/19 12:44 08/17/19 12:44 08/17/19 12:44 Active Medications Albuterol/Ipratropium (Duoneb -) 1 amp NEB Q6H PRN PRN Reason: SHORT OF BREATH/WHEEZING Last Admin: 08/15/19 08:30 Dose: 1 amp Amlodipine Besylate (Norvasc -) 10 mg PO DAILY [facility] Last Admin: 08/17/19 09:31 Dose: 10 mg Docusate Sodium (Colace -) 200 mg PO TID [facility] Last Admin: 08/17/19 06:12 Dose: Not Given Ferrous Sulfate (Feosol -) 325 mg PO DAILY [facility] Last Admin: 08/17/19 09:31 Dose: 325 mg Furosemide (Lasix Injection -) 40 mg IVPUSH BID@0600,1400 [facility] Last Admin: 08/17/19 06:13 Dose: Not Given Hydralazine HCl (Apresoline -) 100 mg PO TID [facility] Last Admin: 08/17/19 06:28 Dose: 100 mg Insulin Aspart (Novolog Vial Sliding Scale -) 1 vial SQ ACHS [facility]; Protocol Last Admin: 08/17/19 11:22 Dose: Not Given Isosorbide Mononitrate (Imdur -) 30 mg PO DAILY [facility] Last Admin: 08/17/19 09:31 Dose: 30 mg Metoprolol Tartrate (Lopressor -) 25 mg PO BID [facility] Last Admin: 08/17/19 09:31 Dose: 25 mg Pantoprazole Sodium (Protonix -) 20 mg PO DAILY [facility] Last Admin: 08/17/19 09:31 Dose: 20 mg Senna (Senna -) 2 tab PO HS [facility] Last Admin: 08/16/19 21:16 Dose: Not Given Constitutional: Yes: Awake, NAD Eyes: Yes: WNL HENT: Yes: WNL Neck: Yes: WNL Cardiovascular: Yes: Regular Rate and Rhythm, S1, S2 Respiratory: Yes: Diminished Gastrointestinal: Yes: Normal Bowel Sounds, Soft Extremities: Yes: WNL Edema: No Labs: Laboratory Results - last 24 hr 08/16/19 08/16/19 08/16/19 15:50 16:22 21:05 WBC RBC Hgb Hct MCV MCH MCHC RDW Plt Count MPV Absolute Neuts (auto) Neutrophils % Lymphocytes % Monocytes % Eosinophils % Basophils % Nucleated RBC % Sodium 133 L Potassium 4.7 Chloride 101 Carbon Dioxide 27 Anion Gap 5 L BUN 44.1 H Creatinine 2.2 H Est GFR (CKD-EPI)AfAm 25.84 Est GFR (CKD-EPI)NonAf 22.30 POC Glucometer 155 177 Random Glucose 149 H Calcium 8.3 L Phosphorus 4.8 Magnesium 2.8 H Total Bilirubin 0.3 AST 18 ALT 25 Alkaline Phosphatase 90 Total Protein 5.7 L Albumin 2.9 L 08/17/19 08/17/19 08/17/19 05:54 05:55 05:55 WBC 3.9 L RBC 2.65 L Hgb 8.4 L Hct 23.8 L MCV 90.0 MCH 31.6 MCHC 35.1 RDW 12.5 Plt Count 173 MPV 7.6 Absolute Neuts (auto) 2.3 Neutrophils % 58.2 Lymphocytes % 20.3 Monocytes % 10.5 H Eosinophils % 10.1 H Basophils % 0.9 Nucleated RBC % 0 Sodium 132 L Potassium 4.9 Chloride 101 Carbon Dioxide 26 Anion Gap 5 L BUN 47.7 H Creatinine 2.1 H Est GFR (CKD-EPI)AfAm 27.34 Est GFR (CKD-EPI)NonAf 23.59 POC Glucometer 126 Random Glucose 119 H Calcium 8.7 Phosphorus Magnesium Total Bilirubin 0.4 AST 18 ALT 22 Alkaline Phosphatase 82 Total Protein 5.5 L Albumin 2.8 L 08/17/19 10:09 WBC RBC Hgb Hct MCV MCH MCHC RDW Plt Count MPV Absolute Neuts (auto) Neutrophils % Lymphocytes % Monocytes % Eosinophils % Basophils % Nucleated RBC % Sodium Potassium Chloride Carbon Dioxide Anion Gap BUN Creatinine Est GFR (CKD-EPI)AfAm Est GFR (CKD-EPI)NonAf POC Glucometer 129 Random Glucose Calcium Phosphorus Magnesium Total Bilirubin AST ALT Alkaline Phosphatase Total Protein Albumin Problem List - Problems (1) Hyponatremia Code(s): E87.1 - HYPO-OSMOLALITY AND HYPONATREMIA (2) Shortness of breath Code(s): R06.02 - SHORTNESS OF BREATH (3) Acute on chronic diastolic (congestive) heart failure Code(s): I50.33 - ACUTE ON CHRONIC DIASTOLIC (CONGESTIVE) HEART FAILURE (4) Anemia Code(s): D64.9 - ANEMIA, UNSPECIFIED Qualifiers: Anemia type: unspecified type Qualified Code(s): D64.9 - Anemia, unspecified (5) Diabetes Code(s): E11.9 - TYPE 2 DIABETES MELLITUS WITHOUT COMPLICATIONS (6) Dyspnea Code(s): R06.00 - DYSPNEA, UNSPECIFIED (7) HTN (hypertension) Code(s): I10 - ESSENTIAL (PRIMARY) HYPERTENSION (8) Liver lesion Code(s): K76.9 - LIVER DISEASE, UNSPECIFIED Assessment/Plan Acute on Chronic Diastolic Heart Failure Chronic Renal Failure - ?nephrotic Pleural Effusions appear chronic Anemia r/o COPD HTN DM - Lasix - monitor urine output, creatinine - O2 to keep SpO2 >90% - inhaled bronchodilators - outpt PFTs and f/u of chest imaging - monitor H/H - DVT prophylaxis Dr Patton
--- NOTE | 2019-08-17 15:14 | PN ---
Progress Note, Physician History of Present Illness: Pt seen and examined at bedside. She is awake and alert. She had the kidney biopsy done today. - Current Medication List Current Medications: Active Medications Albuterol/Ipratropium (Duoneb -) 1 amp NEB Q6H PRN PRN Reason: SHORT OF BREATH/WHEEZING Last Admin: 08/15/19 08:30 Dose: 1 amp Amlodipine Besylate (Norvasc -) 10 mg PO DAILY [facility] Last Admin: 08/17/19 09:31 Dose: 10 mg Docusate Sodium (Colace -) 200 mg PO TID [facility] Last Admin: 08/17/19 15:07 Dose: 200 mg Ferrous Sulfate (Feosol -) 325 mg PO DAILY [facility] Last Admin: 08/17/19 09:31 Dose: 325 mg Furosemide (Lasix Injection -) 40 mg IVPUSH BID@0600,1400 [facility] Last Admin: 08/17/19 15:07 Dose: 40 mg Hydralazine HCl (Apresoline -) 100 mg PO TID [facility] Last Admin: 08/17/19 15:06 Dose: 100 mg Insulin Aspart (Novolog Vial Sliding Scale -) 1 vial SQ [facility]; Protocol Last Admin: 08/17/19 11:22 Dose: Not Given Isosorbide Mononitrate (Imdur -) 30 mg PO DAILY [facility] Last Admin: 08/17/19 09:31 Dose: 30 mg Metoprolol Tartrate (Lopressor -) 25 mg PO BID [facility] Last Admin: 08/17/19 09:31 Dose: 25 mg Pantoprazole Sodium (Protonix -) 20 mg PO DAILY [facility] Last Admin: 08/17/19 09:31 Dose: 20 mg Senna (Senna -) 2 tab PO HS [facility] Last Admin: 08/16/19 21:16 Dose: Not Given - Objective Vital Signs: Vital Signs Temperature 98.1 F 08/17/19 10:49 Pulse Rate 58 L 08/17/19 12:44 Respiratory Rate 15 08/17/19 12:44 Blood Pressure 126/56 L 08/17/19 12:44 O2 Sat by Pulse Oximetry (%) 100 08/17/19 12:44 Constitutional: Yes: Calm Eyes: Yes: Conjunctiva Clear HENT: Yes: Atraumatic Neck: Yes: Supple Cardiovascular: Yes: S1, S2 Respiratory: Yes: CTA Bilaterally Gastrointestinal: Yes: Soft Genitourinary: Yes: WNL Musculoskeletal: Yes: WNL Edema: No Neurological: Yes: Oriented Psychiatric: Yes: Oriented Labs: CBC, BMP 08/17/19 05:55 08/17/19 05:55 INR, PTT INR 0.92 (0.83-1.09) 08/09/19 21:45 Problem List - Problems (1) Hyponatremia Code(s): E87.1 - HYPO-OSMOLALITY AND HYPONATREMIA (2) Shortness of breath Code(s): R06.02 - SHORTNESS OF BREATH Assessment/Plan Current Medications Generic Name Dose Route Start Last Admin Trade Name Freq PRN Reason Stop Dose Admin Albuterol/Ipratropium 1 amp 08/12/19 20:54 08/15/19 08:30 Duoneb - NEB 1 amp Q6H PRN Administration SHORT OF BREATH/WHEEZING Amlodipine Besylate 10 mg 08/11/19 10:00 08/17/19 09:31 Norvasc - PO 10 mg DAILY ECHO Administration Docusate Sodium 200 mg 08/11/19 14:20 08/17/19 15:07 Colace - PO 200 mg TID ECHO Administration Ferrous Sulfate 325 mg 08/10/19 11:00 08/17/19 09:31 Feosol - PO 325 mg DAILY ECHO Administration Furosemide 40 mg 08/14/19 14:00 08/17/19 15:07 Lasix Injection - IVPUSH 40 mg BID@0600,1400 ECHO Administration Hydralazine HCl 100 mg 08/13/19 22:00 08/17/19 15:06 Apresoline - PO 100 mg TID ECHO Administration Insulin Aspart 1 vial 08/10/19 11:00 08/17/19 11:22 Novolog Vial Sliding Scale - SQ Not Given ACHS ECHO Protocol Isosorbide Mononitrate 30 mg 08/10/19 10:00 08/17/19 09:31 Imdur - PO 30 mg DAILY ECHO Administration Metoprolol Tartrate 25 mg 08/10/19 10:00 08/17/19 09:31 Lopressor - PO 25 mg BID ECHO Administration Pantoprazole Sodium 20 mg 08/10/19 10:00 08/17/19 09:31 Protonix - PO 20 mg DAILY ECHO Administration Senna 2 tab 08/11/19 22:00 08/16/19 21:16 Senna - PO Not Given HS ECHO Impression 1. CKD 2. HTN 3. DM 4. bilateral hydro 5. anemia 6. hyperkalemia 7. fluid overload 8. hyponatremia 9. proteinuria Plan - repeat labs in am - cont lasxi - follow renal biopsy - bp stable - discussed with cardio, asa to be started next week - asa has been on hold - diovan held for hyperkalemia
[2019-08-17] MEDS: SENNOSIDES 8.6MG TABLET (FP) PO SCH (22:28)
--- NOTE | 2019-08-17 23:58 | PN ---
Progress Note, Physician History of Present Illness: Pt still complains of RUQ abdominal pain - Current Medication List Current Medications: Active Medications Amlodipine Besylate (Norvasc -) 10 mg PO DAILY [facility] Last Admin: 08/17/19 09:31 Dose: 10 mg Docusate Sodium (Colace -) 200 mg PO TID [facility] Last Admin: 08/17/19 22:28 Dose: 200 mg Ferrous Sulfate (Feosol -) 325 mg PO DAILY [facility] Last Admin: 08/17/19 09:31 Dose: 325 mg Furosemide (Lasix Injection -) 40 mg IVPUSH BID@0600,1400 [facility] Last Admin: 08/17/19 15:07 Dose: 40 mg Hydralazine HCl (Apresoline -) 100 mg PO TID [facility] Last Admin: 08/17/19 22:26 Dose: 100 mg Insulin Aspart (Novolog Vial Sliding Scale -) 1 vial SQ ACHS [facility]; Protocol Last Admin: 08/17/19 22:24 Dose: Not Given Isosorbide Mononitrate (Imdur -) 30 mg PO DAILY [facility] Last Admin: 08/17/19 09:31 Dose: 30 mg Metoprolol Tartrate (Lopressor -) 25 mg PO BID [facility] Last Admin: 08/17/19 22:26 Dose: 25 mg Pantoprazole Sodium (Protonix -) 20 mg PO DAILY [facility] Last Admin: 08/17/19 09:31 Dose: 20 mg Senna (Senna -) 2 tab PO HS [facility] Last Admin: 08/17/19 22:28 Dose: 2 tab - Objective Vital Signs: Vital Signs Temperature 98.4 F 08/17/19 21:00 Pulse Rate 67 08/17/19 21:00 Respiratory Rate 20 08/17/19 21:00 Blood Pressure 152/68 08/17/19 21:00 O2 Sat by Pulse Oximetry (%) 100 08/17/19 21:00 Neck: Yes: WNL, Supple Cardiovascular: Yes: WNL, Regular Rate and Rhythm Respiratory: Yes: WNL, Regular, CTA Bilaterally Gastrointestinal: Yes: WNL, Normal Bowel Sounds, Soft Extremities: Yes: WNL Edema: No Labs: CBC, BMP 08/17/19 05:55 08/17/19 05:55 INR, PTT INR 0.92 (0.83-1.09) 08/09/19 21:45 Problem List - Problems (1) ARF (acute renal failure) Assessment/Plan: ASA is on hold due to renal bx S/P renal bx Code(s): N17.9 - ACUTE KIDNEY FAILURE, UNSPECIFIED (2) Acute on chronic diastolic (congestive) heart failure Assessment/Plan: Cont IV lasix Stress test showed reversible defect Monitor electrolytes Monitor bun/creatinine Code(s): I50.33 - ACUTE ON CHRONIC DIASTOLIC (CONGESTIVE) HEART FAILURE (3) Dyspnea Assessment/Plan: ?CHF vs pleural effusion vs anemia Code(s): R06.00 - DYSPNEA, UNSPECIFIED (4) Symptomatic anemia Assessment/Plan: Monitor H/H Code(s): D64.9 - ANEMIA, UNSPECIFIED (5) Diabetes Assessment/Plan: Cont sliding scale w/ coverage Code(s): E11.9 - TYPE 2 DIABETES MELLITUS WITHOUT COMPLICATIONS (6) HTN (hypertension) Assessment/Plan: BP has been elevated Code(s): I10 - ESSENTIAL (PRIMARY) HYPERTENSION
[2019-08-18] MEDS: DOCUSATE SODIUM 100 MG CAPSULE (FP) PO SCH ×3 (06:22→21:46)
[2019-08-18] MEDS: hydrALAZINE HCL 50 MG TABLET (FP) PO SCH ×3 (06:22→21:47)
[2019-08-18] MEDS: INSULIN SLIDING SCALE (NOVOLOG) 1 VIAL SQ SCH ×4 (06:23→21:45)
[2019-08-18] MEDS: FUROSEMIDE 40 MG/4 ML INJECTABLE VIAL IVPUSH SCH ×2 (06:23→14:17)
[2019-08-18 10:04] LABS: BASO % 0.8 % (0-2.0); EOS % 8.4 % (0-4.5); HEMATOCRIT 24.8 % (32.4-45.2); HEMOGLOBIN 8.6 GM/dL (10.7-15.3); LYMPH % 20.7 % (8-40); MCH 31.5 pg (25.7-33.7); MCHC 34.4 g/dl (32.0-36.0); MEAN CELL VOLUME 91.5 fl (80-96); MEAN PLT VOLUME 7.4 fl (7.5-11.1); MONO % 9.5 % (3.8-10.2); NEUT % 60.6 % (42.8-82.8); PLATELET COUNT 166 K/MM3 (134-434); RBC 2.71 M/mm3 (3.60-5.2); RDW 12.4 % (11.6-15.6); WHITE BLOOD COUNT 4.6 K/mm3 (4.0-10.0)
[2019-08-18 10:42] LABS: ALBUMIN 2.7 g/dl (3.4-5.0); BILIRUBIN,TOTAL 0.5 mg/dL (0.2-1); BLOOD UREA NITROGEN 50.4 mg/dL (7-18); CALCIUM 8.9 mg/dL (8.5-10.1); CREATININE 2.3 mg/dL (0.55-1.3); POTASSIUM 4.9 mmol/L (3.5-5.1); TOT PROT 5.5 g/dl (6.4-8.2)
[2019-08-18] MEDS: PANTOPRAZOLE 20 MG TABLET PO SCH (11:07)
[2019-08-18] MEDS: FERROUS SO4 325 MG TABLET (FP) PO SCH (11:07)
[2019-08-18] MEDS: METOPROLOL TARTRATE 25 MG TABLET (FP) PO SCH ×2 (11:07→21:46)
[2019-08-18] MEDS: ISOSORBIDE MONONITRATE 30 MG TAB.SR.24H (FP) PO SCH (11:07)
[2019-08-18] MEDS: amLODIPine BESYLATE 10 MG TABLET (FP) PO SCH (11:07)
--- NOTE | 2019-08-18 11:18 | PN ---
Progress Note, Physician History of Present Illness: pulmonary alert,no distress,-cp.ultrasound chest min pleural fluid,thoracentesis not performed - Current Medication List Current Medications: Active Medications Amlodipine Besylate (Norvasc -) 10 mg PO DAILY [facility] Last Admin: 08/18/19 11:07 Dose: 10 mg Docusate Sodium (Colace -) 200 mg PO TID [facility] Last Admin: 08/18/19 06:22 Dose: 200 mg Ferrous Sulfate (Feosol -) 325 mg PO DAILY [facility] Last Admin: 08/18/19 11:07 Dose: 325 mg Furosemide (Lasix Injection -) 40 mg IVPUSH BID@0600,1400 [facility] Last Admin: 08/18/19 06:23 Dose: Not Given Hydralazine HCl (Apresoline -) 100 mg PO TID [facility] Last Admin: 08/18/19 06:22 Dose: 100 mg Insulin Aspart (Novolog Vial Sliding Scale -) 1 vial SQ ACHS [facility]; Protocol Last Admin: 08/18/19 06:23 Dose: Not Given Isosorbide Mononitrate (Imdur -) 30 mg PO DAILY [facility] Last Admin: 08/18/19 11:07 Dose: 30 mg Metoprolol Tartrate (Lopressor -) 25 mg PO BID [facility] Last Admin: 08/18/19 11:07 Dose: 25 mg Pantoprazole Sodium (Protonix -) 20 mg PO DAILY [facility] Last Admin: 08/18/19 11:07 Dose: 20 mg Senna (Senna -) 2 tab PO HS [facility] Last Admin: 08/17/19 22:28 Dose: 2 tab - Objective Vital Signs: Vital Signs Temperature 98.3 F 08/18/19 01:49 Pulse Rate 59 L 08/18/19 05:00 Respiratory Rate 20 08/18/19 05:00 Blood Pressure 146/71 08/18/19 05:00 O2 Sat by Pulse Oximetry (%) 100 08/17/19 21:00 Constitutional: Yes: Well Nourished, Calm Eyes: Yes: WNL HENT: Yes: WNL Neck: Yes: WNL Cardiovascular: Yes: Regular Rate and Rhythm, S1, S2 Respiratory: Yes: Diminished Gastrointestinal: Yes: Normal Bowel Sounds, Soft Extremities: Yes: WNL Edema: No Labs: CBC, BMP 08/18/19 09:40 08/18/19 09:40 INR, PTT INR 0.92 (0.83-1.09) 08/09/19 21:45 Problem List - Problems (1) Hyponatremia Code(s): E87.1 - HYPO-OSMOLALITY AND HYPONATREMIA (2) Shortness of breath Code(s): R06.02 - SHORTNESS OF BREATH (3) Acute on chronic diastolic (congestive) heart failure Code(s): I50.33 - ACUTE ON CHRONIC DIASTOLIC (CONGESTIVE) HEART FAILURE (4) Anemia Code(s): D64.9 - ANEMIA, UNSPECIFIED Qualifiers: Anemia type: unspecified type Qualified Code(s): D64.9 - Anemia, unspecified (5) Diabetes Code(s): E11.9 - TYPE 2 DIABETES MELLITUS WITHOUT COMPLICATIONS (6) Dyspnea Code(s): R06.00 - DYSPNEA, UNSPECIFIED (7) HTN (hypertension) Code(s): I10 - ESSENTIAL (PRIMARY) HYPERTENSION (8) Liver lesion Code(s): K76.9 - LIVER DISEASE, UNSPECIFIED Assessment/Plan Assessment/Plan Acute on Chronic Diastolic Heart Failure Chronic Renal Failure - ?nephrotic Pleural Effusions appear chronic Anemia r/o COPD HTN DM - lasix - monitor urine output, creatinine - renal bx - thoracentesis - O2 to keep SpO2 >90% - inhaled bronchodilators - outpt PFTs and f/u of chest imaging - monitor H/H - DVT prophylaxis - hold heparin - renal bx results pending DR PIEDRA
--- NOTE | 2019-08-18 15:46 | PN ---
Progress Note, Physician History of Present Illness: Pt seen and examined at bedside. She is awake and alert. She feels that breathing is improved. - Current Medication List Current Medications: Active Medications Amlodipine Besylate (Norvasc -) 10 mg PO DAILY [facility] Last Admin: 08/18/19 11:07 Dose: 10 mg Docusate Sodium (Colace -) 200 mg PO TID [facility] Last Admin: 08/18/19 14:17 Dose: 200 mg Ferrous Sulfate (Feosol -) 325 mg PO DAILY [facility] Last Admin: 08/18/19 11:07 Dose: 325 mg Furosemide (Lasix Injection -) 40 mg IVPUSH BID@0600,1400 [facility] Last Admin: 08/18/19 14:17 Dose: 40 mg Hydralazine HCl (Apresoline -) 100 mg PO TID [facility] Last Admin: 08/18/19 14:17 Dose: 100 mg Insulin Aspart (Novolog Vial Sliding Scale -) 1 [facility]; Protocol Last Admin: 08/18/19 12:02 Dose: Not Given Isosorbide Mononitrate (Imdur -) 30 mg PO DAILY [facility] Last Admin: 08/18/19 11:07 Dose: 30 mg Metoprolol Tartrate (Lopressor -) 25 mg PO BID [facility] Last Admin: 08/18/19 11:07 Dose: 25 mg Pantoprazole Sodium (Protonix -) 20 mg PO DAILY [facility] Last Admin: 08/18/19 11:07 Dose: 20 mg Senna (Senna -) 2 tab PO HS [facility] Last Admin: 08/17/19 22:28 Dose: 2 tab - Objective Vital Signs: Vital Signs Temperature 98.1 F 08/18/19 14:10 Pulse Rate 61 08/18/19 14:10 Respiratory Rate 20 08/18/19 14:10 Blood Pressure 147/71 08/18/19 14:10 O2 Sat by Pulse Oximetry (%) 100 08/17/19 21:00 Constitutional: Yes: Calm Eyes: Yes: Conjunctiva Clear HENT: Yes: Atraumatic Neck: Yes: Supple Cardiovascular: Yes: S1, S2 Respiratory: Yes: CTA Bilaterally Gastrointestinal: Yes: Soft Genitourinary: Yes: WNL Musculoskeletal: Yes: WNL Edema: Yes Edema: LLE: 1+, RLE: 1+ Neurological: Yes: Oriented Psychiatric: Yes: Oriented Labs: CBC, BMP 08/18/19 09:40 08/18/19 09:40 INR, PTT INR 0.92 (0.83-1.09) 08/09/19 21:45 Problem List - Problems (1) Hyponatremia Code(s): E87.1 - HYPO-OSMOLALITY AND HYPONATREMIA (2) Shortness of breath Code(s): R06.02 - SHORTNESS OF BREATH Assessment/Plan Current Medications Generic Name Dose Route Start Last Admin Trade Name Lora PRN Reason Stop Dose Admin Amlodipine Besylate 10 mg 08/11/19 10:00 08/18/19 11:07 Norvasc - PO 10 mg DAILY [facility]CHO Administration Docusate Sodium 200 mg 08/11/19 14:20 08/18/19 14:17 Colace - PO 200 mg TID ECHO Administration Ferrous Sulfate 325 mg 08/10/19 11:00 08/18/19 11:07 Feosol - PO 325 mg DAILY [facility] Administration Furosemide 40 mg 08/14/19 14:00 08/18/19 14:17 Lasix Injection - IVPUSH 40 mg BID@0600,1400 [facility]CHO Administration Hydralazine HCl 100 mg 08/13/19 22:00 08/18/19 14:17 Apresoline - PO 100 mg TID ECHO Administration Insulin Aspart 1 vial 08/10/19 11:00 08/18/19 12:02 Novolog Vial Sliding Scale - SQ Not Given ACHS [facility] Protocol Isosorbide Mononitrate 30 mg 08/10/19 10:00 08/18/19 11:07 Imdur - PO 30 mg DAILY [facility] Administration Metoprolol Tartrate 25 mg 08/10/19 10:00 08/18/19 11:07 Lopressor - PO 25 mg BID ECHO Administration Pantoprazole Sodium 20 mg 08/10/19 10:00 08/18/19 11:07 Protonix - PO 20 mg DAILY [facility]CHO Administration Senna 2 tab 08/11/19 22:00 08/17/19 22:28 Senna - PO 2 tab HS ECHO Administration Impression 1. CKD 2. HTN 3. DM 4. bilateral hydro 5. anemia 6. hyperkalemia 7. fluid overload 8. hyponatremia 9. proteinuria Plan - monitor renal function - called Day[facility], prelim on biopsy will be back on Wednesday - cont lasix - bp stable, cont to monitor - asa has been on hold - diovan held for hyperkalemia, low potassium diet, will attempt low dose arb
[2019-08-18] MEDS: VALSARTAN 40 MG TABLET (FP) PO SCH (17:42)
[2019-08-18] MEDS: SENNOSIDES 8.6MG TABLET (FP) PO SCH (21:46)
--- NOTE | 2019-08-18 21:50 | PN ---
Progress Note, Physician - Current Medication List Current Medications: Active Medications Amlodipine Besylate (Norvasc -) 10 mg PO DAILY [facility] Last Admin: 08/18/19 11:07 Dose: 10 mg Docusate Sodium (Colace -) 200 mg PO TID [facility] Last Admin: 08/18/19 21:46 Dose: 200 mg Ferrous Sulfate (Feosol -) 325 mg PO DAILY [facility] Last Admin: 08/18/19 11:07 Dose: 325 mg Furosemide (Lasix Injection -) 40 mg IVPUSH BID@0600,1400 [facility] Last Admin: 08/18/19 14:17 Dose: 40 mg Hydralazine HCl (Apresoline -) 100 mg PO TID [facility] Last Admin: 08/18/19 21:47 Dose: 100 mg Insulin Aspart (Novolog Vial Sliding Scale -) 1 vial SQ ACHS [facility]; Protocol Last Admin: 08/18/19 21:45 Dose: 2 units Isosorbide Mononitrate (Imdur -) 30 mg PO DAILY [facility] Last Admin: 08/18/19 11:07 Dose: 30 mg Metoprolol Tartrate (Lopressor -) 25 mg PO BID [facility] Last Admin: 08/18/19 21:46 Dose: 25 mg Pantoprazole Sodium (Protonix -) 20 mg PO DAILY [facility] Last Admin: 08/18/19 11:07 Dose: 20 mg Senna (Senna -) 2 tab PO HS [facility] Last Admin: 08/18/19 21:46 Dose: 2 tab Valsartan (Diovan -) 40 mg PO DAILY [facility] Last Admin: 08/18/19 17:42 Dose: 40 mg - Objective Vital Signs: Vital Signs Temperature 97.3 F L 08/18/19 18:00 Pulse Rate 65 08/18/19 18:00 Respiratory Rate 20 08/18/19 18:00 Blood Pressure 139/54 L 08/18/19 18:00 O2 Sat by Pulse Oximetry (%) 96 08/18/19 09:00 Labs: CBC, BMP 08/18/19 09:40 08/18/19 09:40 INR, PTT INR 0.92 (0.83-1.09) 08/09/19 21:45 Problem List - Problems (1) ARF (acute renal failure) Code(s): N17.9 - ACUTE KIDNEY FAILURE, UNSPECIFIED (2) Acute on chronic diastolic (congestive) heart failure Code(s): I50.33 - ACUTE ON CHRONIC DIASTOLIC (CONGESTIVE) HEART FAILURE (3) Dyspnea Code(s): R06.00 - DYSPNEA, UNSPECIFIED (4) Symptomatic anemia Code(s): D64.9 - ANEMIA, UNSPECIFIED (5) Diabetes Code(s): E11.9 - TYPE 2 DIABETES MELLITUS WITHOUT COMPLICATIONS (6) HTN (hypertension) Code(s): I10 - ESSENTIAL (PRIMARY) HYPERTENSION
[2019-08-19] MEDS: hydrALAZINE HCL 50 MG TABLET (FP) PO SCH ×3 (05:58→21:59)
[2019-08-19] MEDS: DOCUSATE SODIUM 100 MG CAPSULE (FP) PO SCH ×3 (05:58→21:59)
[2019-08-19] MEDS: FUROSEMIDE 40 MG/4 ML INJECTABLE VIAL IVPUSH SCH ×2 (05:59→14:10)
[2019-08-19] MEDS: INSULIN SLIDING SCALE (NOVOLOG) 1 VIAL SQ SCH ×4 (06:00→22:06)
[2019-08-19] MEDS: METOPROLOL TARTRATE 25 MG TABLET (FP) PO SCH ×2 (09:38→22:00)
[2019-08-19] MEDS: PANTOPRAZOLE 20 MG TABLET PO SCH (09:38)
[2019-08-19] MEDS: FERROUS SO4 325 MG TABLET (FP) PO SCH (09:38)
[2019-08-19] MEDS: VALSARTAN 40 MG TABLET (FP) PO SCH (09:38)
[2019-08-19] MEDS: amLODIPine BESYLATE 10 MG TABLET (FP) PO SCH (09:38)
[2019-08-19] MEDS: ISOSORBIDE MONONITRATE 30 MG TAB.SR.24H (FP) PO SCH (09:38)
--- NOTE | 2019-08-19 09:57 | PN ---
Progress Note, Physician History of Present Illness: pulmonary alert,comfortable,-sob. - Current Medication List Current Medications: Active Medications Amlodipine Besylate (Norvasc -) 10 mg PO DAILY [facility] Last Admin: 08/19/19 09:38 Dose: 10 mg Docusate Sodium (Colace -) 200 mg PO TID [facility] Last Admin: 08/19/19 05:58 Dose: 200 mg Ferrous Sulfate (Feosol -) 325 mg PO DAILY [facility] Last Admin: 08/19/19 09:38 Dose: 325 mg Furosemide (Lasix Injection -) 40 mg IVPUSH BID@0600,1400 [facility] Last Admin: 08/19/19 05:59 Dose: 40 mg Hydralazine HCl (Apresoline -) 100 mg PO TID [facility] Last Admin: 08/19/19 05:58 Dose: 100 mg Insulin Aspart (Novolog Vial Sliding Scale -) 1 vial SQ ACHS [facility]; Protocol Last Admin: 08/19/19 06:00 Dose: Not Given Isosorbide Mononitrate (Imdur -) 30 mg PO DAILY [facility] Last Admin: 08/19/19 09:38 Dose: 30 mg Metoprolol Tartrate (Lopressor -) 25 mg PO BID [facility] Last Admin: 08/19/19 09:38 Dose: 25 mg Pantoprazole Sodium (Protonix -) 20 mg PO DAILY [facility] Last Admin: 08/19/19 09:38 Dose: 20 mg Senna (Senna -) 2 tab PO HS [facility] Last Admin: 08/18/19 21:46 Dose: 2 tab Valsartan (Diovan -) 40 mg PO DAILY [facility] Last Admin: 08/19/19 09:38 Dose: 40 mg - Objective Vital Signs: Vital Signs Temperature 98.4 F 08/19/19 06:00 Pulse Rate 58 L 08/19/19 06:00 Respiratory Rate 20 08/19/19 06:00 Blood Pressure 129/63 08/19/19 06:00 O2 Sat by Pulse Oximetry (%) 98 08/18/19 21:00 Constitutional: Yes: Well Nourished, Calm Eyes: Yes: WNL HENT: Yes: WNL Neck: Yes: WNL Cardiovascular: Yes: Regular Rate and Rhythm, S1, S2 Respiratory: Yes: Diminished Gastrointestinal: Yes: Normal Bowel Sounds, Soft Extremities: Yes: WNL Edema: Yes Edema: LLE: Trace, RLE: Trace Labs: CBC, BMP 08/18/19 09:40 08/18/19 09:40 INR, PTT INR 0.92 (0.83-1.09) 08/09/19 21:45 Problem List - Problems (1) Hyponatremia Code(s): E87.1 - HYPO-OSMOLALITY AND HYPONATREMIA (2) Shortness of breath Code(s): R06.02 - SHORTNESS OF BREATH (3) Acute on chronic diastolic (congestive) heart failure Code(s): I50.33 - ACUTE ON CHRONIC DIASTOLIC (CONGESTIVE) HEART FAILURE (4) Anemia Code(s): D64.9 - ANEMIA, UNSPECIFIED Qualifiers: Anemia type: unspecified type Qualified Code(s): D64.9 - Anemia, unspecified (5) Diabetes Code(s): E11.9 - TYPE 2 DIABETES MELLITUS WITHOUT COMPLICATIONS (6) Dyspnea Code(s): R06.00 - DYSPNEA, UNSPECIFIED (7) HTN (hypertension) Code(s): I10 - ESSENTIAL (PRIMARY) HYPERTENSION (8) Liver lesion Code(s): K76.9 - LIVER DISEASE, UNSPECIFIED Assessment/Plan Assessment/Plan Acute on Chronic Diastolic Heart Failure Chronic Renal Failure - ?nephrotic ASHD + myocardial perfusion lexiscan Pleural Effusions appear chronic small insufficient quantity to safely perform thoracentesis Anemia r/o COPD HTN DM - lasix - monitor urine output, creatinine - O2 to keep SpO2 >90% - inhaled bronchodilators - outpt PFTs and f/u of chest imaging - monitor H/H - DVT prophylaxis - renal bx results pending DR PIEDRA
--- NOTE | 2019-08-19 16:11 | PN ---
Progress Note, Physician History of Present Illness: Pt seen and examined at bedside. She is awake and alert. She has no complaints. - Current Medication List Current Medications: Active Medications Amlodipine Besylate (Norvasc -) 10 mg PO DAILY [facility] Last Admin: 08/19/19 09:38 Dose: 10 mg Docusate Sodium (Colace -) 200 mg PO TID [facility] Last Admin: 08/19/19 14:09 Dose: 200 mg Ferrous Sulfate (Feosol -) 325 mg PO DAILY [facility] Last Admin: 08/19/19 09:38 Dose: 325 mg Furosemide (Lasix Injection -) 40 mg IVPUSH BID@0600,1400 [facility] Last Admin: 08/19/19 14:10 Dose: 40 mg Hydralazine HCl (Apresoline -) 100 mg PO TID [facility] Last Admin: 08/19/19 14:10 Dose: 100 mg Insulin Aspart (Novolog Vial Sliding Scale -) 1 vial SQ ACHS [facility]; Protocol Last Admin: 08/19/19 12:19 Dose: 4 units Isosorbide Mononitrate (Imdur -) 30 mg PO DAILY [facility] Last Admin: 08/19/19 09:38 Dose: 30 mg Metoprolol Tartrate (Lopressor -) 25 mg PO BID [facility] Last Admin: 08/19/19 09:38 Dose: 25 mg Pantoprazole Sodium (Protonix -) 20 mg PO DAILY [facility] Last Admin: 08/19/19 09:38 Dose: 20 mg Senna (Senna -) 2 tab PO HS [facility] Last Admin: 08/18/19 21:46 Dose: 2 tab Valsartan (Diovan -) 40 mg PO DAILY [facility] Last Admin: 08/19/19 09:38 Dose: 40 mg - Objective Vital Signs: Vital Signs Temperature 97.5 F L 08/19/19 14:00 Pulse Rate 60 08/19/19 14:00 Respiratory Rate 18 08/19/19 14:00 Blood Pressure 135/57 L 08/19/19 14:00 O2 Sat by Pulse Oximetry (%) 99 08/19/19 09:00 Constitutional: Yes: Calm Eyes: Yes: Conjunctiva Clear HENT: Yes: Atraumatic Neck: Yes: Supple Cardiovascular: Yes: S1, S2 Respiratory: Yes: CTA Bilaterally Gastrointestinal: Yes: Normal Bowel Sounds, Soft Genitourinary: Yes: WNL Edema: Yes Edema: LLE: Trace, RLE: Trace Neurological: Yes: Oriented Psychiatric: Yes: Oriented Labs: CBC, BMP 08/18/19 09:40 08/18/19 09:40 INR, PTT INR 0.92 (0.83-1.09) 08/09/19 21:45 Problem List - Problems (1) Hyponatremia Code(s): E87.1 - HYPO-OSMOLALITY AND HYPONATREMIA (2) Shortness of breath Code(s): R06.02 - SHORTNESS OF BREATH Assessment/Plan Current Medications Generic Name Dose Route Start Last Admin Trade Name Freq PRN Reason Stop Dose Admin Amlodipine Besylate 10 mg 08/11/19 10:00 08/19/19 09:38 Norvasc - PO 10 mg DAILY [facility] Administration Docusate Sodium 200 mg 08/11/19 14:20 08/19/19 14:09 Colace - PO 200 mg TID [facility] Administration Ferrous Sulfate 325 mg 08/10/19 11:00 08/19/19 09:38 Feosol - PO 325 mg DAILY [facility] Administration Furosemide 40 mg 08/14/19 14:00 08/19/19 14:10 Lasix Injection - IVPUSH 40 mg BID@0600,1400 [facility] Administration Hydralazine HCl 100 mg 08/13/19 22:00 08/19/19 14:10 Apresoline - PO 100 mg TID [facility] Administration Insulin Aspart 1 vial 08/10/19 11:00 08/19/19 12:19 Novolog Vial Sliding Scale - SQ 4 units ACHS [facility] Administration Protocol Isosorbide Mononitrate 30 mg 08/10/19 10:00 08/19/19 09:38 Imdur - PO 30 mg DAILY [facility] Administration Metoprolol Tartrate 25 mg 08/10/19 10:00 08/19/19 09:38 Lopressor - PO 25 mg BID ECHO Administration Pantoprazole Sodium 20 mg 08/10/19 10:00 08/19/19 09:38 Protonix - PO 20 mg DAILY [facility] Administration Senna 2 tab 08/11/19 22:00 08/18/19 21:46 Senna - PO 2 tab HS [facility] Administration Valsartan 40 mg 08/18/19 16:00 08/19/19 09:38 Diovan - PO 40 mg DAILY [facility] Administration Impression 1. CKD 2. HTN 3. DM 4. bilateral hydro 5. anemia 6. hyperkalemia 7. fluid overload 8. hyponatremia 9. proteinuria Plan - check bmp - cont diovan - cont lasix - follow renal biopsy - asa still on hold
--- NOTE | 2019-08-19 21:52 | PN ---
Progress Note, Physician - Current Medication List Current Medications: Active Medications Amlodipine Besylate (Norvasc -) 10 mg PO DAILY [facility] Last Admin: 08/19/19 09:38 Dose: 10 mg Docusate Sodium (Colace -) 200 mg PO TID [facility] Last Admin: 08/19/19 14:09 Dose: 200 mg Ferrous Sulfate (Feosol -) 325 mg PO DAILY [facility] Last Admin: 08/19/19 09:38 Dose: 325 mg Furosemide (Lasix Injection -) 40 mg IVPUSH BID@0600,1400 [facility] Last Admin: 08/19/19 14:10 Dose: 40 mg Hydralazine HCl (Apresoline -) 100 mg PO TID [facility] Last Admin: 08/19/19 14:10 Dose: 100 mg Insulin Aspart (Novolog Vial Sliding Scale -) 1 vial SQ ACHS [facility]; Protocol Last Admin: 08/19/19 18:13 Dose: 2 units Isosorbide Mononitrate (Imdur -) 30 mg PO DAILY [facility] Last Admin: 08/19/19 09:38 Dose: 30 mg Metoprolol Tartrate (Lopressor -) 25 mg PO BID [facility] Last Admin: 08/19/19 09:38 Dose: 25 mg Pantoprazole Sodium (Protonix -) 20 mg PO DAILY [facility] Last Admin: 08/19/19 09:38 Dose: 20 mg Senna (Senna -) 2 tab PO HS [facility] Last Admin: 08/18/19 21:46 Dose: 2 tab Valsartan (Diovan -) 40 mg PO DAILY [facility] Last Admin: 08/19/19 09:38 Dose: 40 mg - Objective Vital Signs: Vital Signs Temperature 97.8 F 08/19/19 20:22 Pulse Rate 67 08/19/19 20:22 Respiratory Rate 18 08/19/19 20:24 Blood Pressure 180/66 H 08/19/19 20:22 O2 Sat by Pulse Oximetry (%) 97 08/19/19 20:24 Labs: CBC, BMP 08/18/19 09:40 08/18/19 09:40 INR, PTT INR 0.92 (0.83-1.09) 08/09/19 21:45 Problem List - Problems (1) ARF (acute renal failure) Code(s): N17.9 - ACUTE KIDNEY FAILURE, UNSPECIFIED (2) Acute on chronic diastolic (congestive) heart failure Code(s): I50.33 - ACUTE ON CHRONIC DIASTOLIC (CONGESTIVE) HEART FAILURE (3) Dyspnea Code(s): R06.00 - DYSPNEA, UNSPECIFIED (4) Symptomatic anemia Code(s): D64.9 - ANEMIA, UNSPECIFIED (5) Diabetes Code(s): E11.9 - TYPE 2 DIABETES MELLITUS WITHOUT COMPLICATIONS (6) HTN (hypertension) Code(s): I10 - ESSENTIAL (PRIMARY) HYPERTENSION
[2019-08-19] MEDS: SENNOSIDES 8.6MG TABLET (FP) PO SCH (22:00)
[2019-08-20] MEDS: INSULIN SLIDING SCALE (NOVOLOG) 1 VIAL SQ SCH ×4 (06:08→22:10)
[2019-08-20] MEDS: hydrALAZINE HCL 50 MG TABLET (FP) PO SCH ×3 (06:08→22:09)
[2019-08-20] MEDS: FUROSEMIDE 40 MG/4 ML INJECTABLE VIAL IVPUSH SCH ×2 (06:08→13:15)
[2019-08-20] MEDS: DOCUSATE SODIUM 100 MG CAPSULE (FP) PO SCH ×3 (06:09→22:09)
[2019-08-20 06:14] LABS: BASO % 0.8 % (0-2.0); HEMATOCRIT 23.4 % (32.4-45.2); HEMOGLOBIN 8.3 GM/dL (10.7-15.3); LYMPH % 20.3 % (8-40); MCH 31.7 pg (25.7-33.7); MCHC 35.4 g/dl (32.0-36.0); MEAN CELL VOLUME 89.7 fl (80-96); MEAN PLT VOLUME 7.2 fl (7.5-11.1); MONO % 8.4 % (3.8-10.2); NEUT % 61.5 % (42.8-82.8); PLATELET COUNT 171 K/MM3 (134-434); RBC 2.61 M/mm3 (3.60-5.2); RDW 12.4 % (11.6-15.6); WHITE BLOOD COUNT 4.6 K/mm3 (4.0-10.0)
[2019-08-20 07:30] LABS: ALBUMIN 2.9 g/dl (3.4-5.0); BILIRUBIN,TOTAL 0.4 mg/dL (0.2-1); BLOOD UREA NITROGEN 59.9 mg/dL (7-18); CALCIUM 8.8 mg/dL (8.5-10.1); CREATININE 2.8 mg/dL (0.55-1.3); POTASSIUM 4.8 mmol/L (3.5-5.1); TOT PROT 5.8 g/dl (6.4-8.2)
[2019-08-20] MEDS: ISOSORBIDE MONONITRATE 30 MG TAB.SR.24H (FP) PO SCH (09:31)
[2019-08-20] MEDS: PANTOPRAZOLE 20 MG TABLET PO SCH (09:31)
[2019-08-20] MEDS: amLODIPine BESYLATE 10 MG TABLET (FP) PO SCH (09:31)
[2019-08-20] MEDS: VALSARTAN 40 MG TABLET (FP) PO SCH (09:31)
[2019-08-20] MEDS: FERROUS SO4 325 MG TABLET (FP) PO SCH (09:31)
[2019-08-20] MEDS: METOPROLOL TARTRATE 25 MG TABLET (FP) PO SCH ×2 (09:31→22:09)
--- NOTE | 2019-08-20 09:41 | PN ---
Progress Note, Physician History of Present Illness: pulmonary alert,comfortable,oob-chair,-sob,ambulating - Current Medication List Current Medications: Active Medications Amlodipine Besylate (Norvasc -) 10 mg PO DAILY [facility] Last Admin: 08/20/19 09:31 Dose: 10 mg Docusate Sodium (Colace -) 200 mg PO TID [facility] Last Admin: 08/20/19 06:09 Dose: Not Given Ferrous Sulfate (Feosol -) 325 mg PO DAILY [facility] Last Admin: 08/20/19 09:31 Dose: 325 mg Furosemide (Lasix Injection -) 40 mg IVPUSH BID@0600,1400 [facility] Last Admin: 08/20/19 06:08 Dose: 40 mg Hydralazine HCl (Apresoline -) 100 mg PO TID [facility] Last Admin: 08/20/19 06:08 Dose: 100 mg Insulin Aspart (Novolog Vial Sliding Scale -) 1 vial SQ ACHS [facility]; Protocol Last Admin: 08/20/19 06:08 Dose: Not Given Isosorbide Mononitrate (Imdur -) 30 mg PO DAILY [facility] Last Admin: 08/20/19 09:31 Dose: 30 mg Metoprolol Tartrate (Lopressor -) 25 mg PO BID [facility] Last Admin: 08/20/19 09:31 Dose: 25 mg Pantoprazole Sodium (Protonix -) 20 mg PO DAILY [facility] Last Admin: 08/20/19 09:31 Dose: 20 mg Senna (Senna -) 2 tab PO HS [facility] Last Admin: 08/19/19 22:00 Dose: 2 tab Valsartan (Diovan -) 40 mg PO DAILY [facility] Last Admin: 08/20/19 09:31 Dose: 40 mg - Objective Vital Signs: Vital Signs Temperature 98.0 F 08/20/19 06:00 Pulse Rate 62 08/20/19 06:00 Respiratory Rate 20 08/20/19 08:21 Blood Pressure 155/53 L 08/20/19 06:00 O2 Sat by Pulse Oximetry (%) 98 08/20/19 08:21 Constitutional: Yes: Well Nourished, Calm Eyes: Yes: WNL HENT: Yes: WNL Neck: Yes: WNL Cardiovascular: Yes: Regular Rate and Rhythm, S1, S2 Respiratory: Yes: Rales (bibasailr rales) Gastrointestinal: Yes: Normal Bowel Sounds, Soft Extremities: Yes: WNL Edema: No Labs: CBC, BMP 08/20/19 05:40 08/20/19 05:40 INR, PTT INR 0.92 (0.83-1.09) 08/09/19 21:45 Problem List - Problems (1) Hyponatremia Code(s): E87.1 - HYPO-OSMOLALITY AND HYPONATREMIA (2) Shortness of breath Code(s): R06.02 - SHORTNESS OF BREATH (3) Acute on chronic diastolic (congestive) heart failure Code(s): I50.33 - ACUTE ON CHRONIC DIASTOLIC (CONGESTIVE) HEART FAILURE (4) Anemia Code(s): D64.9 - ANEMIA, UNSPECIFIED Qualifiers: Anemia type: unspecified type Qualified Code(s): D64.9 - Anemia, unspecified (5) Diabetes Code(s): E11.9 - TYPE 2 DIABETES MELLITUS WITHOUT COMPLICATIONS (6) Dyspnea Code(s): R06.00 - DYSPNEA, UNSPECIFIED (7) HTN (hypertension) Code(s): I10 - ESSENTIAL (PRIMARY) HYPERTENSION (8) Liver lesion Code(s): K76.9 - LIVER DISEASE, UNSPECIFIED Assessment/Plan Assessment/Plan Acute on Chronic Diastolic Heart Failure Chronic Renal Failure - ?nephrotic ASHD + myocardial perfusion lexiscan Pleural Effusions appear chronic small insufficient quantity to safely perform thoracentesis Anemia r/o COPD HTN DM - lasix - monitor urine output, creatinine - O2 to keep SpO2 >90% - inhaled bronchodilators - outpt PFTs and f/u of chest imaging - monitor H/H - DVT prophylaxis - renal bx results pending DR PIEDRA
--- NOTE | 2019-08-20 15:18 | PN ---
Progress Note, Physician History of Present Illness: Pt seen and examined at bedside. She is awake and alert. She denies shortness of breath. - Current Medication List Current Medications: Active Medications Amlodipine Besylate (Norvasc -) 10 mg PO DAILY [facility] Last Admin: 08/20/19 09:31 Dose: 10 mg Docusate Sodium (Colace -) 200 mg PO TID [facility] Last Admin: 08/20/19 13:15 Dose: 200 mg Ferrous Sulfate (Feosol -) 325 mg PO DAILY [facility] Last Admin: 08/20/19 09:31 Dose: 325 mg Furosemide (Lasix Injection -) 40 mg IVPUSH BID@0600,1400 [facility] Last Admin: 08/20/19 13:15 Dose: 40 mg Hydralazine HCl (Apresoline -) 100 mg PO TID [facility] Last Admin: 08/20/19 13:16 Dose: 100 mg Insulin Aspart (Novolog Vial Sliding Scale -) 1 vial SQ [facility]; Protocol Last Admin: 08/20/19 11:27 Dose: 6 units Isosorbide Mononitrate (Imdur -) 30 mg PO DAILY [facility] Last Admin: 08/20/19 09:31 Dose: 30 mg Metoprolol Tartrate (Lopressor -) 25 mg PO BID [facility] Last Admin: 08/20/19 09:31 Dose: 25 mg Pantoprazole Sodium (Protonix -) 20 mg PO DAILY [facility] Last Admin: 08/20/19 09:31 Dose: 20 mg Senna (Senna -) 2 tab PO HS [facility] Last Admin: 08/19/19 22:00 Dose: 2 tab - Objective Vital Signs: Vital Signs Temperature 97.3 F L 08/20/19 10:00 Pulse Rate 66 08/20/19 10:00 Respiratory Rate 18 08/20/19 10:00 Blood Pressure 166/64 08/20/19 10:00 O2 Sat by Pulse Oximetry (%) 98 08/20/19 08:21 Constitutional: Yes: Calm Eyes: Yes: Conjunctiva Clear HENT: Yes: Atraumatic Cardiovascular: Yes: S1, S2 Respiratory: Yes: CTA Bilaterally Gastrointestinal: Yes: Soft Genitourinary: Yes: WNL Musculoskeletal: Yes: WNL Edema: LLE: Trace, RLE: Trace Neurological: Yes: Oriented Psychiatric: Yes: Oriented Labs: CBC, BMP 08/20/19 05:40 08/20/19 05:40 INR, PTT INR 0.92 (0.83-1.09) 08/09/19 21:45 Problem List - Problems (1) Hyponatremia Code(s): E87.1 - HYPO-OSMOLALITY AND HYPONATREMIA (2) Shortness of breath Code(s): R06.02 - SHORTNESS OF BREATH Assessment/Plan Current Medications Generic Name Dose Route Start Last Admin Trade Name Lora PRN Reason Stop Dose Admin Amlodipine Besylate 10 mg 08/11/19 10:00 08/20/19 09:31 Norvasc - PO 10 mg DAILY [facility] Administration Docusate Sodium 200 mg 08/11/19 14:20 08/20/19 13:15 Colace - PO 200 mg TID ECHO Administration Ferrous Sulfate 325 mg 08/10/19 11:00 08/20/19 09:31 Feosol - PO 325 mg DAILY [facility] Administration Furosemide 40 mg 08/14/19 14:00 08/20/19 13:15 Lasix Injection - IVPUSH 40 mg BID@0600,1400 [facility] Administration Hydralazine HCl 100 mg 08/13/19 22:00 08/20/19 13:16 Apresoline - PO 100 mg TID [facility] Administration Insulin Aspart 1 vial 08/10/19 11:00 08/20/19 11:27 Novolog Vial Sliding Scale - SQ 6 units ACHS [facility] Administration Protocol Isosorbide Mononitrate 30 mg 08/10/19 10:00 08/20/19 09:31 Imdur - PO 30 mg DAILY [facility] Administration Metoprolol Tartrate 25 mg 08/10/19 10:00 08/20/19 09:31 Lopressor - PO 25 mg BID ECHO Administration Pantoprazole Sodium 20 mg 08/10/19 10:00 08/20/19 09:31 Protonix - PO 20 mg DAILY [facility] Administration Senna 2 tab 08/11/19 22:00 08/19/19 22:00 Senna - PO 2 tab HS ECHO Administration Impression 1. CKD 2. HTN 3. DM 4. bilateral hydro 5. anemia 6. hyperkalemia 7. fluid overload 8. hyponatremia 9. 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
[2019-08-20] MEDS ORDERED: ISOSORBIDE MONONITRATE 60 MG TAB.SR.24H (FP) PO SCH (15:20)
--- NOTE | 2019-08-20 20:13 | PN ---
Progress Note, Physician History of Present Illness: No new complaints - Current Medication List Current Medications: Active Medications Amlodipine Besylate (Norvasc -) 10 mg PO DAILY [facility] Last Admin: 08/20/19 09:31 Dose: 10 mg Aspirin (Ecotrin -) 81 mg PO DAILY [facility] Docusate Sodium (Colace -) 200 mg PO TID [facility] Last Admin: 08/20/19 13:15 Dose: 200 mg Ferrous Sulfate (Feosol -) 325 mg PO DAILY [facility] Last Admin: 08/20/19 09:31 Dose: 325 mg Furosemide (Lasix -) 40 mg PO BID@0600,1400 [facility] Hydralazine HCl (Apresoline -) 100 mg PO TID [facility] Last Admin: 08/20/19 13:16 Dose: 100 mg Insulin Aspart (Novolog Vial Sliding Scale -) 1 vial SQ ACHS [facility]; Protocol Last Admin: 08/20/19 17:21 Dose: 4 units Isosorbide Mononitrate (Imdur -) 60 mg PO DAILY [facility] Metoprolol Tartrate (Lopressor -) 25 mg PO BID [facility] Last Admin: 08/20/19 09:31 Dose: 25 mg Pantoprazole Sodium (Protonix -) 20 mg PO DAILY [facility] Last Admin: 08/20/19 09:31 Dose: 20 mg Senna (Senna -) 2 tab PO HS [facility] Last Admin: 08/19/19 22:00 Dose: 2 tab - Objective Vital Signs: Vital Signs Temperature 98.9 F 08/20/19 18:00 Pulse Rate 60 08/20/19 18:00 Respiratory Rate 18 08/20/19 18:00 Blood Pressure 142/61 08/20/19 18:00 O2 Sat by Pulse Oximetry (%) 98 08/20/19 08:21 Neck: Yes: WNL, Supple Cardiovascular: Yes: WNL, Regular Rate and Rhythm Respiratory: Yes: WNL, Regular, CTA Bilaterally Gastrointestinal: Yes: WNL, Normal Bowel Sounds, Soft Edema: No Labs: CBC, BMP 08/20/19 05:40 08/20/19 05:40 INR, PTT INR 0.92 (0.83-1.09) 08/09/19 21:45 Problem List - Problems (1) ARF (acute renal failure) Assessment/Plan: S/P renal bx Spoke to pt and her family about dc planning and close f/u as outpt for bx results and further management Code(s): N17.9 - ACUTE KIDNEY FAILURE, UNSPECIFIED (2) Acute on chronic diastolic (congestive) heart failure Assessment/Plan: Changed to po lasix DC planning for am Stress test showed reversible defect Monitor electrolytes Monitor bun/creatinine Code(s): I50.33 - ACUTE ON CHRONIC DIASTOLIC (CONGESTIVE) HEART FAILURE (3) Dyspnea Assessment/Plan: ?CHF vs pleural effusion vs anemia Code(s): R06.00 - DYSPNEA, UNSPECIFIED (4) Symptomatic anemia Assessment/Plan: Monitor H/H Due to chronic disease Code(s): D64.9 - ANEMIA, UNSPECIFIED (5) Diabetes Code(s): E11.9 - TYPE 2 DIABETES MELLITUS WITHOUT COMPLICATIONS (6) HTN (hypertension) Assessment/Plan: BP has been elevated Code(s): I10 - ESSENTIAL (PRIMARY) HYPERTENSION
[2019-08-20] MEDS: SENNOSIDES 8.6MG TABLET (FP) PO SCH (22:10)
[2019-08-21 04:23] VITALS: BMI 24.0
[2019-08-21] MEDS: hydrALAZINE HCL 50 MG TABLET (FP) PO SCH ×2 (06:27→14:53)
[2019-08-21] MEDS: INSULIN SLIDING SCALE (NOVOLOG) 1 VIAL SQ SCH ×2 (06:27→11:26)
[2019-08-21] MEDS: FUROSEMIDE 40 MG TABLET (FP) PO SCH ×2 (06:27→14:53)
[2019-08-21] MEDS: DOCUSATE SODIUM 100 MG CAPSULE (FP) PO SCH ×2 (06:27→14:53)
[2019-08-21 07:43] LABS: BLOOD UREA NITROGEN 62.4 mg/dL (7-18); CALCIUM 8.6 mg/dL (8.5-10.1); CREATININE 2.6 mg/dL (0.55-1.3); POTASSIUM 4.4 mmol/L (3.5-5.1)
[2019-08-21] MEDS ORDERED: PT OWN MED DRAWER 7, Y5N ONE (07:58)
[2019-08-21] MEDS ORDERED: ASPIRIN COATED 81 MG TABLET.EC PO SCH (10:00)
[2019-08-21] MEDS: PANTOPRAZOLE 20 MG TABLET PO SCH (10:36)
[2019-08-21] MEDS: amLODIPine BESYLATE 10 MG TABLET (FP) PO SCH (10:36)
[2019-08-21] MEDS: FERROUS SO4 325 MG TABLET (FP) PO SCH (10:36)
[2019-08-21] MEDS: METOPROLOL TARTRATE 25 MG TABLET (FP) PO SCH (10:37)
[2019-08-21 12:21] VITALS: PULSE 62
[2019-08-21 15:43] VITALS: BP 152/62; TEMP 98.2
--- NOTE | 2019-08-21 16:18 | PN ---
Progress Note, Physician History of Present Illness: Pt seen and examined at bedside. She is awake and alert. She is going home today. - Current Medication List Current Medications: Active Medications Amlodipine Besylate (Norvasc -) 10 mg PO DAILY [facility] Last Admin: 08/21/19 10:36 Dose: 10 mg Aspirin (Ecotrin -) 81 mg PO DAILY [facility] Last Admin: 08/21/19 10:36 Dose: 81 mg Docusate Sodium (Colace -) 200 mg PO TID [facility] Last Admin: 08/21/19 14:53 Dose: 200 mg Ferrous Sulfate (Feosol -) 325 mg PO DAILY [facility] Last Admin: 08/21/19 10:36 Dose: 325 mg Furosemide (Lasix -) 40 mg PO BID@0600,1400 [facility] Last Admin: 08/21/19 14:53 Dose: 40 mg Hydralazine HCl (Apresoline -) 100 mg PO TID [facility] Last Admin: 08/21/19 14:53 Dose: 100 mg Insulin Aspart (Novolog Vial Sliding Scale -) 1 vial SQ [facility]; Protocol Last Admin: 08/21/19 11:26 Dose: 4 units Isosorbide Mononitrate (Imdur -) 60 mg PO DAILY [facility] Last Admin: 08/21/19 10:37 Dose: 60 mg Metoprolol Tartrate (Lopressor -) 25 mg PO BID [facility] Last Admin: 08/21/19 10:37 Dose: 25 mg Pantoprazole Sodium (Protonix -) 20 mg PO DAILY [facility] Last Admin: 08/21/19 10:36 Dose: 20 mg Senna (Senna -) 2 tab PO HS [facility] Last Admin: 08/20/19 22:10 Dose: Not Given - Objective Vital Signs: Vital Signs Temperature 98.2 F 08/21/19 14:00 Pulse Rate 62 08/21/19 14:00 Respiratory Rate 18 08/21/19 14:00 Blood Pressure 152/62 08/21/19 14:00 O2 Sat by Pulse Oximetry (%) 96 08/21/19 09:00 Constitutional: Yes: Calm Eyes: Yes: Conjunctiva Clear HENT: Yes: Atraumatic Neck: Yes: Supple Cardiovascular: Yes: S1, S2 Respiratory: Yes: CTA Bilaterally Gastrointestinal: Yes: Soft Musculoskeletal: Yes: WNL Edema: No Neurological: Yes: Oriented Psychiatric: Yes: Oriented Labs: CBC, BMP 08/20/19 05:40 08/21/19 06:45 INR, PTT INR 0.92 (0.83-1.09) 08/09/19 21:45 Problem List - Problems (1) Hyponatremia Code(s): E87.1 - HYPO-OSMOLALITY AND HYPONATREMIA (2) Shortness of breath Code(s): R06.02 - SHORTNESS OF BREATH Assessment/Plan Current Medications Generic Name Dose Route Start Last Admin Trade Name Lora PRN Reason Stop Dose Admin Amlodipine Besylate 10 mg 08/11/19 10:00 08/21/19 10:36 Norvasc - PO 10 mg DAILY [facility] Administration Aspirin 81 mg 08/21/19 10:00 08/21/19 10:36 Ecotrin - PO 81 mg DAILY ECHO Administration Docusate Sodium 200 mg 08/11/19 14:20 08/21/19 14:53 Colace - PO 200 mg TID ECHO Administration Ferrous Sulfate 325 mg 08/10/19 11:00 08/21/19 10:36 Feosol - PO 325 mg DAILY [facility] Administration Furosemide 40 mg 08/21/19 06:00 08/21/19 14:53 Lasix - PO 40 mg BID@0600,1400 [facility] Administration Hydralazine HCl 100 mg 08/13/19 22:00 08/21/19 14:53 Apresoline - PO 100 mg TID ECHO Administration Insulin Aspart 1 vial 08/10/19 11:00 08/21/19 11:26 Novolog Vial Sliding Scale - SQ 4 units ACHS E[facility] Administration Protocol Isosorbide Mononitrate 60 mg 08/20/19 15:20 08/21/19 10:37 Imdur - PO 60 mg DAILY ECHO Administration Metoprolol Tartrate 25 mg 08/10/19 10:00 08/21/19 10:37 Lopressor - PO 25 mg BID ECHO Administration Pantoprazole Sodium 20 mg 08/10/19 10:00 08/21/19 10:36 Protonix - PO 20 mg DAILY ECHO Administration Senna 2 tab 08/11/19 22:00 08/20/19 22:10 Senna - PO Not Given HS ECHO Impression 1. CKD 2. HTN 3. DM 4. bilateral hydro 5. anemia 6. hyperkalemia 7. fluid overload 8. hyponatremia 9. 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
--- NOTE | 2019-11-06 17:09 | PATH ---
Surgical Pathology Report Patient Name: INES DAVE [facility]. Rec. #: [id number] /Age/Gender: 1950 (Age: 69) / F Account: [id number] Location: [facility] MED/SURG Taken: 08/17/2019 Received: 08/17/2019 Reported: 11/06/2019 Physicians: Bryson Osman M.D. Specimen(s) Received RENAL BIOPSY FOR SEND OUT Clinical History CRF Intraoperative Consult Diagnosis Left kidney biopsy: Glomeruli present. Daniela Rossi M.D., 08/17/2019 Final Diagnosis RENAL BIOPSY: 1. NODULAR DIABETIC GLOMERULOSCLEROSIS, SEVERE. SEE COMMENT. 2. TUBULAR ATROPHY AND INTERSTITIAL FIBROSIS, MODERATE. 3. ARTERIOSCLEROSIS, SEVERE, AND ARTERIOLOSCLEROSIS, MODERATE, Comment: Immunofluorescence microscopy shows no evidence of renal disease of the immune complex type. No acute/active inflammatory injury is seen. Electron microscopy pending and will be reported separately in an addendum Microscopic Description: Sections are stained with H&E, PAS, trichrome, and JMS. Sections show 2 core of renal cortex, 1 of which has attached capsule. Twelve (12) glomeruli are seen. 5 of which show complete or near complete global sclerosis and hyalinosis. The remaining glomeruli show severe nodular mesangial sclerosis with focal microaneurysm formation and capsular drop lesions. No crescents, fibrinoid necrosis or fibrin thrombi are seen. Tubular basement membranes are diffusely thickened. There is moderate patchy tubular atropthy and interstitial fibrosis affecting 50% of the cortical area, accompanied by a patchy mononuclear inflammatory cell infiltrate. Mo tubulitis, interstitial eosinophils or granulomas are seen. Arteries show severe intimal fibrosis and no evidence of arteritis. Arterioles show moderate hyalinosis. IMMUNOFLUORESCENCE (PROCEDURE): Interpretation: GLOMERULI TUBULES INTERSTITIUM VESSELS IgG 6 gloms 1+ TBM's 1+ neg neg global linear GCW linear IgM 6 gloms 1+ neg neg neg seg tuft IgA 6 gloms neg casts 1+ neg neg C3 6 gloms 1+ neg neg arteriole villalba 1+ seg tuft C1 6 gloms 1+ neg neg neg seg tuft FBGN 6 gloms neg neg neg neg ALB 6 gloms 1+ TBM's 1 neg neg global linear GCW KAPPA 6 gloms 1+ casts 1+ neg neg seg tuft LAMBDA 6 gloms 1+ casts 1+ neg neg seg tuft Positive and negative controls show appropriate reactivity. Case sent for consultation to Dr. Olivier Vazquez from [place], [place]. The diagnosis above reflects his opinion. See complete report ([id number]) from [place], [place] for additional details. Electronically Signed Josiah Rossi M.D. Gross Description Received in saline labeled "left renal biopsy," are 4 momin-red, cylindrical portions of soft tissue ranging from 0.3-1.2 cm in length and averaging 0.1 cm in diameter. The specimen is divided, placed into 10% buffered formalin, Audie fixative and glutaraldehyde. The specimen is sent to [facility] for further studies. 08/17/2019 saudi08/17/2019
== END 2019-08-21 16:00 | disposition home or self-care (01) | DRG 194 ==
LOC: JER 21:19 → JERBED 08-10 00:01 → J4W 08-10 12:07 → UNDODISIN 08-11 01:27 → J4S 08-20 11:40 → J8W 08-21 08:10
PROVIDERS: ADMIT Internal Medicine; ATTEND Internal Medicine
PROC: 0TB43ZX Excision of Left Kidney Pelvis, Percutaneous Approach, Diagnostic (ICD-10-PCS; principal; 2019-08-17)
DX: I13.0 Hypertensive heart and chronic kidney disease with heart failure and stage 1 through stage 4 chronic kidney disease, or unspecified chronic kidney disease (principal); I50.33 Acute on chronic diastolic (congestive) heart failure; N17.9 Acute kidney failure, unspecified; E87.1 Hypo-osmolality and hyponatremia; E11.9 Type 2 diabetes mellitus without complications; N18.9 Chronic kidney disease, unspecified; I25.10 Atherosclerotic heart disease of native coronary artery without angina pectoris; E87.5 Hyperkalemia; E87.70 Fluid overload, unspecified; N13.30 Unspecified hydronephrosis; D63.1 Anemia in chronic kidney disease; J44.9 Chronic obstructive pulmonary disease, unspecified
CPT/HCPCS: 36415; 50200; 71045-TC-FY; 71046-TC-FY; 71250-TC; 76604-TC; 76775-TC; 76856-TC; 76942-TC; 78452-TC; 80048; 80053; 81003; 82550; 82570; 82728; 82962; 83540; 83550; 83735; 83880; 84100; 84156; 84443; 84484; 85025; 85044; 85610; 85730; 86850; 86900; 86901; 86922; 87086; 88300-TC; 88329; 93005; 93010; 93017; 93975; 94640; 99285-25; A9502; J1644; J2785

== ENCOUNTER 2019-09-24 13:22 | Emergency (ER) | payer OTHER ==
[2019-09-24 13:29] VITALS: TEMP 97.8; BMI 22.4
[2019-09-24] MEDS ORDERED: morphine CARPU-JECT 2 MG/1 ML DISP.SYRIN IVPUSH ONE (14:07)
[2019-09-24] MEDS ORDERED: MORPHINE SULFATE 2 MG/ML VIAL ONE (14:16)
[2019-09-24] MEDS ORDERED: ONDANSETRON 4 MG/2 ML VIAL ONE (14:16)
--- NOTE | 2019-09-24 14:18 | PDOC ---
History of Present Illness - General Chief Complaint: Pain Stated Complaint: PAIN Time Seen by Provider: 09/24/19 13:39 History Source: Patient, Family Exam Limitations: No Limitations - History of Present Illness Initial Comments: 09/24/19 14:10 69 yo F w/ a h/o CHF, DM, HTN, GERD, anemia, kidney stones, recently admitted for CHF and a stone s/p lithotripsy and stent placement comes in with daughters c/o sudden onset of R sided flank pain 2 days ago w/ nausea. Pain radiates to the R side of the back, RLQ and R thigh, and it is associated with mild R thigh numbness. Also c/o feeling of incomplete bladder emptying and burning on urination for the past 9 days s/p stent removal. No other complaints today, no fever/chills, no vomiting/diarrhea, no chest pain, no SOB, no upper-mid back pain, no headache. Pt has not taken any meds for pain. 09/24/19 14:48 Past History - Past Medical History Allergies/Adverse Reactions: Allergies Allergy/AdvReac Type Severity Reaction Status Date / Time No Known Allergies Allergy Verified 09/24/19 13:27 Home Medications: Ambulatory Orders Aspirin [Aquilino Chewable Aspirin] 81 mg PO DAILY 07/26/19 Isosorbide Mononitrate [Imdur -] 30 mg PO DAILY 07/26/19 Amlodipine Besylate [Norvasc -] 10 mg PO DAILY tablet 08/07/19 Docusate Sodium [Colace -] 100 mg PO TID #90 capsule 08/07/19 Ferrous Sulfate [Feosol] 325 mg PO DAILY #30 ud 08/07/19 Metoprolol Tartrate [Lopressor -] 25 mg PO BID #60 tablet 08/07/19 Pantoprazole Sodium [Protonix -] 20 mg PO DAILY #30 tablet.ec 08/07/19 hydrALAZINE HCL [Apresoline -] 75 mg PO TID #90 tablet 08/07/19 Amlodipine Besylate [Norvasc -] 10 mg PO DAILY tablet 08/21/19 Aspirin Coated [Ecotrin -] 81 mg PO DAILY tablet.ec 08/21/19 Furosemide [Lasix -] 40 mg PO BID@0600,1400 #60 tablet 08/21/19 Insulin Detemir [Levemir Flextouch] 20 unit SQ HS #1 insuln.pen 08/21/19 Anemia: Yes COPD: No CHF: Yes Diabetes: Yes HTN: Yes - Surgical History Abdominal Surgery: Yes (HERNIA) Cholecystectomy: Yes - Psycho Social/Smoking Cessation Hx Smoking History: Never smoked Have you smoked in the past 12 months: No Information on smoking cessation initiated: No Hx Alcohol Use: No Drug/Substance Use Hx: No Substance Use Type: None Hx Substance Use Treatment: No Review of Systems - Review of Systems Able to Perform ROS?: Yes Constitutional: No: Chills, Fever, Malaise, Night Sweats HEENTM: No: Eye Pain, Recent change in vision, Throat Pain Respiratory: No: Cough, Shortness of Breath Cardiac (ROS): No: Chest Pain, Palpitations, Chest Tightness ABD/GI: Yes: Nausea. No: Diarrhea, Vomiting, Abdominal cramping : Yes: Flank Pain. No: Dysuria, Hematuria Musculoskeletal: No: Back Pain Integumentary: No: Rash Neurological: No: Headache, Numbness, Dizziness Psychiatric: No: Change in Appetite Endocrine: No: Unexplained Weight Loss *Physical Exam - Vital Signs Last Vital Signs Temp Pulse Resp BP Pulse Ox 97.8 F 67 18 160/49 L 99 09/24/19 13:27 09/24/19 13:27 09/24/19 13:27 09/24/19 13:27 09/24/19 13:27 - Physical Exam General Appearance: Yes: Nourished. No: Apparent Distress HEENT: positive: SELIN, Normal ENT Inspection, Normal Voice. negative: Pale Conjunctivae, Scleral Icterus (R), Scleral Icterus (L) Neck: positive: Supple. negative: Decreased range of motion, Tender midline Respiratory/Chest: positive: Lungs Clear, Normal Breath Sounds. negative: Respiratory Distress, Accessory Muscle Use Cardiovascular: positive: Regular Rhythm, Regular Rate Gastrointestinal/Abdominal: positive: Normal Bowel Sounds, Tender (RLQ, R flank tenderness. (+)tenderness at McBurney's point, (-)Rosving sign, (-)Psoas.), Soft Musculoskeletal: positive: Normal Inspection, CVA Tenderness (R), Other (No midline back tenderness, no back skin changes.). negative: CVA Tenderness (L), Decreased Range of Motion Extremity: positive: Normal Capillary Refill, Normal Inspection, Normal Range of Motion. negative: Tender, Pedal Edema Integumentary: positive: Normal Color, Dry. negative: Jaundice, Rash Neurologic: positive: Fully Oriented, Alert, Normal Mood/Affect ED Treatment Course - LABORATORY CBC & Chemistry Diagram: 09/24/19 14:30 09/24/19 14:30 Medical Decision Making - Medical Decision Making 09/24/19 14:50 69 yo F w/ HTN, DM, CHF, kidney stones p/w 2 days of R flank pain, RLQ tenderness w/ nausea. S/P lithotripsy last month w/ stent removal a week ago, (+ )UTI symptoms. Will line and lab, give zofran, morphine for pain, Will do a CT abdomen/pelvis and reassess 09/24/19 16:08 Change of shift, care of patient signed over to Provider Tc who will follow up CT results and decide on dispo plan Discharge - Discharge Information Problems reviewed: Yes Clinical Impression/Diagnosis: Abdominal pain - Follow up/Referral Referrals: Deangelo Nassar MD [Primary Care Provider] - - Patient Discharge Instructions - Post Discharge Activity
[2019-09-24] MEDS ORDERED: ONDANSETRON 4 MG/2 ML VIAL IVPUSH ONE (14:19)
[2019-09-24 14:39] LABS: BASO % 0.8 % (0-2.0); EOS % 8.7 % (0-4.5); HEMATOCRIT 25.9 % (32.4-45.2); HEMOGLOBIN 8.7 GM/dL (10.7-15.3); LYMPH % 22.5 % (8-40); MCH 29.7 pg (25.7-33.7); MCHC 33.5 g/dl (32.0-36.0); MEAN CELL VOLUME 88.8 fl (80-96); MEAN PLT VOLUME 7.5 fl (7.5-11.1); MONO % 6.9 % (3.8-10.2); NEUT % 61.1 % (42.8-82.8); PLATELET COUNT 136 K/MM3 (134-434); RBC 2.91 M/mm3 (3.60-5.2); RDW 12.3 % (11.6-15.6); WHITE BLOOD COUNT 4.3 K/mm3 (4.0-10.0)
[2019-09-24 14:45] LABS: EPI CELLS 4.3 /HPF (0-5/HPF); HYALINE CASTS 22 /lpf (0-8); URINE APPEARANCE CLEAR; URINE BACTERIA 1.7 /hpf (NEGATIVE); URINE BILIRUBIN NEGATIVE (NEGATIVE); URINE COLOR YELLOW; URINE GLUCOSE (UA) TRACE (NEGATIVE); URINE KETONE NEGATIVE (NEGATIVE); URINE LEUK ESTERASE NEGATIVE (NEGATIVE); URINE NITRITE NEGATIVE (NEGATIVE); URINE PROTEIN 3+ (NEGATIVE); URINE RBC 8 /hpf (0-4); URINE UROBILINOGEN 0.2 mg/dL (0.2-1.0); URINE WBC 3 /hpf (0-5)
[2019-09-24 15:08] LABS: N-TERMINAL BNP 1534.9 pg/ml (5-125); PHOSPHOROUS 4.5 mg/dL (2.5-4.9)
[2019-09-24 15:30] LABS: ALBUMIN 3.2 g/dl (3.4-5.0); ALK PHOS 76 U/L (45-117); ANION GAP 7 MMOL/L (8-16); BILIRUBIN,TOTAL 0.3 mg/dL (0.2-1); BLOOD UREA NITROGEN 59.3 mg/dL (7-18); CALCIUM 8.5 mg/dL (8.5-10.1); CHLORIDE 108 mmol/L (98-107); CO2 25 mmol/L (21-32); CREATININE 2.7 mg/dL (0.55-1.3); GLUCOSE,RANDOM 192 mg/dL (74-106); LIPASE 125 U/L (73-393); MAGNESIUM 2.6 mg/dL (1.8-2.4); POTASSIUM 4.1 mmol/L (3.5-5.1); SGOT/AST 20 U/L (15-37); SGPT/ALT 20 U/L (13-61); SODIUM 140 mmol/L (136-145); TOT PROT 6.2 g/dl (6.4-8.2)
[2019-09-24 18:05] VITALS: BP 154/52; PULSE 60
--- NOTE | 2019-09-24 18:15 | PDOC ---
*Physical Exam - Vital Signs Last Vital Signs Temp Pulse Resp BP Pulse Ox 97.8 F 60 18 154/52 L 98 09/24/19 18:03 09/24/19 18:03 09/24/19 18:03 09/24/19 18:03 09/24/19 18:03 ED Treatment Course - LABORATORY CBC & Chemistry Diagram: 09/24/19 14:30 09/24/19 14:30 - ADDITIONAL ORDERS Additional order review: Laboratory Results 09/24/19 09/24/19 09/24/19 14:30 14:30 14:30 Sodium 140 Potassium 4.1 Chloride 108 H Carbon Dioxide 25 Anion Gap 7 L BUN 59.3 H Creatinine 2.7 H Est GFR (CKD-EPI)AfAm 20.17 Est GFR (CKD-EPI)NonAf 17.41 Random Glucose 192 H Calcium 8.5 Phosphorus 4.5 Magnesium 2.6 H Total Bilirubin 0.3 AST 20 ALT 20 Alkaline Phosphatase 76 Creatine Kinase 74 Troponin I < 0.02 B-Natriuretic Peptide 1534.9 H Total Protein 6.2 L Albumin 3.2 L Lipase 125 Urine Color Yellow Urine Appearance Clear Urine pH 5.0 D Ur Specific [place] 1.017 Urine Protein 3+ H Urine Glucose (UA) Trace Urine Ketones Negative Urine Blood Negative Urine Nitrite Negative Urine Bilirubin Negative Urine Urobilinogen 0.2 Ur Leukocyte Esterase Negative Urine WBC (Auto) 3 Urine RBC (Auto) 8 Urine Casts (Auto) 22 U Pathogenic Cast Auto None seen U Epithel Cells (Auto) 4.3 Urine Bacteria (Auto) 1.7 09/24/19 14:30 RBC 2.91 L MCV 88.8 MCHC 33.5 RDW 12.3 MPV 7.5 Neutrophils % 61.1 Lymphocytes % 22.5 Monocytes % 6.9 Eosinophils % 8.7 H Basophils % 0.8 - Medications Given in the ED: ED Medications Discontinued Medications Generic Name Dose Route Start Last Admin Trade Name Freq PRN Reason Stop Dose Admin Morphine Sulfate 2 mg 09/24/19 14:07 09/24/19 14:36 Morphine Injection - IVPUSH 09/24/19 14:08 2 mg ONCE ONE Administration Ondansetron HCl 4 mg 09/24/19 14:19 09/24/19 14:36 Zofran Injection IVPUSH 09/24/19 14:20 4 mg ONCE ONE Administration Medical Decision Making - Medical Decision Making Patient written was endorsed to me to follow CT scan and disposition. Patient seen and examined she is in no acute distress currently. Vital signs stable CT scan results still pending. 09/24/19 18:14 Patient Full Name: SOPHIE CHACON Patient Accession No: [id number] Patient : 1950 Reason for Exam: r/o stone vs ap Referring Physician: CHRISTINA BRADSHAW Patient Name: DILAN BARRIOS THIS IS A PRELIMINARY REPORT FROM [facility]NA[facility] DATE OF SERVICE: 2019-09-24 15:41:26 IMAGES: [id number] EXAM: CT ABDOMEN AND PELVIS WITHOUT IV CONTRAST HISTORY: Evaluate for stone versus appendicitis TECHNIQUE: Contiguous axial images were obtained utilizing a multislice, multidetector CT scanner. Post-processed reformations were also submitted for review. One or more of the following dose reduction techniques were used: automated exposure control, adjustment of the mA and/or kV according to patient size, use of iterative reconstructive technique. Contrast: None COMPARISON: None available FINDINGS: Lower Chest: Subsegmental atelectasis in the lower lung quinonez. Abdomen: Liver:: Within normal limits. Bile Ducts: Within normal limits. Gallbladder:: Status post cholecystectomy. Pancreas:: Within normal limits. Spleen:: Within normal limits. Adrenals: Within normal limits. Kidneys: No evidence of hydronephrosis or nephrolithiasis. Stomach:: Within normal limits. Bowel:: No evidence of small bowel obstruction or mass. Moderate degree stool burden throughout the colon compatible with constipation. Normal appendix is identified. Pelvis: Reproductive Organs: Status post hysterectomy. Bladde: Within normal limits. Vessels: Aorta: Atherosclerotic calcification of the aorta without aneurysm.. Retroperitoneum: Within normal limits. Bones: : No suspicious osseous lesions. Lumbar spondylosis at L5-S1 with minimal grade 1 anterolisthesis of L4-L5 without pars defects. Degenerative changes of the sacroiliac joints. Mild diffuse anasarca. IMPRESSION: 1. No evidence of hydronephrosis or nephrolithiasis. 2. No evidence of small bowel obstruction or mass. Moderate degree stool burden throughout the colon compatible with constipation. Normal appendix is identified. One or more of the following dose reduction techniques were used: automated exposure control, adjustment of the mA and/or kV according to patient size, use of iterative reconstructive technique. THIS DOCUMENT HAS BEEN ELECTRONICALLY SIGNED Gio Brooks MD 09/24/2019 18:04 EST MJacquelin. Please call Imaging Continuous Improvement Specialist [phone] ([phone]) with questions. INTERPRETING RADIOLOGIST: Gio Brooks MD Electronically Signed: Sep 24, 2019 06:05PM EST 09/24/19 18:41 CT findings discussed with the patient as above. Selected Entries 09/24/19 18:03 Temperature 97.8 F Pulse Rate [ 60 Left Radial] Respiratory 18 Rate Blood Pressure 154/52 L [Right Arm] O2 Sat by Pulse 98 Oximetry (%) I discussed the physical exam findings, ancillary test results and final diagnoses with the patient. I answered all of the patient's questions. The patient was satisfied with the care received and felt comfortable with the discharge plan and treatment plan. The Patient agrees to follow up with the primary care physician within 24-72 hours. Discharge - Discharge Information Problems reviewed: Yes Clinical Impression/Diagnosis: Constipation by delayed colonic transit Abdominal pain Qualifiers: Abdominal location: unspecified location Qualified Code(s): R10.9 - Unspecified abdominal pain Condition: Stable Disposition: HOME - Follow up/Referral Referrals: Deangelo Nassar MD [Primary Care Provider] - - Patient Discharge Instructions Patient Printed Discharge Instructions: DI for Abdominal Pain-Adult, DI for Constipation Additional Instructions: Your Discharge Instructions: You must call primary care physician within 24 hours to arrange follow-up. Return to the Emergency Department with any new, persistent or worsening symptoms, for fever, chills, SOB, dizziness or any other concerning changes that may occur. Increase fiber in the diet. - Post Discharge Activity
--- NOTE | 2019-09-25 13:33 | EKG ---
Test Reason : Blood Pressure : / mmHG Vent. Rate : 063 BPM Atrial Rate : 063 BPM P-R Int : 174 ms QRS Dur : 090 ms QT Int : 424 ms P-R-T Axes : 035 -10 032 degrees QTc Int : 433 ms NORMAL SINUS RHYTHM NORMAL ECG WHEN COMPARED WITH ECG OF 09-AUG-2019 21:32, NO SIGNIFICANT CHANGE WAS FOUND Confirmed by CHASTITY CHAN MD ([id number]) on 09/25/2019 1:33:32 PM Referred By: Confirmed By:CHASTITY CHAN MD
== END 2019-09-24 19:07 | disposition home or self-care (01) ==
LOC: JER 13:22
PROC: 3E033NZ Introduction of Analgesics, Hypnotics, Sedatives into Peripheral Vein, Percutaneous Approach (ICD-10-PCS; principal; 2019-09-24)
PROC: 3E033GC Introduction of Other Therapeutic Substance into Peripheral Vein, Percutaneous Approach (ICD-10-PCS; 2019-09-24)
DX: K59.01 Slow transit constipation (principal); I11.0 Hypertensive heart disease with heart failure; I50.9 Heart failure, unspecified; E11.9 Type 2 diabetes mellitus without complications; Z79.4 Long term (current) use of insulin; K21.9 Gastro-esophageal reflux disease without esophagitis; D64.9 Anemia, unspecified; Z87.442 Personal history of urinary calculi
CPT/HCPCS: 36415; 74176-TC; 80053; 81003; 82550; 83690; 83735; 83880; 84100; 84484; 85025; 87086; 93005; 93010; 99284-25

== ENCOUNTER 2019-10-04 05:53 | Inpatient (IN) | payer OTHER ==
--- NOTE | 2019-10-04 07:20 | PDOC ---
History of Present Illness - General Chief Complaint: Shortness of Breath Stated Complaint: S.O.B. Time Seen by Provider: 10/04/19 07:18 - History of Present Illness Initial Comments: HPI: 69yo F with PMH of CHF, DM, GERD, anemia, nephrolithiasis presenting with worsening shortness of breath and bilateral lower leg edema. Patient last saw her primary care physician about one week ago. Since her symptoms/signs improved , her lasix 40mg BID was reduced to once daily. Patient is on a fluid restricted diet and has been compliant with this. Cannot lay flat without feeling worsening shortness of breath. Denies chest pain. ROS: Constitutional: no fever, no chills HEENT: no throat pain, no dysphagia Cardiovascular: no chest pain, no palpitations Respiratory: no cough, +shortness of breath Gastrointestinal: no abdominal pain, no nausea Genitourinary: no dysuria, no hematuria Musculoskeletal: no myalgia, no arthralgia Skin: no rash, no itching Neurologic: no headache, no weakness PE: General: Awake, alert, and fully oriented, in no acute distress Head: No signs of trauma Eyes: EOMI, sclera anicteric ENT: Moist mucus membranes Neck: Normal ROM, supple Lungs: Diffuse crackles bilaterally, more prominent on the left Cardio: Regular rhythm, S1 and S2 present Abdomen: Soft, nontender Extremities: Normal range of motion, Distal pulses present, 4+ pitting edema in BLE SKIN: Warm, Dry, normal turgor Neurologic: Cranial nerves II through XII grossly intact. Normal speech ED Course/MDM: DDX including but not limited to ACS, PE, PNA, anemia, metabolic derangement Labs, EKG, CXR 10/04/19 07:20 EKG: rate 86, Qtc 426, NSR BP 171/66 Per daughter, patient took her morning hydralazine and amlodipine, but not the isosorbide CBC WBC 5.9 K/mm3 (4.0-10.0) 10/04/19 07:50 RBC 2.64 M/mm3 (3.60-5.2) L 10/04/19 07:50 Hgb 8.1 GM/dL (10.7-15.3) L 10/04/19 07:50 Hct 23.1 % (32.4-45.2) L 10/04/19 07:50 MCV 87.5 fl (80-96) 10/04/19 07:50 MCH 30.7 pg (25.7-33.7) 10/04/19 07:50 MCHC 35.1 g/dl (32.0-36.0) 10/04/19 07:50 RDW 12.1 % (11.6-15.6) 10/04/19 07:50 Plt Count 144 K/MM3 (134-434) 10/04/19 07:50 MPV 7.5 fl (7.5-11.1) 10/04/19 07:50 Absolute Neuts (auto) 4.7 K/mm3 (1.5-8.0) 10/04/19 07:50 Neutrophils % 79.3 % (42.8-82.8) D 10/04/19 07:50 Lymphocytes % 9.2 % (8-40) D 10/04/19 07:50 Monocytes % 7.6 % (3.8-10.2) 10/04/19 07:50 Eosinophils % 3.5 % (0-4.5) 10/04/19 07:50 Basophils % 0.4 % (0-2.0) 10/04/19 07:50 Nucleated RBC % 0 % (0-0) 10/04/19 07:50 No leukocytosis CMP Sodium 140 mmol/L (136-145) 10/04/19 07:50 Potassium 4.2 mmol/L (3.5-5.1) 10/04/19 07:50 Chloride 109 mmol/L (98-107) H 10/04/19 07:50 Carbon Dioxide 24 mmol/L (21-32) 10/04/19 07:50 Anion Gap 6 MMOL/L (8-16) L 10/04/19 07:50 BUN 64.5 mg/dL (7-18) H 10/04/19 07:50 Creatinine 2.6 mg/dL (0.55-1.3) H 10/04/19 07:50 Est GFR (CKD-EPI)AfAm 21.12 10/04/19 07:50 Est GFR (CKD-EPI)NonAf 18.22 10/04/19 07:50 Random Glucose 180 mg/dL (74-106) H 10/04/19 07:50 Calcium 8.2 mg/dL (8.5-10.1) L 10/04/19 07:50 Total Bilirubin 0.4 mg/dL (0.2-1) 10/04/19 07:50 AST 31 U/L (15-37) 10/04/19 07:50 ALT 36 U/L (13-61) 10/04/19 07:50 Alkaline Phosphatase 112 U/L (45-117) 10/04/19 07:50 Creatine Kinase 173 U/L (26-192) 10/04/19 07:50 Creatine Kinase Index 1.2 % (0.0-5.0) 10/04/19 07:50 CK-MB (CK-2) 2.1 ng/mL (0.5-3.6) 10/04/19 07:50 Troponin I < 0.02 ng/ml (0.00-0.05) 10/04/19 07:50 B-Natriuretic Peptide 4765.6 pg/ml (5-125) H 10/04/19 07:50 Total Protein 6.5 g/dl (6.4-8.2) 10/04/19 07:50 Albumin 3.2 g/dl (3.4-5.0) L 10/04/19 07:50 Electrolytes unremarkable Cr elevated BNP elevated 4765 (highest patient has ever been; increased from 1534 on 09/24) Tpn undetectable CXR as read by radiology: " EXAM#: TYPE/EXAM: RESULT: [id number] RAD/CHEST X-RAY PORTABLE* Chest: Shortness of breath Single view of the chest is been submitted. Since 08/14/2019 again noted are bilateral pleural effusions and there are central congestive changes. There may be some atelectasis at the bases. The mediastinum is prominent. The bones and soft tissues are intact. Correlation recommended. Reported By: Vidal Alvarado MD 10/23 08 " Lasix 40mg ordered Page sent to Dr. Dior 10/04/19 09:[address] Dior who accepted patient for admission 10/04/19 10:57 10/04/19 19:05 Past History - Past Medical History Allergies/Adverse Reactions: Allergies Allergy/AdvReac Type Severity Reaction Status Date / Time No Known Allergies Allergy Verified 09/24/19 13:27 Home Medications: Ambulatory Orders Aspirin [Aquilino Chewable Aspirin] 81 mg PO DAILY 07/26/19 Isosorbide Mononitrate [Imdur -] 30 mg PO DAILY 07/26/19 Docusate Sodium [Colace -] 100 mg PO TID #90 capsule 08/07/19 Ferrous Sulfate [Feosol] 325 mg PO DAILY #30 ud 08/07/19 Metoprolol Tartrate [Lopressor -] 25 mg PO BID #60 tablet 08/07/19 Pantoprazole Sodium [Protonix -] 20 mg PO DAILY #30 tablet.ec 08/07/19 hydrALAZINE HCL [Apresoline -] 75 mg PO TID #90 tablet 08/07/19 Amlodipine Besylate [Norvasc -] 10 mg PO DAILY tablet 08/21/19 Furosemide [Lasix -] 40 mg PO DAILY 10/04/19 Insulin Detemir [Levemir Flextouch] 16 unit SQ HS 10/04/19 Anemia: Yes COPD: No CHF: Yes Diabetes: Yes HTN: Yes - Surgical History Abdominal Surgery: Yes (HERNIA) Cholecystectomy: Yes - Psycho Social/Smoking Cessation Hx Smoking History: Never smoked Have you smoked in the past 12 months: No Hx Alcohol Use: No Drug/Substance Use Hx: No Substance Use Type: None Hx Substance Use Treatment: No *Physical Exam - Vital Signs Last Vital Signs Temp Pulse Resp BP Pulse Ox 98.2 F 75 25 H 198/73 H 100 10/04/19 06:15 10/04/19 06:15 10/04/19 06:15 10/04/19 06:15 10/04/19 06:15 ED Treatment Course - LABORATORY CBC & Chemistry Diagram: 10/04/19 07:50 10/04/19 07:50 Discharge - Discharge Information Problems reviewed: Yes Clinical Impression/Diagnosis: Acute on chronic diastolic (congestive) heart failure Condition: Guarded - Admission Yes - Follow up/Referral - Patient Discharge Instructions - Post Discharge Activity
[2019-10-04 08:18] LABS: BASO % 0.4 % (0-2.0); EOS % 3.5 % (0-4.5); HEMATOCRIT 23.1 % (32.4-45.2); HEMOGLOBIN 8.1 GM/dL (10.7-15.3); LYMPH % 9.2 % (8-40); MCH 30.7 pg (25.7-33.7); MCHC 35.1 g/dl (32.0-36.0); MEAN CELL VOLUME 87.5 fl (80-96); MEAN PLT VOLUME 7.5 fl (7.5-11.1); MONO % 7.6 % (3.8-10.2); NEUT % 79.3 % (42.8-82.8); PLATELET COUNT 144 K/MM3 (134-434); RBC 2.64 M/mm3 (3.60-5.2); RDW 12.1 % (11.6-15.6); WHITE BLOOD COUNT 5.9 K/mm3 (4.0-10.0)
[2019-10-04 08:50] LABS: ALBUMIN 3.2 g/dl (3.4-5.0); BILIRUBIN,TOTAL 0.4 mg/dL (0.2-1); BLOOD UREA NITROGEN 64.5 mg/dL (7-18); CALCIUM 8.2 mg/dL (8.5-10.1); CREATININE 2.6 mg/dL (0.55-1.3); N-TERMINAL BNP 4765.6 pg/ml (5-125); POTASSIUM 4.2 mmol/L (3.5-5.1); TOT PROT 6.5 g/dl (6.4-8.2)
[2019-10-04] MEDS ORDERED: FUROSEMIDE 40 MG/4 ML INJECTABLE VIAL IVPUSH ONE (08:50)
[2019-10-04] MEDS ORDERED: FUROSEMIDE 40 MG/4 ML INJECTABLE VIAL ONE (09:07)
[2019-10-04 09:16] LABS: EPI CELLS 2.5 /HPF (0-5/HPF); HYALINE CASTS 13 /lpf (0-8); URINE APPEARANCE CLEAR; URINE BILIRUBIN NEGATIVE (NEGATIVE); URINE COLOR YELLOW; URINE GLUCOSE (UA) 1+ (NEGATIVE); URINE KETONE NEGATIVE (NEGATIVE); URINE LEUK ESTERASE NEGATIVE (NEGATIVE); URINE NITRITE NEGATIVE (NEGATIVE); URINE PROTEIN 3+ (NEGATIVE); URINE UROBILINOGEN 0.2 mg/dL (0.2-1.0); URINE WBC 1 /hpf (0-5)
[2019-10-04 09:29] LABS: INR 0.94 (0.83-1.09); PROTHROMBIN TIME (PATIENT) 11.1 SEC (9.7-13.0)
--- NOTE | 2019-10-04 10:43 | PDOC ---
Documentation entered by Irene Hinton SCRIBE, acting as scribe for Farrah Womack MD. Farrah Womack MD: This documentation has been prepared by the jimenaibe, Irene Hinton SCRIBE, under my direction and personally reviewed by me in its entirety. I confirm that the documentation accurately reflects all work, treatment, procedures, and medical decision making performed by me. Attending Attestation - Resident Resident Name: January Melo - HPI HPI: 10/04/19 08:55 The patient is a 64-year-old female with a past medical history significant for CHF, DM, GERD, Kidney stones, and HTN who presents to the emergency department with 3 days of shortness of breath associated with lower extremity swelling. The patient reports her Lasix medication was recently changed from 40mg BID to once a day by PCP (Dr. Elli Nassar). The patient states she is compliant with her medication and fluid restricted diet. Denies fever, chills, chest pain. Allergies: NKA PCP: Dr. Elli Nassar. - Physicial Exam PE: 10/04/19 09:02 GENERAL: Awake, alert, and fully oriented, in no acute distress LUNGS: Speaking in complete sentences. Breath sounds equal, clear to auscultation bilaterally. HEART: Regular rate and rhythm, 2/6 systolic murmur. ABDOMEN: Soft, nontender. EXTREMITIES: +2+ pitting edema up to the knees bilaterally. - Medical Decision Making 10/04/19 10:41 pt presents to the ED complaining of a one week history of worsening LE swelling and a one day history of shortness of breath. Dose of lasix was recently decreased. Exam and lab work is consistent with CHF. Will treat with lasix and reassess.
[2019-10-04 14:16] VITALS: BMI 24.0
--- NOTE | 2019-10-04 15:29 | HP ---
Admitting History and Physical - Admission History of Present Illness: Pt is a 69 y/o female with PMH significant for CHF, HTN, DM, GERD, anemia, CKD, and nephrolithiasis. Pt presented to the ER with worsening shortness of breath and bilateral lower leg edema. Patient last saw her doctor about one week ago and since her symptoms/signs improved her lasix 40mg BID was reduced to once daily. Patient is on a fluid restricted diet and has been compliant with this. Cannot lay flat without feeling worsening shortness of breath. In the ER pt found to have an elevated BNP and CXR showed congestion. - Past Medical History Cardiovascular: Yes: CHF (diastolic ), HTN Renal/: Yes: Renal Inusuff ...: No Heme/Onc: Yes: Anemia Psych: Yes: Anxiety Endocrine: Yes: Diabetes Mellitus - Smoking History Smoking history: Never smoked Have you smoked in the past 12 months: No - Alcohol/Substance Use Hx Alcohol Use: No Home Medications - Allergies Allergies/Adverse Reactions: Allergies Allergy/AdvReac Type Severity Reaction Status Date / Time No Known Allergies Allergy Verified 09/24/19 13:27 - Home Medications Home Medications: Ambulatory Orders Aspirin [Aquilino Chewable Aspirin] 81 mg PO DAILY 07/26/19 Isosorbide Mononitrate [Imdur -] 30 mg PO DAILY 07/26/19 Docusate Sodium [Colace -] 100 mg PO TID #90 capsule 08/07/19 Ferrous Sulfate [Feosol] 325 mg PO DAILY #30 ud 08/07/19 Metoprolol Tartrate [Lopressor -] 25 mg PO BID #60 tablet 08/07/19 Pantoprazole Sodium [Protonix -] 20 mg PO DAILY #30 tablet.ec 08/07/19 hydrALAZINE HCL [Apresoline -] 75 mg PO TID #90 tablet 08/07/19 Amlodipine Besylate [Norvasc -] 10 mg PO DAILY tablet 08/21/19 Furosemide [Lasix -] 40 mg PO DAILY 10/04/19 Insulin Detemir [Levemir Flextouch] 16 unit SQ HS 10/04/19 Family Medical History Family History: Unremarkable Review of Systems - Review of Systems Eyes: reports: No Symptoms HENT: reports: No Symptoms Neck: reports: No Symptoms Cardiovascular: reports: Shortness of Breath Respiratory: reports: SOB Gastrointestinal: reports: No Symptoms Genitourinary: reports: No Symptoms Physical Examination Vital Signs: Vital Signs Temperature 98.4 F 10/04/19 14:08 Pulse Rate 83 10/04/19 14:08 Respiratory Rate 10/04/19 14:08 Blood Pressure 159/77 10/04/19 14:08 O2 Sat by Pulse Oximetry (%) 100 10/04/19 14:22 Constitutional: Yes: No Distress Eyes: Yes: WNL HENT: Yes: WNL Neck: Yes: WNL, Supple Cardiovascular: Yes: WNL, Regular Rate and Rhythm Respiratory: Yes: Rales Gastrointestinal: Yes: WNL, Normal Bowel Sounds, Soft Edema: Yes Edema: LLE: 1+, RLE: 1+ Neurological: Yes: WNL, Alert ...Motor Strength: WNL Labs: CBC, BMP 10/04/19 07:50 10/04/19 07:50 Problem List - Problems (1) Acute on chronic diastolic (congestive) heart failure Assessment/Plan: IV lasix Cont metoprolol Monitor electrolytes Cardio consult BNP >4000 Code(s): I50.33 - ACUTE ON CHRONIC DIASTOLIC (CONGESTIVE) HEART FAILURE (2) Acute on chronic renal failure Assessment/Plan: Renal consult Code(s): N17.9 - ACUTE KIDNEY FAILURE, UNSPECIFIED; N18.9 - CHRONIC KIDNEY DISEASE, UNSPECIFIED (3) Anemia Assessment/Plan: Repeat CBC in am May need transfusion Due to CKD Code(s): D64.9 - ANEMIA, UNSPECIFIED Qualifiers: Anemia type: unspecified type Qualified Code(s): D64.9 - Anemia, unspecified (4) Diabetes Assessment/Plan: Cont levemir Cont sliding scale w/ coverage Code(s): E11.9 - TYPE 2 DIABETES MELLITUS WITHOUT COMPLICATIONS (5) HTN (hypertension) Assessment/Plan: BP stable Cont metoprolol/imdur/hydralazine/norvasc Code(s): I10 - ESSENTIAL (PRIMARY) HYPERTENSION
[2019-10-04] MEDS: INSULIN SLIDING SCALE (NOVOLOG) 1 VIAL SQ SCH ×2 (17:07→21:42)
--- NOTE | 2019-10-04 17:33 | EKG ---
Test Reason : Blood Pressure : / mmHG Vent. Rate : 086 BPM Atrial Rate : 086 BPM P-R Int : 138 ms QRS Dur : 078 ms QT Int : 356 ms P-R-T Axes : 054 -10 034 degrees QTc Int : 426 ms NORMAL SINUS RHYTHM NORMAL ECG WHEN COMPARED WITH ECG OF 24-SEP-2019 14:11, NO SIGNIFICANT CHANGE WAS FOUND BASELINE ARTIFACT Confirmed by SHAKIR GARRISON, YUNG ([id number]) on 10/04/2019 5:32:51 PM Referred By: Confirmed By:YUNG SCHILLING MD
[2019-10-04] MEDS ORDERED: INSULIN (NOVOLOG) ASPART 100 UNITS/ML 10ML VIAL ONE (21:24)
[2019-10-04] MEDS: INSULIN (LEVEMIR) 100 UNITS/ML UNITS SQ SCH (21:40)
[2019-10-04] MEDS: DOCUSATE SODIUM 100 MG CAPSULE (FP) PO SCH (21:40)
[2019-10-04] MEDS: hydrALAZINE HCL 25 MG TABLET (FP) PO SCH (21:40)
[2019-10-04] MEDS: HEPARIN NA (PORCINE) 5,000 UNITS/ML 1ML VIAL SQ SCH (21:40)
[2019-10-04] MEDS: METOPROLOL TARTRATE 25 MG TABLET (FP) PO SCH (21:40)
[2019-10-05] MEDS: hydrALAZINE HCL 25 MG TABLET (FP) PO SCH ×3 (06:11→22:02)
[2019-10-05] MEDS: DOCUSATE SODIUM 100 MG CAPSULE (FP) PO SCH ×3 (06:12→22:02)
[2019-10-05] MEDS: INSULIN SLIDING SCALE (NOVOLOG) 1 VIAL SQ SCH ×4 (06:12→22:02)
[2019-10-05 07:47] LABS: BASO % 0.3 % (0-2.0); EOS % 0.4 % (0-4.5); HEMATOCRIT 20.1 % (32.4-45.2); LYMPH % 9.3 % (8-40); MCH 30.6 pg (25.7-33.7); MCHC 34.9 g/dl (32.0-36.0); MEAN CELL VOLUME 87.7 fl (80-96); MEAN PLT VOLUME 7.5 fl (7.5-11.1); MONO % 8.2 % (3.8-10.2); NEUT % 81.8 % (42.8-82.8); PLATELET COUNT 131 K/MM3 (134-434); RBC 2.29 M/mm3 (3.60-5.2); RDW 12.1 % (11.6-15.6); WHITE BLOOD COUNT 4.4 K/mm3 (4.0-10.0)
[2019-10-05 08:30] LABS: ALBUMIN 2.7 g/dl (3.4-5.0); BILIRUBIN,TOTAL 0.4 mg/dL (0.2-1); BLOOD UREA NITROGEN 65.6 mg/dL (7-18); CALCIUM 8.2 mg/dL (8.5-10.1); CREATININE 2.5 mg/dL (0.55-1.3); POTASSIUM 4.5 mmol/L (3.5-5.1); TOT PROT 5.4 g/dl (6.4-8.2)
[2019-10-05] MEDS: FERROUS SO4 325 MG TABLET (FP) PO SCH (10:55)
[2019-10-05] MEDS: METOPROLOL TARTRATE 25 MG TABLET (FP) PO SCH ×2 (10:55→22:02)
[2019-10-05] MEDS: ISOSORBIDE MONONITRATE 30 MG TAB.SR.24H (FP) PO SCH (10:55)
[2019-10-05] MEDS: amLODIPine BESYLATE 10 MG TABLET (FP) PO SCH (10:55)
[2019-10-05] MEDS: FUROSEMIDE 40 MG/4 ML INJECTABLE VIAL IVPUSH SCH (10:55)
[2019-10-05] MEDS: ASPIRIN 81 MG CHEWABLE TABLETS PO SCH (10:55)
[2019-10-05] MEDS: HEPARIN NA (PORCINE) 5,000 UNITS/ML 1ML VIAL SQ SCH ×2 (10:55→22:02)
[2019-10-05] MEDS: PANTOPRAZOLE 20 MG TABLET (FP) PO SCH (10:55)
[2019-10-05] MEDS ORDERED: INSULIN (NOVOLOG) ASPART 100 UNITS/ML 10ML VIAL ONE ×3 (11:18→21:18)
--- NOTE | 2019-10-05 12:57 | ECHO ---
Name: INES DAVE Exam:Adult Echocardiogram Study Date: 10/05/2019 09:56 AM Age: 69 yrs Height: 59 in Weight: 119 lb BSA: 1.5 m2 MMode/2D Measurements & Calculations IVSd: 0.95 cm Ao root diam: 2.3 cm LVIDd: 4.2 cm LA dimension: 3.7 cm LVIDs: 2.7 cm LVPWd: 1.2 cm LVPWs: 1.1 cm EDV(Teich): 76.8 ml ESV(Teich): 26.7 ml LVOT diam: 1.7 cm LAV (MOD-bp): 53.0 ml RV S Derrick: 11.2 cm/sec Doppler Measurements & Calculations MV E max derrick: 114.0 cm/sec Ao V2 max: 165.7 cm/sec MV A max derrick: 91.2 cm/sec Ao max P.0 mmHg MV E/A: 1.2 MANUEL(V,D): 1.4 cm2 MV dec time: 0.21 sec LV V1 max P.4 mmHg MR max derrick: 497.2 cm/sec LV V1 max: 104.7 cm/sec MR max P.9 mmHg TR max derrick: 322.0 cm/sec PA V2 max: 150.5 cm/sec TR max P.5 mmHg PA max P.1 mmHg Med Peak E' Derrick: 7.7 cm/sec Med E/e': 14.8 Lat Peak E' Derrick: 6.5 cm/sec Lat E/e': 17.5 Procedure A complete two-dimensional transthoracic echocardiogram was performed (2D, M-mode, Doppler and color flow Doppler). Left Ventricle The left ventricular size, thickness and function are normal. The left ventricular ejection fraction is normal. Ejection Fraction = 60-65%. The left ventricular wall motion is normal. Right Ventricle The right ventricle is normal in size and function. Atria The left atrium is mildly dilated. Right atrial size is normal. Mitral Valve There is mild to moderate mitral regurgitation. Tricuspid Valve There is trace tricuspid regurgitation. There was insufficient TR detected to calculate RV systolic p ressure. Aortic Valve No hemodynamically significant valvular aortic stenosis. No aortic regurgitation is present. Pulmonic Valve There is no pulmonic valvular regurgitation. Great Vessels The aortic root is normal size. Pericardium/Pleura There is no pericardial effusion. Interpretation Summary The left ventricular size, thickness and function are normal The right ventricle is normal in size and function. The left atrium is mildly dilated. There is mild to moderate mitral regurgitation. There is trace tricuspid regurgitation. MD Edwin Man 10/05/2019 12:56 PM
[2019-10-05] MEDS ORDERED: FUROSEMIDE 40 MG/4 ML INJECTABLE VIAL IVPUSH ONE (16:50)
--- NOTE | 2019-10-05 16:50 | CONSULT ---
Consult Consult Specialty:: Nephrology Reason for Consultation:: CKD - History of Present Illness Chief Complaint: shortness of breath and edema History of Present Illness: Pt is a 64 year old female with pmhx of ckd, diabetic glomerulosclerosis, dm, chf, gerd, and htn who presents with shortness of breath and edema. She was on lasix 40 mg po bid which was decreased to 40 mg daily as outpt. She started to develop edema afterwards. She denies chest pain. She feels better now after getting lasix. She feels that edema has improved. She has not followed with me in the office after her last admission. She denies dysuria or hematuria. - Past Medical History Cardio/Vascular: Yes: CHF (diastolic ), HTN Renal/: Yes: Renal Inusuff ...: No Psych: Yes: Anxiety Endocrine: Yes: Diabetes Mellitus - Alcohol/Substance Use Hx Alcohol Use: No - Smoking History Smoking history: Never smoked Have you smoked in the past 12 months: No Home Medications - Allergies Allergies/Adverse Reactions: Allergies Allergy/AdvReac Type Severity Reaction Status Date / Time No Known Allergies Allergy Verified 09/24/19 13:27 - Home Medications Home Medications: Ambulatory Orders Aspirin [Aquilino Chewable Aspirin] 81 mg PO DAILY 07/26/19 Isosorbide Mononitrate [Imdur -] 30 mg PO DAILY 07/26/19 Docusate Sodium [Colace -] 100 mg PO TID #90 capsule 08/07/19 Ferrous Sulfate [Feosol] 325 mg PO DAILY #30 ud 08/07/19 Metoprolol Tartrate [Lopressor -] 25 mg PO BID #60 tablet 08/07/19 Pantoprazole Sodium [Protonix -] 20 mg PO DAILY #30 tablet.ec 08/07/19 hydrALAZINE HCL [Apresoline -] 75 mg PO TID #90 tablet 08/07/19 Amlodipine Besylate [Norvasc -] 10 mg PO DAILY tablet 08/21/19 Furosemide [Lasix -] 40 mg PO DAILY 10/04/19 Insulin Detemir [Levemir Flextouch] 16 unit SQ HS 10/04/19 Family Medical History Family History: Denies Review of Systems - Review of Systems Constitutional: reports: Malaise Eyes: reports: No Symptoms HENT: reports: No Symptoms Cardiovascular: reports: Edema, Shortness of Breath Respiratory: reports: SOB, SOB on Exertion Gastrointestinal: reports: No Symptoms Genitourinary: reports: No Symptoms Musculoskeletal: reports: No Symptoms Integumentary: reports: No Symptoms Neurological: reports: No Symptoms Endocrine: reports: No Symptoms Hematology/Lymphatic: reports: No Symptoms Psychiatric: reports: No Symptoms Physical Exam Vital Signs: Vital Signs Temperature 97.7 F 10/05/19 13:11 Pulse Rate 64 10/05/19 13:11 Respiratory Rate 20 10/05/19 13:11 Blood Pressure 126/56 L 10/05/19 13:11 O2 Sat by Pulse Oximetry (%) 100 10/05/19 10:00 Constitutional: Yes: Calm Eyes: Yes: Conjunctiva Clear HENT: Yes: Atraumatic Neck: Yes: Supple Cardiovascular: Yes: S1, S2 Respiratory: Yes: CTA Bilaterally Gastrointestinal: Yes: Normal Bowel Sounds, Soft Renal/: Yes: WNL Extremities: Yes: WNL Edema: No Neurological: Yes: Oriented Psychiatric: Yes: Oriented Labs: CBC, BMP 10/05/19 07:05 10/05/19 07:05 Imaging - Results Chest X-ray: Report Reviewed Problem List - Problems (1) Acute on chronic diastolic (congestive) heart failure Code(s): I50.33 - ACUTE ON CHRONIC DIASTOLIC (CONGESTIVE) HEART FAILURE (2) ARF (acute renal failure) Code(s): N17.9 - ACUTE KIDNEY FAILURE, UNSPECIFIED (3) Abdominal pain Code(s): R10.9 - UNSPECIFIED ABDOMINAL PAIN Qualifiers: Abdominal location: unspecified location Qualified Code(s): R10.9 - Unspecified abdominal pain (4) Acute renal insufficiency Code(s): N28.9 - DISORDER OF KIDNEY AND URETER, UNSPECIFIED Assessment/Plan Current Medications Generic Name Dose Route Start Last Admin Trade Name Freq PRN Reason Stop Dose Admin Amlodipine Besylate 10 mg 10/05/19 10:00 10/05/19 10:55 Norvasc - PO 10 mg DAILY ECHO Administration Aspirin 81 mg 10/05/19 10:00 10/05/19 10:55 Asa - PO 81 mg DAILY ECHO Administration Docusate Sodium 100 mg 10/04/19 22:00 10/05/19 13:33 Colace - PO 100 mg TID ECHO Administration Ferrous Sulfate 325 mg 10/05/19 10:00 10/05/19 10:55 Feosol - PO 325 mg DAILY ECHO Administration Furosemide 40 mg 10/05/19 10:00 10/05/19 10:55 Lasix Injection - IVPUSH 40 mg DAILY ECHO Administration Heparin Sodium (Porcine) 5,000 unit 10/04/19 22:00 10/05/19 10:55 Heparin - SQ 5,000 unit BID ECHO Administration Hydralazine HCl 75 mg 10/04/19 22:00 10/05/19 13:33 Apresoline - PO 75 mg TID ECHO Administration Insulin Aspart 1 vial 10/04/19 16:30 10/05/19 11:50 Novolog Vial Sliding Scale - SQ 4 units ACHS ECHO Administration Protocol Insulin Detemir 16 units 10/04/19 22:00 10/04/19 21:40 Levemir Vial SQ 16 units HS ECHO Administration Isosorbide Mononitrate 30 mg 10/05/19 10:00 10/05/19 10:55 Imdur - PO 30 mg DAILY ECHO Administration Metoprolol Tartrate 25 mg 10/04/19 22:00 10/05/19 10:55 Lopressor - PO 25 mg BID ECHO Administration Pantoprazole Sodium 20 mg 10/05/19 10:00 10/05/19 10:55 Protonix - PO 20 mg DAILY [facility] Administration Impression 1. CKD 2. HTN 3. DM 4. bilateral hydro 5. anemia 6. CHF 7. fluid overload 8. proteinuria Plan - cont lasix - will give another dose - repeat cxr in am - check iron studies and stool for occult blood - anemia workup
--- NOTE | 2019-10-05 18:46 | CON.CARD ---
Consult Consult Specialty:: cardiology Reason for Consultation:: SOB; hx CHF - History of Present Illness Chief Complaint: Pt A&Ox3; no chest pain, dyspnea, palpitations. History of Present Illness: The patient is a 64-year-old female with a past medical history significant for diastolic CHF, DM, GERD, Kidney stones, anemia, renal dysfunction, and HTN, who presents to the emergency department with 3 days of shortness of breath associated with lower extremity swelling. The patient reports her Lasix medication was recently changed from 40mg BID to once a day by PCP. The patient states she is compliant with her medications and fluid restricted diet. Denies fever, chills, chest pain. Allergies: NKA PCP: Dr. Elli Nassar. Marine Painter: Dr. Trini Torres - History Source History Provided By: Patient, Family Member (daughter), Medical Record - Past Medical History Cardio/Vascular: Yes: CHF (diastolic ), HTN Renal/: Yes: Renal Inusuff Reproductive: Yes: Postmenopausal ...: No Heme/Onc: Yes: Anemia Psych: Yes: Anxiety Endocrine: Yes: Diabetes Mellitus - Alcohol/Substance Use Hx Alcohol Use: No - Smoking History Smoking history: Never smoked Have you smoked in the past 12 months: No Home Medications - Allergies Allergies/Adverse Reactions: Allergies Allergy/AdvReac Type Severity Reaction Status Date / Time No Known Allergies Allergy Verified 09/24/19 13:27 - Home Medications Home Medications: Ambulatory Orders Aspirin [Aquilino Chewable Aspirin] 81 mg PO DAILY 07/26/19 Isosorbide Mononitrate [Imdur -] 30 mg PO DAILY 07/26/19 Docusate Sodium [Colace -] 100 mg PO TID #90 capsule 08/07/19 Ferrous Sulfate [Feosol] 325 mg PO DAILY #30 ud 08/07/19 Metoprolol Tartrate [Lopressor -] 25 mg PO BID #60 tablet 08/07/19 Pantoprazole Sodium [Protonix -] 20 mg PO DAILY #30 tablet.ec 08/07/19 hydrALAZINE HCL [Apresoline -] 75 mg PO TID #90 tablet 08/07/19 Amlodipine Besylate [Norvasc -] 10 mg PO DAILY tablet 08/21/19 Furosemide [Lasix -] 40 mg PO DAILY 10/04/19 Insulin Detemir [Levemir Flextouch] 16 unit SQ 10/04/19 Family Medical History Family History: Denies Review of Systems - Review of Systems Constitutional: reports: Weakness Eyes: reports: No Symptoms HENT: reports: No Symptoms Neck: reports: No Symptoms Cardiovascular: reports: No Symptoms Respiratory: reports: SOB on Exertion Gastrointestinal: reports: No Symptoms Genitourinary: reports: No Symptoms Breasts: reports: No Symptoms Reported Musculoskeletal: reports: Muscle Weakness Integumentary: reports: No Symptoms Neurological: reports: Weakness Endocrine: reports: No Symptoms Hematology/Lymphatic: reports: No Symptoms Psychiatric: reports: No Symptoms - Risk Factors Known Risk Factors: Yes: Age, Hypertension, Physical Inactivity, Other Vital Signs: Vital Signs Temperature 97.7 F 10/05/19 13:11 Pulse Rate 64 10/05/19 13:11 Respiratory Rate 20 10/05/19 13:11 Blood Pressure 126/56 L 10/05/19 13:11 O2 Sat by Pulse Oximetry (%) 100 10/05/19 10:00 Constitutional: Yes: Calm Eyes: Yes: WNL HENT: Yes: WNL Neck: Yes: WNL Respiratory: Yes: Diminished Gastrointestinal: Yes: WNL Renal/: Yes: WNL Cardiovascular: Yes: WNL JVD: No Carotid Bruit: No PMI: Non-Displaced Heart Sounds: Yes: S1, S2 Murmur: Yes: Systolic Murmur, Grade 1 Musculoskeletal: Yes: Muscle Weakness Extremities: Yes: Cool Edema: Yes Edema: LLE: Trace, RLE: Trace Peripheral Pulses WNL: Yes Integumentary: Yes: WNL Neurological: Yes: Alert, Oriented, Weakness Psychiatric: Yes: Alert, Oriented - Other Data Labs, Other Data: CBC, BMP 10/05/19 07:05 10/05/19 07:05 INR, PTT INR 0.94 (0.83-1.09) 10/04/19 07:50 Troponin, BNP 10/04/19 10/05/19 18:30 16:00 Troponin I 0.02 < 0.02 Troponin, BNP 10/04/19 10/05/19 18:30 16:00 Troponin I 0.02 < 0.02 Abnormal Lab Results 10/06/19 10/06/19 10/06/19 06:30 06:30 15:30 RBC 2.30 L Hgb 7.1 L Hct 20.0 L MPV Monocytes % 10.3 H Eosinophils % 7.1 H D Chloride 110 H Anion Gap 7 L BUN 66.5 H Creatinine 2.4 H Random Glucose 66 L Iron 191 H TIBC 197 L Iron Saturation 96 H Unsaturated IBC 6 L Ferritin 409.9 H Total Protein 5.7 L Albumin 2.7 L Crossmatch See Detail 10/06/19 23:20 RBC 2.89 L Hgb 8.7 L Hct 25.6 L D MPV 7.4 L Monocytes % Eosinophils % 7.0 H Chloride Anion Gap BUN Creatinine Random Glucose Iron TIBC Iron Saturation Unsaturated IBC Ferritin Total Protein Albumin Crossmatch Echo: Report Reviewed Ejection Fraction %: LVEF > or = 40 % Imaging - Results Chest X-ray: Image Reviewed EKG: Image Reviewed Problem List - Problems (1) Acute on chronic diastolic (congestive) heart failure Assessment/Plan: On metoprolol, hydralazine + Imdur, amlodipine furosemide. F/u BUN/Cr, electrolytes, daily weight, Is and Os. Code(s): I50.33 - ACUTE ON CHRONIC DIASTOLIC (CONGESTIVE) HEART FAILURE (2) Acute on chronic renal failure Assessment/Plan: f/u with glue maker bone. Code(s): N17.9 - ACUTE KIDNEY FAILURE, UNSPECIFIED; N18.9 - CHRONIC KIDNEY DISEASE, UNSPECIFIED (3) Abdominal pain Code(s): R10.9 - UNSPECIFIED ABDOMINAL PAIN Qualifiers: Abdominal location: unspecified location Qualified Code(s): R10.9 - Unspecified abdominal pain (4) Anemia Assessment/Plan: for PRBCs; f/u with fitness assistant. Code(s): D64.9 - ANEMIA, UNSPECIFIED Qualifiers: Anemia type: unspecified type Qualified Code(s): D64.9 - Anemia, unspecified (5) Diabetes Code(s): E11.9 - TYPE 2 DIABETES MELLITUS WITHOUT COMPLICATIONS (6) HTN (hypertension) Code(s): I10 - ESSENTIAL (PRIMARY) HYPERTENSION
[2019-10-05] MEDS ORDERED: IRON SUCROSE INJECTION 100 MG in SODIUM CHLORIDE 95 ML IVPB ONE (19:11)
[2019-10-05] MEDS: INSULIN (LEVEMIR) 100 UNITS/ML UNITS SQ SCH (22:02)
--- NOTE | 2019-10-05 22:44 | PN ---
Progress Note, Physician History of Present Illness: No new complaints - Current Medication List Current Medications: Active Medications Amlodipine Besylate (Norvasc -) 10 mg PO DAILY [facility] Last Admin: 10/05/19 10:55 Dose: 10 mg Aspirin (Asa -) 81 mg PO DAILY [facility] Last Admin: 10/05/19 10:55 Dose: 81 mg Docusate Sodium (Colace -) 100 mg PO TID [facility] Last Admin: 10/05/19 22:02 Dose: 100 mg Ferrous Sulfate (Feosol -) 325 mg PO DAILY [facility] Last Admin: 10/05/19 10:55 Dose: 325 mg Furosemide (Lasix Injection -) 40 mg IVPUSH DAILY [facility] Last Admin: 10/05/19 10:55 Dose: 40 mg Heparin Sodium (Porcine) (Heparin -) 5,000 unit SQ BID [facility] Last Admin: 10/05/19 22:02 Dose: 5,000 unit Hydralazine HCl (Apresoline -) 75 mg PO TID [facility] Last Admin: 10/05/19 22:02 Dose: 75 mg Insulin Aspart (Novolog Vial Sliding Scale -) 1 vial SQ [facility]; Protocol Last Admin: 10/05/19 22:02 Dose: 2 units Insulin Detemir (Levemir Vial) 16 units SQ HS [facility] Last Admin: 10/05/19 22:02 Dose: 16 units Isosorbide Mononitrate (Imdur -) 30 mg PO DAILY [facility] Last Admin: 10/05/19 10:55 Dose: 30 mg Metoprolol Tartrate (Lopressor -) 25 mg PO BID [facility] Last Admin: 10/05/19 22:02 Dose: 25 mg Pantoprazole Sodium (Protonix -) 20 mg PO DAILY [facility] Last Admin: 10/05/19 10:55 Dose: 20 mg - Objective Vital Signs: Vital Signs Temperature 97.7 F 10/05/19 13:11 Pulse Rate 64 10/05/19 13:11 Respiratory Rate 20 10/05/19 13:11 Blood Pressure 126/56 L 10/05/19 13:11 O2 Sat by Pulse Oximetry (%) 100 10/05/19 10:00 Neck: Yes: WNL, Supple Cardiovascular: Yes: WNL, Regular Rate and Rhythm Respiratory: Yes: Diminished Gastrointestinal: Yes: WNL, Normal Bowel Sounds, Soft Edema: LLE: Trace, RLE: Trace Labs: CBC, BMP 01/02/20 07:05 10/05/19 07:05 INR, PTT INR 0.94 (0.83-1.09) 10/04/19 07:50 Problem List - Problems (1) Acute on chronic diastolic (congestive) heart failure Assessment/Plan: IV lasix Pt given extra dose of IV lasix today Cont metoprolol Monitor electrolytes Code(s): I50.33 - ACUTE ON CHRONIC DIASTOLIC (CONGESTIVE) HEART FAILURE (2) Acute on chronic renal failure Assessment/Plan: Renal consult Code(s): N17.9 - ACUTE KIDNEY FAILURE, UNSPECIFIED; N18.9 - CHRONIC KIDNEY DISEASE, UNSPECIFIED (3) Anemia Assessment/Plan: Will give dose of IV venofer Repeat H/H in am and if still no improvement May need transfusion Due to CKD Code(s): D64.9 - ANEMIA, UNSPECIFIED Qualifiers: Anemia type: unspecified type Qualified Code(s): D64.9 - Anemia, unspecified (4) Diabetes Assessment/Plan: Cont levemir Cont sliding scale w/ coverage Code(s): E11.9 - TYPE 2 DIABETES MELLITUS WITHOUT COMPLICATIONS (5) HTN (hypertension) Assessment/Plan: BP stable Cont metoprolol/imdur/hydralazine/norvasc Code(s): I10 - ESSENTIAL (PRIMARY) HYPERTENSION
[2019-10-06] MEDS: hydrALAZINE HCL 25 MG TABLET (FP) PO SCH ×3 (06:23→21:30)
[2019-10-06] MEDS: INSULIN SLIDING SCALE (NOVOLOG) 1 VIAL SQ SCH ×4 (06:24→21:39)
[2019-10-06] MEDS: DOCUSATE SODIUM 100 MG CAPSULE (FP) PO SCH ×3 (06:24→21:30)
[2019-10-06 08:05] LABS: BASO % 0.6 % (0-2.0); EOS % 7.1 % (0-4.5); HEMOGLOBIN 7.1 GM/dL (10.7-15.3); LYMPH % 25.8 % (8-40); MCH 30.8 pg (25.7-33.7); MCHC 35.2 g/dl (32.0-36.0); MEAN CELL VOLUME 87.3 fl (80-96); MEAN PLT VOLUME 7.7 fl (7.5-11.1); MONO % 10.3 % (3.8-10.2); NEUT % 56.2 % (42.8-82.8); PLATELET COUNT 142 K/MM3 (134-434); RDW 12.1 % (11.6-15.6)
[2019-10-06 08:30] LABS: ALBUMIN 2.7 g/dl (3.4-5.0); BILIRUBIN,TOTAL 0.4 mg/dL (0.2-1); BLOOD UREA NITROGEN 66.5 mg/dL (7-18); CALCIUM 8.5 mg/dL (8.5-10.1); CREATININE 2.4 mg/dL (0.55-1.3); POTASSIUM 4.6 mmol/L (3.5-5.1); TOT PROT 5.7 g/dl (6.4-8.2)
[2019-10-06] MEDS: amLODIPine BESYLATE 10 MG TABLET (FP) PO SCH (09:06)
[2019-10-06] MEDS: ASPIRIN 81 MG CHEWABLE TABLETS PO SCH (09:06)
[2019-10-06] MEDS: METOPROLOL TARTRATE 25 MG TABLET (FP) PO SCH ×2 (09:07→21:30)
[2019-10-06] MEDS: FUROSEMIDE 40 MG/4 ML INJECTABLE VIAL IVPUSH SCH (09:07)
[2019-10-06] MEDS: HEPARIN NA (PORCINE) 5,000 UNITS/ML 1ML VIAL SQ SCH ×2 (09:07→21:30)
[2019-10-06] MEDS: PANTOPRAZOLE 20 MG TABLET (FP) PO SCH (09:07)
[2019-10-06] MEDS: FERROUS SO4 325 MG TABLET (FP) PO SCH (09:07)
[2019-10-06] MEDS: ISOSORBIDE MONONITRATE 30 MG TAB.SR.24H (FP) PO SCH (09:07)
[2019-10-06] MEDS ORDERED: FUROSEMIDE 40 MG/4 ML INJECTABLE VIAL IVPUSH SCH ×2 (10:53→16:47)
--- NOTE | 2019-10-06 11:51 | CONSULT ---
Consultation: REQUESTING PROVIDER:Dr Natanael Sin CONSULT REQUEST: We have been asked to medically evaluate this patient for ( anemia ). HISTORY OF PRESENT ILLNESS: Pt is a 69 y/o female with PMH significant for CHF, HTN, DM, GERD, anemia, CKD, and nephrolithiasis. Pt presented to the ER with worsening shortness of breath and bilateral lower leg edema. Patient last saw her doctor about one week ago and since her symptoms/signs improved her lasix 40mg BID was reduced to once daily. Patient is on a fluid restricted diet and has been compliant with this. Cannot lay flat without feeling worsening shortness of breath. In the ER pt found to have an elevated BNP and CXR showed congestion. were consulted for anemia Hgb 7.1 today reports 15 pound weight loss due to duretics denies any loss of appetite, blood in the stool, or in urine, denies any chest pain , sob, palpitation , dizziness, lightheadedness. she reports constipation and some dark stool (on iron ) PMHx:chf, ckd, Dm, HTN PSHx:hysterectomy, chloecystectomy, hernia repair Allergis :NKDA Shx:denies smoking alcohol or drugs use live with her son , REVIEW OF SYSTEMS: CONSTITUTIONAL: Absent: fever, chills, diaphoresis, generalized weakness, malaise, loss of appetite, weight change lost 15 pound due to diuretics HEENT: Absent: rhinorrhea, nasal congestion, throat pain, throat swelling, difficulty swallowing, mouth swelling, ear pain, eye pain, visual changes CARDIOVASCULAR: Absent: chest pain, syncope, palpitations, irregular heart rate, lightheadedness , peripheral edema RESPIRATORY: Absent: cough, shortness of breath, dyspnea with exertion, orthopnea, wheezing, stridor, hemoptysis GASTROINTESTINAL: Absent: abdominal pain, abdominal distension, nausea, vomiting, diarrhea, constipation, melena, hematochezia GENITOURINARY: Absent: dysuria, frequency, urgency, hesitancy, hematuria, flank pain, genital pain MUSCULOSKELETAL: Absent: myalgia, arthralgia, joint swelling, back pain, neck pain SKIN: Absent: rash, itching, pallor HEMATOLOGIC/IMMUNOLOGIC: Absent: easy bleeding, easy bruising, lymphadenopathy, frequent infections ENDOCRINE: Absent: unexplained weight gain, unexplained weight loss, heat intolerance, cold intolerance NEUROLOGIC: Absent: headache, focal weakness or paresthesias, dizziness, unsteady gait, seizure, mental status changes, bladder or bowel incontinence PSYCHIATRIC: Absent: anxiety, depression, suicidal or homicidal ideation, hallucinations. PHYSICAL EXAMINATION Vital Signs - 24 hr 10/05/19 10/05/19 10/05/19 13:11 21:00 22:00 Temperature 97.7 F 98.7 F Pulse Rate 64 72 Respiratory 20 20 Rate Blood Pressure 126/56 L 138/74 O2 Sat by Pulse 98 98 Oximetry (%) 10/06/19 10/06/19 10/06/19 05:42 09:00 10:00 Temperature 98.5 F 98.2 F Pulse Rate 64 69 Respiratory 20 20 20 Rate Blood Pressure 118/48 L 155/63 O2 Sat by Pulse 96 96 Oximetry (%) GENERAL: Awake, alert, and fully oriented, in no acute distress.pallor HEAD: Normal with no signs of trauma. EYES: Pupils equal, round and reactive to light, extraocular movements intact, pallor conjuctiva EARS, NOSE, THROAT: Ears normal, nares patent, oropharynx clear without exudates. Moist mucous membranes.no thrush or mucositis NECK:, supple without lymphadenopathy, nodes : no luph nodes enlargment appreciated breast exam with no palpated masses LUNGS: decrease breath sounds at the bases HEART: Regular rate and rhythm, normal S1 and S2 without murmur, rub or gallop. ABDOMEN: Soft, nontender, not distended, normoactive bowel sounds, no guarding, LOWER EXTREMITIES: 2+ pulses, warm, well-perfused. No calf tenderness. No peripheral edema. NEUROLOGICAL: no focal deficit . Normal speech. PSYCHIATRIC: Cooperative. Good eye contact. SKIN: Warm, dry, Laboratory Results - last 24 hr 10/05/19 10/05/19 10/05/19 16:00 16:26 22:00 WBC RBC Hgb Hct MCV MCH MCHC RDW Plt Count MPV Absolute Neuts (auto) Neutrophils % Lymphocytes % Monocytes % Eosinophils % Basophils % Nucleated RBC % Sodium Potassium Chloride Carbon Dioxide Anion Gap BUN Creatinine Est GFR (CKD-EPI)AfAm Est GFR (CKD-EPI)NonAf POC Glucometer 172 172 Random Glucose Calcium Iron TIBC Iron Saturation Unsaturated IBC Ferritin Total Bilirubin AST ALT Alkaline Phosphatase Creatine Kinase 87 Troponin I < 0.02 Total Protein Albumin 10/06/19 10/06/19 10/06/19 06:20 06:30 06:30 WBC 4.0 RBC 2.30 L Hgb 7.1 L Hct 20.0 L MCV 87.3 MCH 30.8 MCHC 35.2 RDW 12.1 Plt Count 142 MPV 7.7 Absolute Neuts (auto) 2.2 Neutrophils % 56.2 D Lymphocytes % 25.8 D Monocytes % 10.3 H Eosinophils % 7.1 H D Basophils % 0.6 Nucleated RBC % 0 Sodium 143 Potassium 4.6 Chloride 110 H Carbon Dioxide 26 Anion Gap 7 L BUN 66.5 H Creatinine 2.4 H Est GFR (CKD-EPI)AfAm 23.26 Est GFR (CKD-EPI)NonAf 20.07 POC Glucometer 36 Random Glucose 66 L Calcium 8.5 Iron 191 H TIBC 197 L Iron Saturation 96 H Unsaturated IBC 6 L Ferritin 409.9 H Total Bilirubin 0.4 AST 21 ALT 23 Alkaline Phosphatase 96 Creatine Kinase Troponin I Total Protein 5.7 L Albumin 2.7 L 10/06/19 10/06/19 10/06/19 06:33 06:48 11:09 WBC RBC Hgb Hct MCV MCH MCHC RDW Plt Count MPV Absolute Neuts (auto) Neutrophils % Lymphocytes % Monocytes % Eosinophils % Basophils % Nucleated RBC % Sodium Potassium Chloride Carbon Dioxide Anion Gap BUN Creatinine Est GFR (CKD-EPI)AfAm Est GFR (CKD-EPI)NonAf POC Glucometer 53 97 89 Random Glucose Calcium Iron TIBC Iron Saturation Unsaturated IBC Ferritin Total Bilirubin AST ALT Alkaline Phosphatase Creatine Kinase Troponin I Total Protein Albumin Active Medications Generic Name Dose Route Start Last Admin Trade Name Freq PRN Reason Stop Dose Admin Amlodipine Besylate 10 mg 10/05/19 10:10/06/19 09:06 Norvasc - PO 10 mg DAILY ECHO Administration Aspirin 81 mg 10/05/19 10:00 10/06/19 09:06 Asa - PO 81 mg DAILY ECHO Administration Docusate Sodium 100 mg 10/04/19 22:00 10/06/19 06:24 Colace - PO 100 mg TID ECHO Administration Ferrous Sulfate 325 mg 10/05/19 10:00 10/06/19 09:07 Feosol - PO 325 mg DAILY ECHO Administration Furosemide 40 mg 10/05/19 10:00 10/06/19 09:07 Lasix Injection - IVPUSH 40 mg DAILY ECHO Administration Furosemide 20 mg 10/06/19 10:53 Lasix Injection - IVPUSH 10/06/19 17:00 SAP ABAP PROGRAMMER ECHO Heparin Sodium (Porcine) 5,000 unit 10/04/19 22:00 10/06/19 09:07 Heparin - SQ 5,000 unit BID ECHO Administration Hydralazine HCl 75 mg 10/04/19 22:00 10/06/19 06:23 Apresoline - PO 75 mg TID ECHO Administration Insulin Aspart 1 vial 10/04/19 16:30 10/06/19 11:37 Novolog Vial Sliding Scale - SQ Not Given [facility] Protocol Insulin Detemir 16 units 10/04/19 22:00 10/05/19 22:02 Levemir Vial SQ 16 units HS ECHO Administration Isosorbide Mononitrate 30 mg 10/05/19 10:00 10/06/19 09:07 Imdur - PO 30 mg DAILY ECHO Administration Metoprolol Tartrate 25 mg 10/04/19 22:00 10/06/19 09:07 Lopressor - PO 25 mg BID ECHO Administration Pantoprazole Sodium 20 mg 10/05/19 10:00 10/06/19 09:07 Protonix - PO 20 mg DAILY ECHO Administration CBC, BMP 10/06/19 06:30 10/06/19 06:30 ASSESSMENT/PLAN: # Normochronic normocytic anemia acute on chronic likely due to chronic kidney disease * H/H 7.1 , agree with one units of transfusion , maitain HGB > 8 * monitor H/H daily * stool occult blood , R.O GI bleed , * EGD/Colonosopy end of July 2019 were normal * Iron studies : Ferritin 400, TIBC 197/iron 191 * order B12 , FA , TSH , Erythropiotin , ESR, CRP * cont iron supplement * will discuss with renal team regarding dosing procrit # history of kidney stones with S/P JJ STENT removed 3 weeks ago # Acute on CKD # Acute on chronic Dchf # HTN #DM per primary team Dispo: We will continue to follow the patient. Thank you for this consultative opportunity. Visit type - Emergency Visit Emergency Visit: Yes ED Registration Date: 10/04/19 Care time: The patient presented to the Emergency Department on the above date and was hospitalized for further evaluation of their emergent condition. - New Patient This patient is new to me today: Yes Date on this admission: 10/04/19 - Critical Care Critical Care patient: No ATTENDING PHYSICIAN STATEMENT I saw and evaluated the patient. I reviewed the resident's note and discussed the case with the resident. I agree with the resident's findings and plan as documented. SUBJECTIVE: OBJECTIVE: ASSESSMENT AND PLAN:
--- NOTE | 2019-10-06 16:47 | PN ---
Progress Note, Physician History of Present Illness: Pt seen and examined at bedside. She is awake and alert. She denies shortness of breath. She feels that her edema is improved. - Current Medication List Current Medications: Active Medications Amlodipine Besylate (Norvasc -) 10 mg PO DAILY [facility] Last Admin: 10/06/19 09:06 Dose: 10 mg Aspirin (Asa -) 81 mg PO DAILY [facility] Last Admin: 10/06/19 09:06 Dose: 81 mg Docusate Sodium (Colace -) 100 mg PO TID [facility] Last Admin: 10/06/19 14:14 Dose: 100 mg Ferrous Sulfate (Feosol -) 325 mg PO DAILY [facility] Last Admin: 10/06/19 09:07 Dose: 325 mg Furosemide (Lasix Injection -) 40 mg IVPUSH DAILY [facility] Last Admin: 10/06/19 09:07 Dose: 40 mg Furosemide (Lasix Injection -) 20 mg IVPUSH PLATEN PRESS OPERATOR [facility] Stop: 10/06/19 17:00 Heparin Sodium (Porcine) (Heparin -) 5,000 unit SQ BID [facility] Last Admin: 10/06/19 09:07 Dose: 5,000 unit Hydralazine HCl (Apresoline -) 75 mg PO TID [facility] Last Admin: 10/06/19 14:14 Dose: 75 mg Insulin Aspart (Novolog Vial Sliding Scale -) 1 vial SQ [facility]; Protocol Last Admin: 10/06/19 11:37 Dose: Not Given Insulin Detemir (Levemir Vial) 16 units SQ HS [facility] Last Admin: 10/05/19 22:02 Dose: 16 units Isosorbide Mononitrate (Imdur -) 30 mg PO DAILY [facility] Last Admin: 10/06/19 09:07 Dose: 30 mg Metoprolol Tartrate (Lopressor -) 25 mg PO BID [facility] Last Admin: 10/06/19 09:07 Dose: 25 mg Pantoprazole Sodium (Protonix -) 20 mg PO DAILY [facility] Last Admin: 10/06/19 09:07 Dose: 20 mg - Objective Vital Signs: Vital Signs Temperature 98.3 F 10/06/19 13:11 Pulse Rate 63 10/06/19 13:11 Respiratory Rate 20 10/06/19 13:11 Blood Pressure 133/56 L 10/06/19 13:11 O2 Sat by Pulse Oximetry (%) 96 10/06/19 10:00 Constitutional: Yes: Calm Eyes: Yes: Conjunctiva Clear HENT: Yes: Atraumatic Neck: Yes: Supple Cardiovascular: Yes: S1, S2 Respiratory: Yes: CTA Bilaterally Gastrointestinal: Yes: Soft Musculoskeletal: Yes: WNL Edema: No Neurological: Yes: Oriented Psychiatric: Yes: Oriented Labs: CBC, BMP 10/06/19 06:30 10/06/19 06:30 INR, PTT INR 0.94 (0.83-1.09) 10/04/19 07:50 Problem List - Problems (1) Acute on chronic diastolic (congestive) heart failure Code(s): I50.33 - ACUTE ON CHRONIC DIASTOLIC (CONGESTIVE) HEART FAILURE (2) ARF (acute renal failure) Code(s): N17.9 - ACUTE KIDNEY FAILURE, UNSPECIFIED (3) Abdominal pain Code(s): R10.9 - UNSPECIFIED ABDOMINAL PAIN Qualifiers: Abdominal location: unspecified location Qualified Code(s): R10.9 - Unspecified abdominal pain (4) Acute renal insufficiency Code(s): N28.9 - DISORDER OF KIDNEY AND URETER, UNSPECIFIED Assessment/Plan Current Medications Generic Name Dose Route Start Last Admin Trade Name Freq PRN Reason Stop Dose Admin Amlodipine Besylate 10 mg 10/05/19 10:00 10/06/19 09:06 Norvasc - PO 10 mg DAILY [facility] Administration Aspirin 81 mg 10/05/19 10:00 10/06/19 09:06 Asa - PO 81 mg DAILY [facility] Administration Docusate Sodium 100 mg 10/04/19 22:00 10/06/19 14:14 Colace - PO 100 mg TID [facility] Administration Ferrous Sulfate 325 mg 10/05/19 10:00 10/06/19 09:07 Feosol - PO 325 mg DAILY [facility] Administration Furosemide 40 mg 10/05/19 10:00 10/06/19 09:07 Lasix Injection - IVPUSH 40 mg DAILY [facility] Administration Furosemide 20 mg 10/06/19 10:53 Lasix Injection - IVPUSH 10/06/19 17:00 PLATEN PRESS OPERATOR [facility] Heparin Sodium (Porcine) 5,000 unit 10/04/19 22:00 10/06/19 09:07 Heparin - SQ 5,000 unit BID [facility] Administration Hydralazine HCl 75 mg 10/04/19 22:00 10/06/19 14:14 Apresoline - PO 75 mg TID [facility] Administration Insulin Aspart 1 vial 10/04/19 16:30 10/06/19 11:37 Novolog Vial Sliding Scale - SQ Not Given ACHS [facility] Protocol Insulin Detemir 16 units 10/04/19 22:00 10/05/19 22:02 Levemir Vial SQ 16 units HS [facility] Administration Isosorbide Mononitrate 30 mg 10/05/19 10:00 10/06/19 09:07 Imdur - PO 30 mg DAILY [facility] Administration Metoprolol Tartrate 25 mg 10/04/19 22:00 10/06/19 09:07 Lopressor - PO 25 mg BID [facility] Administration Pantoprazole Sodium 20 mg 10/05/19 10:00 10/06/19 09:07 Protonix - PO 20 mg DAILY [facility] Administration Impression 1. CKD 2. HTN 3. DM 4. bilateral hydro 5. anemia 6. CHF 7. fluid overload 8. proteinuria Plan - resume lasix 40 po bid tomorrow - monitor volume status - heme input appreciated, pt to get prbc - will need outpt follow up - anemia workup per primary team - will follow prn
[2019-10-06] MEDS: INSULIN (LEVEMIR) 100 UNITS/ML UNITS SQ SCH (21:39)
--- NOTE | 2019-10-06 23:12 | PN ---
Progress Note, Physician History of Present Illness: No new complaints - Current Medication List Current Medications: Active Medications Amlodipine Besylate (Norvasc -) 10 mg PO DAILY [facility] Last Admin: 10/06/19 09:06 Dose: 10 mg Aspirin (Asa -) 81 mg PO DAILY [facility] Last Admin: 10/06/19 09:06 Dose: 81 mg Docusate Sodium (Colace -) 100 mg PO TID [facility] Last Admin: 10/06/19 21:30 Dose: 100 mg Ferrous Sulfate (Feosol -) 325 mg PO DAILY [facility] Last Admin: 10/06/19 09:07 Dose: 325 mg Furosemide (Lasix -) 40 mg PO BID@0600,1400 [facility] Heparin Sodium (Porcine) (Heparin -) 5,000 unit SQ BID [facility] Last Admin: 10/06/19 21:30 Dose: 5,000 unit Hydralazine HCl (Apresoline -) 75 mg PO TID [facility] Last Admin: 10/06/19 21:30 Dose: 75 mg Insulin Aspart (Novolog Vial Sliding Scale -) 1 vial SQ [facility]; Protocol Last Admin: 10/06/19 21:39 Dose: 4 units Insulin Detemir (Levemir Vial) 16 units SQ HS [facility] Last Admin: 10/06/19 21:39 Dose: 16 units Isosorbide Mononitrate (Imdur -) 30 mg PO DAILY [facility] Last Admin: 10/06/19 09:07 Dose: 30 mg Metoprolol Tartrate (Lopressor -) 25 mg PO BID [facility] Last Admin: 10/06/19 21:30 Dose: 25 mg Pantoprazole Sodium (Protonix -) 20 mg PO DAILY [facility] Last Admin: 10/06/19 09:07 Dose: 20 mg - Objective Vital Signs: Vital Signs Temperature 98.4 F 10/06/19 21:35 Pulse Rate 68 10/06/19 21:35 Respiratory Rate 18 10/06/19 22:00 Blood Pressure 177/78 H 10/06/19 21:35 O2 Sat by Pulse Oximetry (%) 96 10/06/19 22:00 Neck: Yes: WNL, Supple Cardiovascular: Yes: WNL, Regular Rate and Rhythm Respiratory: Yes: Diminished Gastrointestinal: Yes: WNL, Normal Bowel Sounds, Soft Edema: LLE: Trace, RLE: Trace Labs: CBC, BMP 10/06/19 06:30 10/06/19 06:30 INR, PTT INR 0.94 (0.83-1.09) 10/04/19 07:50 Problem List - Problems (1) Acute on chronic diastolic (congestive) heart failure Assessment/Plan: IV lasix Cont metoprolol Monitor electrolytes Code(s): I50.33 - ACUTE ON CHRONIC DIASTOLIC (CONGESTIVE) HEART FAILURE (2) Acute on chronic renal failure Assessment/Plan: Cont to trend bun/creatinine Code(s): N17.9 - ACUTE KIDNEY FAILURE, UNSPECIFIED; N18.9 - CHRONIC KIDNEY DISEASE, UNSPECIFIED (3) Anemia Assessment/Plan: Pt transfused 1 unit PRBC's Anemia of chronic dz Due to CKD Heme consult Code(s): D64.9 - ANEMIA, UNSPECIFIED Qualifiers: Anemia type: unspecified type Qualified Code(s): D64.9 - Anemia, unspecified (4) Diabetes Assessment/Plan: Cont levemir Cont sliding scale w/ coverage Code(s): E11.9 - TYPE 2 DIABETES MELLITUS WITHOUT COMPLICATIONS (5) HTN (hypertension) Assessment/Plan: BP stable Cont metoprolol/imdur/hydralazine/norvasc Code(s): I10 - ESSENTIAL (PRIMARY) HYPERTENSION
[2019-10-06 23:31] LABS: BASO % 0.6 % (0-2.0); HEMATOCRIT 25.6 % (32.4-45.2); HEMOGLOBIN 8.7 GM/dL (10.7-15.3); LYMPH % 15.1 % (8-40); MCH 30.2 pg (25.7-33.7); MCHC 34.1 g/dl (32.0-36.0); MEAN CELL VOLUME 88.6 fl (80-96); MEAN PLT VOLUME 7.4 fl (7.5-11.1); MONO % 9.8 % (3.8-10.2); NEUT % 67.5 % (42.8-82.8); PLATELET COUNT 162 K/MM3 (134-434); RBC 2.89 M/mm3 (3.60-5.2); RDW 12.7 % (11.6-15.6); WHITE BLOOD COUNT 5.1 K/mm3 (4.0-10.0)
--- NOTE | 2019-10-07 03:23 | PN ---
Progress Note, Physician Chief Complaint: Pt, with daughter at bedside, denies chest pain, dyspnea, palpitations. History of Present Illness: The patient is a 64-year-old female with a past medical history significant for diastolic CHF, DM, GERD, Kidney stones, anemia, renal dysfunction, and HTN, who presents to the emergency department with 3 days of shortness of breath associated with lower extremity swelling. The patient reports her Lasix medication was recently changed from 40mg BID to once a day by PCP. The patient states she is compliant with her medications and fluid restricted diet. Denies fever, chills, chest pain. Allergies: NKA PCP: Dr. Elli Nassar. Photograph Editor: Dr. Trini Sinha - Current Medication List Current Medications: Active Medications Amlodipine Besylate (Norvasc -) 10 mg PO DAILY [facility] Last Admin: 10/06/19 09:06 Dose: 10 mg Aspirin (Asa -) 81 mg PO DAILY [facility] Last Admin: 10/06/19 09:06 Dose: 81 mg Docusate Sodium (Colace -) 100 mg PO TID [facility] Last Admin: 10/06/19 21:30 Dose: 100 mg Ferrous Sulfate (Feosol -) 325 mg PO DAILY [facility] Last Admin: 10/06/19 09:07 Dose: 325 mg Furosemide (Lasix -) 40 mg PO BID@0600,1400 [facility] Heparin Sodium (Porcine) (Heparin -) 5,000 unit SQ BID [facility] Last Admin: 10/06/19 21:30 Dose: 5,000 unit Hydralazine HCl (Apresoline -) 75 mg PO TID [facility] Last Admin: 10/06/19 21:30 Dose: 75 mg Insulin Aspart (Novolog Vial Sliding Scale -) 1 vial SQ [facility]; Protocol Last Admin: 10/06/19 21:39 Dose: 4 units Insulin Detemir (Levemir Vial) 16 units SQ HS [facility] Last Admin: 10/06/19 21:39 Dose: 16 units Isosorbide Mononitrate (Imdur -) 30 mg PO DAILY [facility] Last Admin: 10/06/19 09:07 Dose: 30 mg Metoprolol Tartrate (Lopressor -) 25 mg PO BID [facility] Last Admin: 10/06/19 21:30 Dose: 25 mg Pantoprazole Sodium (Protonix -) 20 mg PO DAILY [facility] Last Admin: 10/06/19 09:07 Dose: 20 mg - Objective Vital Signs: Vital Signs Temperature 98.4 F 10/06/19 21:35 Pulse Rate 68 10/06/19 21:35 Respiratory Rate 18 10/06/19 22:00 Blood Pressure 177/78 H 10/06/19 21:35 O2 Sat by Pulse Oximetry (%) 96 10/06/19 22:00 Constitutional: Yes: Calm Eyes: Yes: WNL HENT: Yes: WNL Labs: CBC, BMP 10/06/19 23:20 10/06/19 06:30 INR, PTT INR 0.94 (0.83-1.09) 10/04/19 07:50 Problem List - Problems (1) Acute on chronic diastolic (congestive) heart failure Assessment/Plan: On metoprolol, hydralazine + Imdur, amlodipine furosemide. F/u BUN/Cr, electrolytes, daily weight, Is and Os. Code(s): I50.33 - ACUTE ON CHRONIC DIASTOLIC (CONGESTIVE) HEART FAILURE (2) Acute on chronic renal failure Assessment/Plan: f/u with equipment processor. On furosemide for CHF; f/u BUN/Cr, Is and Os, electrolytes. Code(s): N17.9 - ACUTE KIDNEY FAILURE, UNSPECIFIED; N18.9 - CHRONIC KIDNEY DISEASE, UNSPECIFIED (3) Abdominal pain Code(s): R10.9 - UNSPECIFIED ABDOMINAL PAIN Qualifiers: Abdominal location: unspecified location Qualified Code(s): R10.9 - Unspecified abdominal pain (4) Anemia Assessment/Plan: for PRBCs; On ferrous sulfate. Consider stopping ASA. f/u with piping manager. Code(s): D64.9 - ANEMIA, UNSPECIFIED Qualifiers: Anemia type: unspecified type Qualified Code(s): D64.9 - Anemia, unspecified (5) Diabetes Code(s): E11.9 - TYPE 2 DIABETES MELLITUS WITHOUT COMPLICATIONS (6) HTN (hypertension) Assessment/Plan: see "acute on chronic diastolic CHF". Code(s): I10 - ESSENTIAL (PRIMARY) HYPERTENSION
[2019-10-07] MEDS: INSULIN SLIDING SCALE (NOVOLOG) 1 VIAL SQ SCH ×4 (06:08→21:47)
[2019-10-07] MEDS: FUROSEMIDE 40 MG TABLET (FP) PO SCH ×2 (06:13→14:54)
[2019-10-07] MEDS: DOCUSATE SODIUM 100 MG CAPSULE (FP) PO SCH ×3 (06:13→21:46)
[2019-10-07] MEDS: hydrALAZINE HCL 25 MG TABLET (FP) PO SCH ×3 (06:13→21:46)
[2019-10-07 08:36] LABS: ALBUMIN 2.5 g/dl (3.4-5.0); BILIRUBIN,TOTAL 0.6 mg/dL (0.2-1); BLOOD UREA NITROGEN 62.6 mg/dL (7-18); CALCIUM 8.1 mg/dL (8.5-10.1); CREATININE 2.4 mg/dL (0.55-1.3); POTASSIUM 4.6 mmol/L (3.5-5.1); TOT PROT 5.3 g/dl (6.4-8.2)
[2019-10-07] MEDS: ASPIRIN 81 MG CHEWABLE TABLETS PO SCH (10:09)
[2019-10-07] MEDS: PANTOPRAZOLE 20 MG TABLET (FP) PO SCH (10:09)
[2019-10-07] MEDS: amLODIPine BESYLATE 10 MG TABLET (FP) PO SCH (10:09)
[2019-10-07] MEDS: ISOSORBIDE MONONITRATE 30 MG TAB.SR.24H (FP) PO SCH (10:09)
[2019-10-07] MEDS: HEPARIN NA (PORCINE) 5,000 UNITS/ML 1ML VIAL SQ SCH ×2 (10:09→21:46)
[2019-10-07] MEDS: FERROUS SO4 325 MG TABLET (FP) PO SCH (10:09)
[2019-10-07] MEDS: METOPROLOL TARTRATE 25 MG TABLET (FP) PO SCH ×2 (10:09→21:47)
--- NOTE | 2019-10-07 11:36 | PN ---
Progress Note, Physician Chief Complaint: Events noted Coverage for Dr. Godfrey Not in distress History of Present Illness: Patient was seen and examined. Awake and alert. Chart was reviewed Episode of chest pain. Less SOB and denies palpitations - Current Medication List Current Medications: Active Medications Amlodipine Besylate (Norvasc -) 10 mg PO DAILY [facility] Last Admin: 10/07/19 10:09 Dose: 10 mg Aspirin (Asa -) 81 mg PO DAILY [facility] Last Admin: 10/07/19 10:09 Dose: 81 mg Docusate Sodium (Colace -) 100 mg PO TID [facility] Last Admin: 10/07/19 06:13 Dose: 100 mg Ferrous Sulfate (Feosol -) 325 mg PO DAILY [facility] Last Admin: 10/07/19 10:09 Dose: 325 mg Furosemide (Lasix -) 40 mg PO BID@0600,1400 [facility] Last Admin: 10/07/19 06:13 Dose: 40 mg Heparin Sodium (Porcine) (Heparin -) 5,000 unit SQ BID [facility] Last Admin: 10/07/19 10:09 Dose: 5,000 unit Hydralazine HCl (Apresoline -) 75 mg PO TID [facility] Last Admin: 10/07/19 06:13 Dose: 75 mg Insulin Aspart (Novolog Vial Sliding Scale -) 1 vial SQ ACHS [facility]; Protocol Last Admin: 10/07/19 06:08 Dose: Not Given Isosorbide Mononitrate (Imdur -) 30 mg PO DAILY [facility] Last Admin: 10/07/19 10:09 Dose: 30 mg Metoprolol Tartrate (Lopressor -) 25 mg PO BID [facility] Last Admin: 10/07/19 10:09 Dose: 25 mg Pantoprazole Sodium (Protonix -) 20 mg PO DAILY [facility] Last Admin: 10/07/19 10:09 Dose: 20 mg - Objective Vital Signs: Vital Signs Temperature 98.0 F 10/07/19 10:00 Pulse Rate 69 10/07/19 10:00 Respiratory Rate 20 10/07/19 06:02 Blood Pressure 192/77 H 10/07/19 10:00 O2 Sat by Pulse Oximetry (%) 96 10/06/19 22:00 Eyes: Yes: PERRL HENT: Yes: Atraumatic Neck: Yes: Supple Cardiovascular: Yes: Regular Rate and Rhythm, S1, S2 Respiratory: Yes: Rales Gastrointestinal: Yes: Normal Bowel Sounds, Soft. No: Tenderness Edema: No Labs: CBC, BMP 10/06/19 23:20 10/07/19 07:25 Problem List - Problems (1) Acute on chronic diastolic (congestive) heart failure Code(s): I50.33 - ACUTE ON CHRONIC DIASTOLIC (CONGESTIVE) HEART FAILURE (2) Acute on chronic renal failure Code(s): N17.9 - ACUTE KIDNEY FAILURE, UNSPECIFIED; N18.9 - CHRONIC KIDNEY DISEASE, UNSPECIFIED (3) Anemia Code(s): D64.9 - ANEMIA, UNSPECIFIED Qualifiers: Anemia type: unspecified type Qualified Code(s): D64.9 - Anemia, unspecified (4) Chest pain Code(s): R07.9 - CHEST PAIN, UNSPECIFIED (5) Diabetes Code(s): E11.9 - TYPE 2 DIABETES MELLITUS WITHOUT COMPLICATIONS (6) HTN (hypertension) Code(s): I10 - ESSENTIAL (PRIMARY) HYPERTENSION (7) Weakness Code(s): R53.1 - WEAKNESS Assessment/Plan 1. Acute on chronic LV diastolic failure 2. HTN 3. Renal insufficiency 4. Anemia 5. DM 6. GERD PLAN: 1. Continue Metoprolol Tartrate 25 mg BID, Hydralazine 75 mg TID, Isosorbide 30 mg QD and Amlodipine 10 mg QD (continue to uptitrate) 2. Continue Diuretics - Lasix 40 mg PO BID and monitor renal function and electrolytes 3. ASA 81 mg QD 4. DVT prophylaxis 5. Monitor CBC Further plans are to follow Dr. Godfrey or Ankit to resume care on Wednesday Ganesh Carrera MD
[2019-10-07] MEDS ORDERED: INSULIN (NOVOLOG) ASPART 100 UNITS/ML 10ML VIAL ONE ×2 (11:48→21:15)
--- NOTE | 2019-10-07 16:58 | PN ---
Teaching Attending Note Name of Resident: Ger Escobar ATTENDING PHYSICIAN STATEMENT I saw and evaluated the patient. I reviewed the resident's note and discussed the case with the resident. I agree with the resident's findings and plan as documented. ASSESSMENT AND PLAN: 69 y/o patient with HTN/DM/ dCHF/kidney stone/BRADY on CKD-- Normochronic normocytic anemia acute on chronic likely due to chronic kidney disease * H/H 7.10/23 , * stool occult blood , R.O GI bleed , * EGD/Colonosopy end of July 2019 were normal * iron studies s/o chronic disease * will discuss with renal team regarding dosing procrit disucced with patient and family members at bed side
--- NOTE | 2019-10-07 22:24 | PN ---
Progress Note, Physician History of Present Illness: No new complaints - Current Medication List Current Medications: Active Medications Amlodipine Besylate (Norvasc -) 10 mg PO DAILY [facility] Last Admin: 10/07/19 10:09 Dose: 10 mg Aspirin (Asa -) 81 mg PO DAILY [facility] Last Admin: 10/07/19 10:09 Dose: 81 mg Docusate Sodium (Colace -) 100 mg PO TID [facility] Last Admin: 10/07/19 21:46 Dose: 100 mg Ferrous Sulfate (Feosol -) 325 mg PO DAILY [facility] Last Admin: 10/07/19 10:09 Dose: 325 mg Furosemide (Lasix -) 40 mg PO BID@0600,1400 [facility] Last Admin: 10/07/19 14:54 Dose: 40 mg Heparin Sodium (Porcine) (Heparin -) 5,000 unit SQ BID [facility] Last Admin: 10/07/19 21:46 Dose: 5,000 unit Hydralazine HCl (Apresoline -) 75 mg PO TID [facility] Last Admin: 10/07/19 21:46 Dose: 75 mg Insulin Aspart (Novolog Vial Sliding Scale -) 1 vial SQ [facility]; Protocol Last Admin: 10/07/19 21:47 Dose: 8 units Isosorbide Mononitrate (Imdur -) 30 mg PO DAILY [facility] Last Admin: 10/07/19 10:09 Dose: 30 mg Metoprolol Tartrate (Lopressor -) 25 mg PO BID [facility] Last Admin: 10/07/19 21:47 Dose: 25 mg Pantoprazole Sodium (Protonix -) 20 mg PO DAILY [facility] Last Admin: 10/07/19 10:09 Dose: 20 mg - Objective Vital Signs: Vital Signs Temperature 98.2 F 10/07/19 20:27 Pulse Rate 65 10/07/19 20:27 Respiratory Rate 20 10/07/19 20:27 Blood Pressure 154/71 10/07/19 20:27 O2 Sat by Pulse Oximetry (%) 96 10/07/19 20:29 Neck: Yes: WNL Cardiovascular: Yes: WNL, Regular Rate and Rhythm Respiratory: Yes: WNL, Regular, CTA Bilaterally Gastrointestinal: Yes: WNL, Normal Bowel Sounds, Soft Edema: LLE: Trace, RLE: Trace Labs: CBC, BMP 10/06/19 23:20 10/07/19 07:25 INR, PTT INR 0.94 (0.83-1.09) 10/04/19 07:50 Problem List - Problems (1) Acute on chronic diastolic (congestive) heart failure Assessment/Plan: IV lasix Cont metoprolol Monitor electrolytes Code(s): I50.33 - ACUTE ON CHRONIC DIASTOLIC (CONGESTIVE) HEART FAILURE (2) Acute on chronic renal failure Assessment/Plan: Cont to trend bun/creatinine Code(s): N17.9 - ACUTE KIDNEY FAILURE, UNSPECIFIED; N18.9 - CHRONIC KIDNEY DISEASE, UNSPECIFIED (3) Anemia Assessment/Plan: Pt transfused 1 unit PRBC's Anemia of chronic dz Due to CKD Heme consult Code(s): D64.9 - ANEMIA, UNSPECIFIED Qualifiers: Anemia type: unspecified type Qualified Code(s): D64.9 - Anemia, unspecified (4) Diabetes Assessment/Plan: Cont levemir Cont sliding scale w/ coverage Code(s): E11.9 - TYPE 2 DIABETES MELLITUS WITHOUT COMPLICATIONS (5) HTN (hypertension) Code(s): I10 - ESSENTIAL (PRIMARY) HYPERTENSION
[2019-10-08] MEDS: hydrALAZINE HCL 25 MG TABLET (FP) PO SCH ×3 (06:15→21:47)
[2019-10-08] MEDS: INSULIN SLIDING SCALE (NOVOLOG) 1 VIAL SQ SCH ×4 (06:16→21:48)
[2019-10-08] MEDS: FUROSEMIDE 40 MG TABLET (FP) PO SCH ×2 (06:16→14:22)
[2019-10-08] MEDS: DOCUSATE SODIUM 100 MG CAPSULE (FP) PO SCH ×3 (06:16→21:48)
[2019-10-08 09:13] LABS: BASO % 0.9 % (0-2.0); EOS % 7.7 % (0-4.5); HEMATOCRIT 24.6 % (32.4-45.2); HEMOGLOBIN 8.5 GM/dL (10.7-15.3); LYMPH % 17.1 % (8-40); MCH 30.3 pg (25.7-33.7); MCHC 34.7 g/dl (32.0-36.0); MEAN CELL VOLUME 87.5 fl (80-96); MEAN PLT VOLUME 7.2 fl (7.5-11.1); MONO % 8.8 % (3.8-10.2); NEUT % 65.5 % (42.8-82.8); PLATELET COUNT 163 K/MM3 (134-434); RBC 2.81 M/mm3 (3.60-5.2); RDW 12.5 % (11.6-15.6); WHITE BLOOD COUNT 4.3 K/mm3 (4.0-10.0)
[2019-10-08 10:00] LABS: ALBUMIN 2.8 g/dl (3.4-5.0); BILIRUBIN,TOTAL 0.5 mg/dL (0.2-1); BLOOD UREA NITROGEN 64.2 mg/dL (7-18); CALCIUM 8.7 mg/dL (8.5-10.1); CREATININE 2.7 mg/dL (0.55-1.3); POTASSIUM 4.7 mmol/L (3.5-5.1); TOT PROT 5.8 g/dl (6.4-8.2)
[2019-10-08] MEDS: ISOSORBIDE MONONITRATE 30 MG TAB.SR.24H (FP) PO SCH (10:10)
[2019-10-08] MEDS: FERROUS SO4 325 MG TABLET (FP) PO SCH (10:10)
[2019-10-08] MEDS: METOPROLOL TARTRATE 50 MG TABLET (FP) PO SCH ×2 (10:10→21:48)
[2019-10-08] MEDS: HEPARIN NA (PORCINE) 5,000 UNITS/ML 1ML VIAL SQ SCH ×2 (10:10→21:48)
[2019-10-08] MEDS: PANTOPRAZOLE 20 MG TABLET (FP) PO SCH (10:10)
[2019-10-08] MEDS: amLODIPine BESYLATE 10 MG TABLET (FP) PO SCH (10:10)
[2019-10-08] MEDS: ASPIRIN 81 MG CHEWABLE TABLETS PO SCH (10:10)
[2019-10-08] MEDS ORDERED: INSULIN SLIDING SCALE (NOVOLOG) 1 VIAL SQ SCH (16:30)
--- NOTE | 2019-10-08 17:22 | PN ---
Progress Note, Physician History of Present Illness: No new complaints Pt feeling better - Current Medication List Current Medications: Active Medications Amlodipine Besylate (Norvasc -) 10 mg PO DAILY [facility] Last Admin: 10/08/19 10:10 Dose: 10 mg Aspirin (Asa -) 81 mg PO DAILY [facility] Last Admin: 10/08/19 10:10 Dose: 81 mg Docusate Sodium (Colace -) 100 mg PO TID [facility] Last Admin: 10/08/19 14:22 Dose: 100 mg Ferrous Sulfate (Feosol -) 325 mg PO DAILY [facility] Last Admin: 10/08/19 10:10 Dose: 325 mg Furosemide (Lasix -) 40 mg PO BID@0600,1400 [facility] Last Admin: 10/08/19 14:22 Dose: 40 mg Heparin Sodium (Porcine) (Heparin -) 5,000 unit SQ BID [facility] Last Admin: 10/08/19 10:10 Dose: 5,000 unit Hydralazine HCl (Apresoline -) 75 mg PO TID [facility] Last Admin: 10/08/19 14:22 Dose: 75 mg Insulin Aspart (Novolog Vial Sliding Scale -) 1 vial SQ ACHS [facility]; Protocol Insulin Detemir (Levemir Vial) 15 units SQ AM [facility] Isosorbide Mononitrate (Imdur -) 30 mg PO DAILY [facility] Last Admin: 10/08/19 10:10 Dose: 30 mg Metoprolol Tartrate (Lopressor -) 50 mg PO BID [facility] Last Admin: 10/08/19 10:10 Dose: 50 mg Pantoprazole Sodium (Protonix -) 20 mg PO DAILY [facility] Last Admin: 10/08/19 10:10 Dose: 20 mg - Objective Vital Signs: Vital Signs Temperature 98.2 F 10/08/19 14:00 Pulse Rate 59 L 10/08/19 14:00 Respiratory Rate 10/08/19 14:00 Blood Pressure 139/69 10/08/19 14:00 O2 Sat by Pulse Oximetry (%) 98 10/08/19 10:00 HENT: Yes: WNL Neck: Yes: WNL, Supple Cardiovascular: Yes: WNL, Regular Rate and Rhythm Respiratory: Yes: WNL, Regular, CTA Bilaterally Edema: RUE: Trace, LLE: Trace Labs: CBC, BMP 10/08/19 08:40 10/08/19 08:40 INR, PTT INR 0.94 (0.83-1.09) 10/04/19 07:50 Problem List - Problems (1) Acute on chronic diastolic (congestive) heart failure Assessment/Plan: Pt on PO lasix DC planning for am Cont metoprolol Monitor electrolytes Code(s): I50.33 - ACUTE ON CHRONIC DIASTOLIC (CONGESTIVE) HEART FAILURE (2) Acute on chronic renal failure Assessment/Plan: Cont to trend bun/creatinine Code(s): N17.9 - ACUTE KIDNEY FAILURE, UNSPECIFIED; N18.9 - CHRONIC KIDNEY DISEASE, UNSPECIFIED (3) Anemia Assessment/Plan: Pt transfused 1 unit PRBC's Anemia of chronic dz Due to CKD Heme consult noted Pt to get possible epogen as outpt Code(s): D64.9 - ANEMIA, UNSPECIFIED Qualifiers: Qualified Code(s): D64.9 - Anemia, unspecified (4) Diabetes Assessment/Plan: Cont levemir Cont sliding scale w/ coverage Code(s): E11.9 - TYPE 2 DIABETES MELLITUS WITHOUT COMPLICATIONS (5) HTN (hypertension) Assessment/Plan: BP stable Cont metoprolol/imdur/hydralazine/norvasc Code(s): I10 - ESSENTIAL (PRIMARY) HYPERTENSION
--- NOTE | 2019-10-08 17:28 | CONSULT ---
Consult Consult Specialty:: Endocrine Referred by:: dr.Rocco Sin Reason for Consultation:: DMT2/CKD - History of Present Illness Chief Complaint: low sugar History of Present Illness: 69 y/o female with PMH significant for DMT2,CHF, HTN, GERD, anemia, CKD, and nephrolithiasis. Pt presented with worsening shortness of breath and bilateral lower leg edema. She had recent changes in appetite and breathing,made control of sugars difficult.she has taken insulin lantus in am 16 units daily,denies nausea vomiting or diarhea. - Past Medical History Cardio/Vascular: Yes: CHF (diastolic ), HTN Renal/: Yes: Renal Inusuff ...: No Psych: Yes: Anxiety Endocrine: Yes: Diabetes Mellitus - Alcohol/Substance Use Hx Alcohol Use: No - Smoking History Smoking history: Never smoked Have you smoked in the past 12 months: No Home Medications - Allergies Allergies/Adverse Reactions: Allergies Allergy/AdvReac Type Severity Reaction Status Date / Time No Known Allergies Allergy Verified 09/24/19 13:27 - Home Medications Home Medications: Ambulatory Orders Aspirin [Aquilino Chewable Aspirin] 81 mg PO DAILY 07/26/19 Isosorbide Mononitrate [Imdur -] 30 mg PO DAILY 07/26/19 Docusate Sodium [Colace -] 100 mg PO TID #90 capsule 08/07/19 Ferrous Sulfate [Feosol] 325 mg PO DAILY #30 ud 08/07/19 Metoprolol Tartrate [Lopressor -] 25 mg PO BID #60 tablet 08/07/19 Pantoprazole Sodium [Protonix -] 20 mg PO DAILY #30 tablet.ec 08/07/19 hydrALAZINE HCL [Apresoline -] 75 mg PO TID #90 tablet 08/07/19 Amlodipine Besylate [Norvasc -] 10 mg PO DAILY tablet 08/21/19 Furosemide [Lasix -] 40 mg PO DAILY 10/04/19 Insulin Detemir [Levemir Flextouch] 16 unit SQ HS 10/04/19 Review of Systems - Review of Systems Constitutional: reports: Loss of Appetite, Weakness Eyes: reports: No Symptoms HENT: reports: No Symptoms Neck: reports: No Symptoms Cardiovascular: reports: Shortness of Breath Respiratory: reports: Exercise Intolerance, SOB on Exertion Gastrointestinal: reports: Constipation Genitourinary: reports: No Symptoms Breasts: reports: No Symptoms Reported Musculoskeletal: reports: Joint Pain, Joint Swelling, Muscle Pain, Muscle Cramps Endocrine: reports: Unexplained Weight Loss Physical Exam Vital Signs: Vital Signs Temperature 98.2 F 10/08/19 14:00 Pulse Rate 59 L 10/08/19 14:00 Respiratory Rate 10/08/19 14:00 Blood Pressure 139/69 10/08/19 14:00 O2 Sat by Pulse Oximetry (%) 98 10/08/19 10:00 Constitutional: Yes: Calm Eyes: Yes: EOM Intact HENT: Yes: Normocephalic Neck: Yes: Trachea Midline Cardiovascular: Yes: Tachycardia Respiratory: Yes: CTA Bilaterally Gastrointestinal: Yes: Normal Bowel Sounds ...Rectal Exam: Yes: Deferred Renal/: Yes: WNL Musculoskeletal: Yes: Joint Swelling, Muscle Pain, Muscle Weakness Extremities: Yes: Cool, Delayed Capillary Refill Edema: LLE: Trace, RLE: Trace Neurological: Yes: Alert, Oriented Labs: CBC, BMP 10/08/19 08:40 10/08/19 08:40 Problem List - Problems (1) Acute on chronic diastolic (congestive) heart failure Problems reviewed: Yes Code(s): I50.33 - ACUTE ON CHRONIC DIASTOLIC (CONGESTIVE) HEART FAILURE (2) Acute on chronic renal failure Problems reviewed: Yes Code(s): N17.9 - ACUTE KIDNEY FAILURE, UNSPECIFIED; N18.9 - CHRONIC KIDNEY DISEASE, UNSPECIFIED (3) ARF (acute renal failure) Problems reviewed: Yes Code(s): N17.9 - ACUTE KIDNEY FAILURE, UNSPECIFIED (4) Abdominal pain Problems reviewed: Yes Code(s): R10.9 - UNSPECIFIED ABDOMINAL PAIN Qualifiers: Abdominal location: unspecified location Qualified Code(s): R10.9 - Unspecified abdominal pain (5) Acute renal insufficiency Problems reviewed: Yes Code(s): N28.9 - DISORDER OF KIDNEY AND URETER, UNSPECIFIED (6) Anemia Problems reviewed: Yes Code(s): D64.9 - ANEMIA, UNSPECIFIED Qualifiers: Anemia type: unspecified type Qualified Code(s): D64.9 - Anemia, unspecified (7) Chest pain Code(s): R07.9 - CHEST PAIN, UNSPECIFIED (8) Constipation by delayed colonic transit Code(s): K59.01 - SLOW TRANSIT CONSTIPATION (9) Type 2 diabetes mellitus with diabetic chronic kidney disease Problems reviewed: Yes Code(s): E11.22 - TYPE 2 DIABETES MELLITUS W DIABETIC CHRONIC KIDNEY DISEASE Qualifiers: Chronic kidney disease stage: stage 3 (moderate) Assessment/Plan Current Active Problems DMT2,ckd htn,ashd chf Acute on chronic diastolic (congestive) heart failure (Acute) Acute on chronic renal failure (Acute) diabetic gastroparesis Abnormal Lab Results 10/08/19 10/08/19 08:40 08:40 RBC 2.81 L Hgb 8.5 L Hct 24.6 L MPV 7.2 L Eosinophils % 7.7 H Anion Gap 6 L BUN 64.2 H Creatinine 2.7 H Random Glucose 154 H Total Protein 5.8 L Albumin 2.8 L Laboratory Results - last 24 hr 10/07/19 10/08/19 10/08/19 21:44 06:15 08:40 WBC 4.3 RBC 2.81 L Hgb 8.5 L Hct 24.6 L MCV 87.5 MCH 30.3 MCHC 34.7 RDW 12.5 Plt Count 163 MPV 7.2 L Absolute Neuts (auto) 2.8 Neutrophils % 65.5 Lymphocytes % 17.1 Monocytes % 8.8 Eosinophils % 7.7 H Basophils % 0.9 Nucleated RBC % 0 Sodium Potassium Chloride Carbon Dioxide Anion Gap BUN Creatinine Est GFR (CKD-EPI)AfAm Est GFR (CKD-EPI)NonAf POC Glucometer 306 135 Random Glucose Calcium Total Bilirubin AST ALT Alkaline Phosphatase Total Protein Albumin 10/08/19 10/08/19 10/08/19 08:40 11:42 16:57 WBC RBC Hgb Hct MCV MCH MCHC RDW Plt Count MPV Absolute Neuts (auto) Neutrophils % Lymphocytes % Monocytes % Eosinophils % Basophils % Nucleated RBC % Sodium 138 Potassium 4.7 Chloride 105 Carbon Dioxide 26 Anion Gap 6 L BUN 64.2 H Creatinine 2.7 H Est GFR (CKD-EPI)AfAm 20.17 Est GFR (CKD-EPI)NonAf 17.41 POC Glucometer 195 166 Random Glucose 154 H Calcium 8.7 Total Bilirubin 0.5 AST 17 ALT 23 Alkaline Phosphatase 107 Total Protein 5.8 L Albumin 2.8 L plan: bgm qid novolog scale levemir 15 units am hb a1c podiatry consult nephrology consulted diet and nutrition follow up
[2019-10-08] MEDS ORDERED: INSULIN (NOVOLOG) ASPART 100 UNITS/ML 10ML VIAL ONE (21:10)
[2019-10-09] MEDS ORDERED: INSULIN (NOVOLOG) ASPART 100 UNITS/ML 10ML VIAL ONE ×3 (05:59→21:22)
[2019-10-09] MEDS: FUROSEMIDE 40 MG TABLET (FP) PO SCH ×2 (06:11→13:08)
[2019-10-09] MEDS: hydrALAZINE HCL 25 MG TABLET (FP) PO SCH ×3 (06:11→21:48)
[2019-10-09] MEDS: INSULIN (LEVEMIR) 100 UNITS/ML UNITS SQ SCH (06:11)
[2019-10-09] MEDS: DOCUSATE SODIUM 100 MG CAPSULE (FP) PO SCH ×3 (06:11→21:49)
[2019-10-09] MEDS: INSULIN SLIDING SCALE (NOVOLOG) 1 VIAL SQ SCH ×4 (06:12→21:49)
[2019-10-09] MEDS ORDERED: INSULIN (LEVEMIR) 100 UNITS/ML UNITS SQ SCH (07:00)
[2019-10-09] MEDS: HEPARIN NA (PORCINE) 5,000 UNITS/ML 1ML VIAL SQ SCH ×2 (09:13→21:49)
[2019-10-09] MEDS: ASPIRIN 81 MG CHEWABLE TABLETS PO SCH (09:15)
[2019-10-09] MEDS: ISOSORBIDE MONONITRATE 30 MG TAB.SR.24H (FP) PO SCH (09:15)
[2019-10-09] MEDS: FERROUS SO4 325 MG TABLET (FP) PO SCH (09:15)
[2019-10-09] MEDS: METOPROLOL TARTRATE 50 MG TABLET (FP) PO SCH ×2 (09:15→21:49)
[2019-10-09] MEDS: PANTOPRAZOLE 20 MG TABLET (FP) PO SCH (09:15)
[2019-10-09] MEDS: amLODIPine BESYLATE 10 MG TABLET (FP) PO SCH (09:15)
--- NOTE | 2019-10-09 12:25 | PN ---
Progress Note, Physician History of Present Illness: Pt seen and examined at bedside. She is awake and alert. She denies shortness of breath. She denies lower ext edema. - Current Medication List Current Medications: Active Medications Amlodipine Besylate (Norvasc -) 10 mg PO DAILY [facility] Last Admin: 10/09/19 09:15 Dose: 10 mg Aspirin (Asa -) 81 mg PO DAILY [facility] Last Admin: 10/09/19 09:15 Dose: 81 mg Docusate Sodium (Colace -) 100 mg PO TID [facility] Last Admin: 10/09/19 06:11 Dose: 100 mg Ferrous Sulfate (Feosol -) 325 mg PO DAILY [facility] Last Admin: 10/09/19 09:15 Dose: 325 mg Furosemide (Lasix -) 40 mg PO BID@0600,1400 [facility] Last Admin: 10/09/19 06:11 Dose: 40 mg Heparin Sodium (Porcine) (Heparin -) 5,000 unit SQ BID [facility] Last Admin: 10/09/19 09:13 Dose: 5,000 unit Hydralazine HCl (Apresoline -) 75 mg PO TID [facility] Last Admin: 10/09/19 06:11 Dose: 75 mg Insulin Aspart (Novolog Vial Sliding Scale -) 1 vial SQ ACHS [facility]; Protocol Last Admin: 10/09/19 11:28 Dose: 2 units Insulin Detemir (Levemir Vial) 15 units SQ AM [facility] Last Admin: 10/09/19 06:11 Dose: 15 units Isosorbide Mononitrate (Imdur -) 30 mg PO DAILY [facility] Last Admin: 10/09/19 09:15 Dose: 30 mg Metoprolol Tartrate (Lopressor -) 50 mg PO BID [facility] Last Admin: 10/09/19 09:15 Dose: 50 mg Pantoprazole Sodium (Protonix -) 20 mg PO DAILY [facility] Last Admin: 10/09/19 09:15 Dose: 20 mg - Objective Vital Signs: Vital Signs Temperature 97.8 F 10/09/19 08:41 Pulse Rate 62 10/09/19 08:41 Respiratory Rate 16 10/09/19 08:41 Blood Pressure 178/73 H 10/09/19 08:41 O2 Sat by Pulse Oximetry (%) 98 10/09/19 10:00 Constitutional: Yes: Calm Eyes: Yes: Conjunctiva Clear HENT: Yes: Atraumatic Neck: Yes: Supple Cardiovascular: Yes: S1, S2 Respiratory: Yes: CTA Bilaterally Gastrointestinal: Yes: Soft Genitourinary: Yes: WNL Musculoskeletal: Yes: WNL Edema: No Integumentary: Yes: WNL Neurological: Yes: Oriented Psychiatric: Yes: Oriented Labs: CBC, BMP 10/08/19 08:40 10/08/19 08:40 INR, PTT INR 0.94 (0.83-1.09) 10/04/19 07:50 Problem List - Problems (1) Acute on chronic diastolic (congestive) heart failure Code(s): I50.33 - ACUTE ON CHRONIC DIASTOLIC (CONGESTIVE) HEART FAILURE (2) ARF (acute renal failure) Code(s): N17.9 - ACUTE KIDNEY FAILURE, UNSPECIFIED (3) Abdominal pain Code(s): R10.9 - UNSPECIFIED ABDOMINAL PAIN Qualifiers: Qualified Code(s): R10.9 - Unspecified abdominal pain (4) Acute renal insufficiency Code(s): N28.9 - DISORDER OF KIDNEY AND URETER, UNSPECIFIED Assessment/Plan Current Medications Generic Name Dose Route Start Last Admin Trade Name Lora PRN Reason Stop Dose Admin Amlodipine Besylate 10 mg 10/05/19 10:00 10/09/19 09:15 Norvasc - PO 10 mg DAILY ECHO Administration Aspirin 81 mg 10/05/19 10:00 10/09/19 09:15 Asa - PO 81 mg DAILY ECHO Administration Docusate Sodium 100 mg 10/04/19 22:00 10/09/19 06:11 Colace - PO 100 mg TID ECHO Administration Ferrous Sulfate 325 mg 10/05/19 10:00 10/09/19 09:15 Feosol - PO 325 mg DAILY ECHO Administration Furosemide 40 mg 10/07/19 06:00 10/09/19 06:11 Lasix - PO 40 mg BID@0600,1400 ECHO Administration Heparin Sodium (Porcine) 5,000 unit 10/04/19 22:00 10/09/19 09:13 Heparin - SQ 5,000 unit BID ECHO Administration Hydralazine HCl 75 mg 10/04/19 22:00 10/09/19 06:11 Apresoline - PO 75 mg TID ECHO Administration Insulin Aspart 1 vial 10/08/19 17:30 10/09/19 11:28 Novolog Vial Sliding Scale - SQ 2 units ACHS ECHO Administration Protocol Insulin Detemir 15 units 10/09/19 07:00 10/09/19 06:11 Levemir Vial SQ 15 units AM ECHO Administration Isosorbide Mononitrate 30 mg 10/05/19 10:00 10/09/19 09:15 Imdur - PO 30 mg DAILY ECHO Administration Metoprolol Tartrate 50 mg 10/08/19 10:00 10/09/19 09:15 Lopressor - PO 50 mg BID ECHO Administration Pantoprazole Sodium 20 mg 10/05/19 10:00 10/09/19 09:15 Protonix - PO 20 mg DAILY ECHO Administration Impression 1. CKD 2. HTN 3. DM 4. bilateral hydro 5. anemia 6. CHF 7. fluid overload 8. proteinuria Plan - check bmp - cont po lasix - monitor hg - anemia workup per primary team - discussed with daughter - will order bmp
--- NOTE | 2019-10-09 22:38 | PN ---
Progress Note, Physician History of Present Illness: No new complaints - Current Medication List Current Medications: Active Medications Amlodipine Besylate (Norvasc -) 10 mg PO DAILY [facility] Last Admin: 10/09/19 09:15 Dose: 10 mg Aspirin (Asa -) 81 mg PO DAILY [facility] Last Admin: 10/09/19 09:15 Dose: 81 mg Docusate Sodium (Colace -) 100 mg PO TID [facility] Last Admin: 10/09/19 21:49 Dose: 100 mg Ferrous Sulfate (Feosol -) 325 mg PO DAILY [facility] Last Admin: 10/09/19 09:15 Dose: 325 mg Furosemide (Lasix -) 40 mg PO BID@0600,1400 [facility] Last Admin: 10/09/19 13:08 Dose: 40 mg Heparin Sodium (Porcine) (Heparin -) 5,000 unit SQ BID [facility] Last Admin: 10/09/19 21:49 Dose: 5,000 unit Hydralazine HCl (Apresoline -) 75 mg PO TID [facility] Last Admin: 10/09/19 21:48 Dose: 75 mg Insulin Aspart (Novolog Vial Sliding Scale -) 1 vial SQ [facility]; Protocol Last Admin: 10/09/19 21:49 Dose: 2 units Insulin Detemir (Levemir Vial) 15 units SQ AM [facility] Last Admin: 10/09/19 06:11 Dose: 15 units Isosorbide Mononitrate (Imdur -) 30 mg PO DAILY [facility] Last Admin: 10/09/19 09:15 Dose: 30 mg Metoprolol Tartrate (Lopressor -) 50 mg PO BID [facility] Last Admin: 10/09/19 21:49 Dose: 50 mg Pantoprazole Sodium (Protonix -) 20 mg PO DAILY [facility] Last Admin: 10/09/19 09:15 Dose: 20 mg - Objective Vital Signs: Vital Signs Temperature 97.7 F 10/09/19 19:42 Pulse Rate 60 10/09/19 19:42 Respiratory Rate 16 10/09/19 14:36 Blood Pressure 148/79 10/09/19 19:42 O2 Sat by Pulse Oximetry (%) 98 10/09/19 10:00 Cardiovascular: Yes: WNL, Regular Rate and Rhythm Respiratory: Yes: WNL, Regular, CTA Bilaterally Gastrointestinal: Yes: WNL, Normal Bowel Sounds, Soft Edema: LLE: Trace, RLE: Trace Labs: CBC, BMP 10/08/19 08:40 10/08/19 08:40 INR, PTT INR 0.94 (0.83-1.09) 10/04/19 07:50 Problem List - Problems (1) Acute on chronic diastolic (congestive) heart failure Assessment/Plan: Pt on PO lasix DC planning Cont metoprolol Monitor electrolytes Code(s): I50.33 - ACUTE ON CHRONIC DIASTOLIC (CONGESTIVE) HEART FAILURE (2) Acute on chronic renal failure Assessment/Plan: Cont to trend bun/creatinine Check labs in am Possible dc planning in am Code(s): N17.9 - ACUTE KIDNEY FAILURE, UNSPECIFIED; N18.9 - CHRONIC KIDNEY DISEASE, UNSPECIFIED (3) Anemia Assessment/Plan: Pt transfused 1 unit PRBC's Anemia of chronic dz Due to CKD Heme consult noted Pt to get possible epogen as outpt Code(s): D64.9 - ANEMIA, UNSPECIFIED Qualifiers: Anemia type: unspecified type Qualified Code(s): D64.9 - Anemia, unspecified (4) Diabetes Assessment/Plan: Cont levemir wc dose was decreased Cont sliding scale w/ coverage Code(s): E11.9 - TYPE 2 DIABETES MELLITUS WITHOUT COMPLICATIONS (5) HTN (hypertension) Assessment/Plan: BP stable Cont metoprolol/imdur/hydralazine/norvasc Code(s): I10 - ESSENTIAL (PRIMARY) HYPERTENSION
[2019-10-10] MEDS: DOCUSATE SODIUM 100 MG CAPSULE (FP) PO SCH ×2 (06:19→14:06)
[2019-10-10] MEDS: hydrALAZINE HCL 25 MG TABLET (FP) PO SCH ×2 (06:19→14:06)
[2019-10-10] MEDS: FUROSEMIDE 40 MG TABLET (FP) PO SCH ×2 (06:20→14:06)
[2019-10-10] MEDS: INSULIN (LEVEMIR) 100 UNITS/ML UNITS SQ SCH (06:20)
[2019-10-10] MEDS: INSULIN SLIDING SCALE (NOVOLOG) 1 VIAL SQ SCH ×2 (06:20→11:33)
[2019-10-10] MEDS ORDERED: INSULIN (NOVOLOG) ASPART 100 UNITS/ML 10ML VIAL ONE ×2 (06:33→11:26)
[2019-10-10] MEDS: amLODIPine BESYLATE 10 MG TABLET (FP) PO SCH (10:06)
[2019-10-10] MEDS: ASPIRIN 81 MG CHEWABLE TABLETS PO SCH (10:06)
[2019-10-10] MEDS: PANTOPRAZOLE 20 MG TABLET (FP) PO SCH (10:06)
[2019-10-10] MEDS: HEPARIN NA (PORCINE) 5,000 UNITS/ML 1ML VIAL SQ SCH (10:06)
[2019-10-10] MEDS: ISOSORBIDE MONONITRATE 30 MG TAB.SR.24H (FP) PO SCH (10:07)
[2019-10-10] MEDS: METOPROLOL TARTRATE 50 MG TABLET (FP) PO SCH (10:07)
[2019-10-10] MEDS: FERROUS SO4 325 MG TABLET (FP) PO SCH (10:07)
[2019-10-10 12:36] LABS: ALBUMIN 2.6 g/dl (3.4-5.0); BILIRUBIN,TOTAL 0.4 mg/dL (0.2-1); BLOOD UREA NITROGEN 64.6 mg/dL (7-18); CALCIUM 8.4 mg/dL (8.5-10.1); CREATININE 2.4 mg/dL (0.55-1.3); POTASSIUM 4.7 mmol/L (3.5-5.1); TOT PROT 5.8 g/dl (6.4-8.2)
--- NOTE | 2019-10-10 13:21 | PN ---
Progress Note, Physician Chief Complaint: Pt, with daughters at bedside, is asymptomatic. History of Present Illness: The patient is a 64-year-old female with a past medical history significant for diastolic CHF, DM, GERD, Kidney stones, anemia, renal dysfunction, and HTN, who presents to the emergency department with 3 days of shortness of breath associated with lower extremity swelling. The patient reports her Lasix medication was recently changed from 40mg BID to once a day by PCP. The patient states she is compliant with her medications and fluid restricted diet. Denies fever, chills, chest pain. Allergies: NKA PCP: Dr. Elli Nassar. Assistant Broker: Dr. Trini Sinha - Current Medication List Current Medications: Active Medications Amlodipine Besylate (Norvasc -) 10 mg PO DAILY [facility] Last Admin: 10/10/19 10:06 Dose: 10 mg Aspirin (Asa -) 81 mg PO DAILY [facility] Last Admin: 10/10/19 10:06 Dose: 81 mg Docusate Sodium (Colace -) 100 mg PO TID [facility] Last Admin: 10/10/19 06:19 Dose: 100 mg Ferrous Sulfate (Feosol -) 325 mg PO DAILY [facility] Last Admin: 10/10/19 10:07 Dose: 325 mg Furosemide (Lasix -) 40 mg PO BID@0600,1400 [facility] Last Admin: 10/10/19 06:20 Dose: 40 mg Heparin Sodium (Porcine) (Heparin -) 5,000 unit SQ BID [facility] Last Admin: 10/10/19 10:06 Dose: 5,000 unit Hydralazine HCl (Apresoline -) 75 mg PO TID [facility] Last Admin: 10/10/19 06:19 Dose: 75 mg Insulin Aspart (Novolog Vial Sliding Scale -) 1 vial SQ ACHS [facility]; Protocol Last Admin: 10/10/19 11:33 Dose: 2 units Insulin Detemir (Levemir Vial) 15 units SQ AM [facility] Last Admin: 10/10/19 06:20 Dose: 15 units Isosorbide Mononitrate (Imdur -) 30 mg PO DAILY [facility] Last Admin: 10/10/19 10:07 Dose: 30 mg Metoprolol Tartrate (Lopressor -) 50 mg PO BID [facility] Last Admin: 10/10/19 10:07 Dose: 50 mg Pantoprazole Sodium (Protonix -) 20 mg PO DAILY [facility] Last Admin: 10/10/19 10:06 Dose: 20 mg - Objective Vital Signs: Vital Signs Temperature 98.7 F 10/10/19 05:51 Pulse Rate 61 10/10/19 10:00 Respiratory Rate 18 10/10/19 10:00 Blood Pressure 188/70 H 10/10/19 10:00 O2 Sat by Pulse Oximetry (%) 98 10/09/19 22:00 Constitutional: Yes: Calm Eyes: Yes: WNL Labs: CBC, BMP 10/08/19 08:40 10/10/19 11:20 INR, PTT INR 0.94 (0.83-1.09) 10/04/19 07:50 Problem List - Problems (1) Acute on chronic diastolic (congestive) heart failure Assessment/Plan: On metoprolol, hydralazine + Imdur, amlodipine furosemide. F/u BUN/Cr, electrolytes, daily weight, Is and Os. 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 On furosemide for CHF; f/u BUN/Cr, Is and Os, electrolytes. Code(s): N17.9 - ACUTE KIDNEY FAILURE, UNSPECIFIED; N18.9 - CHRONIC KIDNEY DISEASE, UNSPECIFIED (3) Abdominal pain Code(s): R10.9 - UNSPECIFIED ABDOMINAL PAIN Qualifiers: Abdominal location: unspecified location Qualified Code(s): R10.9 - Unspecified abdominal pain (4) Anemia Code(s): D64.9 - ANEMIA, UNSPECIFIED Qualifiers: Anemia type: unspecified type Qualified Code(s): D64.9 - Anemia, unspecified (5) Diabetes Code(s): E11.9 - TYPE 2 DIABETES MELLITUS WITHOUT COMPLICATIONS (6) HTN (hypertension) Code(s): I10 - ESSENTIAL (PRIMARY) HYPERTENSION
[2019-10-10 14:39] VITALS: BP 140/64; PULSE 56; TEMP 98.1
--- NOTE | 2019-10-10 14:52 | PN ---
Progress Note, Physician History of Present Illness: Pt seen and examined at bedside. She is awake and alert. She denies shortness of breath. - Current Medication List Current Medications: Active Medications Amlodipine Besylate (Norvasc -) 10 mg PO DAILY [facility] Last Admin: 10/10/19 10:06 Dose: 10 mg Aspirin (Asa -) 81 mg PO DAILY [facility] Last Admin: 10/10/19 10:06 Dose: 81 mg Docusate Sodium (Colace -) 100 mg PO TID [facility] Last Admin: 10/10/19 14:06 Dose: 100 mg Ferrous Sulfate (Feosol -) 325 mg PO DAILY [facility] Last Admin: 10/10/19 10:07 Dose: 325 mg Furosemide (Lasix -) 40 mg PO BID@0600,1400 [facility] Last Admin: 10/10/19 14:06 Dose: 40 mg Heparin Sodium (Porcine) (Heparin -) 5,000 unit SQ BID [facility] Last Admin: 10/10/19 10:06 Dose: 5,000 unit Hydralazine HCl (Apresoline -) 75 mg PO TID [facility] Last Admin: 10/10/19 14:06 Dose: 75 mg Insulin Aspart (Novolog Vial Sliding Scale -) 1 vial SQ ACHS [facility]; Protocol Last Admin: 10/10/19 11:33 Dose: 2 units Insulin Detemir (Levemir Vial) 15 units SQ AM [facility] Last Admin: 10/10/19 06:20 Dose: 15 units Isosorbide Mononitrate (Imdur -) 30 mg PO DAILY [facility] Last Admin: 10/10/19 10:07 Dose: 30 mg Metoprolol Tartrate (Lopressor -) 50 mg PO BID [facility] Last Admin: 10/10/19 10:07 Dose: 50 mg Pantoprazole Sodium (Protonix -) 20 mg PO DAILY [facility] Last Admin: 10/10/19 10:06 Dose: 20 mg - Objective Vital Signs: Vital Signs Temperature 98.1 F 10/10/19 14:38 Pulse Rate 56 L 10/10/19 14:38 Respiratory Rate 18 10/10/19 14:38 Blood Pressure 140/64 10/10/19 14:38 O2 Sat by Pulse Oximetry (%) 98 10/09/19 22:00 Constitutional: Yes: Calm Eyes: Yes: Conjunctiva Clear HENT: Yes: Atraumatic Neck: Yes: Supple Cardiovascular: Yes: S1, S2 Respiratory: Yes: CTA Bilaterally Gastrointestinal: Yes: Soft Genitourinary: Yes: WNL Musculoskeletal: Yes: WNL Edema: No Integumentary: Yes: WNL Neurological: Yes: Oriented Psychiatric: Yes: Oriented Labs: CBC, BMP 10/08/19 08:40 10/10/19 11:20 INR, PTT INR 0.94 (0.83-1.09) 10/04/19 07:50 Problem List - Problems (1) Acute on chronic diastolic (congestive) heart failure Code(s): I50.33 - ACUTE ON CHRONIC DIASTOLIC (CONGESTIVE) HEART FAILURE (2) ARF (acute renal failure) Code(s): N17.9 - ACUTE KIDNEY FAILURE, UNSPECIFIED (3) Abdominal pain Code(s): R10.9 - UNSPECIFIED ABDOMINAL PAIN Qualifiers: Abdominal location: unspecified location Qualified Code(s): R10.9 - Unspecified abdominal pain (4) Acute renal insufficiency Code(s): N28.9 - DISORDER OF KIDNEY AND URETER, UNSPECIFIED Assessment/Plan Current Medications Generic Name Dose Route Start Last Admin Trade Name Juanq PRN Reason Stop Dose Admin Amlodipine Besylate 10 mg 10/05/19 10:00 10/10/19 10:06 Norvasc - PO 10 mg DAILY ECHO Administration Aspirin 81 mg 10/05/19 10:00 10/10/19 10:06 Asa - PO 81 mg DAILY ECHO Administration Docusate Sodium 100 mg 10/04/19 22:00 10/10/19 14:06 Colace - PO 100 mg TID ECHO Administration Ferrous Sulfate 325 mg 10/05/19 10:00 10/10/19 10:07 Feosol - PO 325 mg DAILY ECHO Administration Furosemide 40 mg 10/07/19 06:00 10/10/19 14:06 Lasix - PO 40 mg BID@0600,1400 ECHO Administration Heparin Sodium (Porcine) 5,000 unit 10/04/19 22:00 10/10/19 10:06 Heparin - SQ 5,000 unit BID ECHO Administration Hydralazine HCl 75 mg 10/04/19 22:00 10/10/19 14:06 Apresoline - PO 75 mg TID ECHO Administration Insulin Aspart 1 vial 10/08/19 17:30 10/10/19 11:33 Novolog Vial Sliding Scale - SQ 2 units ACHS ECHO Administration Protocol Insulin Detemir 15 units 10/09/19 07:00 10/10/19 06:20 Levemir Vial SQ 15 units AM ECHO Administration Isosorbide Mononitrate 30 mg 10/05/19 10:00 10/10/19 10:07 Imdur - PO 30 mg DAILY ECHO Administration Metoprolol Tartrate 50 mg 10/08/19 10:00 10/10/19 10:07 Lopressor - PO 50 mg BID ECHO Administration Pantoprazole Sodium 20 mg 10/05/19 10:00 10/10/19 10:06 Protonix - PO 20 mg DAILY ECHO Administration Laboratory Tests 10/06/19 10/08/19 12:15 08:40 Hgb 8.5 L MCV 87.5 Stool Occult Blood Negative Impression 1. CKD 2. HTN 3. DM 4. bilateral hydro 5. anemia 6. CHF 7. fluid overload 8. proteinuria Plan - cont po lasix - discussed with oncology, they recommend procrit - will need outpt follow up - monitor hg - discussed with daughter
[2019-10-10] MEDS ORDERED: EPOETIN ALFA 2,000 UNIT/1 ML VIAL SQ ONE (15:15)
== END 2019-10-10 17:28 | disposition home or self-care (01) | DRG 194 ==
LOC: JER 05:53 → JERBED 11:29 → J6S 13:30
PROVIDERS: ADMIT Internal Medicine; ATTEND Internal Medicine
PROC: 30233N1 Transfusion of Nonautologous Red Blood Cells into Peripheral Vein, Percutaneous Approach (ICD-10-PCS; principal; 2019-10-06)
DX: I13.0 Hypertensive heart and chronic kidney disease with heart failure and stage 1 through stage 4 chronic kidney disease, or unspecified chronic kidney disease (principal); I50.33 Acute on chronic diastolic (congestive) heart failure; D50.0 Iron deficiency anemia secondary to blood loss (chronic); N13.30 Unspecified hydronephrosis; N18.9 Chronic kidney disease, unspecified; E87.70 Fluid overload, unspecified; K21.9 Gastro-esophageal reflux disease without esophagitis; E11.43 Type 2 diabetes mellitus with diabetic autonomic (poly)neuropathy; K31.84 Gastroparesis
CPT/HCPCS: 36415; 36430; 36511; 71045-TC-FY; 80053; 81003; 82272; 82550; 82553; 82607; 82668; 82728; 82746; 82962; 83036; 83540; 83550; 83880; 84443; 84484; 85025; 85044; 85610; 85651; 86140; 86850; 86900; 86901; 86922; 87086; 93005; 93010; 93306-TC; 99285-25; J0885; J1644; J1756; P9038; P9058